=== PATIENT | female | born 1940 | race Caucasian/White ===

== ENCOUNTER 2020-10-07 09:14 | Outpatient (CLI) | payer MEDICARE, SELFPAY ==
--- NOTE | 2020-10-07 09:23 | USCV_ITS ---
Mary Ponce Age: 79 Gender: F : 1940 Exam Date: 10/07/2020 09:41 Ordering Phys: Mason Braswell DO Technologist: Lupe Kee Exam Location: [facility] [place] Indication: DYSPNEA BP: / HR: Rhythm: Sinus Technical Quality: Technically difficult study MEASUREMENTS (Male / Female) Normal Values 2D ECHO LV Diastolic Diameter PLAX 3.8 cm 4.2 - 5.9 / 3.9 - 5.3 cm LV Systolic Diameter PLAX 2.2 cm IVS Diastolic Thickness 1.5 cm 0.6 - 1.0 / 0.6 - 0.9 cm IVS Systolic Thickness 2.0 cm LVPW Diastolic Thickness 1.8 cm 0.6 - 1.0 / 0.6 - 0.9 cm LVPW Systolic Thickness 2.2 cm LVOT Diameter 2.0 cm LV Ejection Fraction 2D Teich 74.2 % LV Ejection Fraction MOD 2C 64.4 % LV Ejection Fraction 2C AL 64.3 % LA Diameter 4.1 cm LA Width 3.5 cm LA Height 5.4 cm RA Width 2.9 cm RA Height 4.2 cm Aorta at Sinotubular Diameter 2.5 cm M-MODE Aortic Annulus Diameter 2.6 cm LA Ao Ratio MM 1.5 DOPPLER AV Peak Velocity 294.0 cm/s LVOT Peak Velocity 135.0 cm/s AV Area Cont Eq vti 1.3 cm squared AV Area Cont Eq pk 1.4 cm squared MV Area PHT 1.4 cm squared Mitral E to A Ratio 0.7 MV E' Velocity 59.5 cm/s Mitral E to MV E' Ratio 23.0 Mitral E to LV E' Lateral Ratio 20.2 Mitral E to LV E' Septal Ratio 27.5 TR Peak Velocity 236.2 cm/s TR Peak Gradient 22.3 mmHg Right Atrial Pressure 3.0 mmHg Pulmonary Artery Systolic Pressu 25.3 mmHg PV Peak Velocity 74.0 cm/s RV Acceleration Time 0.1 s RV Ejection Time 0.3 s RV AcT/ET 0.2 FINDINGS Left Ventricle Normal left ventricular cavity size. Increased left ventricular wall thickness. Moderate concentric left ventricular hypertrophy. Normal left ventricular systolic function. Left ventricular ejection fraction is estimated at 75 %. No regional wall motion abnormalities. Grade I diastolic dysfunction (abnormal relaxation filling pattern) with elevated filling pressures. Right Ventricle Normal right ventricular size and systolic function. Right ventricular systolic pressure 25.3 mmHg. Right Atrium Normal right atrial size. Right atrial pressure estimated at 3 mm Hg. Left Atrium Moderately increased left atrial size. Mitral Valve Severe mitral annular calcification. No mitral valve stenosis. Trace mitral valve regurgitation. Aortic Valve Thickened and calcified aortic valve. Moderate aortic valve stenosis, peak velocity 3 m/sec, peak gradient 37 mm Hg, mean gradient 23 mmHg, GIGI 1.3 cm squared. Moderate aortic valve regurgitation. Tricuspid Valve Tricuspid valve not well visualized. Trace to mild tricuspid valve regurgitation. Pulmonic Valve Pulmonic valve not well visualized. No pulmonary valve stenosis. Trace pulmonary valve regurgitation. Pericardium No pericardial effusion. Aorta Normal size aortic root and mild dilated proximal ascending aorta measured at 3.7 cm. Normal sized inferior vena cava with normal respiratory variation. CONCLUSIONS 1. Normal left ventricular cavity size. Moderate concentric left ventricular hypertrophy. Normal left ventricular systolic function. Left ventricular ejection fraction is estimated at 75 %. No regional wall motion abnormalities. Grade I diastolic dysfunction (abnormal relaxation filling pattern) with elevated filling pressures. 2. Moderate aortic valve stenosis, peak velocity 3 m/sec, peak gradient 37 mm Hg, mean gradient 23 mmHg, GIGI 1.3 cm squared. Moderate aortic valve regurgitation. 3. Mild dilated proximal ascending aorta measured at 3.7 cm. 4. Pulmonary artery pressure estimated at 25 mm Hg. 5. No prior similar studies to compare. Mariah Sousa MD (Electronically Signed) Final Date: 11 Oct 2020 14:57 S
== END 2020-10-07 09:15 | disposition home or self-care (01) ==
LOC: RAD 09:21
PROVIDERS: PCP Family Medicine; Visit Provider Family Medicine
DX: R06.00 Dyspnea, unspecified (principal); I10 Essential (primary) hypertension; I35.0 Nonrheumatic aortic (valve) stenosis
CPT/HCPCS: 93306

== ENCOUNTER → 2021-08-19 15:09 | Outpatient (BNVA) | payer MEDICARE, SELFPAY | PROVIDERS: PCP Family Medicine; Visit Provider Internal Medicine Cardiovascular Disease | DX: I35.0 Nonrheumatic aortic (valve) stenosis (principal); I10 Essential (primary) hypertension; F17.200 Nicotine dependence, unspecified, uncomplicated; R06.02 Shortness of breath; R53.83 Other fatigue; Z79.82 Long term (current) use of aspirin | CPT/HCPCS: 80048; 83880; 99214; 99215 ==

== ENCOUNTER → 2021-10-05 13:39 | Outpatient (BNVA) | payer MEDICARE, SELFPAY | PROVIDERS: PCP Family Medicine; Visit Provider Family Medicine | DX: J22 Unspecified acute lower respiratory infection (principal); E55.9 Vitamin D deficiency, unspecified; I10 Essential (primary) hypertension; E11.9 Type 2 diabetes mellitus without complications; M17.11 Unilateral primary osteoarthritis, right knee; M48.00 Spinal stenosis, site unspecified; M51.27 Other intervertebral disc displacement, lumbosacral region; D75.839 Thrombocytosis, unspecified | CPT/HCPCS: 80053; 83880; 85025; 86140 ==

== ENCOUNTER 2021-11-04 07:20 | Outpatient (CLI) | payer MEDICARE, SELFPAY ==
[2021-11-04 07:30] VITALS: BMI 38.0
--- NOTE | 2021-11-04 08:30 | USCV_ITS ---
Kris Mary Age: 80 Gender: F : 1940 Exam Date: 11/04/2021 07:52 Ordering Phys: Marizol Leiva MD ([email or web address]) Technologist: JAIDA Exam Location: [facility] – [place] Indication: / SOB BP: 154 / 80 HR: 70 Rhythm: Sinus Technical Quality: Technically difficult study MEASUREMENTS (Male / Female) Normal Values 2D ECHO LV Diastolic Diameter PLAX 4.6 cm 4.2 - 5.9 / 3.9 - 5.3 cm LV Systolic Diameter PLAX 2.6 cm IVS Diastolic Thickness 1.3 cm 0.6 - 1.0 / 0.6 - 0.9 cm IVS Systolic Thickness 1.8 cm LVPW Diastolic Thickness 1.3 cm 0.6 - 1.0 / 0.6 - 0.9 cm LVPW Systolic Thickness 2.0 cm RV Chamber Size 3.0 cm LVOT Diameter 2.0 cm LV Ejection Fraction 2D Teich 74.3 % LA Diameter 3.6 cm LA Width 3.7 cm LA Height 5.3 cm RA Width 3.2 cm RA Height 5.6 cm Aorta at Sinotubular Diameter 1.9 cm IVC Diameter 1.6 cm M-MODE Aortic Annulus Diameter 2.6 cm LA Ao Ratio MM 1.3 MV E Point Septal Separation 0.7 cm DOPPLER AV Peak Velocity 295.3 cm/s LVOT Peak Velocity 83.0 cm/s AV Area Cont Eq vti 0.9 cm squared AV Area Cont Eq pk 0.9 cm squared MV Peak Velocity 202.0 cm/s MV Area PHT 3.7 cm squared Mitral E to A Ratio 0.9 MV E' Velocity 78.5 cm/s Mitral E to MV E' Ratio 24.9 Mitral E to LV E' Lateral Ratio 29.1 Mitral E to LV E' Septal Ratio 22.0 TV Peak E Velocity 42.0 cm/s Right Atrial Pressure 3.0 mmHg PV Peak Velocity 90.0 cm/s RV Acceleration Time 0.1 s RV Ejection Time 0.3 s RV AcT/ET 0.3 FINDINGS Left Ventricle Normal left ventricular size and systolic function, EF 70%.no regional wall motion abnormalities. Right Ventricle Normal right ventricular size and systolic function. Right Atrium The right atrium is normal in size. Left Atrium Mildly increased left atrial size. Mitral Valve Thickened mitral valve. Moderate to heavy mitral annular calcification. Aortic Valve Severe low gradient aortic valve stenosis with a peak velocity of 3.06 m/s peak gradient of 36 8 mmHg and a mean gradient of 19 mmHg. Calculated valve area of 0.8 cm squire. The valve index of 0.40 Tricuspid Valve No gross abnormalities noted Pulmonic Valve Pulmonic valve not well visualized. Pericardium No pericardial effusion. Aorta Normal aortic annulus size. IVC Normal IVC dimension with >50% respiratory change of the inferior vena cava. CONCLUSIONS Severe low gradient aortic valve stenosis with a valve area of 0.86 cm squared. Peak velocity of 3.06 m/s ;peak gradient of 36 8 mmHg and a mean gradient of 19 mmHg. The valve index of 0.40. Normal left ventricular size and systolic function, EF 70%. No regional wall motion abnormalities. Mildly increased left atrial size. Thickened mitral valve with moderate to heavy mitral annular calcification. The PA pressure could not be evaluated because of the poor Doppler signals. Technically difficult study because of the poor ultrasonic window. Comparison with the previous study is difficult because of the difference in the technical quality. Dr Marizol Leiva MD [facility] (Electronically Signed) Final Date: 05 November 2021 16:52 S
--- NOTE | 2021-11-04 08:39 | ECG_ITS ---
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 Interpretive Statements NAME OF STUDY: LEXISCAN SESTAMIBI STRESS TEST INDICATION: Shortness of Breath, PROCEDURE: At the baseline, the EKG revealed normal sinus rhythm with a possible left atrial enlargement. Poor R wave progression. Possible old septal SD.. The baseline blood pressure was 111/82 mm Hg with a heart rate of 70 beats/min. Lexiscan was infused over a period of 20 seconds. A total of 0.4 milligrams of Lexiscan was infused. The stress phase was continued for a total of 5 minutes. Heart rate at the end of the stress phase was 79 with a blood pressure 97/74. The EKG at the peak infusion revealed no significant changes. Sestamibi was injected 20 seconds after the Lexiscan infusion. Blood pressure at the end of the recovery phase was 122/74 with a heart rate of 77 per minute. CONCLUSION: 1. No significant EKG changes with the LexiScan infusion 2. No LexiScan induced chest pain or cardiac arrhythmia 3. Normal blood pressure and heart rate response 4. Sestamibi/sestamibi perfusion scan pending; see separate report. Electronically Signed On 11-05-2021 15:01:20 CDT by Marizol Leiva M.D. [id number]
--- NOTE | 2021-11-04 08:40 | NMCV_ITS ---
NM bhumika perf SPECT r/s* [id number] Mary Ponce Age: 80 Gender: F : 1940 Exam Date: 11/04/2021 08:40 Ordering Phys: Marizol Leiva MD ([email or web address]) Technologist: MAO Beltran Exam Location: [facility] Indications: DYSPNEA ON EXERTION STRESS TEST Please see separate stress test report in [facility] for full findings IMAGE PROTOCOL Rest/Stress 1 Lexiscan Day Radiopharmaceutical Dose (mCi) Administration Site Administered by Rest: Tc-99m 10.7 IV MAO Knutson Sestamibi Stress:Tc-99m 33.0 IV MAO Knutson Sestamibi Rest: 04-Nov-2021 60 Discovery 630 Stress: 04-Nov-2021 30 Discovery 630 0.4mg Lexiscan. Supine position only as patient was unable to lay prone. SPECT RESULTS Technical Quality: Excellent Raw Data Analysis: Normal Image Corrections: No attenuation or motion correction applied Summed Stress Score: 1 Summed Rest Score: 0 Summed Difference Score: 1 PERFUSION FINDINGS A small area of slightly decreased tracer uptake was noted in the mid inferolateral region with some reversibility. FUNCTIONAL RESULTS (calculated via Gated SPECT) Stress Image LV EF (%): 78 Stress EDV (mL):85 TID: 1.14 Stress ESV (mL):19 FUNCTIONAL FINDINGS: Segmental wall motion analysis revealing no gross wall motion abnormalities IMPRESSIONS 1. Myocardial perfusion imaging revealing a small area of reversible defect was noted in the mid inferolateral region suggesting ischemia in the distribution of the left circumflex artery. Borderline elevation of the transient ischemic dilatation ratio also may suggest endocardial ischemia. 2. Normal LV ejection fraction 70%. 3. Segmental wall motion analysis revealing no gross wall motion abnormalities 4. Normal LV volume. Low probability for coronary ischemia, based on the above findings. No similar previous studies are available for comparison Dr Marizol Leiva MD [facility] (Electronically Signed) Final Date: 04 November 2021 17:12 S
[2021-11-04] MEDS: regadenoson 0.4 Mg/5 ml Syringe IVP (09:18)
[2021-11-04 10:03] VITALS: BP 122/74; PULSE 75
== END 2021-11-04 07:21 | disposition home or self-care (01) ==
PROVIDERS: PCP Family Medicine; Visit Provider Internal Medicine Cardiovascular Disease
DX: I08.0 Rheumatic disorders of both mitral and aortic valves (principal); R06.00 Dyspnea, unspecified
CPT/HCPCS: 78452; 93017; 93306; A9500; J2785

== ENCOUNTER → 2021-11-16 09:54 | Outpatient (BNVA) | payer MEDICARE, SELFPAY | PROVIDERS: PCP Family Medicine; Visit Provider Internal Medicine Cardiovascular Disease | DX: I35.0 Nonrheumatic aortic (valve) stenosis (principal); I10 Essential (primary) hypertension; R06.02 Shortness of breath; F17.200 Nicotine dependence, unspecified, uncomplicated | CPT/HCPCS: 36415; 80048; 83880; 85025; 85610; 86850; 86900; 99214; 99215 ==

== ENCOUNTER 2021-11-17 15:17 | Outpatient (CLI) | payer MEDICARE, SELFPAY ==
--- NOTE | 2021-11-17 15:26 | MR_ITS ---
WS: [id number] MRI LUMBAR SPINE NONCONTRAST HISTORY: SPINAL STENOSIS/HERNIATED DISC COMPARISON: None available. TECHNIQUE: Sagittal and axial multisequence imaging is submitted. Marked increase in the thoracic kyphosis. Component of cervical stenosis at C5-6. Increase in the lumbar lordosis. L4 anterolisthesis by 6 mm. L5 anterolisthesis by 4 mm. Advanced deg enerative disc disease L4-5 and L5-S1. Small amount of marrow edema along the endplates of L4 and L5. Conus terminates normally at L1-2 disc level. L1-L2: Moderate diffuse annular disc bulging with facet arthritis. Mild central, bilateral subarticul ar recess and foraminal stenosis. L2-L3: Diffuse annular disc bulging with facet and ligamentum flavum hypertrophy. Mild central, bilat eral foraminal and subarticular recess stenosis. L3-L4: Diffuse annular disc bulging with ligamentum flavum and facet arthritis. Central disc protrusi on. Additional LEFT foraminal disc protrusion contacting the exiting LEFT L3 nerve root. Moderate radu tral, bilateral subarticular recess and foraminal stenosis. L4-L5: Unroofing of the disc with diffuse annular disc bulging and severe facet and ligamentum flavum arthritis. Severe central, bilateral subarticular recess and foraminal stenosis. L5-S1: Mild annular disc bulging. Asymmetric to the LEFT. Broad-based LEFT foraminal disc protrusion along with a central disc protrusion. Mild central and bilateral subarticular recess stenosis. Most p rominent disc encroachment upon the LEFT L5 and S1 nerve roots. Paravertebral soft tissues are negative. MR/MR lumbar spine wo con* [id number] IMPRESSION: 1. Grade 1 spondylolisthesis of L4 and L5. Severe degenerative disc disease at L4-5 and L5-S1. 2. Moderate central, bilateral subarticular recess and foraminal stenosis at L 3-4 with most significant encroachment upon the LEFT L3 nerve root. 3. Severe central, bilateral subarticular recess and foraminal stenosis at L4- 5. 4. Mild central and bilateral subarticular recess stenosis. Most significant d isc encroachment upon the LEFT L5 and S1 nerve roots. 5. Mild central, bilateral subarticular recess and foraminal stenosis at L1-2 and L2-3.
== END 2021-11-17 15:18 | disposition home or self-care (01) ==
PROVIDERS: PCP Family Medicine; Visit Provider Family Medicine
DX: M48.00 Spinal stenosis, site unspecified (principal); M51.27 Other intervertebral disc displacement, lumbosacral region; M43.16 Spondylolisthesis, lumbar region; M51.36 Other intervertebral disc degeneration, lumbar region; M48.07 Spinal stenosis, lumbosacral region
CPT/HCPCS: 72148

== ENCOUNTER → 2021-11-30 13:59 | Outpatient (BNVA) | payer MEDICARE, SELFPAY | PROVIDERS: PCP Family Medicine; Referring Provider Family Medicine; Visit Provider Orthopaedic Surgery | DX: M54.16 Radiculopathy, lumbar region (principal); M48.061 Spinal stenosis, lumbar region without neurogenic claudication | CPT/HCPCS: 72100; 99204 ==

== ENCOUNTER 2021-12-08 09:11 | Outpatient (CLI) | payer MEDICARE, SELFPAY ==
[2021-12-08 09:50] LABS: Basophils % 0.4 %; Eosinophils # 0.6 10^3/uL (0.0-0.8); Eosinophils % 6.2 %; Lymphocytes # 1.6 10^3/uL (0.8-4.8); Lymphocytes % 16.5 %; Mean Corpuscular HGB Conc 30.8 g/dL (30.0-36.0); Mean Corpuscular Hemoglobin 28.8 pg (28.0-34.0); Mean Corpuscular Volume 93.8 fl (81-99); Mean Platelet Volume 9.5 fL (7.4-10.4); Monocytes # 0.9 10^3/uL (0.2-0.9); Monocytes % 8.9 %; Neutrophils # 6.41 10^3/uL (1.8-7.7); Neutrophils % 65.9 %; Nucleated Red Blood Cells % 0 %; Platelet Count 335 10^3/cmm (130-400); Red Blood Count 4.16 10^6/uL (4.1-5.3); Red Cell Distribution Width 15.9 % (12.1-15.1); White Blood Count 9.7 10^3/uL (4.0-10.0)
[2021-12-08 10:03] LABS: INR 1.04 (0.83-1.21); Prothrombin Time (Patient) 13.9 Seconds (12.0-15.1)
[2021-12-08 10:20] LABS: Anion Gap 13.2 (5-19); Blood Urea Nitrogen 20 mg/dL (8-23); Carbon Dioxide 29 mmol/L (22-29); Chloride 100 mmol/L (98-107); Glucose 115 mg/dL (65-115); Osmolality Calculated 288 mOsm/kg (285-295); Potassium 5.2 mmol/L (3.5-5.1); Sodium 137 mmol/L (136-145)
== END 2021-12-08 09:12 | disposition home or self-care (01) ==
LOC: LAB 09:19
PROVIDERS: PCP Family Medicine; Visit Provider Internal Medicine Cardiovascular Disease
DX: I10 Essential (primary) hypertension (principal); R06.02 Shortness of breath; R53.83 Other fatigue; Z01.812 Encounter for preprocedural laboratory examination
CPT/HCPCS: 36415; 80048; 85025; 85610; 86850; 86900

== ENCOUNTER 2021-12-09 08:20 | Observation (INO) | payer MEDICARE, SELFPAY ==
[2021-12-09] VITALS (40 sets, daily range): BP systolic 130–187; BP diastolic 68–100; PULSE 59–86; RESP 14–26; TEMP 36.7–36.8; O2SAT 94–95; BMI 38.6
--- NOTE | 2021-12-09 06:00 | XACV_ITS ---
Exam Room: 2 Ht: 160 cm Wt: 99 kg BSA: 2.15 m2 Gender: Female : 1940 Exam Priority: Routine Procedure(s): Procedure Description: Diagnostic procedure Procedure Description: Left Heart Catheterization Procedure Description: Right Heart Catheterization Procedure Description: O2 saturation Procedure Description: Coronary Angiography Cali LAURENT; Diagnostic Cath Status: Elective Diagnostic Findings * The left main is a medium to large caliber ectatic vessel with no significant stenotic lesions. * The left anterior descending artery is a medium caliber vessel which appears to wrap around the LV apex minimally. The proximal segment of the artery was found to be somewhat ectatic. 20 to 30% diffuse narrowing was noted in the mid segment of the artery. After the takeoff of the first diagonal branch, there was a 50% narrowing in the artery. Minimal intimal irregularities where noted throughout the distal segment. No significant stenotic lesions. * Left circumflex artery is a medium to large caliber ectatic vessel. Mild diffuse disease is noted in this vessel as well. No significant stenotic lesions were noted. The artery was found to be tortuous distally. * The right coronary artery is a medium caliber diffusely ectatic vessel with a mild diffuse intimal irregularities. No significant stenotic lesions were noted. Conclusions 1. 80-year-old vit F female with a history of aortic valve stenosis, high blood pressure, dyslipidemia presented with complaints of progressive shortness of breath. She was found to have a low gradient severe aortic valve stenosis. She had a Myocardial perfusion imaging which revealed elevated transient ischemic dilatation ratio. In view of the patient's worsening symptoms, in order to evaluate her coronary arteries and hemodynamics, a right and left heart catheterization with coronary angiogram was recommended. Patient underwent left and right heart catheterization with coronary angiogram today. The findings are as follows. 2. 1. Mild diffuse coronary artery disease. Diffusely ectatic proximal segment of all the arteries. 40 to 50% segmental narrowing of the mid LAD. Mild to moderate coronary calcification and tortuosity's were noted in all the vessels. The LVEDP was 20 mmHg. . 3. The right heart catheterization revealed a PA pressure of 77/28 with a mean of 45. RV pressure was 75/9. The right atrial mean pressure was 19. The pulmonary capillary wedge pressure was 21 mmHg. Cardiac output was 4 with an index of 2, based on Stephani's. 4. The left heart catheterization revealed the LVEDP of 20 mmHg. The mean gradient across the aortic valve was 31 mmHg with a peak to peak gradient of 26 mmHg. Diagnostic RX Recommendation: other cardiac therapy w/o CABG/PCI LV EDP: 20 mmHg Left Ventriculography Findings: * LV gram was not performed because of the limitation on the dye usage. Pressures Phase:Rest AO : 150 / 72 ( 101 ) @ 8:50:00 AM 125 / 74 ( 97 ) @ 8:53:00 AM 149 / 68 ( 99 ) @ 9:07:00 AM 154 / 60 ( 101 ) @ 9:07:00 AM LV : 174 / 2 / 20 @ 9:06:00 AM 174 / 1 / 19 @ 9:07:00 AM RV : 75 / 9 / 21 @ 8:28:00 AM PA : 77 / 28 ( 45 ) @ 8:25:00 AM RA : a wave = 25 v wave = 20 mean = 19 @ 8:30:00 AM PCW : a wave = 22 v wave = 22 mean = 21 @ 8:26:00 AM O2 Content Phase:Rest PA : O2 Content O2: 58.2 @ 8:50:00 AM Saturations Phase:Rest AO : 90 @ 9:07:00 AM RA : 64 @ 9:07:00 AM RV : 63 @ 8:53:00 AM PA : 58 @ 8:50:00 AM Cardiac Output Phase:Rest Stephani : 4 @ 8:12:39 AM Stephani Cardiac Index: 2 @ 8:12:39 AM Flow Phase:Rest Qp : 4 @ 8:12:39 AM Qs : 4 @ 8:12:39 AM Valves Phase:DefaultPhase AV : 26.0 @ 8:12:39 AM 26.0 @ 8:12:39 AM AV Mean Gradient: 31.0 @ 8:12:39 AM AV Flow: 183 @ 8:12:39 AM AV Area: 0.7 @ 8:12:39 AM AV Area Index: 0.37 @ 8:12:39 AM Clinical Evaluation EBL: 5mL-10mL Procedural Details Procedure Consent Obtained. Admit Source: Out Patient. Pre-Procedure Time Out. Identified patient by full name and date of as verbalized by the patient/guarantor. Does the consent match the physician's order: Yes. Accurate & Complete Informed Consent: Yes. Inpatient/Outpatient History & Physical on Chart: Yes. If H&P is completed, is and addenduem needed: N/A; If yes, is the addendum complete: N/A. Visualize and Verify Site with Patient/Guarantor: N/A. Relevant Radiology Images available: N/A. Pre-op teaching completed and patient verbalized understanding. The risks, benefits, and alternatives of sedation and/or procedure were discussed by physician. The patient agrees to continue. Procedure started. [facility] Clinical Fraility Score: 4: Vulnerable. 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 Chest Pain Symptom Assessment: Asymptomatic. Correct patient, site and procedure confirmed by cath team. Current diagnosis: Aortic valve stenosis. PERRLA. Strong, equal hand finishing manager bilaterally. Lungs clear x 5 lobes. IV Site on Arrival: 20 gauge in the left anticubital. IV Site on Arrival: 20 gauge in the right anticubital. IV Fluids: 0.9% NaCl at KVO. 0 mL infused prior to lab tester. Pre Procedural Pulses: bilateral radial was 2+. Pre Procedural Pulses: bilateral dorsalis pedis was 3+. right groin was prepped with chloroprep then draped in the usual sterile fashion. right brachial was prepped with chloroprep then draped in the usual sterile fashion. right radial was prepped with chloroprep then draped in the usual sterile fashion. Physician notified. Baseline sample Acquired. HR: 81 BPM. Physician arrived. Physician scrubbed in. Immediate Pre-Procedure Time Out. Correct Patient: Yes; Correct Procedure: Yes; Correct Site: Yes; Correct Patient Position: Yes; Correct Supplies: Yes; Dried Flammable Prep: Yes; Blood Products Available: N/A;. Lidocaine 1% infiltrated to the right brachial. Sheath wire inserted through IV catheter in R brachial vein. [place] MON catheter inserted. Hand injection performed through the SWAN catheter. [place] wire inserted. [place] wire removed. Pressure measurements obtained. [place] out. Lidocaine 1% infiltrated to the right radial. Arterial access obtained. AO sat obtained. Oxygen started at 2liters/min via nasal canula. A 5 belarusian Yobani catheter in over wire. Hand injection performed thought the catheter. Catheter out. Radial access aborted and switched to groin access. A TR Band was successful obtaining hemostatsis at the Right Radial artery insertion site. Lidocaine 1% infiltrated to the right groin. Arterial access obtained with micropuncture set. A 5 belarusian JL4 catheter in over wire. Multiple views taken of left coronary artery. Catheter removed over the standard wire. A 5 belarusian JR4 catheter in over wire. Multiple views taken of right coronary artery. Catheter removed over the standard wire. A 5 belarusian Angled Pig catheter in over wire. EDP Sample taken: LV 174/2,20; HR: 71 BPM; SpO2: 94%. Pullback taken: LV 174/1,19; AO 149/68(99); Mean: 31mmHg, Peak to Peak: 26mmHg, SEP: 20sec/min; HR: 72 BPM; SpO2: 96%. Physician scrubbed out. Patient's family updated. A Suture was successful obtaining hemostatsis at the Right Femoral artery insertion site. Total IV fluids: 115 mL. Post Procedure: Pulses reassessed and unchanged. PERRLA. Strong, equal hand finishing manager bilaterally. No VTE prophylaxis required. Medication's Wasted: Heparin = 2500 u. Medication's Wasted: Nitro = 49.8 mg. Medication's Wasted: Other = Fentanyl 75 mcg. Post-op diagnosis: Severe Pulmonary HTN, ,Aortic Stenosis. Complications: none. Estimated blood loss: 5mL-10mL. Responsiveness - Normal response to verbal stimuli; alert and oriented, PERRLA. Airway - Unaffected, no intervention required; spontaneous ventilation. Circulation: W/N/L, pulses unchanged. Nausea/Vomiting: No. Procedure completed. Patient transferred by bed to ICU. Vital chart was stopped. Access Site Site: Right Brachial Vein Sheath Size: 6 Fr Hemostasis Success: Unsuccessful Site: Right Radial artery Sheath Size: 6 Fr Hemostasis Method: TR Band Hemostasis Success: Successful Site: Right Femoral artery Sheath Size: 6 Fr Hemostasis Method: Suture Hemostasis Success: Successful Procedure Medications Start: 7:13 AM Stop: 7:13 AM Medication: Versed Amount: 1 mg Route: I.V. Start: 7:34 AM Stop: 7:34 AM Medication: Nitrogylcerin Amount: 100 mcg Route: I.A. Start: 7:36 AM Stop: 7:36 AM Medication: Verapamil Amount: 5 mg Route: I.A. Start: 7:37 AM Stop: 7:37 AM Medication: Nitrogylcerin Amount: 100 mcg Route: I.A. Start: 7:39 AM Stop: 7:39 AM Medication: Versed Amount: 1 mg Route: I.V. Start: 7:45 AM Stop: 7:45 AM Medication: Fentanyl Amount: 25 mcg Route: I.V. Start: 7:50 AM Stop: 7:50 AM Medication: Heparin Amount: 1500 units Route: I.V. I, the attending physician, have reviewed and verified all procedure medications. Yes, all medications given per verbal order History/Risk Factors Hypertension: Yes Dyslipidemia: No Peripheral Arterial Disease (PAD): No Myocardial Infarction (KS): No Obesity: Yes Renal Disease: No Tobacco Use: Current/Recent(w/in 1 year) Prior Interventions PCI: No CABG: No Valve Surgery: No Report Signatures Finalized by Dr Marizol Leiva MD [facility] on 12/09/2021 09:08 PM
[2021-12-09] MEDS: diphenhydrAMINE 50 mg Capsule PO (06:49)
--- NOTE | 2021-12-09 07:04 | W.PM.OPSUD ---
Surgery/Procedure H&P Update DATE OF PROCEDURE: December 09, 2021 DATE H&P PERFORMED: 11/16/21 H&P UPDATE INFORMATION: I have reviewed H&P completed within last 30 days, I have examined patient prior to procedure and No changes to prior documentation PREOP DIAGNOSIS: Aortic valve stenosis/ SOB PRIMARY INDICATION FOR PROCEDURE: SOB. abnormal MPI PLANNED PROCEDURE: Operation Date: 12/09/21 07:00 Proposed Procedures p Cardiac Catheterization(Bilateral) - Marizol Leiva MD PATIENT REASSESSED PRIOR TO SEDATION, WITH NO CHANGE NOTED: Yes PHYSICAL EXAM: alert, oriented x 3, clear to auscultation bilaterally and regular rate & rhythm AIRWAY EVAL/ANESTHESIA PLAN: normal airway, see other exam findings, ASA III, Monitored Anesthesia, Local Anesthesia, Risks, benefits & alternatives of sedation and/or procedure discussed and Patient agrees to continue as planned
[2021-12-09 07:47] LABS: ABG PCO2 42.5 mmHg (35-45); ABG PH Result 7.39 (7.35-7.45); Arterial Blood Gas Hematocrit 36.4 % (37-47); Base Excess ABG 0.2 mmol/L (-2.0-2.0); Blood Gas Operator Identificat CAK; Blood Gas Sample Type Not specified; HCO3 ABG 25.4 mmol/L (22-26); PO2 ABG 55.6 mmHg (80.0-100.0)
[2021-12-09 07:48] LABS: ABG PCO2 46.2 mmHg (35-45); ABG PH Result 7.36 (7.35-7.45); Arterial Blood Gas Hematocrit 32.9 % (37-47); Base Excess ABG 0.1 mmol/L (-2.0-2.0); Blood Gas Operator Identificat CAK; Blood Gas Sample Type Not specified; HCO3 ABG 25.9 mmol/L (22-26); PO2 ABG 32.3 mmHg (80.0-100.0)
[2021-12-09 07:50] LABS: ABG PCO2 45.8 mmHg (35-45); ABG PH Result 7.37 (7.35-7.45); Arterial Blood Gas Hematocrit 19.6 % (37-47); Base Excess ABG 0.8 mmol/L (-2.0-2.0); Blood Gas Operator Identificat CAK; Blood Gas Sample Type Not specified; HCO3 ABG 26.3 mmol/L (22-26); PO2 ABG 31.3 mmHg (80.0-100.0)
[2021-12-09 07:51] LABS: ABG PCO2 49.6 mmHg (35-45); ABG PH Result 7.35 (7.35-7.45); Arterial Blood Gas Hematocrit 35.9 % (37-47); Base Excess ABG 1.4 mmol/L (-2.0-2.0); Blood Gas Operator Identificat CAK; Blood Gas Sample Type Not specified; HCO3 ABG 27.6 mmol/L (22-26)
[2021-12-09 12:04] LABS: Partial Thromboplastin Time 28.8 SECONDS (23.9-36.7)
[2021-12-09] MEDS: dilTIAZem 30 mg Tablet PO (18:14)
[2021-12-09] MEDS: acetaminophen 500 mg Tablet 1000 MG PO (18:15)
== END 2021-12-09 18:00 | disposition home or self-care (01) ==
LOC: ICU 08:22
PROVIDERS: Admitting Provider Internal Medicine Cardiovascular Disease; PCP Family Medicine; Visit Provider Internal Medicine Cardiovascular Disease
DX: I25.10 Atherosclerotic heart disease of native coronary artery without angina pectoris (principal); I35.0 Nonrheumatic aortic (valve) stenosis; I10 Essential (primary) hypertension; E78.5 Hyperlipidemia, unspecified; E66.9 Obesity, unspecified; Z68.38 Body mass index [BMI] 38.0-38.9, adult
CPT/HCPCS: 36415; 82803; 85730; 93453; 93460; 96360; 99152; 99153; C1769; C1887; C1894; G0378; J1644; J2250; J3010; J3490; Q0163; Q9967

== ENCOUNTER → 2021-12-16 13:27 | Outpatient (BNVA) | payer MEDICARE, SELFPAY | PROVIDERS: PCP Family Medicine; Visit Provider Nurse Practitioner Family | DX: I35.0 Nonrheumatic aortic (valve) stenosis (principal) | CPT/HCPCS: 99214 ==

== ENCOUNTER → 2021-12-27 08:45 | Outpatient (BNVA) | payer MEDICARE, SELFPAY | PROVIDERS: PCP Family Medicine; Visit Provider Anesthesiology Pain Medicine | DX: M43.16 Spondylolisthesis, lumbar region (principal); M79.604 Pain in right leg; M79.605 Pain in left leg; F17.210 Nicotine dependence, cigarettes, uncomplicated; M51.17 Intervertebral disc disorders with radiculopathy, lumbosacral region; M47.816 Spondylosis without myelopathy or radiculopathy, lumbar region; M48.062 Spinal stenosis, lumbar region with neurogenic claudication | CPT/HCPCS: 99205 ==

== ENCOUNTER → 2022-01-27 10:23 | Outpatient (BNVA) | payer MEDICARE, SELFPAY | PROVIDERS: PCP Family Medicine; Visit Provider Anesthesiology Pain Medicine | DX: M51.17 Intervertebral disc disorders with radiculopathy, lumbosacral region (principal); M48.062 Spinal stenosis, lumbar region with neurogenic claudication; M47.816 Spondylosis without myelopathy or radiculopathy, lumbar region; M43.16 Spondylolisthesis, lumbar region; M79.604 Pain in right leg; M79.605 Pain in left leg; F17.210 Nicotine dependence, cigarettes, uncomplicated | CPT/HCPCS: 99213 ==

== ENCOUNTER → 2022-02-01 15:22 | Outpatient (BNVA) | payer MEDICARE, SELFPAY | PROVIDERS: PCP Family Medicine; Visit Provider Internal Medicine Cardiovascular Disease | DX: J06.9 Acute upper respiratory infection, unspecified (principal); R06.02 Shortness of breath; I35.0 Nonrheumatic aortic (valve) stenosis; I10 Essential (primary) hypertension; F17.210 Nicotine dependence, cigarettes, uncomplicated; R53.83 Other fatigue | CPT/HCPCS: 80048; 83880; 99214 ==

== ENCOUNTER → 2022-03-28 10:42 | Outpatient (BNVA) | payer MEDICARE, SELFPAY | PROVIDERS: PCP Family Medicine; Visit Provider Anesthesiology Pain Medicine | DX: M48.062 Spinal stenosis, lumbar region with neurogenic claudication (principal); M54.16 Radiculopathy, lumbar region; M47.816 Spondylosis without myelopathy or radiculopathy, lumbar region; M25.561 Pain in right knee; M25.562 Pain in left knee; M43.16 Spondylolisthesis, lumbar region; F17.210 Nicotine dependence, cigarettes, uncomplicated | CPT/HCPCS: 99214 ==

== ENCOUNTER → 2022-06-16 14:11 | Outpatient (BNVA) | payer MEDICARE, SELFPAY | PROVIDERS: PCP Family Medicine; Visit Provider Nurse Practitioner Family | DX: I35.0 Nonrheumatic aortic (valve) stenosis (principal); I10 Essential (primary) hypertension; F17.210 Nicotine dependence, cigarettes, uncomplicated | CPT/HCPCS: 99214 ==

== ENCOUNTER → 2022-06-22 13:56 | Outpatient (BNVA) | payer MEDICARE, SELFPAY | PROVIDERS: PCP Family Medicine; Visit Provider Anesthesiology Pain Medicine | DX: M17.11 Unilateral primary osteoarthritis, right knee (principal) | CPT/HCPCS: 20610 ==

== ENCOUNTER → 2022-07-19 09:50 | Outpatient (BNVA) | payer MEDICARE, SELFPAY | PROVIDERS: PCP Family Medicine; Visit Provider Anesthesiology Pain Medicine | DX: M48.062 Spinal stenosis, lumbar region with neurogenic claudication (principal); M54.16 Radiculopathy, lumbar region; M47.816 Spondylosis without myelopathy or radiculopathy, lumbar region; M43.16 Spondylolisthesis, lumbar region; M25.569 Pain in unspecified knee | CPT/HCPCS: 99214 ==

== ENCOUNTER → 2022-08-22 08:59 | Outpatient (BNVA) | payer MEDICARE, SELFPAY | PROVIDERS: PCP Family Medicine; Visit Provider Anesthesiology Pain Medicine | DX: M25.561 Pain in right knee (principal); M25.562 Pain in left knee; M48.062 Spinal stenosis, lumbar region with neurogenic claudication; M54.16 Radiculopathy, lumbar region; M47.816 Spondylosis without myelopathy or radiculopathy, lumbar region; M43.16 Spondylolisthesis, lumbar region | CPT/HCPCS: 99214 ==

== ENCOUNTER → 2022-09-05 14:54 | Outpatient (BNVA) | payer MEDICARE, SELFPAY | PROVIDERS: PCP Family Medicine; Visit Provider Anesthesiology Pain Medicine | DX: M47.816 Spondylosis without myelopathy or radiculopathy, lumbar region (principal); M48.062 Spinal stenosis, lumbar region with neurogenic claudication | CPT/HCPCS: 64493; 64494; 64495; J3490 ==

== ENCOUNTER → 2022-09-19 11:14 | Outpatient (BNVA) | payer MEDICARE, SELFPAY | PROVIDERS: PCP Family Medicine; Visit Provider Anesthesiology Pain Medicine | DX: M25.561 Pain in right knee (principal); M25.562 Pain in left knee; M48.062 Spinal stenosis, lumbar region with neurogenic claudication; M54.16 Radiculopathy, lumbar region; M47.816 Spondylosis without myelopathy or radiculopathy, lumbar region; M43.16 Spondylolisthesis, lumbar region | CPT/HCPCS: 99214 ==

== ENCOUNTER → 2022-10-13 13:13 | Outpatient (BNVA) | payer MEDICARE, SELFPAY | PROVIDERS: PCP Family Medicine; Visit Provider Anesthesiology Pain Medicine | DX: M47.816 Spondylosis without myelopathy or radiculopathy, lumbar region (principal); M48.062 Spinal stenosis, lumbar region with neurogenic claudication | CPT/HCPCS: 64635; 64636; J1030 ==

== ENCOUNTER → 2022-10-27 12:57 | Outpatient (BNVA) | payer MEDICARE, SELFPAY | PROVIDERS: PCP Family Medicine; Visit Provider Anesthesiology Pain Medicine | DX: M47.816 Spondylosis without myelopathy or radiculopathy, lumbar region (principal); M48.062 Spinal stenosis, lumbar region with neurogenic claudication | CPT/HCPCS: 64635; 64636; J1030 ==

== ENCOUNTER → 2022-10-28 10:36 | Outpatient (BNVA) | payer MEDICARE, SELFPAY | PROVIDERS: PCP Family Medicine; Referring Provider Anesthesiology Pain Medicine; Visit Provider Student in an Organized Health Care Education/Training Program | DX: M17.0 Bilateral primary osteoarthritis of knee (principal) | CPT/HCPCS: 20610; 73560; 73565; 99204; J1100; J2795; J3301; J7325 ==

== ENCOUNTER → 2022-11-23 12:04 | Outpatient (BNVA) | payer MEDICARE, SELFPAY | PROVIDERS: PCP Family Medicine; Visit Provider Anesthesiology Pain Medicine | DX: M16.0 Bilateral primary osteoarthritis of hip (principal); M48.062 Spinal stenosis, lumbar region with neurogenic claudication; M25.561 Pain in right knee; M25.562 Pain in left knee; M54.16 Radiculopathy, lumbar region; M47.816 Spondylosis without myelopathy or radiculopathy, lumbar region; M43.10 Spondylolisthesis, site unspecified; M43.16 Spondylolisthesis, lumbar region; M25.559 Pain in unspecified hip | CPT/HCPCS: 73522; 99214 ==

== ENCOUNTER → 2022-12-06 11:02 | Outpatient (BNVA) | payer MEDICARE, SELFPAY | PROVIDERS: PCP Family Medicine; Visit Provider Anesthesiology Pain Medicine | DX: M54.16 Radiculopathy, lumbar region (principal); M47.816 Spondylosis without myelopathy or radiculopathy, lumbar region; M25.561 Pain in right knee; M25.562 Pain in left knee; M43.16 Spondylolisthesis, lumbar region; M16.0 Bilateral primary osteoarthritis of hip | CPT/HCPCS: 99214 ==

== ENCOUNTER → 2022-12-15 13:02 | Outpatient (BNVA) | payer MEDICARE, SELFPAY | PROVIDERS: PCP Family Medicine; Visit Provider Internal Medicine Cardiovascular Disease | DX: R06.02 Shortness of breath (principal); I10 Essential (primary) hypertension; Z79.899 Other long term (current) drug therapy; I35.0 Nonrheumatic aortic (valve) stenosis; J44.1 Chronic obstructive pulmonary disease with (acute) exacerbation; F17.210 Nicotine dependence, cigarettes, uncomplicated | CPT/HCPCS: 36415; 80048; 83880; 99214 ==

== ENCOUNTER 2022-12-23 12:02 | Outpatient (CLI) | payer MEDICARE, SELFPAY ==
--- NOTE | 2022-12-23 12:15 | USCV_ITS ---
Mary Ponce Age: 81 Gender: F : 1940 Exam Date: 12/23/2022 12:43 Ordering Phys: Marizol Leiva MD ([email or web address]) Technologist: JOVANNY Exam Location: [facility] – [place], [place] Indication: FOLLOW UP ON BP: 138 / 73 HR: 70 Rhythm: Sinus Technical Quality: Adequate MEASUREMENTS (Male / Female) Normal Values 2D ECHO LV Diastolic Diameter PLAX 4.2 cm 4.2 - 5.9 / 3.9 - 5.3 cm LV Systolic Diameter PLAX 2.7 cm LV Chamber Size 2.9 cm IVS Diastolic Thickness 1.4 cm 0.6 - 1.0 / 0.6 - 0.9 cm IVS Systolic Thickness 1.7 cm LVPW Diastolic Thickness 1.6 cm 0.6 - 1.0 / 0.6 - 0.9 cm LVPW Systolic Thickness 1.6 cm RV Chamber Size 2.3 cm LVOT Diameter 2.1 cm LV Ejection Fraction 2D Teich 66.4 % LV Ejection Fraction MOD 2C 66.8 % LV Ejection Fraction 2C AL 67.4 % LA Diameter 4.3 cm LA Width 3.4 cm LA Height 5.2 cm RA Width 3.5 cm RA Height 4.7 cm Aorta at Sinotubular Diameter 2.5 cm M-MODE Aortic Annulus Diameter 3.2 cm LA Ao Ratio MM 1.6 MV E Point Septal Separation 0.8 cm DOPPLER AV Peak Velocity 464.0 cm/s LVOT Peak Velocity 148.7 cm/s AV Area Cont Eq vti 1.2 cm squared AV Area Cont Eq pk 1.1 cm squared MV Area PHT 4.1 cm squared Mitral E to A Ratio 1.5 MV E' Velocity 63.0 cm/s Mitral E to MV E' Ratio 23.0 Mitral E to LV E' Lateral Ratio 53.9 Mitral E to LV E' Septal Ratio 14.6 TR Peak Velocity 223.0 cm/s TR Peak Gradient 19.9 mmHg TR Mean Velocity 166.3 cm/s TR Mean Gradient 13.5 mmHg TR Velocity Time Integral 54.3 cm TV Peak E Velocity 64.0 cm/s Right Atrial Pressure 3.0 mmHg Pulmonary Artery Systolic Pressu 22.9 mmHg RV Acceleration Time 0.1 s RV Ejection Time 0.3 s RV AcT/ET 0.2 FINDINGS Left Ventricle Normal left ventricular size and systolic function, EF 59 %. Mild left ventricular hypertrophy. No regional wall motion abnormalities. Grade III/IV diastolic dysfunction (restrictive filling pattern), severely elevated filling pressures. Right Ventricle Normal right ventricular size and systolic function. Right Atrium Mildly increased right atrial size. Left Atrium Mildly increased left atrial size. Mitral Valve Thickened mitral valve. Moderate mitral annular calcification. Aortic Valve Wilqnwgm-cd-cnbuej aortic valve stenosis. Peak velocity of 4.64 m/s with a peak gradient of 86 and a mean gradient of 40 mmHg. Aortic valve area was calculated to be 1.1 cm,.moderate aortic valve calcification. Tricuspid Valve Mild tricuspid valve regurgitation. Pulmonic Valve Pulmonic valve not well visualized. Pericardium Normal pericardium without effusion. Aorta Normal aortic annulus size. IVC Inferior vena cava not visualized. CONCLUSIONS Normal left ventricular size and systolic function, EF 59 %. Mild left ventricular hypertrophy. No regional wall motion abnormalities. Grade III/IV diastolic dysfunction (restrictive filling pattern), severely elevated filling pressures. Mild biatrial enlargement Thickened mitral valve. Moderate mitral annular calcification. Chpbxzke-to-rmgwpu aortic valve stenosis. Peak velocity of 4.64 m/s with a peak gradient of 86 and a mean gradient of 40 mmHg. Aortic valve area was calculated to be 1.1 cm,.moderate aortic valve calcification. Mild tricuspid valve regurgitation. Estimated pulmonary artery peak systolic pressure 23 mm of Hg. Mild tricuspid valve regurgitation. There is no pericardial effusion. There are no intracardiac masses. Compared to the study from 11/04/2021, there is worsening of the aortic valve stenosis Dr Marizol Leiva MD [facility] (Electronically Signed) Final Date: 23 December 2022 20:12 S
== END 2022-12-23 12:03 | disposition home or self-care (01) ==
LOC: RAD 12:04
PROVIDERS: PCP Family Medicine; Visit Provider Internal Medicine Cardiovascular Disease
DX: R06.09 Other forms of dyspnea (principal); I05.9 Rheumatic mitral valve disease, unspecified; I35.0 Nonrheumatic aortic (valve) stenosis; I07.1 Rheumatic tricuspid insufficiency
CPT/HCPCS: 93306

== ENCOUNTER → 2022-12-28 14:44 | Outpatient (BNVA) | payer MEDICARE, SELFPAY | PROVIDERS: PCP Family Medicine; Visit Provider Anesthesiology Pain Medicine | DX: M16.12 Unilateral primary osteoarthritis, left hip (principal) | CPT/HCPCS: 20610; 77002; J1030; J3490 ==

== ENCOUNTER → 2023-02-24 10:39 | Outpatient (BNVA) | payer MEDICARE, SELFPAY | PROVIDERS: PCP Family Medicine; Visit Provider Student in an Organized Health Care Education/Training Program | DX: M17.0 Bilateral primary osteoarthritis of knee | CPT/HCPCS: 20610; 99213; J3301 ==

== ENCOUNTER → 2023-05-02 09:02 | Outpatient (BNVA) | payer MEDICARE, SELFPAY | PROVIDERS: PCP Family Medicine; Visit Provider Anesthesiology Pain Medicine | DX: M48.062 Spinal stenosis, lumbar region with neurogenic claudication (principal); M25.561 Pain in right knee; M25.562 Pain in left knee; M54.16 Radiculopathy, lumbar region; M47.816 Spondylosis without myelopathy or radiculopathy, lumbar region; M43.10 Spondylolisthesis, site unspecified; M43.16 Spondylolisthesis, lumbar region; M17.0 Bilateral primary osteoarthritis of knee | CPT/HCPCS: 36415; 80053; 81001; 85025; 99214 ==

== ENCOUNTER 2023-05-11 14:58 | Outpatient (CLI) | payer MEDICARE, SELFPAY ==
--- NOTE | 2023-05-11 15:30 | CT_ITS ---
WS: [id number] CT RIGHT KNEE, NONCONTRAST TECHNIQUE: Noncontrast CT of the RIGHT knee to include the RIGHT hip and ankle. [facility] CLINICAL INFORMATION: RIGHT TOTAL KNEE ARTHROPLASTY-[facility] COMPARISON: None. DLP: [id number] scans at [facility] use at least one of these dose optimization techniques: automated e xposure control; mA and/or kV adjustment per patient size (includes targeted exams where dose is matc hed to clinical indication); or iterative reconstruction. FINDINGS: Osteopenia. Vascular calcification. Sigmoid diverticulosis. Tiny fat-containing umbilical hernia. Vas cular calcification. Advanced arthritis RIGHT knee with jagw-hs-izsa articulation in the medial joint compartment. Hypertrophic changes along the joint line. Hypertrophic patella. Small suprasellar effu arnulfo. Fatty atrophy involving the hamstring musculature. IMPRESSION: Images obtained for preoperative purposes.
== END 2023-05-11 14:59 | disposition home or self-care (01) ==
LOC: RAD 14:58
PROVIDERS: PCP Family Medicine; Visit Provider Student in an Organized Health Care Education/Training Program
DX: Z01.818 Encounter for other preprocedural examination (principal); M17.11 Unilateral primary osteoarthritis, right knee
CPT/HCPCS: 73700

== ENCOUNTER → 2023-05-16 14:24 | Outpatient (BNVA) | payer MEDICARE, SELFPAY | PROVIDERS: PCP Family Medicine; Visit Provider Family Medicine | DX: Z01.818 Encounter for other preprocedural examination (principal); Z79.899 Other long term (current) drug therapy | CPT/HCPCS: 81003; 87086 ==

== ENCOUNTER 2023-05-22 11:17 | Observation (INO) | payer MEDICARE, SELFPAY ==
--- NOTE | 2023-05-18 14:15 | SUR.PREOP ---
1399 Spoke with pt and she stated that did not want to go to urgent care on Monday for UA due to thinks that urine that was done 2 days ago might have been dirty and preferred and In and Out cath that could be done on Monday Spoke with JOSSUE Gross and stated that pt does not need to go to urgent care on Monday and will In and Out cath prior to surgery on Monday called pt to inform of this above matter and verbalized understanding
[2023-05-22] VITALS (33 sets, daily range): BP systolic 74–140; BP diastolic 38–83; PULSE 68–96; RESP 15–25; TEMP 36.4–36.7; O2SAT 90–99; BMI 39.8; BMI 42.6
--- NOTE | 2023-05-22 07:04 | P.HPUD_ITS ---
Surgery/Procedure H&P Update DATE OF PROCEDURE: May 22, 2023 DATE H&P PERFORMED: 05/02/24 H&P UPDATE INFORMATION: I have reviewed H&P completed within last 30 days, I have examined patient prior to procedure and No changes to prior documentation CHANGES TO PREVIOUS DOCUMENTATION: Patient's UA was treated appropriately outpatient discussed case with Dr. Romano at this point in time feels patient is safe to proceed as her previous positive urine was positive only for normal urogenital jonathan and no pathologic process. Will continue to proceed with surgical intervention patient understood and agreed with this and agrees to proceed. Patient also has received cardiac clearance from her e business specialist she is at a moderate to high risk will need to be monitored closely postoperatively for heart failure and other complications given her severe aortic stenosis. She understands and agrees to proceed all questions answered we will proceed with right total knee arthroplasty at this time. PREOP DIAGNOSIS: Right knee degenerative joint disease PRIMARY INDICATION FOR PROCEDURE: Right knee degenerative joint disease failed conservative treatment PLANNED PROCEDURE: Operation Date: 05/22/23 08:10 Proposed Procedures p Daljit Robot Total Knee Arthroplasty(Right) - Gil Landry DO
[2023-05-22 07:25] LABS: Basophils # 0.1 10^3/uL (0.0-0.1); Basophils % 1.2 %; Eosinophils # 0.4 10^3/uL (0.0-0.8); Eosinophils % 4.9 %; Hematocrit 40.9 % (36-47); Lymphocytes # 1.5 10^3/uL (0.8-4.8); Lymphocytes % 19.4 %; Mean Corpuscular Hemoglobin 29.9 pg (27-33); Mean Platelet Volume 9.8 fL (7.4-10.4); Monocytes # 0.9 10^3/uL (0.2-0.9); Monocytes % 11.3 %; Neutrophils # 4.76 10^3/uL (1.8-7.7); Neutrophils % 61.8 %; Nucleated Red Blood Cells % 0 %; Platelet Count 282 10^3/cmm (157-399); Red Blood Count 4.65 10^6/uL (3.85-5.65)
[2023-05-22] MEDS: lactated ringers 500 ML IV (07:25)
[2023-05-22 07:32] LABS: Add Urine Microscopic? NO; Charge for UA Resulting for Rev
[2023-05-22] MEDS: acetaminophen 1,000 MG/100 ML PIGGYBACK 400 MG IV ×3 (07:41→22:04)
[2023-05-22 07:44] LABS: Bilirubin Urine Neg (Negative); Blood Urine Neg (Negative); Glucose Urine UA Norm (Normal); Ketones Urine Negative (Negative); Leukocyte Esterase Urine Negative (Negative); Nitrate Urine Negative (Negative); Protein Urine Neg (Negative); Specific Gravity, Urine 1.015 (1.005-1.030); Urine Appearance Clear (CLEAR); Urine Color Yellow (Yellow); Urobilinogen Urine Norm (Negative); pH Urine 5 (5-7)
--- NOTE | 2023-05-22 08:08 | ANES.PREANE2 ---
Pre-Anesthetic Assessment Height/Weight: Height 1.6 m Weight 102.058 kg Temp Pulse Resp BP Pulse Ox O2 Del Method 97.5 F L 79 19 H 115/63 92 Room Air 05/22/23 07:51 05/22/23 07:51 05/22/23 07:51 05/22/23 07:51 05/22/23 07:51 05/22/23 07:58 Preop Diagnosis: Right knee degenerative joint disease Operation Date: 05/22/23 08:10 Proposed Procedures p Daljit Robot Total Knee Arthroplasty(Right) - Gil Landry, DO Was Beta Cyrus taken within 24 hours: N/A Was Clonidine taken within 24 hours: N/A Last intake: Intake Last Liquid Date 05/21/23 Last Liquid Time 21:00 Last Solid Date 05/21/23 Last Solid Time 21:00 Social Tobacco Exam alert, oriented x 3 and clear to auscultation bilaterally Airway Submandibular: within normal limits Cervical ROM: within normal limits Mallampati: Class III History/ROS No significant history except as noted and No significant complaints CV/HEM Hypertension and Murmur Mod-severe , EF 59% Anesthetic Plan ASA status: 3 Anesthesia: General and Regional (specify below) Other: Adductor canal block Risk of > 500 ml blood loss (7ml/kg in children): No Medications/Allergies Home Medications Medication Instructions Recorded Confirmed Last Taken Type aspirin 325 mg tablet 325 mg PO DAILY 11/27/20 05/18/23 05/16/23 History vitamins A,C,I-zpxq-tvgmgg 4,296 1 cap PO BID 05/31/21 05/22/23 05/21/23 History mcg-226 mg-90 mg capsule (ICaps AREDS) acetaminophen 500 mg tablet 1,000 mg PO Q6H PRN Pain 12/08/21 05/18/23 05/17/23 History (Tylenol Extra Strength) ibuprofen 800 mg tablet 800 mg PO Q6H PRN pain 12/08/21 05/18/23 05/16/23 History potassium chloride 8 mEq 8 meq PO DIRECTED PRN with 06/16/22 05/18/23 05/15/23 Rx tablet,extended release lasix #180 tabs diltiazem HCl 120 mg 120 mg PO DAILY #90 caps 10/17/22 05/22/23 05/22/23 Rx capsule,extended release 24 hr tizanidine 4 mg tablet 4 mg PO BID PRN muscle spasticity 05/02/23 05/18/23 05/11/23 Rx #60 tabs celecoxib 200 mg capsule (Celebrex) 200 mg PO DAILY PRN Pain, Mild 05/16/23 05/18/23 05/11/23 History sulfamethoxazole 800 1 tab PO BID 7 days #14 tabs 05/17/23 05/22/23 05/21/23 Rx mg-trimethoprim 160 mg tablet (Bactrim DS) allopurinol 100 mg tablet 200 mg PO DAILY 05/18/23 05/22/23 05/21/23 History coenzyme Q10 10 mg tablet 10 mg PO DAILY 05/18/23 05/18/23 05/18/23 History furosemide 20 mg tablet 20 mg PO DAILY PRN Edema 05/18/23 05/18/23 05/15/23 History lisinopril 20 mg tablet 20 mg PO DAILY 05/18/23 05/22/23 05/21/23 History Allergies Allergy/AdvReac Type Severity Reaction Status Date / Time metoprolol Allergy Unknown Unknown Verified 05/18/23 13:35 [facility] Anesthesia Medical History Heart murmur Severe pulmonary hypertension Claudication Aortic valve stenosis Smoking Hypertension Aortic stenosis Surgical History S/P tonsillectomy Family History Brother Myocardial infarct Mother Stroke Social History Smoking and tobacco/nicotine status: current every day tobacco/nicotine user cigarettes Packs smoked per day: 1 Alcohol intake: never Substance/Drug Use: never Data Anesthesia 05/22/23 07:05 05/22/23 07:59 Short CBC 05/22/23 Range/Units 07:05 WBC 7.70 (3.29-11.43) 10^3/uL Hgb 13.90 (11.27-16.99) g/dL Hct 40.9 (36-47) % MCV 88.0 (85-98) fl Plt Count 282 (157-399) 10^3/cmm Neut % (Auto) 61.8 % Neut # (Auto) 4.76 (1.8-7.7) 10^3/uL BMP 05/22/23 07:05 Sodium Cancelled Potassium Cancelled Chloride Cancelled Carbon Dioxide Cancelled BUN Cancelled Creatinine Cancelled Glucose Cancelled Calcium Cancelled Urine 05/22/23 Range/Units 07:14 Urine Color Yellow (Yellow) Urine Appearance Clear (CLEAR) Urine pH 5 (5-7) Ur Specific Vincent 1.015 (1.005-1.030) Urine Protein Neg (Negative) Urine Glucose (UA) Norm (Normal) Urine Ketones Negative (Negative) Urine Nitrate Negative (Negative) Urine Bilirubin Neg (Negative) Ur Leukocyte Esterase Negative (Negative) Blood Bank 05/22/23 07:05 Blood Type Cancelled Rho(D) Type Cancelled Antibody Screen Cancelled Cardiac Studies: Echocardiogram 12/23/22 Echocardiogram Ultrasound 10/07/20 Sestamibi Stress Test (Cardiology) 11/04/21
[2023-05-22] MEDS: ipratropium 0.5 mg/2.5 mL Neb INHALATION (08:22)
[2023-05-22] MEDS: albuterol 2.5 mg/3 mL Neb INHALATION (08:23)
[2023-05-22 08:25] LABS: Anion Gap 17.1 (5-19); Blood Urea Nitrogen 25 mg/dL (8-23); Carbon Dioxide 22 mmol/L (22-29); Chloride 103 mmol/L (98-107); Glucose 126 mg/dL (65-115); Osmolality Calculated 290 mOsm/kg (285-295); Potassium 5.1 mmol/L (3.5-5.1); Sodium 137 mmol/L (136-145)
[2023-05-22] MEDS: ceFAZolin 2,000 MG in sodium chloride 0.9% (plus) 50 ML 100 MG IV ×2 (08:37→17:03)
[2023-05-22] MEDS: tranexamic acid 1,000 mg/10mL SDV 1000 MG IV (09:18)
[2023-05-22] MEDS: ketorolac 30 mg/mL INJ XX (09:32)
[2023-05-22] MEDS: tranexamic acid 1,000 mg/10mL SDV 1000 MG XX (09:32)
[2023-05-22] MEDS: ROPivacaine 0.2% Premix 100 mL 200 MG INTRA-ARTI (09:32)
[2023-05-22] MEDS: EPINEPHrine 1 mg/mL INJ XX (09:32)
--- NOTE | 2023-05-22 09:46 | ANES.PROC ---
Anesthesia Procedures Procedure/Date: 05/22/23 R adductor canal block Procedure Narrative: pt tolerated well Nerve Block ^: Nerve Block 1: Main Anesthesia: general anesthesia Time Out Performed: Yes Consent: requested by attending/covering physician, risks and benefits reviewed and patient agrees to proceed Nerve block location: adductor canal (right) Anesthesia monitors applied: pulse oximetry, EKG, BP cuff and oxygen Nerve block position: supine Anesthetic Used: bupivacaine 0.5% Amount of anesthesia used (mL): 20 Ultrasound used to: other (ultrasound used) Nerve Stimulator Used?: No Interscalene/Femoral BLK: 4 stimuplex 21 g needle used for position and inplane approach Injection: neg aspiration of heme Patient Tolerated Procedure: well and no complications Complications: none
[2023-05-22] MEDS: vancomycin 1,000 MG SDV 1000 MG XX (10:31)
--- NOTE | 2023-05-22 10:42 | W.PM.BPON ---
Date of Procedure: 05/22/2023 Surgeon: Gil Landry DO Account Support Analyst(s): Mundo Landry PA-C Procedure(s) performed: Right total knee arthroplasty [facility] robotic assisted Findings of the procedure(s): Patient found to have severe right knee degenerative joint disease right total knee arthroplasty procedure went as planned with no complications. Estimated blood loss: 125 mL Specimen(s) removed: Tibia, femur and patellar bone cuts removed Post-operative diagnosis: Right knee degenerative joint disease
--- NOTE | 2023-05-22 10:52 | PM.OP ---
Operative Report Date of procedure: May 22, 2023 Surgeon: Gil Landry DO Terrazzo Worker: Mundo Landry PA-C: PA was necessary for assistance in this case with leg positioning retraction and protection of neurovascular structures as well as assistance in implantation wound closure and dressing application. Procedure: Preoperative diagnosis: Right knee degenerative joint disease Post-op diagnosis: Same Procedure done: Right total knee arthroplasty, cemented?robotic assisted Daljit Implants: [place] triathlon size 3 femur CR cemented?right [place] triathlon size? 2 tibia universal baseplate cemented Jeannine triathlon symmetric patella size 29mm Jeannine triathlon polyethylene 9mm Surgeon: Gil Landry DO Estimated blood loss: 125 mL Tourniquet 4minutes IV fluids: 1000 mL Urine output: 100mL Complications: None Condition: stable Disposition: floor Brief History: Patient is a 82-year-old female with with chronic?right knee degenerative joint disease.? Patient has been worked up in the outpatient setting in the orthopedic office at this point time through shared decision making given his jmjo-op-thle arthritis as well as failed conservative treatment, and pt would like to proceed with a?right total knee arthroplasty.? Through shared decision making elected to proceed with surgical intervention for?right total knee arthroplasty.? We talked about continued conservative treatment and surgical intervention as far as the?risk benefits complications alternatives surgical and nonsurgical treatment options.? At this point time understanding patient?risks with surgery he agrees to proceed with surgical intervention.? Once again??risk with surgery include but are not limited to make it better make it worse blood clot, heart attack, stroke, on the table, infection, injury to nerves or vessels, persistent pain, arthrofibrosis, implant failure.? Understanding these?risks patient agrees to proceed with surgical intervention consent was obtained in the office.? All questions answered. Procedure: Patient was seen and evaluated in the preoperative holding area.? Consent was?reviewed and signed with patient with plan for?right total knee arthroplasty.? All questions answered.? Correct extremity marked.? Patient seen and evaluated by the anesthesia department and once cleared for surgery was taken back to the operative suite.? Patient was placed into a supine position on the OR table.? All bony prominences were well-padded.? Patient was appropriately secured to the bed.? Patient underwent anesthesia per the anesthesia department.? Patient?received spinal anesthesia and? Morton catheter was placed.? A nonsterile tourniquet was applied to the?right thigh.? At this point in time a final timeout performed.? Patient?received appropriate preoperative antibiotics and TXA. Next the?right lower extremity was then prepped and draped in standard orthopedic fashion. Esmarch tourniquet was used exsanguinate the?right lower extremity.? Tourniquet was insufflated to 300 mmHg. A standard anterior incision was made over midline of the knee.? Sharp scalpel excision through skin and subcutaneous tissue full-thickness skin flaps were made.? Fascia was elevated off of the extensor?retinaculum was stable with medial parapatellar arthrotomy was then made.? The performed standard sequential?releases..? Immediately on entry into the joint patient was found to have severe eburnated bone and tricompartmental arthritic changes noted.? With significant osteophyte formation.? Next the the patella was then stuffed and the knee was then flexed.?? After just 4 minutes with tourniquet being up it was found to be a venous tourniquet and it was subsequently left down throughout the entirety of the case. Maritza was placed superiorly around the anterior aspect of the femur this was freed of synovium and I subsequently then placed by 2 femur pins to establish my femur arrays for the In2Games?robot.? These were then placed bicortically and? femur array was then appropriately secured with appropriate visualization.? Next attention was turned towards the tibial?rays.? These were then drilled sequentially bicortically in parallel fashion and intraincisional.? I then placed my guide as well as my tibial array on in place.? This was appropriately secured and had excellent visualization with the Daljit?robot.? Next the tibial checkpoint as well as femur checkpoint were then placed.? At this point time I then subsequently established my head center as well as my medial lateral malleoli as well as my checkpoints.? Next utilizing standard Daljit technology I then mapped out the appropriate points and confirmation points around the femur as well as the tibia in standard fashion.? Once this was then done I then?removed all osteophytes in preparation for dynamic testing.? All osteophytes were?removed as well as I?removed the ACL and the PCL was excised due to its significant tearing and degeneration noted.? At this point time the knee was brought into full extension and we performed our standard evaluation of our gap balancing stressing his ligaments and extension as well as flexion appropriate adjustments were made to have appropriate gap balancing in both flexion and extension.? This plan for final counts.? We get a preoperative plan evaluating our implants which was a size 3 femur and a size 2 tibia.? Next we brought in the In2G[employer]?robot and sequentially made our femur cuts.? All excess bony cuts were then?removed.? Finally we made our tibial cut.? Once this was done a standard PCL?retractor was then placed into this position I excised the medial and lateral meniscus.? The tibial cut was then subsequently?removed all excess bony debris was?removed.? I then utilized a lamina fondant cooker and?remove the posterior osteophytes.? At this point time sized the tibia and confirmed this was a size 2.? I utilized our blunt probe to establish?rotation of tibial implant.? Once this was done I then placed my tibia size 2 trial in appropriate position and then subsequently placed tibial pins to hold this into place placed a size 9 mm poly as well as a size 3 femur which was appropriately impacted in place knee was then subsequently brought into extension. Trials were then assessed,?this was stable with varus valgus stress in extension as well as had symmetrical translation when brought into flexion demonstrating symmetrical gaps. I had excellent balance gaps in flexion and extension with varus and valgus stresses.? At this point I was satisfied with these implants these were then verified and opened on the back table size 2 tibia, size 3 femur,? size 9 mm polythickness.? We did confirm appropriate gap balancing and stresses as well as alignment utilizing? Daljit and were satisfied with this plan.? ?At this point time with my trials in place I then towel clip the patella everted this made appropriate measurements subsequently utilizing freehand technique performed by patellar?resurfacing this was confirmed to be appropriate?resection and subsequently sized to be a 29 mm symmetric.? My drill peg guides were then clamped and appropriate position and appropriate position in the patella for appropriate tracking and parallel with the joint.? Pegs were drilled trial implant was placed and the knee was then subsequently?ranged and found to have excellent patellar tracking.? Femur pegs were then drilled.? Satisfied with our tibial placement?rotation I then utilized the keel punch and prepped the tibia.? At this point time all of our trial implants were?removed.? All checkpoints as well as guidepins and arrays were?removed and appropriate counts made.? The wound bed? was thoroughly irrigated and dried and prepped for cementation.? Cement was mixed on the back table.? Once cement was?ready this was then covered onto the tibia and the tibial baseplate was then impacted and all excess cement was?removed.? Next the polyethylene was then impacted into place on the tibial baseplate.? Next cement was placed onto the femur as well as under the femur implants and impacted in to place and all excess cement was extruded and?removed.? Knee was taken into full extension? to clear all excess cement was?removed.? Warm saline was placed over the joint.? I then towel clip patella and dried for cementation. cemented the patella into place.? This was all clamped and the cement was allowed to cure.? Thorough irrigation performed with pulse lavage.? I then placed my periarticular injection while the cement was curing.? Once cured the knee was taken through?range of motion and had excellent stability and gaps were balanced in flexion and extension.? Tourniquet was then deflated. hemostasis satisfactory with electrocautery.? Next I then subsequently closed the capsule with Ethibond suture as well as a?running strata fix suture.? Knee was then taken through?range of motion 30 times.? Next the skin was then closed in layered fashion of?running stratifix sutures of deep and subcutenous tissue and skin.? ?closed in flexion and Prineo glue was then placed over the incision this allowed to cure.? Incision was covered with Silverlon, with ABDs soft?roll and Malachi wrap.? Patient was then awakened from anesthesia and taken to PACU in stable condition. Disposition: Patient taken to PACU in stable condition will be admitted to the floor for pain control PT/OT weight-bear as tolerated?right lower extremity dressing changes as needed, DVT prophylaxis. Pain control. Patient will?receive appropriate postoperative antibiotics. patient will be seen today by the internal medicine team for medical management.? Patient will follow up with the office in 2 weeks.? Patient understands agrees with current plan.? All questions answered.
--- NOTE | 2023-05-22 11:11 | PM.PACU ---
PACU note Narrative: Patient is a 82-year-old female just underwent a right total knee arthroplasty. Pt transferred to PACU in stable condition. Dressing is dry. Patient is still lethargic from anesthesia and on BiPAP. Unable to do any further assessment outpatient Exam: somnolent, arousable Disposition: admitted
--- NOTE | 2023-05-22 11:43 | XRR_ITS ---
PROCEDURE INFORMATION: Exam: XR Right Knee Exam date and time: 05/22/2023 11:47 AM Age: 82 years old Clinical indication: Device placement; Joint replacement hardware; Prior surgery; Surgery date: Post-operative (0-2 days); Surgery type: RT total knee; Additional info: Post total knee TECHNIQUE: Imaging protocol: Radiologic exam of the right knee. Views: 1 or 2 views. COMPARISON: CT knee RT [facility] [id number] 05/11/2023 4:07 PM FINDINGS: Bones/joints: Intact well-aligned right total knee arthroplasty. No acute fracture. Knee effusion is present, containing trace gas. Soft tissues: There is soft tissue gas anterior to the knee consistent with recent surgery. Vasculature: Vascular calcification is present. XR/XR knee RT 1-2V [id number] IMPRESSION: Expected postoperative appearance of the knee with intact well-aligned total knee prosthesis.
[2023-05-22 11:54] LABS: ABG PH Result 7.22 (7.35-7.45); Alveolar-Arterial Oxygen Gradi 17.1 mmHg (5-10); Arterial Blood Gas Hematocrit 37.7 % (37-47); Base Excess ABG -7.2 mmol/L (-2.0-2.0); Blood Gas Operator Identificat glc; Blood Gas Sample Site Brachial, left; Blood Gas Sample Type Arterial; Carboxyhemoglobin 3.2 %THgb (0.4-20.1); HCO3 ABG 20.7 mmol/L (22-26); HGB O2 Sat 91.1 % (95-100); Ionized Calcium Level - ABG 1.2 mmol/L (1.1-1.4); Methemoglobin 0.7 % (0.4-1.5); Oxygen Device BIPAP; Oxygen Saturation ABG 94.7; PO2 FiO2 Ratio Arterial Blood 0; Potassium Level - ABG 4.3 mmol/L (3.5-5.0); Total Hemoglobin 12.3 g/dL (12-16)
[2023-05-22 12:04] LABS: Glucose Point of Care 96 mg/dL (70-110)
--- NOTE | 2023-05-22 13:34 | P.CONIM_ITS ---
Documented by User: erna Lennon 05/22/23 13:46 Providers/Reason For Consult 2 Consulting Physician/Specialty*: Braulio Del Cid MD Reason for Consult*: Medical management Requesting Physician: Gil Landry DO Attending Physician: Gil Landry DO Primary Care Provider: Mason Braswell DO History of Present Illness History of Present Illness Patient is 82-year-old female with a past medical history of Aortic stenosis, hypertension, COPD, right and left knee DJD who presents to the hospital for a right total knee arthroplasty performed by orthopedics today. Appreciate the consultation. previous medical history was obtained by family and patient at bedside. Patient denies any chest pain, abdominal pain, fever, chills, or weakness. Review of Systems 2 Narrative: Comprehensive 10 point ROS is negative except as noted in the HPI above. Medications/Allergies Home Medications Medication Instructions Recorded Confirmed Last Taken Type aspirin 325 mg tablet 325 mg PO DAILY 11/27/20 05/18/23 05/16/23 History vitamins A,C,O-hwdv-jbqbbr 4,296 1 cap PO BID 05/31/21 05/22/23 05/21/23 History mcg-226 mg-90 mg capsule (ICaps AREDS) acetaminophen 500 mg tablet 1,000 mg PO Q6H PRN Pain 12/08/21 05/18/23 05/17/23 History (Tylenol Extra Strength) ibuprofen 800 mg tablet 800 mg PO Q6H PRN pain 12/08/21 05/18/23 05/16/23 History potassium chloride 8 mEq 8 meq PO DIRECTED PRN with 06/16/22 05/18/23 05/15/23 Rx tablet,extended release lasix #180 tabs diltiazem HCl 120 mg 120 mg PO DAILY #90 caps 10/17/22 05/22/23 05/22/23 Rx capsule,extended release 24 hr tizanidine 4 mg tablet 4 mg PO BID PRN muscle spasticity 05/02/23 05/18/23 05/11/23 Rx #60 tabs celecoxib 200 mg capsule (Celebrex) 200 mg PO DAILY PRN Pain, Mild 05/16/23 05/18/23 05/11/23 History sulfamethoxazole 800 1 tab PO BID 7 days #14 tabs 05/17/23 05/22/23 05/21/23 Rx mg-trimethoprim 160 mg tablet (Bactrim DS) allopurinol 100 mg tablet 200 mg PO DAILY 05/18/23 05/22/23 05/21/23 History coenzyme Q10 10 mg tablet 10 mg PO DAILY 05/18/23 05/18/23 05/18/23 History furosemide 20 mg tablet 20 mg PO DAILY PRN Edema 05/18/23 05/18/23 05/15/23 History lisinopril 20 mg tablet 20 mg PO DAILY 05/18/23 05/22/23 05/21/23 History Allergies Allergy/AdvReac Type Severity Reaction Status Date / Time metoprolol Allergy Unknown Unknown Verified 05/18/23 13:35 PFSH Acute 2 PFSH: Medical History Heart murmur Severe pulmonary hypertension Claudication Aortic valve stenosis Smoking Hypertension Aortic stenosis Surgical History S/P tonsillectomy Family History Brother Myocardial infarct Mother Stroke Social History Smoking and tobacco/nicotine status: current every day tobacco/nicotine user cigarettes Packs smoked per day: 1 Alcohol intake: never Substance/Drug Use: never Vitals/I&O/Wt Last Vital Signs Temp 98.1 F 05/22/23 11:17 Pulse 81 05/22/23 13:02 Resp 19 H 05/22/23 13:02 BP 94/56 05/22/23 13:02 Pulse Ox 94 05/22/23 13:02 O2 Del Method BiPAP 05/22/23 13:02 O2 Flow Rate 10 05/22/23 13:02 FiO2 28 05/22/23 12:08 05/21/23 05/22/23 05/22/23 22:59 06:59 14:59 Intake Total 50 / 50 Output Total 225 / 225 Balance -175 / -175 Weight last 48 hrs Weight 102.058 kg Physical Exam 2 Narrative: General: Alert, able to answer questions appropriately, pleasant HEENT: Head normocephalic, neck supple, throat without erythema Lymph: No lymphadenopathy noted Chest normal to inspection Respiratory: Even respirations, clear lung sounds auscultation, on BiPAP from surgery Cardio: No murmur, regular rate and rhythm, pulses 2+ radial and dorsalis pedis bilateral. GI: Round, obese, active bowel sounds throughout : Deferred Skin: Right leg dressed with Malachi wrap. Cap refill to right lower extremity toes <3 seconds and able to move extremity. Neuro: Alert, oriented x 4, able to answer questions appropriately Urinary Catheter Management: Morton: Cath Placed During This Visit: yes Urinary Catheter Date of Insertion: 05/22/23 Urinary Catheter Time of Insertion: 09:00 Data 05/22/23 07:05 05/22/23 07:59 Other Labs: BUN 25, creatinine 1.2 ABG Interpretation 1: 05/22/23 11:44 ABG pH 7.22 L ABG pCO2 51.0 H ABG pO2 89.0 ABG HCO3 20.7 L ABG O2 Saturation 94.7 ABG Base Excess -7.2 L A&P Assessment and plan (1) Aortic stenosis: Qualifiers: Cardiac valve disease etiology: nonrheumatic Qualified Code(s): I35.0 - Nonrheumatic aortic (valve) stenosis (2) Hypertension: Qualifiers: Hypertension type: essential hypertension Qualified Code(s): I10 - Essential (primary) hypertension (3) Right knee DJD: Coding Level of Care Code 19640 Diagnoses Nonrheumatic aortic valve stenosis I35.0 Cardiac valve disease etiology: nonrheumatic Essential hypertension I10 Hypertension type: essential hypertension Right knee DJD M17.11 Time Spent (min) 57 Documented by User: Braulio Del Cid MD 05/22/23 13:54 History of Present Illness History of Present Illness Patient is 82-year-old female with a past medical history of Aortic stenosis, hypertension, COPD, right and left knee DJD who presents to the hospital for a right total knee arthroplasty performed by orthopedics today. Postoperatively, I saw her on the floor and she was on BiPAP. After visiting with anesthesia, recovery nurse, she was apparently sedated enough BiPAP was initiated. She had some hypercarbia. She was also hypotensive. All of this resolved as she became more awake. Although she did come to the floor on BiPAP, it is now been removed and she seems to be doing well without significant respiratory distress. She denies any chest pain, or shortness of breath currently. Appreciate the consultation. previous medical history was obtained by family and patient at bedside. Patient denies any chest pain, abdominal pain, fever, chills, or weakness. Was on Bactrim as an outpatient for concern of UTI, but culture is now back and appears contaminated, low growth multiple species superficial jonathan. Review of Systems 2 General: Reports: 10 or more systems reviewed and unremarkable except in HPI and below Card: Denies: chest pain Resp: Denies: dyspnea GI: Denies: abdominal pain Medications/Allergies Home Medications Medication Instructions Recorded Confirmed Last Taken Type aspirin 325 mg tablet 325 mg PO DAILY 11/27/20 05/18/23 05/16/23 History vitamins A,C,O-gpzm-ibqxpg 4,296 1 cap PO BID 05/31/21 05/22/23 05/21/23 History mcg-226 mg-90 mg capsule (ICaps AREDS) acetaminophen 500 mg tablet 1,000 mg PO Q6H PRN Pain 12/08/21 05/18/23 05/17/23 History (Tylenol Extra Strength) ibuprofen 800 mg tablet 800 mg PO Q6H PRN pain 12/08/21 05/18/23 05/16/23 History potassium chloride 8 mEq 8 meq PO DIRECTED PRN with 06/16/22 05/18/23 05/15/23 Rx tablet,extended release lasix #180 tabs diltiazem HCl 120 mg 120 mg PO DAILY #90 caps 10/17/22 05/22/23 05/22/23 Rx capsule,extended release 24 hr tizanidine 4 mg tablet 4 mg PO BID PRN muscle spasticity 05/02/23 05/18/23 05/11/23 Rx #60 tabs celecoxib 200 mg capsule (Celebrex) 200 mg PO DAILY PRN Pain, Mild 05/16/23 05/18/23 05/11/23 History sulfamethoxazole 800 1 tab PO BID 7 days #14 tabs 05/17/23 05/22/23 05/21/23 Rx mg-trimethoprim 160 mg tablet (Bactrim DS) allopurinol 100 mg tablet 200 mg PO DAILY 05/18/23 05/22/23 05/21/23 History coenzyme Q10 10 mg tablet 10 mg PO DAILY 05/18/23 05/18/23 05/18/23 History furosemide 20 mg tablet 20 mg PO DAILY PRN Edema 05/18/23 05/18/23 05/15/23 History lisinopril 20 mg tablet 20 mg PO DAILY 05/18/23 05/22/23 05/21/23 History Allergies Allergy/AdvReac Type Severity Reaction Status Date / Time metoprolol Allergy Unknown Unknown Verified 05/18/23 13:35 PFSH Acute 2 PFSH: Medical History Heart murmur Severe pulmonary hypertension Claudication Aortic valve stenosis Smoking Hypertension Aortic stenosis Surgical History S/P tonsillectomy Family History Brother Myocardial infarct Mother Stroke Social History Smoking and tobacco/nicotine status: current every day tobacco/nicotine user cigarettes Packs smoked per day: 1 Alcohol intake: never Substance/Drug Use: never Physical Exam 2 Urinary Catheter Management: Morton: Cath Placed During This Visit: yes Data 05/22/23 07:05 05/22/23 07:59 A&P Assessment and plan (1) Aortic stenosis: Patient has moderate to severe aortic stenosis Monitor closely for fluid overload Received approximately 1 L of fluids intraoperatively, EBL 125. At this point I will reduce her IV fluids to 50 cc an hour. If any evidence of fluid overload occurs may need to stop. CBC, BMP in the morning Qualifiers: Cardiac valve disease etiology: nonrheumatic Qualified Code(s): I35.0 - Nonrheumatic aortic (valve) stenosis (2) Hypertension: She is a little bit borderline hypotensive currently. Continue to hold her lisinopril. She did receive her diltiazem this morning. Hopefully this can be continued tomorrow, and will Riyad lisinopril when needed. Qualifiers: Hypertension type: essential hypertension Qualified Code(s): I10 - Essential (primary) hypertension (3) Right knee DJD: Directly postoperative, see above Plan Other medical problems as outlined by past medical history Thank you for this consult, we will continue to follow Consult Attestations 2 Medical Necessity Statement: As per primary Diagnoses Nonrheumatic aortic valve stenosis I35.0 Cardiac valve disease etiology: nonrheumatic Essential hypertension I10 Hypertension type: essential hypertension Right knee DJD M17.11 Time Spent (min) 57
[2023-05-22] MEDS: sodium chloride 0.9% 1,000 ML 100 ML IV (14:15)
[2023-05-22] MEDS: chlorhexidine gluconate 0.12% Btl 473 mL 30 ML MUCOUS MEM ×3 (14:17→22:03)
[2023-05-22] MEDS: lactated ringers 1,000 ML 50 ML IV (14:58)
[2023-05-22] MEDS: tranexamic acid 1,000 MG/100 ML PREMIX 600 MG IV (14:59)
--- NOTE | 2023-05-22 16:32 | ANE.PACU2 ---
Inpatient post-anesthesia follow up: Airway intact: Yes Vital signs: Temperature 98.0 F Pulse Rate 86 Respiratory Rate 15 Blood Pressure 101/67 Pulse Oximetry 92 Oxygen Delivery Me thod Nasal Cannula Oxygen Flow Rate 2.5 Fraction of Inspir ed Oxygen 28 Hydration adequate: Yes Nausea and vomiting: No Pain level: 2 Mental status: Baseline Additional Comments: Visited with patient on floor/unit. Doing well, converses easily. She states she already was up with PT, ambulated to window.
[2023-05-22] MEDS: TRAMadol 50 mg Tablet PO (18:19)
[2023-05-22] MEDS: mupirocin oint 22 gm 1 APPLIC NASAL (18:19)
[2023-05-22] MEDS: iron polysaccharide complex 150 mg Capsule PO (18:20)
[2023-05-22] MEDS: calcium carb-vit d 600mg/400unit 1 Tablet 1 EACH PO (18:20)
[2023-05-22] MEDS: docusate sodium 100 mg Capsule PO (18:20)
[2023-05-23] VITALS (11 sets, daily range): BP systolic 106–174; BP diastolic 58–81; PULSE 72–102; RESP 14–20; TEMP 36.4–36.9; O2SAT 85–95; BMI 42.6
[2023-05-23] MEDS: ceFAZolin 2,000 MG in sodium chloride 0.9% (plus) 50 ML 100 MG IV ×2 (00:29→08:06)
[2023-05-23] MEDS: nicotine 14 mg Patch 1 PATCH TRANSDERMA ×2 (02:01→15:28)
[2023-05-23] MEDS: acetaminophen 1,000 MG/100 ML PIGGYBACK 400 MG IV (05:41)
[2023-05-23] MEDS: TRAMadol 50 mg Tablet PO ×2 (05:53→20:39)
[2023-05-23 07:04] LABS: Basophils # 0.1 10^3/uL (0.0-0.1); Basophils % 0.6 %; Eosinophils # 0.4 10^3/uL (0.0-0.8); Eosinophils % 3.6 %; Hematocrit 35.7 % (36-47); Lymphocytes % 9.4 %; Mean Corpuscular HGB Conc 30.5 g/dL (30-55); Mean Corpuscular Hemoglobin 29.3 pg (27-33); Mean Platelet Volume 9.8 fL (7.4-10.4); Monocytes # 1.1 10^3/uL (0.2-0.9); Monocytes % 10.5 %; Neutrophils # 8.05 10^3/uL (1.8-7.7); Neutrophils % 75.2 %; Nucleated Red Blood Cells % 0 %; Platelet Count 225 10^3/cmm (157-399); Red Blood Count 3.72 10^6/uL (3.85-5.65); Red Cell Distribution Width 15.9 % (12.1-15.1); White Blood Count 10.69 10^3/uL (3.29-11.43)
[2023-05-23 07:19] LABS: Blood Urea Nitrogen 22 mg/dL (8-23); Carbon Dioxide 22 mmol/L (22-29); Chloride 103 mmol/L (98-107); Glucose 120 mg/dL (65-115); Osmolality Calculated 285 mOsm/kg (285-295); Sodium 135 mmol/L (136-145)
[2023-05-23] MEDS: docusate sodium 100 mg Capsule PO ×2 (08:09→17:19)
[2023-05-23] MEDS: allopurinol 100 mg Tablet 200 MG PO (08:09)
[2023-05-23] MEDS: apixaban 5 mg Tablet 2.5 MG PO ×2 (08:09→17:19)
[2023-05-23] MEDS: multivitamin therapeutic Tablet 1 TAB PO (08:10)
[2023-05-23] MEDS: calcium carb-vit d 600mg/400unit 1 Tablet 1 EACH PO ×2 (08:10→17:19)
[2023-05-23] MEDS: chlorhexidine gluconate 0.12% Btl 473 mL 30 ML MUCOUS MEM ×4 (08:10→20:39)
[2023-05-23] MEDS: mupirocin oint 22 gm 1 APPLIC NASAL ×2 (08:10→17:20)
[2023-05-23] MEDS: aspirin 81 mg EC Tablet PO (08:10)
[2023-05-23] MEDS: iron polysaccharide complex 150 mg Capsule PO ×2 (08:10→17:19)
--- NOTE | 2023-05-23 09:37 | PC.CHAP ---
Pastoral Care Encounter/Spiritual Assessment Type of Contact [] Declined seismic engineer visit [] Patient/Family/Request visit [] Outpatient visit [] Follow-up visit [] Physician referral [] Code/Alert [] Routine visit [] Staff referral [] Actively dying [] Patient sleeping [] Family support [] [] Out of room [] Palliative care [] [x] Receiving care in room [] Pre-surgical visit [] Trauma [] Long length of stay [] ICU visit [] Other: Relational/Emotional Strength [] Patient feels connected with others/family/visitors/staff [] Distress [] Loneliness/isolation [] Abandonment Spirituality of Patient [] Person of Kristen [] Attends Shinto of their Kristen [] Believes in Prayer [] Reads Bible or Hoahaoism materials [] There are Spiritual issues to be addressed Home Therapy Teacher Interventions [] Prayer [] Active listening [] Non-anxious presence [] Spiritual/emotional support [] Crisis/trauma care [] Spiritual counseling [] Bereavement support [] Provided bereavement packet [] Provided Bible/devotional materials [] Provided toy/stuffed animal, coloring book to patient or family member [] Provided Communion [] Anointing/[place] [] Salvation [] Completed spiritual assessment [] Other: Impact on Illness or Injury [] Angry [] Fearful [] Anxious [] Often cries [] Exhaustion [] Unable to work [] Unable to attend zoroastrian [] Unable to walk/stand [] Unable to read [] Unable to drive [] Unable to eat/drink [] Unable to sleep [] Unable to be with family [] Patient intubated [] Other: Summary Time spent with patient
[2023-05-23] MEDS: FUROsemide 10 mg/mL SDV 2mL 20 MG IVP (10:10)
--- NOTE | 2023-05-23 10:45 | P.PN_ITS ---
Subjective 2 Subjective: Feeling okay this morning. Wonders when she will go home. Denies any chest pain. Feels short of breath when she moves around. Medications: Reviewed: Yes Vitals/I&O/Wt Last Vital Signs Temp 98.0 F 05/23/23 07:41 Pulse 80 05/23/23 08:45 Resp 14 05/23/23 08:45 BP 133/80 05/23/23 07:41 Pulse Ox 92 05/23/23 08:45 O2 Del Method Nasal Cannula 05/23/23 08:45 O2 Flow Rate 2 05/23/23 08:45 FiO2 28 05/22/23 12:08 05/22/23 05/23/23 05/23/23 22:59 06:59 14:59 Intake Total 1050 / 1816.667 270 / 2086.667 1190 / 1190 Output Total 1400 / 1625 Balance 1050 / 1591.667 -1130 / 651.285 0479 / 1190 Weight last 48 hrs Weight 109.134 kg Weight 113.126 kg Weight 109.117 kg Weight 102.058 kg Physical Exam 2 Narrative: General: No distress Cardiovascular regular rate and rhythm with a 3/6 systolic murmur heard best in aortic area Lungs a few crackles at the bases Abdomen soft Extremities no sinus clubbing edema, dressing clean dry Urinary Catheter Management: Morton: Cath Placed During This Visit: yes, but has since been removed by the nurse Reason for Continuing Indwelling Catheter: Decision to DC Catheter Urinary Catheter Date of Insertion: 05/22/23 Urinary Catheter Time of Insertion: 09:00 Date Urinary Catheter Removed: 05/23/23 Time Urinary Catheter Discontinued: 06:50 Data 05/23/23 06:23 05/23/23 06:23 A&P Assessment and plan (1) Aortic stenosis: Patient has moderate to severe aortic stenosis Requiring 2 L of oxygen. Give Lasix 20 mg IV x 1. She has some minor crackles. I suspect following that she will be able to wean off oxygen. Discontinue IV fluids CBC, BMP in the morning Qualifiers: Cardiac valve disease etiology: nonrheumatic Qualified Code(s): I35.0 - Nonrheumatic aortic (valve) stenosis (2) Hypertension: Stable this morning. Can resume lisinopril tomorrow. Can resume her Cardizem tomorrow. Qualifiers: Hypertension type: essential hypertension Qualified Code(s): I10 - Essential (primary) hypertension (3) Right knee DJD: Directly postoperative, see above Plan Other medical problems as outlined by past medical history Thank you for this consult, we will continue to follow Attestations 2 Medical Necessity Statement*: As per primary Diagnoses Nonrheumatic aortic valve stenosis I35.0 Cardiac valve disease etiology: nonrheumatic Essential hypertension I10 Hypertension type: essential hypertension Right knee DJD M17.11 Time Spent (min) 26
[2023-05-23] MEDS: oxyCODONE 5 mg IR Tab/Cap PO ×3 (12:31→23:42)
--- NOTE | 2023-05-23 13:18 | P.PN_ITS ---
Subjective 2 Subjective: Patient seen and examined today she is doing well she is progressed appropriately with therapy. She still only requiring 2 L O2 nasal cannula. Hospitalist has given patient's Lasix and waiting to see her response if she get to room air would recommend discharge. Will continue to monitor she stable for discharge from orthopedic standpoint. Vitals/I&O/Wt Last Vital Signs Temp 98.3 F 05/23/23 11:30 Pulse 92 05/23/23 11:30 Resp 16 05/23/23 12:31 BP 111/71 05/23/23 11:30 Pulse Ox 93 05/23/23 12:31 O2 Del Method Nasal Cannula 05/23/23 11:30 O2 Flow Rate 2 05/23/23 08:45 FiO2 28 05/22/23 12:08 05/22/23 05/23/23 05/23/23 22:59 06:59 14:59 Intake Total 1050 / 1816.667 270 / 2086.667 1190 / 1190 Output Total 1400 / 1625 Balance 1050 / 1591.667 -1130 / 144.920 3226 / 1190 Weight last 48 hrs Weight 240 lb 9.6 oz Weight 249 lb 6.4 oz Weight 240 lb 9 oz Weight 225 lb Physical Exam 2 Narrative: Dressing to the right knee is clean dry and intact with Malachi bandage on in place jay dressing on and in place she is able to flex and extend at the knee and able to flex to roughly 90 degrees today able to wiggle toes plantar flex and dorsiflex ankle. Urinary Catheter Management: Morton: Cath Placed During This Visit: yes, but has since been removed by the nurse Reason for Continuing Indwelling Catheter: Decision to DC Catheter Urinary Catheter Date of Insertion: 05/22/23 Urinary Catheter Time of Insertion: 09:00 Date Urinary Catheter Removed: 05/23/23 Time Urinary Catheter Discontinued: 06:50 Data 05/23/23 06:23 05/23/23 06:23 A&P Assessment and plan (1) Status post total right knee replacement: Plan Weight-bear as tolerated right lower extremity Pain control DVT prophylaxis Nasal cannula 2 L O2?being managed by hospitalist Hospitalist on board for medical management Postop x-rays reviewed PT/OT Ice as needed Stable for discharge from orthopedic standpoint Spoke with hospitalist would recommend keeping patient if she is unable to get back to room air we will continue to see how she responds to treatment with Lasix today. Possible discharge later this evening versus tomorrow. All questions answered. Attestations 2 Medical Necessity Statement*: For ongoing care status post right total knee arthroplasty Coding Level of Care Code Acute Code for Chg Fwd Diagnoses Status post total right knee replacement Z96.651
[2023-05-23] MEDS: acetaminophen 500 mg Tablet 1000 MG PO (20:39)
[2023-05-24] VITALS (7 sets, daily range): BP systolic 107–131; BP diastolic 68–83; PULSE 91–100; RESP 17–19; TEMP 36.5–37.2; O2SAT 85–97
[2023-05-24 06:17] LABS: Basophils # 0.1 10^3/uL (0.0-0.1); Basophils % 0.7 %; Eosinophils # 0.4 10^3/uL (0.0-0.8); Eosinophils % 4.3 %; Lymphocytes # 1.2 10^3/uL (0.8-4.8); Mean Corpuscular HGB Conc 31.1 g/dL (30-55); Mean Corpuscular Hemoglobin 29.5 pg (27-33); Mean Corpuscular Volume 94.6 fl (85-98); Mean Platelet Volume 9.8 fL (7.4-10.4); Monocytes # 1.2 10^3/uL (0.2-0.9); Monocytes % 12.5 %; Neutrophils # 6.44 10^3/uL (1.8-7.7); Neutrophils % 68.4 %; Nucleated Red Blood Cells % 0 %; Platelet Count 230 10^3/cmm (157-399); Red Cell Distribution Width 15.5 % (12.1-15.1); White Blood Count 9.43 10^3/uL (3.29-11.43)
[2023-05-24 06:36] LABS: Chloride 98 mmol/L (98-107); Potassium 4.8 mmol/L (3.5-5.1); Sodium 132 mmol/L (136-145)
[2023-05-24 06:56] LABS: Anion Gap 13.8 (5-19); Blood Urea Nitrogen 17 mg/dL (8-23); Calcium 9.9 mg/dL (8.5-10.5); Carbon Dioxide 25 mmol/L (22-29); Glucose 105 mg/dL (65-115); Osmolality Calculated 276 mOsm/kg (285-295)
[2023-05-24] MEDS: dilTIAZem ER (24HR) 120 mg Capsule PO (10:00)
[2023-05-24] MEDS: calcium carb-vit d 600mg/400unit 1 Tablet 1 EACH PO (10:00)
[2023-05-24] MEDS: acetaminophen 500 mg Tablet 1000 MG PO (10:01)
[2023-05-24] MEDS: allopurinol 100 mg Tablet 200 MG PO (10:01)
[2023-05-24] MEDS: TRAMadol 50 mg Tablet PO (10:02)
[2023-05-24] MEDS: docusate sodium 100 mg Capsule PO (10:02)
[2023-05-24] MEDS: multivitamin therapeutic Tablet 1 TAB PO (10:02)
[2023-05-24] MEDS: apixaban 5 mg Tablet 2.5 MG PO (10:02)
[2023-05-24] MEDS: nicotine 14 mg Patch 1 PATCH TRANSDERMA (10:03)
[2023-05-24] MEDS: lisinopril 20 mg Tablet PO (10:03)
[2023-05-24] MEDS: FUROsemide 40 mg Tablet PO (10:03)
[2023-05-24] MEDS: iron polysaccharide complex 150 mg Capsule PO (10:03)
[2023-05-24] MEDS: aspirin 81 mg EC Tablet PO (10:03)
[2023-05-24] MEDS: mupirocin oint 22 gm 1 APPLIC NASAL (10:05)
[2023-05-24] MEDS: chlorhexidine gluconate 0.12% Btl 473 mL 30 ML MUCOUS MEM (10:05)
--- NOTE | 2023-05-24 10:34 | PC.CHAP ---
Pastoral Care Encounter/Spiritual Assessment Type of Contact [] Declined community support specialist visit [] Patient/Family/Request visit [] Outpatient visit [] Follow-up visit [] Physician referral [] Code/Alert [X] Routine visit [] Staff referral [] Actively dying [] Patient sleeping [] Family support [] [] Out of room [] Palliative care [] [] Receiving care in room [] Pre-surgical visit [] Trauma [] Long length of stay [] ICU visit [] Other: Relational/Emotional Strength [X] Patient feels connected with others/family/visitors/staff [] Distress [] Loneliness/isolation [] Abandonment Spirituality of Patient [] Person of Kristen [] Attends Temple of their Kristen [] Believes in Prayer [] Reads Bible or Orthodoxy materials [] There are Spiritual issues to be addressed Glass Forming Engineer Interventions [X] Prayer [X] Active listening [] Non-anxious presence [] Spiritual/emotional support [] Crisis/trauma care [] Spiritual counseling [] Bereavement support [] Provided bereavement packet [] Provided Bible/devotional materials [] Provided toy/stuffed animal, coloring book to patient or family member [] Provided Communion [] Anointing/[place] [] Salvation [] Completed spiritual assessment [] Other: Impact on Illness or Injury [] Angry [] Fearful [] Anxious [] Often cries [] Exhaustion [] Unable to work [] Unable to attend nondenominational [] Unable to walk/stand [] Unable to read [] Unable to drive [] Unable to eat/drink [] Unable to sleep [] Unable to be with family [] Patient intubated [] Other: Summary Time spent with patient 15 MIN
--- NOTE | 2023-05-24 11:07 | P.PN_ITS ---
Subjective 2 Subjective: Patient reports her leg hurts, otherwise feeling okay. No chest pain. Not short of breath on 1.5 L of oxygen. Reports she is going to quit smoking. Medications: Reviewed: Yes Vitals/I&O/Wt Last Vital Signs Temp 99 F 05/24/23 08:14 Pulse 91 05/24/23 08:55 Resp 18 05/24/23 08:55 BP 122/75 05/24/23 08:14 Pulse Ox 92 05/24/23 08:55 O2 Del Method Nasal Cannula 05/24/23 08:55 O2 Flow Rate 1 05/24/23 08:55 FiO2 28 05/22/23 12:08 05/23/23 05/24/23 05/24/23 22:59 06:59 14:59 Intake Total 240 / 1670 480 / 480 Output Total 400 / 400 Balance 240 / 1670 -400 / 1270 480 / 480 Weight last 48 hrs Weight 110.767 kg Weight 109.134 kg Weight 113.126 kg Weight 109.117 kg Physical Exam 2 Narrative: General exam no distress Neck is supple Cardiovascular regular rhythm 3/6 systolic murmur unchanged Lungs clear with diminished breath sounds bilaterally Abdomen is soft Extremities no sinus clubbing Urinary Catheter Management: Morton: Cath Placed During This Visit: yes, but has since been removed by the nurse Reason for Continuing Indwelling Catheter: Decision to DC Catheter Urinary Catheter Date of Insertion: 05/22/23 Urinary Catheter Time of Insertion: 09:00 Date Urinary Catheter Removed: 05/23/23 Time Urinary Catheter Discontinued: 06:50 Data 05/24/23 06:01 05/24/23 06:01 A&P Assessment and plan (1) Aortic stenosis: Patient has moderate to severe aortic stenosis Requiring 2 L of oxygen. Home oxygen evaluation Initiate Lasix 40 mg daily Follow-up with primary care provider 3 to 5 days with visit and BMP May be discharged from a medicine standpoint today Continue her potassium 8 mg once a day at home Qualifiers: Cardiac valve disease etiology: nonrheumatic Qualified Code(s): I35.0 - Nonrheumatic aortic (valve) stenosis (2) Hypertension: Stable this morning. Can resume lisinopril tomorrow. Can resume her Cardizem tomorrow. Qualifiers: Hypertension type: essential hypertension Qualified Code(s): I10 - Essential (primary) hypertension (3) Right knee DJD: Directly postoperative, see above Plan Other medical problems as outlined by past medical history Attestations 2 Medical Necessity Statement*: As per primary Diagnoses Nonrheumatic aortic valve stenosis I35.0 Cardiac valve disease etiology: nonrheumatic Essential hypertension I10 Hypertension type: essential hypertension Right knee DJD M17.11 Time Spent (min) 21
--- NOTE | 2023-05-24 13:17 | P.DS_ITS ---
Discharge Providers Date of Admission: 05/22/23 11:17 Date of Discharge: May 24, 2023 Attending Provider at Admission: Gil Landry DO Attending Provider at Discharge: Gil Landry DO Consults: Dr. Del Cid hospitalist Primary Care Provider: Mason Braswell DO Diagnoses at Discharge Discharge Diagnosis (1) Aortic stenosis: Status: Acute Qualifiers: Cardiac valve disease etiology: nonrheumatic Qualified Code(s): I35.0 - Nonrheumatic aortic (valve) stenosis (2) Hypertension: Status: Acute Qualifiers: Hypertension type: essential hypertension Qualified Code(s): I10 - Essential (primary) hypertension (3) Right knee DJD: Status: Resolved Reason for Visit Reason for Visit: M17.11 Brief History: Status post right total knee arthroplasty Hospital Course Hospital Course Patient presented to the preoperative holding area with plan for right total knee arthroplasty after patient has been worked up in the outpatient setting for failed conservative treatment of [right] knee degenerative joint disease. Once cleared by anesthesia for surgery patient subsequently was taken back to the operative suite underwent anesthesia per anesthesia department and then subsequently underwent a [right] total knee arthroplasty. Procedure was performed without any complications patient was taken to PACU in stable condition patient, patient recovered in PACU. She did require BiPAP postoperatively in PACU and remained on BiPAP going to the floor and this was removed within the first couple hours of her returning to the floor. And then was admitted to the floor postoperatively internal medicine was consulted and on board for medical management and assistance with care. Patient received appropriate PT/OT, postoperative antibiotics, postoperative TXA, pain control, postoperative DVT prophylaxis. Elevation and ice. Patient encouraged for knee range of motion allowed weightbearing as tolerated to the operative lower extremity. Dressing was changed as needed, labs were monitored daily. Patient recovered well postoperatively and worked well and progressed well with therapy. [Patient. 2 L nasal cannula upon day of discharge.]. It was determined on postoperative day [2] the patient was stable for discharge from an orthopedic standpoint and medicine. Patient was comfortable with discharge and plan was discharged home. Patient set up for discharge with home O2 nasal cannula per hospitalist recommendations. Patient received appropriate discharge instructions as well as pain medication and DVT prophylaxis postoperatively. Given appropriate instructions for dressing management. Patient will follow-up with Dr. Landry/orthopedics in the office in 2 weeks. All questions answered. Understand if there is any issues questions or concerns and contact the office. Physical Exam Narrative: Dressing to the right knee is clean dry and intact with Malachi bandage on in place jay dressing on and in place she is able to flex and extend at the knee and able to flex to roughly 90 degrees today able to wiggle toes plantar flex and dorsiflex ankle. Urinary Catheter Management: Morton: Cath Placed During This Visit: yes, but has since been removed by the nurse Reason for Continuing Indwelling Catheter: Decision to DC Catheter Urinary Catheter Date of Insertion: 05/22/23 Urinary Catheter Time of Insertion: 09:00 Date Urinary Catheter Removed: 05/23/23 Time Urinary Catheter Discontinued: 06:50 Discharge Data Studies Completed and Pending Completed Studies During Hospitalization Category Date Time Status XR knee RT 1-2V 20556 Routine Exams 05/22/23 11:43 Completed Pending at discharge Category Date Time Status Basic Metabolic Panel AM LABS Lab 05/25/23 04:00 Ordered Complete Blood Count w/Auto AM LABS Lab 05/25/23 04:00 Ordered Radiology Impressions Knee X-Ray 05/22/23 11:43 IMPRESSION: Expected postoperative appearance of the knee with intact well-aligned total knee prosthesis. Laboratory Results WBC 9.43 10^3/uL (3.29-11.43) 05/24/23 06:01 RBC 3.70 10^6/uL (3.85-5.65) L 05/24/23 06:01 Hgb 10.90 g/dL (11.27-16.99) L 05/24/23 06:01 Hct 35.0 % (36-47) L 05/24/23 06:01 MCV 94.6 fl (85-98) 05/24/23 06:01 MCH 29.5 pg (27-33) 05/24/23 06:01 MCHC 31.1 g/dL (30-55) 05/24/23 06:01 RDW 15.5 % (12.1-15.1) H 05/24/23 06:01 Plt Count 230 10^3/cmm (157-399) 05/24/23 06:01 MPV 9.8 fL (7.4-10.4) 05/24/23 06:01 Neut % (Auto) 68.4 % 05/24/23 06:01 Lymph % (Auto) 13.0 % 05/24/23 06:01 [place] % (Auto) 12.5 % 05/24/23 06:01 Eos % (Auto) 4.3 % 05/24/23 06:01 Baso % (Auto) 0.7 % 05/24/23 06:01 Neut # (Auto) 6.44 10^3/uL (1.8-7.7) 05/24/23 06:01 Lymph # (Auto) 1.2 10^3/uL (0.8-4.8) 05/24/23 06:01 [place] # (Auto) 1.2 10^3/uL (0.2-0.9) H 05/24/23 06:01 Eos # (Auto) 0.4 10^3/uL (0.0-0.8) 05/24/23 06:01 Baso # (Auto) 0.1 10^3/uL (0.0-0.1) 05/24/23 06:01 Nucleated RBC % (auto) 0 % 05/24/23 06:01 Nucleated RBCs # 0.0 /100WBC 05/24/23 06:01 Specimen Type Arterial 05/22/23 11:44 Sample Site Brachial, left 05/22/23 11:44 ABG pH 7.22 (7.35-7.45) L 05/22/23 11:44 ABG pCO2 51.0 mmHg (35-45) H 05/22/23 11:44 ABG pO2 89.0 mmHg (80.0-100.0) 05/22/23 11:44 ABG PO2/FiO2 Ratio 0 05/22/23 11:44 ABG HCO3 20.7 mmol/L (22-26) L 05/22/23 11:44 ABG O2 Saturation 94.7 05/22/23 11:44 ABG Base Excess -7.2 mmol/L (-2.0-2.0) L 05/22/23 11:44 [place] Test N/a 05/22/23 11:44 A-a O2 Gradient 17.1 mmHg (5-10) H 05/22/23 11:44 Hematocrit 37.7 % (37-47) 05/22/23 11:44 Hgb O2 Saturation 91.1 % (95-100) L 05/22/23 11:44 Carboxyhemoglobin 3.2 %THgb (0.4-20.1) 05/22/23 11:44 Methemoglobin 0.7 % (0.4-1.5) 05/22/23 11:44 Total Hemoglobin 12.3 g/dL (12-16) 05/22/23 11:44 Sodium 139.0 mmol/L (131-143) 05/22/23 11:44 Potassium 4.3 mmol/L (3.5-5.0) 05/22/23 11:44 Glucose 190.0 mg/dL (70-115) H 05/22/23 11:44 Ionized Calcium 1.2 mmol/L (1.1-1.4) 05/22/23 11:44 O2 Delivery Device Bipap 05/22/23 11:44 FiO2 40.0 % 05/22/23 11:44 Seismic Engineer ID glc 05/22/23 11:44 Sodium 132 mmol/L (136-145) L 05/24/23 06:01 Potassium 4.8 mmol/L (3.5-5.1) 05/24/23 06:01 Chloride 98 mmol/L (98-107) 05/24/23 06:01 Carbon Dioxide 25 mmol/L (22-29) 05/24/23 06:01 Anion Gap 13.8 (5-19) 05/24/23 06:01 BUN 17 mg/dL (8-23) 05/24/23 06:01 Creatinine 0.9 mg/dL (0.5-0.9) 05/24/23 06:01 GFR Calculation Not Reportable 05/24/23 06:01 Glucose 105 mg/dL (65-115) 05/24/23 06:01 POC Glucose 96 mg/dL (70-110) 05/22/23 12:01 Calculated Osmolality 276 mOsm/kg (285-295) L 05/24/23 06:01 Calcium 9.9 mg/dL (8.5-10.5) 05/24/23 06:01 Urine Color Yellow (Yellow) 05/22/23 07:14 Urine Appearance Clear (CLEAR) 05/22/23 07:14 Urine pH 5 (5-7) 05/22/23 07:14 Ur Specific [place] 1.015 (1.005-1.030) 05/22/23 07:14 Urine Protein Neg (Negative) 05/22/23 07:14 Urine Glucose (UA) Norm (Normal) 05/22/23 07:14 Urine Ketones Negative (Negative) 05/22/23 07:14 Urine Blood Neg (Negative) 05/22/23 07:14 Urine Nitrate Negative (Negative) 05/22/23 07:14 Urine Bilirubin Neg (Negative) 05/22/23 07:14 Urine Urobilinogen Norm mg/dL (Negative) 05/22/23 07:14 Ur Leukocyte Esterase Negative (Negative) 05/22/23 07:14 Blood Type O Positive 05/22/23 07:49 Rho(D) Type Rh positive 05/22/23 07:49 Antibody Screen Negative 05/22/23 07:49 Vitals Last Vital Signs Temp 98.2 F 05/24/23 11:23 Pulse 96 05/24/23 11:23 Resp 18 05/24/23 11:23 BP 107/68 05/24/23 11:23 Pulse Ox 85 L 05/24/23 12:00 O2 Del Method Nasal Cannula 05/24/23 11:23 O2 Flow Rate 2 05/24/23 12:00 FiO2 28 05/22/23 12:08 Discharge Plan Discharge Patient Disposition: Home Condition: Stable Prescriptions: New Eliquis 2.5 mg tablet 2.5 mg PO BID 14 Days Qty: 28 0RF furosemide 40 mg Tablet 40 mg PO DAILY@0800 Qty: 30 0RF oxycodone 5 mg tablet 5 mg PO Q6H PRN (Reason: pain postop) 7 Days Qty: 28 0RF Continued ICaps AREDS [id number] capsule 1 cap PO BID potassium chloride 8 mEq tablet extended release 8 meq PO DIRECTED PRN (Reason: with lasix) Qty: 180 0RF Rx Instructions: 1 tablet daily with 1 furosemide 2 tablets daily with 2 furosemide tizanidine 4 mg tablet 4 mg PO BID PRN (Reason: muscle spasticity) Qty: 60 0RF diltiazem HCl 120 mg capsule,extended release 24hr 120 mg PO DAILY Qty: 90 3RF acetaminophen [Tylenol Extra Strength] 500 mg Tablet 1,000 mg PO Q6H PRN (Reason: Pain) lisinopril 20 mg Tablet 20 mg PO DAILY allopurinol 100 mg tablet 200 mg PO DAILY coenzyme Q10 10 mg Tablet 10 mg PO DAILY Held aspirin 325 mg tablet 325 mg PO DAILY Hold Instructions: Resume on 06/06/23. Discontinued celecoxib [Celebrex] 200 mg capsule 200 mg PO DAILY PRN (Reason: Pain, Mild) sulfamethoxazole-trimethoprim [Bactrim DS] 800-160 mg tablet 1 tab PO BID 7 Days Qty: 14 0RF ibuprofen 800 mg Tablet 800 mg PO Q6H PRN (Reason: pain) Hold Instructions: Doctor's Order furosemide 20 mg tablet 20 mg PO DAILY PRN (Reason: Edema) Rx Instructions: may increase to 40mg if needed Discharge Orders: Discharge Order (Routine); Ordered 05/24/23 Ordered By: Gil Landry Other Ambulatory Orders: DME: Oxygen (Order) Location: None Selected Ordered By: Braulio Del Cid Referrals: [facility] – [place] [Outside] Meg Romano MD [Staff Physician] - 05/25/23 1:00 pm Gil Landry DO [Physician] - 06/06/23 2:00 pm Discharge Diet: Advance as tolerated Discharge Activity: Increase activity as tolerated, Limit activity as instructed and Use walker/crutches as instructed Patient Instructions: Furosemide (By mouth), Oxycodone, Rapid Release (By mouth), Ondansetron (By mouth), Apixaban (By mouth), Using Oxygen at Home (GEN), Total Knee Replacement (GEN), Joint Replacement Stoplight, Opioid Safety Activity Restrictions/Additional Instructions: Keep incisions clean dry and intact, Remove battery pack when showering. leave Piko dressings on in place for 5- 7 days and you can remove dressing when the battery pack denies in about 5 to 7 days. After that may rinse incisions with warm soapy water pat dry and redress with a dry dressing. Patient may weight-bear as tolerate to the operative extremity Utilize crutches as needed Encourage knee range of motion Ice and elevate as needed for pain and swelling Take pain medication as prescribed Take antinausea medication as needed The prescribed Eliquis twice daily for the next 14 days for blood clot prevention May supplement for pain with ibuprofen [id number] as needed No baths or soaks Follow-up in the orthopedic office in 2 weeks Contact the office for any questions or concerns BMP in 1 week. Follow-up with primary care provider regarding this. Discharge Attestations Time Spent in Discharge Care*: greater than 30 min Quality Metrics Clinical Quality Measures [ No reported AMI, CVA or VTE this stay] Coding Level of Care Code Acute Code for Chg Fwd Diagnoses Nonrheumatic aortic valve stenosis I35.0 Cardiac valve disease etiology: nonrheumatic Essential hypertension I10 Hypertension type: essential hypertension Right knee DJD M17.11 Comment 35
== END 2023-05-24 15:19 | disposition home or self-care (01) ==
LOC: MEDSURG 11:19
PROVIDERS: Physician Assistant; Student in an Organized Health Care Education/Training Program; Admitting Provider Student in an Organized Health Care Education/Training Program; PCP Family Medicine; Visit Provider Student in an Organized Health Care Education/Training Program
PROC: 8E0Y0CZ Robotic Assisted Procedure of Lower Extremity, Open Approach (ICD-10-PCS; CPT 27447; principal; 2023-05-22 08:10)
DX: M17.11 Unilateral primary osteoarthritis, right knee (principal); I35.0 Nonrheumatic aortic (valve) stenosis; I10 Essential (primary) hypertension; J44.9 Chronic obstructive pulmonary disease, unspecified; Z79.82 Long term (current) use of aspirin; F17.210 Nicotine dependence, cigarettes, uncomplicated
CPT/HCPCS: 20985; 27447; 36415; 36416; 36600; 51702; 73560; 80048; 80051; 81003; 82330; 82805; 82962; 85025; 86850; 86900; 94640; 94760; 97110; 97116; 97162; 97165; 97530; C1713; C1776; G0378; J0131; J0171; J0690; J1100; J1885; J1940; J2250; J2371; J2405; J2704; J2795; J3010; J3370; J3490; J7030; J7120; J7613; J7644

== ENCOUNTER → 2023-06-06 14:31 | Outpatient (BNVA) | payer MEDICARE, SELFPAY | PROVIDERS: PCP Family Medicine; Visit Provider Physician Assistant | DX: Z96.651 Presence of right artificial knee joint (principal) | CPT/HCPCS: 73560; 73565; 99024 ==

== ENCOUNTER 2023-06-21 11:53 | Outpatient (RCR) | payer MEDICARE, SELFPAY | END 2023-07-13 23:59 | disposition home or self-care (01) | LOC: SPT 11:53 | PROVIDERS: PCP Family Medicine; Visit Provider Student in an Organized Health Care Education/Training Program | DX: Z47.1 Aftercare following joint replacement surgery (principal); Z96.651 Presence of right artificial knee joint | CPT/HCPCS: 97110; 97161 ==

== ENCOUNTER 2023-07-14 06:00 | Outpatient (RCR) | payer MEDICARE, SELFPAY | END 2023-08-13 23:59 | disposition home or self-care (01) | LOC: SPT 06:00 | PROVIDERS: PCP Family Medicine; Visit Provider Student in an Organized Health Care Education/Training Program | DX: Z47.1 Aftercare following joint replacement surgery (principal); Z96.651 Presence of right artificial knee joint | CPT/HCPCS: 97110 ==

== ENCOUNTER → 2023-08-01 13:27 | Outpatient (BNVA) | payer MEDICARE, SELFPAY | PROVIDERS: PCP Family Medicine; Visit Provider Student in an Organized Health Care Education/Training Program | DX: Z96.651 Presence of right artificial knee joint (principal) | CPT/HCPCS: 73560; 73562; 73565; 99024 ==

== ENCOUNTER 2023-08-14 06:00 | Outpatient (RCR) | payer MEDICARE, SELFPAY | END 2023-09-12 23:59 | disposition home or self-care (01) | LOC: SPT 06:00 | PROVIDERS: PCP Family Medicine; Visit Provider Student in an Organized Health Care Education/Training Program | DX: Z47.1 Aftercare following joint replacement surgery (principal); Z96.651 Presence of right artificial knee joint | CPT/HCPCS: 97110 ==

== ENCOUNTER → 2023-09-04 11:01 | Outpatient (BNVA) | payer MEDICARE, SELFPAY | PROVIDERS: PCP Family Medicine; Visit Provider Internal Medicine Cardiovascular Disease | DX: I35.0 Nonrheumatic aortic (valve) stenosis (principal); I10 Essential (primary) hypertension; I27.20 Pulmonary hypertension, unspecified; F17.210 Nicotine dependence, cigarettes, uncomplicated | CPT/HCPCS: 99214 ==

== ENCOUNTER 2023-11-02 14:34 | Inpatient (IN) | payer MEDICARE, SELFPAY ==
[2023-11-02] VITALS (7 sets, daily range): BP systolic 95–109; BP diastolic 57–67; PULSE 65–71; RESP 18–20; TEMP 36.5; O2SAT 87–95; BMI 38.0; BMI 38.7
--- NOTE | 2023-11-02 15:06 | XR_ITS ---
WS: [id number] Exam: XR chest 1V portable [id number] Date/Time of Exam: 11/02/2023 3:06 PM Reason For Exam: dyspnea/cough Comparison 11/04/1997. There appear to be chronic pulmonary parenchymal changes within the lower lung zones. No consolidatin g infiltrate or pneumothorax. No pleural effusion. Heart size top limits normal. The mediastinum is n ormal in contour. Bony structures are intact. Calcification of the mitral valve annulus. XR/XR chest 1V portable [id number] IMPRESSION: 1. Chronic pulmonary parenchymal changes in the lower lung zones. No acute proc ess is suspected.
--- NOTE | 2023-11-02 15:18 | ECG_ITS ---
[facility] Test Date: 2023-11-02 Pat Name: Mary Ponce Department: Room: Gender: Female Template Checker: : 1940 Requested By: Mehdi Campbell Order Number: [id number] Eulogio MD: Papito Birmingham M.D. Measurements Intervals [place] Rate: 69 P: 49 SC: 200 QRS: 52 QRSD: 86 T: 42 QT: 403 QTc: 434 Interpretive Statements SINUS RHYTHM ANTEROSEPTAL MYOCARDIAL INFARCTION , OF INDETERMINATE AGE [40+ ms Q WAVE IN V1-V4] No previous ECG available for comparison Electronically Signed On 11-03-2023 13:38:16 CDT by Papito Birmingham M.D. [id number]
[2023-11-02 15:22] LABS: Alveolar-Arterial Oxygen Gradi 3.5 mmHg (5-10); Arterial Blood Gas Hematocrit 36.3 % (37-47); Blood Gas Allen Test Pos; Blood Gas Operator Identificat WALCI; Blood Gas Sample Site Radial, left; Blood Gas Sample Type Arterial; Carboxyhemoglobin 3.5 %THgb (0.4-20.1); HCO3 ABG 24.8 mmol/L (22-26); HGB O2 Sat 92.1 % (95-100); Ionized Calcium Level - ABG 1.2 mmol/L (1.1-1.4); Methemoglobin 0.2 % (0.4-1.5); Oxygen Device NC; Oxygen Saturation ABG 95.7; PO2 ABG 74.3 mmHg (80.0-100.0); Potassium Level - ABG 5.2 mmol/L (3.5-5.0); Total Hemoglobin 11.8 g/dL (12-16)
[2023-11-02 15:23] LABS: Basophils # 0.1 10^3/uL (0.0-0.1); Basophils % 0.9 %; Eosinophils # 0.2 10^3/uL (0.0-0.8); Eosinophils % 2.8 %; Hematocrit 38.6 % (36-47); Lymphocytes # 1.4 10^3/uL (0.8-4.8); Lymphocytes % 18.8 %; Mean Corpuscular HGB Conc 31.6 g/dL (30-55); Mean Corpuscular Hemoglobin 27.7 pg (27-33); Mean Corpuscular Volume 87.7 fl (85-98); Mean Platelet Volume 8.7 fL (7.4-10.4); Monocytes # 0.9 10^3/uL (0.2-0.9); Monocytes % 11.9 %; Neutrophils % 64.8 %; Nucleated Red Blood Cells % 0 %; Platelet Count 243 10^3/cmm (157-399); White Blood Count 7.41 10^3/uL (3.29-11.43)
--- NOTE | 2023-11-02 15:26 | ED_ITS ---
HPI - General Adult 2 General: Chief complaint: General Medical Stated complaint: Oxgen and blood pressure low Time Seen by Provider: 11/02/23 15:05 Source: patient Mode of arrival: ambulatory History of Present Illness: 82-year-old female presents emergency ro om with complaint of being short of breath and hypotensive. She did not take any of her blood pressure medicines for last 2 weeks she has a history of aortic stenosis and pulmonary hypertension. She denies any chest pain at this time. She is requiring 2 L by nasal cannula to maintain oxygen saturation at rest that she has no shortness of breath with minimal activity causes discomfort denies chest pain. Onset (ago): day(s) Associated symptoms: Reports dyspnea; Deny chest pain or rash Review of Systems 2 Const: Denies: fever(s) or chills Card: Denies: chest pain Resp: Reports: dyspnea, non-productive cough and wheezing GI: Denies: abdominal pain : Denies: dysuria, urinary frequency or urinary urgency Musc: Denies: neck pain or back pain Skin/Breast: Denies: rash PFSH ED 2 PFSH: Medical History Heart murmur Severe pulmonary hypertension Claudication Aortic valve stenosis Smoking Hypertension Aortic stenosis Patient was found to have dense calcium in the aortic annulus. For that reason, TAVR was canceled. Patient was offered a second opinion to go to [facility] in [place] . But she declined Surgical History S/P tonsillectomy Family History Brother Myocardial infarct Mother Stroke Social History Smoking and tobacco/nicotine status: current every day tobacco/nicotine user cigarettes Packs smoked per day: 1 Alcohol intake: never Substance/Drug Use: never Physical Exam 2 Const: GENERAL APPEARANCE: cooperative and comfortable O RIENTATION/CONSCIOUSNESS: Yes awake, Yes oriented to person, Yes oriented to place and Yes oriented to time HENMT: COMMON NORMALS: normocephalic, atraumatic and hearing grossly normal bilaterally HEAD & SCALP: normocephalic and atraumatic Resp: AUSCULTATION: rhonchi and wheezes OTHER: Pursed lip breathing Cardio: COMMON NORMALS: regular rate, regular rhythm and No murmurs present (Cardio) RATE: regular rate RHYTHM: regular rhythm GI: COMMON NORMALS: Soft to palpation and No hepatosplenomegaly present A USCULTATION: Yes normoactive bowel sounds PALPATION: Yes Soft to palpation, No Tenderness to palpation present (GI), No Guarding due to palpation present (GI) and Yes No hepatosplenomegaly present Extremity: COMMON NORMALS: normal to inspection, capillary refill normal, no clubbing, cyanosis or edema, no calf tenderness and no pedal edema Neuro: SENSORIUM/ORIENTATION: Yes oriented to person, Yes oriented to place and Yes oriented to time Skin: COMMON NORMALS: no rashes or lesions noted GENERAL SKIN EXAM: no rashes or lesions noted Course 2 Vital Signs: Vital signs: Vital Signs Temperature 97.7 F 11/03/23 04:16 Pulse Rate 67 11/03/23 04:16 Respiratory Rate 20 H 11/03/23 04:16 Blood Pressure 102/59 11/03/23 04:16 Pulse Oximetry 95 11/03/23 04:16 Oxygen Delivery Me thod Nasal Cannula 11/02/23 19:16 Oxygen Flow Rate 2 11/02/23 18:01 [facility] - General Adult Medical Decision Making Exacerbation COPD patient manages normal sats while resting but with minimal effort begins to desat. Her BNP is markedly elevated. Chest x-ray read as normal I think there may be some increased vascular markings particularly on the right. She did have slight improvement with nebulizers. She states she has not been taking her medicines for the last several weeks. Her blood pressure is on the lower end of normal. I think she will need pulmonary support and further evaluation for heart failure complicating her COPD she may be developing some pulmonary hypertension as well. Her BNP is markedly elevated from the previous readings. Discussed with hospitalist orders written Medical Records I reviewed the patient's medical records. Lab Data I reviewed the patient's lab results. 11/03/23 04:30 11/03/23 04:30 Radiology Impressions Chest X-Ray 11/02/23 15:06 IMPRESSION: 1. Chronic pulmonary parenchymal changes in the lower lung zones. No acute process is suspected. Laboratory Results WBC 7.41 10^3/uL (3.29-11.43) 11/02/23 15:16 RBC 4.40 10^6/uL (3.85-5.65) 11/02/23 15:16 Hgb 12.20 g/dL (11.27-16.99) 11/02/23 15:16 Hct 38.6 % (36-47) 11/02/23 15:16 MCV 87.7 fl (85-98) 11/02/23 15:16 MCH 27.7 pg (27-33) 11/02/23 15:16 MCHC 31.6 g/dL (30-55) 11/02/23 15:16 RDW 19.0 % (12.1-15.1) H 11/02/23 15:16 Plt Count 243 10^3/cmm (157-399) 11/02/23 15:16 MPV 8.7 fL (7.4-10.4) 11/02/23 15:16 Neut % (Auto) 64.8 % 11/02/23 15:16 Lymph % (Auto) 18.8 % 11/02/23 15:16 [place] % (Auto) 11.9 % 11/02/23 15:16 Eos % (Auto) 2.8 % 11/02/23 15:16 Baso % (Auto) 0.9 % 11/02/23 15:16 Neut # (Auto) 4.80 10^3/uL (1.8-7.7) 11/02/23 15:16 Lymph # (Auto) 1.4 10^3/uL (0.8-4.8) 11/02/23 15:16 [place] # (Auto) 0.9 10^3/uL (0.2-0.9) 11/02/23 15:16 Eos # (Auto) 0.2 10^3/uL (0.0-0.8) 11/02/23 15:16 Baso # (Auto) 0.1 10^3/uL (0.0-0.1) 11/02/23 15:16 Nucleated RBC % (auto) 0 % 11/02/23 15:16 Nucleated RBCs # 0.0 /100WBC 11/02/23 15:16 D-Dimer >= 20.00 ug/mLFEU (0-0.59) H 11/02/23 15:16 Specimen Type Arterial 11/02/23 15:10 Sample Site Radial, left 11/02/23 15:10 ABG pH 7.40 (7.35-7.45) 11/02/23 15:10 ABG pCO2 40.0 mmHg (35-45) 11/02/23 15:10 ABG pO2 74.3 mmHg (80.0-100.0) L 11/02/23 15:10 ABG HCO3 24.8 mmol/L (22-26) 11/02/23 15:10 ABG O2 Saturation 95.7 11/02/23 15:10 ABG Base Excess 0.0 mmol/L (-2.0-2.0) 11/02/23 15:10 [place] Test Pos 11/02/23 15:10 A-a O2 Gradient 3.5 mmHg (5-10) L 11/02/23 15:10 Hematocrit 36.3 % (37-47) L 11/02/23 15:10 Hgb O2 Saturation 92.1 % (95-100) L 11/02/23 15:10 Carboxyhemoglobin 3.5 %THgb (0.4-20.1) 11/02/23 15:10 Methemoglobin 0.2 % (0.4-1.5) L 11/02/23 15:10 Total Hemoglobin 11.8 g/dL (12-16) L 11/02/23 15:10 Sodium 128.0 mmol/L (131-143) L 11/02/23 15:10 Potassium 5.2 mmol/L (3.5-5.0) H 11/02/23 15:10 Glucose 125.0 mg/dL (70-115) H 11/02/23 15:10 Ionized Calcium 1.2 mmol/L (1.1-1.4) 11/02/23 15:10 O2 Delivery Device Nc 11/02/23 15:10 O2 Liters/Min 2.0 % 11/02/23 15:10 Online Content Developer ID [place] 11/02/23 15:10 Sodium 129 mmol/L (136-145) L 11/02/23 15:16 Potassium 4.5 mmol/L (3.5-5.1) 11/02/23 15:16 Chloride 94 mmol/L (98-107) L 11/02/23 15:16 Carbon Dioxide 24 mmol/L (22-29) 11/02/23 15:16 Anion Gap 15.5 (5-19) 11/02/23 15:16 BUN 14 mg/dL (8-23) 11/02/23 15:16 Creatinine 1.2 mg/dL (0.5-0.9) H 11/02/23 15:16 GFR Calculation Not Reportable 11/02/23 15:16 Glucose 133 mg/dL (65-115) H 11/02/23 15:16 Calculated Osmolality 270 mOsm/kg (285-295) L 11/02/23 15:16 Calcium 9.0 mg/dL (8.5-10.5) 11/02/23 15:16 Magnesium 1.9 mg/dL (1.7-2.3) 11/02/23 15:16 Total Bilirubin 0.4 mg/dL (0.15-1.2) 11/02/23 15:16 AST 24 U/L (0-32) 11/02/23 15:16 ALT 12 U/L (0-33) 11/02/23 15:16 Alkaline Phosphatase 121 U/L (35-105) H 11/02/23 15:16 Troponin T Baseline 32 ng/L (0-10) H 11/02/23 15:16 Troponin T 120 Minute 29.89 ng/L (0-10) H 11/02/23 17:27 Delta Troponin T -2.11 ABS# (0-10) L 11/02/23 17:27 NT-Pro-B Natriuret Pep 3654 pg/mL (0-450) H 11/02/23 15:16 Total Protein 7.3 g/dL (6.6-8.7) 11/02/23 15:16 Albumin 3.5 g/dL (3.5-5.2) 11/02/23 15:16 Globulin 3.8 g/dL (1.3-4.6) 11/02/23 15:16 Procalcitonin 0.22 ng/mL (0-0.5) 11/02/23 15:16 Urine Color Yellow (Yellow) 11/02/23 16:11 Urine Appearance Clear (CLEAR) 11/02/23 16:11 Urine pH 5 (5-7) 11/02/23 16:11 Ur Specific [place] 1.015 (1.005-1.030) 11/02/23 16:11 Urine Protein Neg (Negative) 11/02/23 16:11 Urine Glucose (UA) Norm (Normal) 11/02/23 16:11 Urine Ketones Negative (Negative) 11/02/23 16:11 Urine Blood Neg (Negative) 11/02/23 16:11 Urine Nitrate Negative (Negative) 11/02/23 16:11 Urine Bilirubin Neg (Negative) 11/02/23 16:11 Urine Urobilinogen Norm mg/dL (Negative) 11/02/23 16:11 Ur Leukocyte Esterase Negative (Negative) 11/02/23 16:11 All radiology interpretation(s) finalized by discharge Discharge Plan Discharge Patient Disposition: Admitted As Inpatient Admit Provider: Danna Massey Clinical Impression: Acute exacerbation of CHF (congestive heart failure), Acute exacerbation of chronic obstructive pulmonary disease (COPD) Aortic stenosis Qualifiers: Cardiac valve disease etiology: nonrheumatic Qualified Code(s): I35.0 - Nonrheumatic aortic (valve) stenosis Condition: Stable Coding Level of Care Code ED Inside Meter Tester for Jeni Malhotra
[2023-11-02] MEDS: dexamethasone 10 mg/mL INJ IM (15:31)
[2023-11-02] MEDS: ipratropium-albuterol 3 mL Neb INHALATION (15:46)
[2023-11-02 15:49] LABS: Alanine Aminotransferase 12 U/L (0-33); Albumin Level 3.5 g/dL (3.5-5.2); Alkaline Phosphatase 121 U/L (35-105); Anion Gap 15.5 (5-19); Aspartate Amino Transferase 24 U/L (0-32); Blood Urea Nitrogen 14 mg/dL (8-23); Carbon Dioxide 24 mmol/L (22-29); Chloride 94 mmol/L (98-107); Creatinine Clr Calc Pharmacy 40.8704; Globulin 3.8 g/dL (1.3-4.6); Glucose 133 mg/dL (65-115); Magnesium 1.9 mg/dL (1.7-2.3); NT Pro B Type Natriuretic Pept 3654 pg/mL (0-450); Osmolality Calculated 270 mOsm/kg (285-295); Potassium 4.5 mmol/L (3.5-5.1); Sodium 129 mmol/L (136-145); Total Bilirubin 0.4 mg/dL (0.15-1.2); Total Protein 7.3 g/dL (6.6-8.7)
[2023-11-02 16:19] LABS: Procalcitonin 0.22 ng/mL (0-0.5)
[2023-11-02 16:29] LABS: Add Urine Microscopic? NO; Charge for UA Resulting for Rev
[2023-11-02 16:35] LABS: Bilirubin Urine Neg (Negative); Blood Urine Neg (Negative); Glucose Urine UA Norm (Normal); Ketones Urine Negative (Negative); Leukocyte Esterase Urine Negative (Negative); Nitrate Urine Negative (Negative); Protein Urine Neg (Negative); Specific Gravity, Urine 1.015 (1.005-1.030); Urine Appearance Clear (CLEAR); Urine Color Yellow (Yellow); Urobilinogen Urine Norm (Negative); pH Urine 5 (5-7)
[2023-11-02 17:45] LABS: Troponin(5th) Baseline 32 ng/L (0-10)
--- NOTE | 2023-11-02 17:48 | P.HP_ITS ---
Providers/Chief Complaint 2 Chief Complaint: Oxgen and blood pressure low History of Present Illness Mary Ponce is a 82 year old female who has been experiencing orthopnea PND shortness of breath for last 2 weeks, she has also noticed weight gain, she gets more short of breath on minimal exertion, carries history of preserved ejection fraction heart failure, no recent fever, nausea, vomiting or chest pain. Patient stating that he was using oxygen in the past but she returned her oxygen back to home company. She has not noticed any significant chest pain fever sputum production, diarrhea, she is stating that she was supposed to get an ILR echo as per Dr. Leiva to monitor aortic stenosis Patient stating that she snores but never had any issues waking up in the morning No previous history of establishedsleep apnea Review of Systems 2 Eyes: Denies: change in vision ENMT: Denies: throat pain Card: Denies: chest pain Resp: Reports: dyspnea GI: Denies: abdominal pain : Denies: flank pain Musc: Denies: neck pain Medications/Allergies Home Medications Medication Instructions Recorded Confirmed Last Taken Type aspirin 325 mg tablet 325 mg PO DAILY 11/27/20 08/01/23 05/16/23 History vitamins A,C,A-iter-tzyxty 4,296 1 cap PO BID 05/31/21 08/01/23 05/21/23 History mcg-226 mg-90 mg capsule (ICaps AREDS) acetaminophen 500 mg tablet 1,000 mg PO Q6H PRN Pain 12/08/21 08/01/23 05/17/23 History (Tylenol Extra Strength) potassium chloride 8 mEq 8 meq PO DIRECTED PRN with 06/16/22 08/01/23 05/15/23 Rx tablet,extended release lasix #180 tabs diltiazem HCl 120 mg 120 mg PO DAILY #90 caps 10/17/22 08/01/23 05/22/23 Rx capsule,extended release 24 hr allopurinol 100 mg tablet 200 mg PO DAILY 05/18/23 08/01/23 05/21/23 History coenzyme Q10 10 mg tablet 10 mg PO DAILY 05/18/23 08/01/23 05/18/23 History furosemide 40 mg tablet 40 mg PO DAILY@0800 #30 tabs 05/24/23 08/01/23 Unknown Rx lisinopril 10 mg tablet 10 mg PO DAILY 09/04/23 Unknown History Allergies Allergy/AdvReac Type Severity Reaction Status Date / Time No Known Allergies Allergy Verified 11/02/23 14:54 PFSH Acute 2 PFSH: Medical History Heart murmur Severe pulmonary hypertension Claudication Aortic valve stenosis Smoking Hypertension Aortic stenosis Patient was found to have dense calcium in the aortic annulus. For that reason, TAVR was canceled. Patient was offered a second opinion to go to [facility] in [place] . But she declined Surgical History S/P tonsillectomy Family History Brother Myocardial infarct Mother Stroke Social History Smoking and tobacco/nicotine status: current every day tobacco/nicotine user cigarettes Packs smoked per day: 1 Alcohol intake: never Substance/Drug Use: never Vitals/I&O/Wt Last Vital Signs Temp 97.7 F 11/02/23 14:42 Pulse 66 11/02/23 16:28 Resp 18 11/02/23 15:44 BP 104/57 11/02/23 16:28 Pulse Ox 92 11/02/23 16:28 O2 Del Method Nasal Cannula 11/02/23 16:28 O2 Flow Rate 2 11/02/23 16:28 Weight last 48 hrs Weight 97.432 kg Physical Exam 2 Narrative: Mild signs of congestive heart failure present Hemodynamically stable Currently on 2 L Pleasant cooperative Nonfocal neuroexam S1, S2 No active chest pain Data 11/02/23 15:16 11/02/23 15:16 A&P Assessment and plan (1) Severe pulmonary hypertension: (2) Aortic stenosis: Qualifiers: Cardiac valve disease etiology: nonrheumatic Qualified Code(s): I35.0 - Nonrheumatic aortic (valve) stenosis (3) Status post transcatheter aortic valve replacement (TAVR) using bioprosthesis: (4) SOB (shortness of breath): (5) Acute exacerbation of CHF (congestive heart failure): (6) Hypoxia: Plan Acute D CHF exacerbation Clinically signs of fluid overload X-ray showing possible right middle lobe infiltrate with pulmonary edema Will give her IV Lasix Start levofloxacin Will use BiPAP on as-needed basis Currently patient is hemodynamic stable Admit to [facility] as observation Previous echo showed preserved ejection fraction Is pending high white count in the morning past patient has received dexamethasone in the ER Will request D-dimer Acute on chronic hypoxia: Relative hypoxia noted on ABG currently on patient 2 L, Severe pulm hypertension Serial troponin and EKGs, D-dimer: UA unremarkable EKG sinus rhythm with occasional PVCs Full code Cardiac diet DVT prophylaxis on board Continue potassium supplementation along Lasix Repeat echo to monitor aortic stenosis Bradycardia: Hold Cardizem I will give her low-dose Lasix blood pressure is low monitor closely for now Patient stating that she has stopped taking lisinopril at home Will check vital every 4-6 hours Attestations 2 Medical Necessity Statement*: Requiring oxygen, anticipating more than 2 midnights in the hospital Diagnoses Severe pulmonary hypertension I27.20 Nonrheumatic aortic valve stenosis I35.0 Cardiac valve disease etiology: nonrheumatic Status post transcatheter aortic valve replacement (TAVR) using bioprosthesis Z95.3 SOB (shortness of breath) R06.02 Acute exacerbation of CHF (congestive heart failure) I50.9 Hypoxia R09.02
--- NOTE | 2023-11-02 17:49 | ECG_ITS ---
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 Measurements Intervals [place] Rate: 66 P: 33 WV: 207 QRS: 49 QRSD: 98 T: 45 QT: 445 QTc: 468 Interpretive Statements SINUS RHYTHM WITH OCCASIONAL SUPRAVENTRICULAR PREMATURE COMPLEXES Compared to ECG 11/02/2023 15:18:22 Myocardial infarct finding no longer present Electronically Signed On 11-03-2023 13:39:22 CDT by Papito Birmingham M.D. [email or web address] [email or web address] centerUrban Interactionsblanchard valley health system bluffton hospitalMonte Cristo/store/OM/[id number]
[2023-11-02 17:52] LABS: Troponin 5 2HR 29.89 ng/L (0-10); Troponin 5 2HR Delta -2.11 ABS# (0-10)
--- NOTE | 2023-11-02 18:14 | USCV_ITS ---
Mary Ponce Age: 82 Gender: F : 1940 Exam Date: 11/02/2023 22:10 Ordering Phys: Danna Massey MD Technologist: CRAIG Exam Location: [facility] Indication: and CHF BP: 109 / 67 HR: 62 Rhythm: Sinus Technical Quality: Adequate MEASUREMENTS (Male / Female) Normal Values 2D ECHO LV Diastolic Diameter PLAX 4.3 cm 4.2 - 5.9 / 3.9 - 5.3 cm LV Systolic Diameter PLAX 2.6 cm IVS Diastolic Thickness 1.4 cm 0.6 - 1.0 / 0.6 - 0.9 cm IVS Systolic Thickness 1.8 cm LVPW Diastolic Thickness 1.4 cm 0.6 - 1.0 / 0.6 - 0.9 cm LVPW Systolic Thickness 2.0 cm LVOT Diameter 2.1 cm LV Ejection Fraction 2D Teich 71.1 % LV Ejection Fraction MOD 2C 49.1 % LV Ejection Fraction 2C AL 46.3 % LA Diameter 5.1 cm Aorta at Sinotubular Diameter 2.6 cm IVC Diameter 1.8 cm M-MODE LA Ao Ratio MM 1.6 AV Cusp Separation MM 0.9 cm DOPPLER AV Peak Velocity 358.3 cm/s LVOT Peak Velocity 103.0 cm/s AV Area Cont Eq vti 1.2 cm squared AV Area Cont Eq pk 1.0 cm squared MV Peak Velocity 191.0 cm/s MV Area PHT 1.7 cm squared Mitral E to A Ratio 1.0 TV Peak E Velocity 54.0 cm/s PV Peak Velocity 97.0 cm/s FINDINGS Left Ventricle Normal left ventricular cavity size. Moderate left ventricular hypertrophy. Normal left ventricular systolic function. Grade II/IV diastolic dysfunction, moderately elevated filling pressures. Left ventricular ejection fraction is estimated at 60 %. No regional wall motion abnormalities. Right Ventricle Normal right ventricular size and systolic function. Right Atrium Mildly increased right atrial size. Left Atrium Moderately increased left atrial size. Mitral Valve Structurally normal mitral valve. Moderate mitral annular calcification. Mild mitral valve regurgitation. Aortic Valve Structurally normal trileaflet aortic valve. Moderate aortic valve calcification. Moderate aortic valve stenosis, mean gradient 29.3 mmHg, GIGI 1.2 cm squared. Mild aortic valve regurgitation. Tricuspid Valve Structurally normal tricuspid valve. Trace tricuspid valve regurgitation. Pulmonic Valve Pulmonic valve not well visualized. Mild pulmonary valve regurgitation. Pericardium Normal pericardium without effusion. Aorta Ascending aorta diameter 3.4 cm IVC The inferior vena cava appears normal. CONCLUSIONS Normal left ventricular cavity size. Moderate left ventricular hypertrophy. Normal left ventricular systolic function. Grade II/IV diastolic dysfunction, moderately elevated filling pressures. Left ventricular ejection fraction is estimated at 60 %. No regional wall motion abnormalities. Mildly increased right atrial size. Moderately increased left atrial size. Structurally normal mitral valve. Moderate mitral annular calcification. Mild mitral valve regurgitation. Structurally normal trileaflet aortic valve. Moderate aortic valve calcification. Moderate aortic valve stenosis, mean gradient 29.3 mmHg, GIGI 1.2 cm squared. Mild aortic valve regurgitation. Ascending aorta diameter 3.4 cm. No change from the previous study dated 12/23/2022 Dr. Papito Birmingham MD (Electronically Signed) Final Date: 04 November 2023 11:00 S
[2023-11-02 18:29] LABS: D Dimer >= 20.00 ug/mLFEU (0-0.59)
[2023-11-02] MEDS: enoxaparin 40 mg/0.4 mL Syringe SUBCUT (21:33)
[2023-11-02] MEDS: FUROsemide 10 mg/mL SDV 2mL 20 MG IVP (21:33)
--- NOTE | 2023-11-02 23:12 | ECG_ITS ---
[facility] Test Date: 2023-11-02 Pat Name: Mary Ponce Department: Room: 107 Gender: Female Rn Maternal Child: : 1940 Requested By: Mehdi Campbell Order Number: [id number] Eulogio MD: Papito Birmingham M.D. Measurements Intervals [place] Rate: 60 P: 69 MI: 202 QRS: 57 QRSD: 99 T: 46 QT: 464 QTc: 467 Interpretive Statements SINUS RHYTHM Compared to ECG 11/02/2023 17:49:14 No significant changes Electronically Signed On 11-03-2023 14:00:51 CDT by Papito Birmingham M.D. [email or web address] county general hospitalWelltec Internationalmercy health clermont hospitalBeijing iCh[employer]/store/OM/[id number]
[2023-11-03] VITALS (7 sets, daily range): BP systolic 83–117; BP diastolic 54–60; PULSE 62–83; RESP 17–24; TEMP 36.4–36.7; O2SAT 88–98; BMI 38.6
[2023-11-03 00:55] LABS: Troponin 5 6HR 20.38 ng/L (0-10); Troponin 5 6HR Delta -11.62 ng/L (0-12)
[2023-11-03 05:07] LABS: Basophils % 0.5 %; Hematocrit 36.5 % (36-47); Lymphocytes # 0.8 10^3/uL (0.8-4.8); Lymphocytes % 14.9 %; Mean Corpuscular HGB Conc 31.2 g/dL (30-55); Mean Corpuscular Hemoglobin 27.4 pg (27-33); Mean Corpuscular Volume 87.7 fl (85-98); Mean Platelet Volume 9.4 fL (7.4-10.4); Monocytes # 0.2 10^3/uL (0.2-0.9); Neutrophils # 4.52 10^3/uL (1.8-7.7); Nucleated Red Blood Cells % 0 %; Platelet Count 271 10^3/cmm (157-399); Red Blood Count 4.16 10^6/uL (3.85-5.65); Red Cell Distribution Width 18.6 % (12.1-15.1); White Blood Count 5.65 10^3/uL (3.29-11.43)
[2023-11-03 05:24] LABS: Anion Gap 18.8 (5-19); Blood Urea Nitrogen 22 mg/dL (8-23); C Reactive Protein 79.4 mg/L (0.0-4.9); Carbon Dioxide 22 mmol/L (22-29); Chloride 95 mmol/L (98-107); Glucose 231 mg/dL (65-115); Osmolality Calculated 283 mOsm/kg (285-295); Potassium 4.8 mmol/L (3.5-5.1); Sodium 131 mmol/L (136-145)
[2023-11-03 05:41] LABS: Creatinine Clr Calc Pharmacy 41.2467
--- NOTE | 2023-11-03 06:54 | CTR_ITS ---
PROCEDURE INFORMATION: Exam: CT Chest With Contrast; Diagnostic Exam date and time: 11/03/2023 9:48 AM Age: 82 years old Clinical indication: Hypoxia TECHNIQUE: Imaging protocol: Diagnostic computed tomography of the chest with contrast. Radiation optimization: All CT scans at this facility use at least one of these dose optimization techniques: automated exposure control; mA and/or kV adjustment per patient size (includes targeted exams where dose is matched to clinical indication); or iterative reconstruction. COMPARISON: CR XR chest 1V portable [id number] 11/02/2023 3:30 PM FINDINGS: Thyroid: No significant thyroid pathology. Lungs: Calcified pulmonary granulomata are present. 5 mm nodule at the right lung base on series 7, image 379. Coarsened pulmonary interstitium. Some areas of ground-glass opacity in both lungs are nonspecific given component of respiratory degradation. Some areas of mosaic attenuation are also present. There is mild pulmonary emphysema. 2 mm left upper lobe nodule seen on series 7, images 138 and 133. 2 mm left upper lobe nodule series 7, image 208. Perifissural nodules up 2 mm likely represent lymph nodes. 2 mm right lower lobe nodule series 7, image 257. Other tiny nodules seen elsewhere in the lungs. Pleural spaces: No pleural effusion. Heart: Cardiomegaly. Coronary arteries: Coronary artery calcifications. Lymph nodes: Subcarinal lymphadenopathy measuring up to 2.1 cm short axis is present lower right paratracheal adenopathy measuring 1.2 cm short axis is present. Right superior hilar lymph node measures 1.3 cm short axis. No left hilar or axillary lymphadenopathy evident. Vasculature: No pulmonary embolism evident. Mildly dilated thoracic aorta 3.9 cm in the mid ascending portion. Diaphragm: Small hiatal hernia. Liver: Hepatic steatosis. Bones/joints: Moderate degenerative change present in the spine. Soft tissues: Unremarkable. CT/[facility] [id number] IMPRESSION: 1. No evidence of pulmonary embolism other definite acute pulmonary pathology given incomplete pulmonary expansion and respiratory degradation. Mild pulmonary emphysema and interstitial coarsening with areas of nonspecific mosaic attenuation in the lungs. 2. Scattered small pulmonary nodules measuring up 5 mm; per Fleischner criteria 12 month follow-up recommended for surveillance in this age group. 3. Cardiomegaly with coronary artery calcifications. 4. Mild mediastinal and right hilar lymphadenopathy. 5. Hepatic steatosis.
--- NOTE | 2023-11-03 08:56 | PC.CHAP ---
Pastoral Care Encounter/Spiritual Assessment Type of Contact [x] Declined health information specialist visit [] Patient/Family/Request visit [] Outpatient visit [] Follow-up visit [] Physician referral [] Code/Alert [] Routine visit [] Staff referral [] Actively dying [] Patient sleeping [] Family support [] [] Out of room [] Palliative care [] [] Receiving care in room [] Pre-surgical visit [] Trauma [] Long length of stay [] ICU visit [] Other: Relational/Emotional Strength [] Patient feels connected with others/family/visitors/staff [] Distress [] Loneliness/isolation [] Abandonment Spirituality of Patient [] Person of Kristen [] Attends Zoroastrian of their Kristen [] Believes in Prayer [] Reads Bible or Jainism materials [] There are Spiritual issues to be addressed Founder President And Ceo Interventions [] Prayer [] Active listening [] Non-anxious presence [] Spiritual/emotional support [] Crisis/trauma care [] Spiritual counseling [] Bereavement support [] Provided bereavement packet [] Provided Bible/devotional materials [] Provided toy/stuffed animal, coloring book to patient or family member [] Provided Communion [] Anointing/[place] [] Salvation [] Completed spiritual assessment [] Other: Impact on Illness or Injury [] Angry [] Fearful [] Anxious [] Often cries [] Exhaustion [] Unable to work [] Unable to attend mormonism [] Unable to walk/stand [] Unable to read [] Unable to drive [] Unable to eat/drink [] Unable to sleep [] Unable to be with family [] Patient intubated [] Other: Summary Time spent with patient
[2023-11-03] MEDS: potassium chloride ER 20 mEq Tablet 40 MEQ PO (09:27)
[2023-11-03] MEDS: aspirin 325 mg Tablet PO (09:27)
[2023-11-03] MEDS: sennosides-docusate Tablet 1 TAB PO (09:27)
[2023-11-03] MEDS: allopurinol 100 mg Tablet 200 MG PO (09:28)
[2023-11-03] MEDS: nicotine 21 mg Patch 1 PATCH TRANSDERMA (09:28)
[2023-11-03] MEDS: iohexol 350 mg/mL 500 mL Btl (per mL) IV (09:48)
--- NOTE | 2023-11-03 10:54 | P.DS_ITS ---
Discharge Providers Date of Admission: 11/02/23 18:10 Date of Discharge: November 03, 2023 Attending Provider at Admission: Danna Massey MD Attending Provider at Discharge: Danna Massey MD Diagnoses at Discharge Discharge Diagnosis (1) Severe pulmonary hypertension: Status: Acute (2) Aortic stenosis: Status: Acute Qualifiers: Cardiac valve disease etiology: nonrheumatic Qualified Code(s): I35.0 - Nonrheumatic aortic (valve) stenosis Permanent problem details: Patient was found to have dense calcium in the aortic annulus. For that reason, TAVR was canceled. Patient was offered a second opinion to go to [facility] in [place] . But she declined (3) Status post transcatheter aortic valve replacement (TAVR) using bioprosthesis: Status: Acute (4) SOB (shortness of breath): Status: Acute (5) Acute exacerbation of CHF (congestive heart failure): Status: Acute (6) Hypoxia: Status: Acute Reason for Visit Reason for Visit: Oxgen and blood pressure low Hospital Course Hospital Course 82-year female who present to the hospital with typical signs and symptoms of congestive heart failure, she was experiencing orthopnea PND shortness of breath on exertion, requiring 2 L of oxygen, at home she was not on oxygen, previous echo showed preserved action fraction with moderate to severe aortic stenosis, patient has been evaluated at [facility] she was deemed not a suitable candidate for TAVR she is following up with Dr. Leiva, during hospitalization patient was diuresed, her blood pressure is staying on softer side I have discontinued Cardizem. Her D-dimer came back extremely elevated I request CTA chest abdomen pelvis which was unremarkable she is stating that she never had any screening c olonoscopies, there is left adnexal 1.8 cm structure likely ovarian cyst, colonic diverticulosis small hiatal hernia, Patient is endorsing tick bites, will add doxycycline. Physical Exam Narrative: Patient clinically looks euvolemic Currently requiring 2 L Hemodynamic stable Pleasant cooperative Nonfocal neuroexam Urinary Catheter Management: Morton: Cath Placed During This Visit: yes Reason for Continuing Indwelling Catheter: Accurate Measurement of Urinary Output in Critically Ill Patients Urinary Catheter Date of Insertion: 11/02/23 Urinary Catheter Time of Insertion: 20:30 Discharge Data Studies Completed and Pending Completed Studies During Hospitalization Category Date Time Status CTA chest abdomen pelvis [CT ang carlo polkl [id number]/ Cat Scan 11/03/23 06:54 Completed [id number]] Routine XR chest 1V portable [id number] Stat Exams 11/02/23 15:06 Completed Pending at discharge Category Date Time Status CV. echo complete* [id number] Routine Ultrasound 11/02/23 18:14 Taken Radiology Impressions Chest X-Ray 11/02/23 15:06 IMPRESSION: 1. Chronic pulmonary parenchymal changes in the lower lung zones. No acute process is suspected. Chest/Abdomen/Pelvis CTA 11/03/23 06:54 IMPRESSION: 1. No acute pathology. 2. Left adnexal 1.8 cm structure most likely representing ovarian cystic lesion; given patient's age ultrasound recommended further assessment. 3. Minor findings noted above including colonic diverticulosis and small hiatal hernia. Laboratory Results WBC 5.65 10^3/uL (3.29-11.43) 11/03/23 04:30 RBC 4.16 10^6/uL (3.85-5.65) 11/03/23 04:30 Hgb 11.40 g/dL (11.27-16.99) 11/03/23 04:30 Hct 36.5 % (36-47) 11/03/23 04:30 MCV 87.7 fl (85-98) 11/03/23 04:30 MCH 27.4 pg (27-33) 11/03/23 04:30 MCHC 31.2 g/dL (30-55) 11/03/23 04:30 RDW 18.6 % (12.1-15.1) H 11/03/23 04:30 Plt Count 271 10^3/cmm (157-399) 11/03/23 04:30 MPV 9.4 fL (7.4-10.4) 11/03/23 04:30 Neut % (Auto) 80.0 % 11/03/23 04:30 Lymph % (Auto) 14.9 % 11/03/23 04:30 Cooper % (Auto) 3.0 % 11/03/23 04:30 Eos % (Auto) 0.0 % 11/03/23 04:30 Baso % (Auto) 0.5 % 11/03/23 04:30 Neut # (Auto) 4.52 10^3/uL (1.8-7.7) 11/03/23 04:30 Lymph # (Auto) 0.8 10^3/uL (0.8-4.8) 11/03/23 04:30 Cooper # (Auto) 0.2 10^3/uL (0.2-0.9) 11/03/23 04:30 Eos # (Auto) 0.0 10^3/uL (0.0-0.8) 11/03/23 04:30 Baso # (Auto) 0.0 10^3/uL (0.0-0.1) 11/03/23 04:30 Nucleated RBC % (auto) 0 % 11/03/23 04:30 Nucleated RBCs # 0.0 /100WBC 11/03/23 04:30 D-Dimer >= 20.00 ug/mLFEU (0-0.59) H 11/02/23 15:16 Specimen Type Arterial 11/02/23 15:10 Sample Site Radial, left 11/02/23 15:10 ABG pH 7.40 (7.35-7.45) 11/02/23 15:10 ABG pCO2 40.0 mmHg (35-45) 11/02/23 15:10 ABG pO2 74.3 mmHg (80.0-100.0) L 11/02/23 15:10 ABG HCO3 24.8 mmol/L (22-26) 11/02/23 15:10 ABG O2 Saturation 95.7 11/02/23 15:10 ABG Base Excess 0.0 mmol/L (-2.0-2.0) 11/02/23 15:10 [place] Test Pos 11/02/23 15:10 A-a O2 Gradient 3.5 mmHg (5-10) L 11/02/23 15:10 Hematocrit 36.3 % (37-47) L 11/02/23 15:10 Hgb O2 Saturation 92.1 % (95-100) L 11/02/23 15:10 Carboxyhemoglobin 3.5 %THgb (0.4-20.1) 11/02/23 15:10 Methemoglobin 0.2 % (0.4-1.5) L 11/02/23 15:10 Total Hemoglobin 11.8 g/dL (12-16) L 11/02/23 15:10 Sodium 128.0 mmol/L (131-143) L 11/02/23 15:10 Potassium 5.2 mmol/L (3.5-5.0) H 11/02/23 15:10 Glucose 125.0 mg/dL (70-115) H 11/02/23 15:10 Ionized Calcium 1.2 mmol/L (1.1-1.4) 11/02/23 15:10 O2 Delivery Device Nc 11/02/23 15:10 O2 Liters/Min 2.0 % 11/02/23 15:10 Shot Peen Operator ID [place] 11/02/23 15:10 Sodium 131 mmol/L (136-145) L 11/03/23 04:30 Potassium 4.8 mmol/L (3.5-5.1) 11/03/23 04:30 Chloride 95 mmol/L (98-107) L 11/03/23 04:30 Carbon Dioxide 22 mmol/L (22-29) 11/03/23 04:30 Anion Gap 18.8 (5-19) 11/03/23 04:30 BUN 22 mg/dL (8-23) 11/03/23 04:30 Creatinine 1.2 mg/dL (0.5-0.9) H 11/03/23 04:30 GFR Calculation Not Reportable 11/03/23 04:30 Glucose 231 mg/dL (65-115) H 11/03/23 04:30 Calculated Osmolality 283 mOsm/kg (285-295) L 11/03/23 04:30 Calcium 9.0 mg/dL (8.5-10.5) 11/03/23 04:30 Magnesium 2.0 mg/dL (1.7-2.3) 11/03/23 04:30 Total Bilirubin 0.4 mg/dL (0.15-1.2) 11/02/23 15:16 AST 24 U/L (0-32) 11/02/23 15:16 ALT 12 U/L (0-33) 11/02/23 15:16 Alkaline Phosphatase 121 U/L (35-105) H 11/02/23 15:16 Troponin T Baseline 32 ng/L (0-10) H 11/02/23 15:16 Troponin T 120 Minute 29.89 ng/L (0-10) H 06/20/24 17:27 Delta Troponin T -2.11 ABS# (0-10) L 11/02/23 17:27 Troponin T Hi Sens 6Hr 20.38 ng/L (0-10) H 11/03/23 00:10 Troponin T Hi Sens 6Hr Delta -11.62 ng/L (0-12) L 11/03/23 00:10 C-Reactive Protein 79.4 mg/L (0.0-4.9) H 11/03/23 04:30 NT-Pro-B Natriuret Pep 3654 pg/mL (0-450) H 11/02/23 15:16 Total Protein 7.3 g/dL (6.6-8.7) 11/02/23 15:16 Albumin 3.5 g/dL (3.5-5.2) 11/02/23 15:16 Globulin 3.8 g/dL (1.3-4.6) 11/02/23 15:16 Procalcitonin 0.22 ng/mL (0-0.5) 11/02/23 15:16 Urine Color Yellow (Yellow) 11/02/23 16:11 Urine Appearance Clear (CLEAR) 11/02/23 16:11 Urine pH 5 (5-7) 11/02/23 16:11 Ur Specific [place] 1.015 (1.005-1.030) 11/02/23 16:11 Urine Protein Neg (Negative) 11/02/23 16:11 Urine Glucose (UA) Norm (Normal) 11/02/23 16:11 Urine Ketones Negative (Negative) 11/02/23 16:11 Urine Blood Neg (Negative) 11/02/23 16:11 Urine Nitrate Negative (Negative) 11/02/23 16:11 Urine Bilirubin Neg (Negative) 11/02/23 16:11 Urine Urobilinogen Norm mg/dL (Negative) 11/02/23 16:11 Ur Leukocyte Esterase Negative (Negative) 11/02/23 16:11 Vitals Last Vital Signs Temp 97.5 F L 11/03/23 08:00 Pulse 78 11/03/23 09:09 Resp 17 11/03/23 09:09 BP 83/54 11/03/23 08:00 Pulse Ox 98 11/03/23 09:09 O2 Del Method Nasal Cannula 11/03/23 09:09 O2 Flow Rate 2 11/03/23 09:09 Discharge Plan Discharge Patient Disposition: Home Condition: Stable Prescriptions: New sennosides-docusate sodium [Stool Softener-Laxative] 8.6-50 mg Tablet 1 tab PO DAILY Qty: 30 0RF levofloxacin 750 mg Tablet 750 mg PO Q48H Qty: 6 0RF doxycycline monohydrate 100 mg Tablet 100 mg PO BID Qty: 8 0RF Continued ICaps AREDS 14,[id number] ghsv-gc-hbts capsule 1 cap PO BID aspirin 325 mg tablet 325 mg PO DAILY Hold Instructions: Resume on 06/06/23. potassium chloride 8 mEq tablet extended release 8 meq PO DIRECTED PRN (Reason: with lasix) Qty: 180 0RF Rx Instructions: 1 tablet daily with 1 furosemide 2 tablets daily with 2 furosemide celecoxib [Celebrex] 200 mg capsule 200 mg PO PRN PRN (Reason: pain) acetaminophen [Tylenol Extra Strength] 500 mg Tablet 1,000 mg PO PRN PRN (Reason: Pain) allopurinol 100 mg tablet 200 mg PO DAILY coenzyme Q10 10 mg Tablet 10 mg PO DAILY furosemide 40 mg Tablet 40 mg PO DAILY@0800 Qty: 30 0RF Discontinued diltiazem HCl 120 mg capsule,extended release 24hr 120 mg PO DAILY Qty: 90 3RF Referrals: Marizol Leiva MD [Physician] - 4-7 days Meg Romano MD [Staff Physician] - Patient Instructions: Heart Failure (DC), CHF Stoplight, Opioid Safety Discharge Attestations Time Spent in Discharge Care*: greater than 30 min Quality Metrics Clinical Quality Measures [ No reported AMI, CVA or VTE this stay] Coding Level of Care Code Acute Code for Chg Fwd Diagnoses Severe pulmonary hypertension I27.20 Nonrheumatic aortic valve stenosis I35.0 Cardiac valve disease etiology: nonrheumatic Status post transcatheter aortic valve replacement (TAVR) using bioprosthesis Z95.3 SOB (shortness of breath) R06.02 Acute exacerbation of CHF (congestive heart failure) I50.9 Hypoxia R09.02
[2023-11-03] MEDS: sodium chloride 0.9% 250 ML IV (12:01)
--- NOTE | 2023-11-03 15:37 | PC.NURSE ---
Discharge Note Patient discharged to [home] via [w/c to POV] accompanied by [family]. Discharge instructions reviewed with patient and/or career services representative. Mobile pharmacy medications and/or prescriptions provided. Belongings/home medications returned.
== END 2023-11-03 15:38 | disposition home or self-care (01) | DRG 291 ==
LOC: ER 17:03 → CSU 18:10
PROVIDERS: Admitting Provider Internal Medicine; Emergency Provider Family Medicine; Visit Provider Internal Medicine
DX: I11.0 Hypertensive heart disease with heart failure (principal); I50.33 Acute on chronic diastolic (congestive) heart failure; F17.210 Nicotine dependence, cigarettes, uncomplicated; I35.0 Nonrheumatic aortic (valve) stenosis; I27.20 Pulmonary hypertension, unspecified; R00.1 Bradycardia, unspecified; N83.202 Unspecified ovarian cyst, left side; K44.9 Diaphragmatic hernia without obstruction or gangrene; K57.30 Diverticulosis of large intestine without perforation or abscess without bleeding; R09.02 Hypoxemia; Z53.09 Procedure and treatment not carried out because of other contraindication; Z53.29 Procedure and treatment not carried out because of patient's decision for other reasons; T14.8XXA Other injury of unspecified body region, initial encounter; W57.XXXA Bitten or stung by nonvenomous insect and other nonvenomous arthropods, initial encounter; Y92.9 Unspecified place or not applicable
CPT/HCPCS: 36415; 36600; 51702; 71045; 71275; 74174; 80048; 80051; 80053; 81003; 82330; 82805; 83735; 83880; 84145; 84484; 85025; 85378; 86140; 93005; 93306; 94640; 94760; 96372; 96376; 99285; J1100; J1650; J1940; J7050; Q9967

== ENCOUNTER 2023-11-27 17:04 | Inpatient (IN) | payer MEDICARE, SELFPAY ==
[2023-11-27] VITALS (7 sets, daily range): BP systolic 82–126; BP diastolic 51–67; PULSE 77–93; RESP 18–20; TEMP 36.8; O2SAT 77–99; BMI 36.3
--- NOTE | 2023-11-27 17:14 | ECG_ITS ---
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 Measurements Intervals [place] Rate: 81 P: 54 WI: 186 QRS: 46 QRSD: 85 T: 46 QT: 369 QTc: 430 Interpretive Statements SINUS RHYTHM SEPTAL MYOCARDIAL INFARCTION , PROBABLY OLD [40+ ms Q WAVE IN V1/V2] Compared to ECG 11/02/2023 23:12:39 Myocardial infarct finding now present Electronically Signed On 11-27-2023 23:21:53 CDT by Anuj Sloan M.D. [email or web address] Internet Technologygreene county hospitalZilloPaycleveland clinic hillcrest hospital.betNOW/store/OM/[id number]
--- NOTE | 2023-11-27 17:14 | XRR_ITS ---
PROCEDURE INFORMATION: Exam: XR Chest Exam date and time: 11/27/2023 5:27 PM Age: 82 years old Clinical indication: Shortness of breath; Additional info: Weakness TECHNIQUE: Imaging protocol: Radiologic exam of the chest. Views: 1 view. COMPARISON: CT ang carlo carol [id number] 11/03/2023 9:48 AM FINDINGS: Lungs: Increased interstitial markings and mild pulmonary vascular congestion are again noted accentuated by incomplete pulmonary expansion. Pleural spaces: No pleural effusion. Heart/Mediastinum: Cardiomediastinal contours accentuated by low lung volumes and AP technique. Bones/joints: No significant pathology. XR/XR chest 1V portable [id number] IMPRESSION: No significant change given technique. Increased interstitial, mild pulmonary vascular congestion and increased cardiac silhouette again noted.
[2023-11-27 17:35] LABS: Basophils # 0.1 10^3/uL (0.0-0.1); Basophils % 0.7 %; Eosinophils # 0.3 10^3/uL (0.0-0.8); Eosinophils % 3.5 %; Hematocrit 38.9 % (36-47); Lymphocytes # 1.9 10^3/uL (0.8-4.8); Lymphocytes % 24.2 %; Mean Corpuscular HGB Conc 31.9 g/dL (30-55); Mean Corpuscular Hemoglobin 27.7 pg (27-33); Mean Platelet Volume 9.6 fL (7.4-10.4); Monocytes % 12.5 %; Neutrophils # 4.48 10^3/uL (1.8-7.7); Neutrophils % 58.7 %; Nucleated Red Blood Cells % 0 %; Platelet Count 279 10^3/cmm (157-399); Red Blood Count 4.47 10^6/uL (3.85-5.65); Red Cell Distribution Width 17.6 % (12.1-15.1); White Blood Count 7.63 10^3/uL (3.29-11.43)
[2023-11-27 17:43] LABS: ABG PCO2 36.7 mmHg (35-45); ABG PH Result 7.44 (7.35-7.45); Arterial Blood Gas Hematocrit 34.1 % (37-47); Base Excess ABG 0.5 mmol/L (-2.0-2.0); Blood Gas Allen Test Pos; Blood Gas Operator Identificat MONRO; Blood Gas Sample Site Radial, left; Blood Gas Sample Type Arterial; HCO3 ABG 24.6 mmol/L (22-26); Oxygen Device OXY MASK; PO2 FiO2 Ratio Arterial Blood 153
[2023-11-27] MEDS: sodium chloride 0.9% 1,000 ML 999 ML IV (17:54)
[2023-11-27 17:55] LABS: INR 1.05 (0.8-1.2)
[2023-11-27 17:59] LABS: Lactic Sepsis W/Reflex 1.9 mmol/L (0.5-2.2)
[2023-11-27 18:01] LABS: Troponin(5th) Baseline 36 ng/L (0-10)
--- NOTE | 2023-11-27 18:07 | ED_ITS ---
HPI - Weakness 2 General: Chief complaint: ER Hold Stated complaint: weakness, hypotensive Time Seen by Provider: 11/27/23 17:08 Source: patient and EMS Mode of arrival: EMS Limitations: no limitations History of Present Illness: 82-year-old female history of CHF along with COPD states that last 2 to 3 days she has been having increasing weakness along with shortness of breath. Patient is typically wears 2 L oxygen at home currently requiring 6 EMS states she was hypotensive when they arrived as well her blood pressure improved with 200 mL of fluids and round. Patient denies fever she states she is feels extremely weak short of breath denies pain anywhere Associated symptoms: Denies chest pain, chills, fever(s), headache(s), nausea or vomiting Review of Systems 2 Const: Reports: fatigue and malaise; Denies: fever(s), chills, body aches or change in appetite ENMT: Denies: throat pain or dental pain Card: Denies: chest pain Resp: Reports: dyspnea GI: Denies: abdominal pain, nausea, vomiting or diarrhea Musc: Denies: neck pain or back pain Skin/Breast: Denies: rash Neuro: Denies: headache(s) PFSH ED 2 PFSH: Medical History (Updated 11/27/23 @ 20:32 by Noemí Dc MD) Acute exacerbation of CHF (congestive heart failure) Hypoxia Acute exacerbation of chronic obstructive pulmonary disease (COPD) SOB (shortness of breath) Heart murmur Severe pulmonary hypertension Claudication Aortic valve stenosis Smoking Hypertension Aortic stenosis Patient was found to have dense calcium in the aortic annulus. For that reason, TAVR was canceled. Patient was offered a second opinion to go to [facility] in [place] . But she declined Surgical History Status post transcatheter aortic valve replacement (TAVR) using bioprosthesis S/P tonsillectomy Family History Brother Myocardial infarct Mother Stroke Social History Smoking and tobacco/nicotine status: current every day tobacco/nicotine user cigarettes Packs smoked per day: 1 Alcohol intake: never Substance/Drug Use: never Physical Exam 2 Const: COMMON NORMALS: patient oriented x3 GENERAL APPEARANCE: ill appearing HENMT: COMMON NORMALS: normocephalic and atraumatic HEAD & SCALP: n ormocephalic and atraumatic Eye: COMMON NORMALS: conjunctivae normal CONJUNCTIVA: Yes conjunctivae normal Neck/C-Spine: COMMON NORMALS: full ROM and supple Chest: COMMONS NORMALS: normal inspection of the chest Resp: COMMON NORMALS: No retractions and No use of accessory muscles Cardio: COMMON NORMALS: regular rate, regular rhythm and No murmurs present (Cardio) RATE: regular rate RHYTHM: regular rhythm GI: COMMON NORMALS: Normal to inspection, nondistended, normoactive bowel sounds present, Soft to palpation, non-tender and no masses PALPATION: Yes Soft to palpation Extremity: COMMON NORMALS: normal to inspection and full ROM Neuro: COMMON NORMALS: patient oriented x3, moves all extremities and no focal motor deficits Psych: COMMON NORMALS: mental status grossly normal, Normal thought process present and cooperative THOUGHT PROCESS: Normal thought process present Skin: COMMON NORMALS: no rashes or lesions noted and no wounds GENERAL SKIN EXAM: no rashes or lesions noted Course 2 Vital Signs: Vital signs: Vital Signs Temperature 98.3 F 11/27/23 17:11 Pulse Rate 77 11/27/23 19:51 Respiratory Rate 20 H 11/27/23 19:51 Blood Pressure 92/65 11/27/23 18:14 Pulse Oximetry 98 11/27/23 19:51 Oxygen Delivery Me thod Nasal Cannula 11/27/23 19:51 Oxygen Flow Rate 5 11/27/23 19:51 MDM - Weakness Medical Decision Making Patient presents here with generalized weakness with shortness of breath she is requiring 6 L oxygen here typically wears 2. Imaging here shows pneumonia versus CHF will start patient on antibiotics and get cultures patient's blood pressure currently is 126/67 spoke to the hospitalist will admit to the cardiac stepdown Medical Records I reviewed the patient's medical records. Lab Data I reviewed the patient's lab results. 11/27/23 17:16 11/27/23 17:16 Radiology Impressions Chest X-Ray 11/27/23 17:14 IMPRESSION: No significant change given technique. Increased interstitial, mild pulmonary vascular congestion and increased cardiac silhouette again noted. Chest CTA 11/27/23 18:20 IMPRESSION: 1. No evidence of pulmonary embolism. 2. Diffuse interlobular septal thickening with areas of ground-glass opacification, mildly worsened compared to prior study. Nonspecific findings suggestive of pulmonary edema. Atypical infection or progression of interstitial disease could also cause this appearance. 3. Stable scattered micro nodules. Follow-up per prior report. Laboratory Results WBC 7.63 10^3/uL (3.29-11.43) 11/27/23 17:16 RBC 4.47 10^6/uL (3.85-5.65) 11/27/23 17:16 Hgb 12.40 g/dL (11.27-16.99) 11/27/23 17:16 Hct 38.9 % (36-47) 11/27/23 17:16 MCV 87.0 fl (85-98) 11/27/23 17:16 MCH 27.7 pg (27-33) 11/27/23 17:16 MCHC 31.9 g/dL (30-55) 11/27/23 17:16 RDW 17.6 % (12.1-15.1) H 11/27/23 17:16 Plt Count 279 10^3/cmm (157-399) 11/27/23 17:16 MPV 9.6 fL (7.4-10.4) 11/27/23 17:16 Neut % (Auto) 58.7 % 11/27/23 17:16 Lymph % (Auto) 24.2 % 11/27/23 17:16 [place] % (Auto) 12.5 % 11/27/23 17:16 Eos % (Auto) 3.5 % 11/27/23 17:16 Baso % (Auto) 0.7 % 11/27/23 17:16 Neut # (Auto) 4.48 10^3/uL (1.8-7.7) 11/27/23 17:16 Lymph # (Auto) 1.9 10^3/uL (0.8-4.8) 11/27/23 17:16 [place] # (Auto) 1.0 10^3/uL (0.2-0.9) H 11/27/23 17:16 Eos # (Auto) 0.3 10^3/uL (0.0-0.8) 11/27/23 17:16 Baso # (Auto) 0.1 10^3/uL (0.0-0.1) 11/27/23 17:16 Nucleated RBC % (auto) 0 % 11/27/23 17:16 Nucleated RBCs # 0.0 /100WBC 11/27/23 17:16 PT 14.10 SECONDS (12.1-14.9) 11/27/23 17:16 INR 1.05 (0.8-1.2) 11/27/23 17:16 Specimen Type Arterial 11/27/23 17:30 Sample Site Radial, left 11/27/23 17:30 ABG pH 7.44 (7.35-7.45) 11/27/23 17:30 ABG pCO2 36.7 mmHg (35-45) 11/27/23 17:30 ABG pO2 69.0 mmHg (80.0-100.0) L 11/27/23 17:30 ABG PO2/FiO2 Ratio 153 11/27/23 17:30 ABG HCO3 24.6 mmol/L (22-26) 11/27/23 17:30 ABG Base Excess 0.5 mmol/L (-2.0-2.0) 11/27/23 17:30 [place] Test Pos 11/27/23 17:30 Hematocrit 34.1 % (37-47) L 11/27/23 17:30 O2 Delivery Device Oxy mask 11/27/23 17:30 O2 Liters/Min 6.0 % 11/27/23 17:30 FiO2 45.0 % 11/27/23 17:30 Eight Arm Operator ID [place] 11/27/23 17:30 Sodium 125 mmol/L (136-145) L 11/27/23 17:16 Potassium 4.3 mmol/L (3.5-5.1) 11/27/23 17:16 Chloride 87 mmol/L (98-107) L 11/27/23 17:16 Carbon Dioxide 24 mmol/L (22-29) 11/27/23 17:16 Anion Gap 18.3 (5-19) 11/27/23 17:16 BUN 10 mg/dL (8-23) 11/27/23 17:16 Creatinine 1.0 mg/dL (0.5-0.9) H 11/27/23 17:16 GFR Calculation Not Reportable 11/27/23 17:16 Glucose 110 mg/dL (65-115) 11/27/23 17:16 Calculated Osmolality 260 mOsm/kg (285-295) L 11/27/23 17:16 Lactic Acid 1.9 mmol/L (0.5-2.2) 11/27/23 17:16 Calcium 9.2 mg/dL (8.5-10.5) 11/27/23 17:16 Magnesium 1.8 mg/dL (1.7-2.3) 11/27/23 17:16 Total Bilirubin 0.5 mg/dL (0.15-1.2) 11/27/23 17:16 AST 34 U/L (0-32) H 11/27/23 17:16 ALT 11 U/L (0-33) 11/27/23 17:16 Alkaline Phosphatase 144 U/L (35-105) H 11/27/23 17:16 Troponin T Baseline 36 ng/L (0-10) H 11/27/23 17:16 Troponin T 120 Minute 30.96 ng/L (0-10) H 11/27/23 19:12 Delta Troponin T -5.04 ABS# (0-10) L 11/27/23 19:12 NT-Pro-B Natriuret Pep 2182 pg/mL (0-450) H 11/27/23 17:16 Total Protein 7.4 g/dL (6.6-8.7) 11/27/23 17:16 Albumin 3.7 g/dL (3.5-5.2) 11/27/23 17:16 Globulin 3.7 g/dL (1.3-4.6) 11/27/23 17:16 Lipase 12 U/L (13-60) L 11/27/23 17:16 TSH 0.50 uIU/mL (0.27-4.20) 11/27/23 17:16 Urine Color Yellow (Yellow) 11/27/23 17:49 Urine Appearance Clear (CLEAR) 11/27/23 17:49 Urine pH 7 (5-7) 11/27/23 17:49 Ur Specific [place] 1.005 (1.005-1.030) 11/27/23 17:49 Urine Protein Neg (Negative) 11/27/23 17:49 Urine Glucose (UA) Norm (Normal) 11/27/23 17:49 Urine Ketones Negative (Negative) 11/27/23 17:49 Urine Blood Neg (Negative) 11/27/23 17:49 Urine Nitrate Negative (Negative) 11/27/23 17:49 Urine Bilirubin Neg (Negative) 11/27/23 17:49 Urine Urobilinogen Norm mg/dL (Negative) 11/27/23 17:49 Ur Leukocyte Esterase Negative (Negative) 11/27/23 17:49 All radiology interpretation(s) finalized by discharge EKG Data EKG 1: I personally reviewed and interpreted this EKG as follows: EKG interpretation date: 11/27/23 EKG interpretation time: 17:25 Interpretation: nsr hr [address] elevation qrs 85 qtc 406 Discharge Plan Discharge Patient Disposition: Admitted As Inpatient Admit Provider: Danna Massey Clinical Impression: Acute on chronic respiratory failure with hypoxemia, Acute exacerbation of CHF (congestive heart failure), Pneumonia Condition: Stable Coding Level of Care Code ED 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
[2023-11-27 18:08] LABS: Alanine Aminotransferase 11 U/L (0-33); Albumin Level 3.7 g/dL (3.5-5.2); Alkaline Phosphatase 144 U/L (35-105); Anion Gap 18.3 (5-19); Aspartate Amino Transferase 34 U/L (0-32); Blood Urea Nitrogen 10 mg/dL (8-23); Calcium 9.2 mg/dL (8.5-10.5); Carbon Dioxide 24 mmol/L (22-29); Chloride 87 mmol/L (98-107); Creatinine Clr Calc Pharmacy 49.6518; Globulin 3.7 g/dL (1.3-4.6); Glucose 110 mg/dL (65-115); Lipase 12 U/L (13-60); Magnesium 1.8 mg/dL (1.7-2.3); NT Pro B Type Natriuretic Pept 2182 pg/mL (0-450); Osmolality Calculated 260 mOsm/kg (285-295); Potassium 4.3 mmol/L (3.5-5.1); Sodium 125 mmol/L (136-145); Total Bilirubin 0.5 mg/dL (0.15-1.2); Total Protein 7.4 g/dL (6.6-8.7)
--- NOTE | 2023-11-27 18:20 | CTR_ITS ---
PROCEDURE INFORMATION: Exam: CTA Chest With Contrast Exam date and time: 11/27/2023 6:58 PM Age: 82 years old Clinical indication: Dyspnea; Additional info: SOB TECHNIQUE: Imaging protocol: Computed tomographic angiography of the chest with contrast. Exam focused on the arteries. 3D rendering (Not supervised by radiologist): MIP and/or 3D reconstructed images were created by the technologist. Radiation optimization: All CT scans at this facility use at least one of these dose optimization techniques: automated exposure control; mA and/or kV adjustment per patient size (includes targeted exams where dose is matched to clinical indication); or iterative reconstruction. Contrast material: OMNI 350; Contrast volume: 70 ml; Contrast route: INTRAVENOUS (IV); COMPARISON: CT ang [facility] abdpel [id number] 11/03/2023 9:48 AM RADIATION DOSE METRICS: Total DLP (mGy-cm): 480 FINDINGS: Pulmonary arteries: Pulmonary arteries are adequately visualized to the distal segmental level. No filling defects are identified to suggest pulmonary artery embolism. The main pulmonary artery is normal in size. There is no evidence of right heart strain. Aorta: Atherosclerotic calcifications of the aorta are present. No aneurysm is identified. Lungs: Mild emphysematous change. Mild diffuse bronchial wall thickening. Diffuse interlobular septal thickening with areas of ground-glass opacification, mildly worsened compared to prior study. Persistent mosaic attenuation. Worsening subpleural reticulation. Pleural spaces: No pleural effusion or pneumothorax. Heart: Mild cardiomegaly. No pericardial effusion or pericardial thickening. Dense mitral annular calcifications. Coronary arteries: Moderate coronary artery calcification. Lymph nodes: Prominent mediastinal and right hilar lymph nodes with multiple calcifications likely related to old granulomatous disease. Bones/joints: No acute osseous abnormalities are seen. Soft tissues: The soft tissues are within normal limits. Other findings: Scattered calcified granulomata. Stable scattered micro nodules. CT/CT angio chest PE protcl [id number] IMPRESSION: 1. No evidence of pulmonary embolism. 2. Diffuse interlobular septal thickening with areas of ground-glass opacification, mildly worsened compared to prior study. Nonspecific findings suggestive of pulmonary edema. Atypical infection or progression of interstitial disease could also cause this appearance. 3. Stable scattered micro nodules. Follow-up per prior report.
[2023-11-27 18:29] LABS: Add Urine Microscopic? NO; Charge for UA Resulting for Rev
[2023-11-27] MEDS: methylPREDNISolone sod succ 125 mg/2 mL INJ IVP (18:31)
[2023-11-27 18:57] LABS: Bilirubin Urine Neg (Negative); Blood Urine Neg (Negative); Glucose Urine UA Norm (Normal); Ketones Urine Negative (Negative); Leukocyte Esterase Urine Negative (Negative); Nitrate Urine Negative (Negative); Protein Urine Neg (Negative); Specific Gravity, Urine 1.005 (1.005-1.030); Urine Appearance Clear (CLEAR); Urine Color Yellow (Yellow); Urobilinogen Urine Norm (Negative); pH Urine 7 (5-7)
[2023-11-27] MEDS: iohexol 350 mg/mL 500 mL Btl (per mL) IV (19:07)
[2023-11-27 19:44] LABS: Troponin 5 2HR 30.96 ng/L (0-10)
--- NOTE | 2023-11-27 19:44 | ECG_ITS ---
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 Measurements Intervals [place] Rate: 77 P: 59 AL: 188 QRS: 61 QRSD: 83 T: 156 QT: 351 QTc: 399 Interpretive Statements SINUS RHYTHM SEPTAL MYOCARDIAL INFARCTION , OF INDETERMINATE AGE [40+ ms Q WAVE IN V1/V2] Compared to ECG 11/27/2023 17:25:37 No significant changes Electronically Signed On 11-27-2023 23:26:06 CDT by Anuj Sloan M.D. [id number]
[2023-11-27 19:45] LABS: Troponin 5 2HR Delta -5.04 ABS# (0-10)
[2023-11-27] MEDS: ipratropium-albuterol 3 mL Neb INHALATION (19:46)
--- NOTE | 2023-11-27 20:05 | P.HP_ITS ---
Providers/Chief Complaint 2 Primary Care Provider: Karsten Lange DO Chief Complaint: weakness, hypotensive History of Present Illness Mary Ponce is a 82 year old female with history of aortic stenosis not amenable for intervention, diastolic CHF, patient remains hypotensive at baseline, presented with chief complaint of worsening shortness of breath. During last admission she was diuresed, CTA rule out PE she was discharged on 2 L of oxygen. In the ER she is currently on 5 L oxygen with blood pressure 92/65. CT chest rule out PE she was given methylprednisolone 1 shot along azithromycin and ceftriaxone and 1 L bolus. Systolic blood pressure above 100 mmHg. Patient stating that her main concern was low blood pressure fatigue lethargy and not feeling Hungry. No chest pain, fever or significant worsening of cough. She is endorsing mild productive cough. Review of Systems 2 Const: Denies: fever(s) Eyes: Denies: change in vision ENMT: Denies: throat pain Card: Reports: irregular heart rhythm and swelling of feet/ankles Resp: Reports: dyspnea GI: Denies: abdominal pain : Denies: flank pain Musc: Denies: neck pain Skin/Breast: Denies: rash Neuro: Denies: headache(s) Psych: Reports: anxiety Medications/Allergies Home Medications Medication Instructions Recorded Confirmed Last Taken Type aspirin 325 mg tablet 325 mg PO DAILY 11/27/20 11/02/23 11/02/23 History vitamins A,C,R-orfn-jgkhrt 4,296 1 cap PO BID 05/31/21 11/02/23 11/01/23 History mcg-226 mg-90 mg capsule (ICaps AREDS) acetaminophen 500 mg tablet 1,000 mg PO PRN PRN Pain 12/08/21 11/02/23 11/02/23 History (Tylenol Extra Strength) allopurinol 100 mg tablet 200 mg PO DAILY 05/18/23 11/02/23 11/01/23 History coenzyme Q10 10 mg tablet 10 mg PO DAILY 05/18/23 11/02/23 11/01/23 History furosemide 40 mg tablet 40 mg PO DAILY@0800 #30 tabs 05/24/23 11/02/23 11/02/23 Rx celecoxib 200 mg capsule (Celebrex) 200 mg PO PRN PRN pain 11/02/23 11/03/23 Unknown History doxycycline monohydrate 100 mg 100 mg PO BID #8 tabs 11/03/23 Unknown Rx tablet levofloxacin 750 mg tablet 750 mg PO Q48H #6 tabs 11/03/23 Unknown Rx sennosides 8.6 mg-docusate sodium 1 tab PO DAILY #30 tabs 11/03/23 Unknown Rx 50 mg tablet (Stool Softener-Laxative) potassium chloride 8 mEq 8 meq PO DIRECTED PRN with 11/06/23 Unknown Rx tablet,extended release lasix #180 tabs Allergies Allergy/AdvReac Type Severity Reaction Status Date / Time No Known Allergies Allergy Verified 11/02/23 14:54 PFSH Acute 2 PFSH: Medical History (Updated 11/27/23 @ 20:32 by Noemí Dc MD) Acute exacerbation of CHF (congestive heart failure) Hypoxia Acute exacerbation of chronic obstructive pulmonary disease (COPD) SOB (shortness of breath) Heart murmur Severe pulmonary hypertension Claudication Aortic valve stenosis Smoking Hypertension Aortic stenosis Patient was found to have dense calcium in the aortic annulus. For that reason, TAVR was canceled. Patient was offered a second opinion to go to [facility] in [place] . But she declined Surgical History Status post transcatheter aortic valve replacement (TAVR) using bioprosthesis S/P tonsillectomy Family History Brother Myocardial infarct Mother Stroke Social History Smoking and tobacco/nicotine status: current every day tobacco/nicotine user cigarettes Packs smoked per day: 1 Alcohol intake: never Substance/Drug Use: never Vitals/I&O/Wt Last Vital Signs Temp 98.3 F 11/27/23 17:11 Pulse 77 11/27/23 19:51 Resp 20 H 11/27/23 19:51 BP 92/65 11/27/23 18:14 Pulse Ox 98 11/27/23 19:51 O2 Del Method Nasal Cannula 11/27/23 19:51 O2 Flow Rate 5 11/27/23 19:51 Weight last 48 hrs Weight 96.162 kg Physical Exam 2 Narrative: Signs of fluid overload Currently on 5 L Awake and alert Assessment Pleasant cooperative Murmur of aortic stenosis Afebrile Nonfocal neuroexam abdomen soft Data 11/27/23 17:16 11/27/23 17:16 Micro: Microbiology 11/27/23 18:21 Blood Culture - Preliminary Blood SPECIMEN COLLECTED 11/27/23 17:34 Blood Culture - Preliminary Blood SPECIMEN COLLECTED A&P Assessment and plan (1) Fatigue: (2) Acute exacerbation of CHF (congestive heart failure): (3) Acute on chronic respiratory failure with hypoxemia: (4) Hyponatremia: Plan Acute diastolic CHF exacerbation Start IV diuresis Judicious use of diuresis because of patient's persistent low blood pressure Patient has underlying aortic stenosis which is preload dependent Chronic kidney disease without acute worsening At home uses 2 L currently requiring 5 L Pneumonia Continue antibiotic I would use ceftriaxone and azithromycin for now patient is afebrile, she has received stable exam anticipating tomorrow her white count will be high Acute hyponatremia with signs of fluid overload Hyponatremia in hypervolemic state carries a guarded prognosis Aortic valve stenosis not amenable for intervention Patient has been evaluated at [facility] by lead tank mechanic as well Full code Cardiac diet DVT prophylaxis covered with heparin Attestations 2 Medical Necessity Statement*: Anticipating discharge within 48 hours Diagnoses Fatigue R53.83 Acute exacerbation of CHF (congestive heart failure) I50.9 Acute on chronic respiratory failure with hypoxemia J96.21 Hyponatremia E87.1
[2023-11-27] MEDS: cefTRIAXone 1,000 mg SDV 1000 MG IVP (20:32)
[2023-11-27] MEDS: azithromycin 500 MG in sodium chloride 0.9% 250 ML 250 MG IV (20:33)
--- NOTE | 2023-11-27 23:14 | ECG_ITS ---
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 Measurements Intervals [place] Rate: 74 P: 36 IA: 176 QRS: 11 QRSD: 103 T: 80 QT: 404 QTc: 450 Interpretive Statements SINUS RHYTHM NONSPECIFIC T-WAVE ABNORMALITY Poor R wave progression Compared to ECG 11/27/2023 19:44:07 T-wave abnormality now present Myocardial infarct finding no longer present Electronically Signed On 11-28-2023 21:34:46 CDT by Marizol Leiva M.D. [id number]
[2023-11-27 23:48] LABS: Troponin 5 6HR 25.24 ng/L (0-10)
[2023-11-27 23:49] LABS: Troponin 5 6HR Delta -10.76 ng/L (0-12)
[2023-11-28] VITALS (12 sets, daily range): BP systolic 79–109; BP diastolic 50–75; PULSE 61–78; RESP 11–25; TEMP 36.8; O2SAT 86–100
[2023-11-28] MEDS: nicotine 7 mg Patch 1 PATCH TRANSDERMA (00:49)
[2023-11-28] MEDS: acetaminophen 500 mg Tablet PO (00:52)
[2023-11-28 04:35] LABS: Basophils % 0.2 %; Hematocrit 33.2 % (36-47); Lymphocytes # 0.7 10^3/uL (0.8-4.8); Lymphocytes % 13.5 %; Mean Corpuscular HGB Conc 31.6 g/dL (30-55); Mean Corpuscular Hemoglobin 27.9 pg (27-33); Mean Corpuscular Volume 88.3 fl (85-98); Mean Platelet Volume 9.1 fL (7.4-10.4); Monocytes # 0.1 10^3/uL (0.2-0.9); Monocytes % 2.1 %; Neutrophils # 4.27 10^3/uL (1.8-7.7); Neutrophils % 83.4 %; Nucleated Red Blood Cells % 0 %; Platelet Count 216 10^3/cmm (157-399); Red Blood Count 3.76 10^6/uL (3.85-5.65); Red Cell Distribution Width 17.5 % (12.1-15.1); White Blood Count 5.12 10^3/uL (3.29-11.43)
[2023-11-28 04:54] LABS: Anion Gap 18.5 (5-19); Blood Urea Nitrogen 15 mg/dL (8-23); Calcium 8.5 mg/dL (8.5-10.5); Carbon Dioxide 20 mmol/L (22-29); Chloride 90 mmol/L (98-107); Creatinine Clr Calc Pharmacy 55.1687; Glucose 212 mg/dL (65-115); Magnesium 1.8 mg/dL (1.7-2.3); Osmolality Calculated 265 mOsm/kg (285-295); Potassium 4.5 mmol/L (3.5-5.1); Sodium 124 mmol/L (136-145)
[2023-11-28] MEDS: sodium chloride 0.9% 250 ML IV (06:41)
[2023-11-28 09:10] LABS: Cortisol Random 11.87 ug/dL (2.47-19.5)
--- NOTE | 2023-11-28 10:04 | PM.DCS ---
Discharge Providers Date of Admission: 11/27/23 20:25 Date of Discharge: November 28, 2023 Attending Provider at Admission: Danna Massey MD Attending Provider at Discharge: Danna Massey MD Primary Care Provider: Karsten Lange DO Diagnoses at Discharge Discharge Diagnosis (1) Fatigue: Status: Acute (2) Acute exacerbation of CHF (congestive heart failure): Status: Acute (3) Acute on chronic respiratory failure with hypoxemia: Status: Acute (4) Hyponatremia: Status: Acute Reason for Visit Reason for Visit: weakness, hypotensive Hospital Course Hospital Course 2 year female who was recently discharged from the hospital after management of diastolic CHF exacerbation, her medications were readjusted because her blood pressure was staying low, this time she was feeling weak and lethargic, she was diagnosed with hypertension, clinically she looks dry, her blood pressure improved with IV fluid hydration, she was not given diuretics, there was concern for pneumonia and she was put on antibiotics CTA chest rule out PE. Home oxygen evaluation was done before discharge she is not requiring more than her baseline which is 2 L, blood pressure is improved after IV fluid hydration. I have asked patient not to take her antihypertensive regimen or Lasix on daily basis. I have educated her when to take Lasix. I have given her another referral to see Dr. Williamson for TAVR evaluation. Her son was also present during discharge med counseling She is being discharged with stable hemodynamics. Physical Exam Narrative: Pleasant cooperative Requiring 2 L Nonfocal neuroexam Blood pressure stable Urinary Catheter Management: Morton: Cath Placed During This Visit: yes Urinary Catheter Date of Insertion: 11/27/23 Urinary Catheter Time of Insertion: 20:38 Discharge Data Studies Completed and Pending Completed Studies During Hospitalization Category Date Time Status CTA chest [CT angio chest PE protcl [id number]] Stat Cat Scan 11/27/23 18:20 Completed XR chest 1V portable [id number] Stat Exams 11/27/23 17:14 Completed Pending at discharge Category Date Time Status Blood Culture Stat Lab 11/27/23 18:21 Results Radiology Impressions Chest X-Ray 11/27/23 17:14 IMPRESSION: No significant change given technique. Increased interstitial, mild pulmonary vascular congestion and increased cardiac silhouette again noted. Chest CTA 11/27/23 18:20 IMPRESSION: 1. No evidence of pulmonary embolism. 2. Diffuse interlobular septal thickening with areas of ground-glass opacification, mildly worsened compared to prior study. Nonspecific findings suggestive of pulmonary edema. Atypical infection or progression of interstitial disease could also cause this appearance. 3. Stable scattered micro nodules. Follow-up per prior report. Laboratory Results WBC 5.12 10^3/uL (3.29-11.43) 11/28/23 04:20 RBC 3.76 10^6/uL (3.85-5.65) L 11/28/23 04:20 Hgb 10.50 g/dL (11.27-16.99) L 11/28/23 04:20 Hct 33.2 % (36-47) L 11/28/23 04:20 MCV 88.3 fl (85-98) 11/28/23 04:20 MCH 27.9 pg (27-33) 11/28/23 04:20 MCHC 31.6 g/dL (30-55) 11/28/23 04:20 RDW 17.5 % (12.1-15.1) H 11/28/23 04:20 Plt Count 216 10^3/cmm (157-399) 11/28/23 04:20 MPV 9.1 fL (7.4-10.4) 11/28/23 04:20 Neut % (Auto) 83.4 % 11/28/23 04:20 Lymph % (Auto) 13.5 % 11/28/23 04:20 [place] % (Auto) 2.1 % 11/28/23 04:20 Eos % (Auto) 0.0 % 11/28/23 04:20 Baso % (Auto) 0.2 % 11/28/23 04:20 Neut # (Auto) 4.27 10^3/uL (1.8-7.7) 11/28/23 04:20 Lymph # (Auto) 0.7 10^3/uL (0.8-4.8) L 11/28/23 04:20 [place] # (Auto) 0.1 10^3/uL (0.2-0.9) L 11/28/23 04:20 Eos # (Auto) 0.0 10^3/uL (0.0-0.8) 11/28/23 04:20 Baso # (Auto) 0.0 10^3/uL (0.0-0.1) 11/28/23 04:20 Nucleated RBC % (auto) 0 % 11/28/23 04:20 Nucleated RBCs # 0.0 /100WBC 11/28/23 04:20 PT 14.10 SECONDS (12.1-14.9) 11/27/23 17:16 INR 1.05 (0.8-1.2) 11/27/23 17:16 Specimen Type Arterial 11/27/23 17:30 Sample Site Radial, left 11/27/23 17:30 ABG pH 7.44 (7.35-7.45) 11/27/23 17:30 ABG pCO2 36.7 mmHg (35-45) 11/27/23 17:30 ABG pO2 69.0 mmHg (80.0-100.0) L 11/27/23 17:30 ABG PO2/FiO2 Ratio 153 11/27/23 17:30 ABG HCO3 24.6 mmol/L (22-26) 11/27/23 17:30 ABG Base Excess 0.5 mmol/L (-2.0-2.0) 11/27/23 17:30 [place] Test Pos 11/27/23 17:30 Hematocrit 34.1 % (37-47) L 11/27/23 17:30 O2 Delivery Device Oxy mask 11/27/23 17:30 O2 Liters/Min 6.0 % 11/27/23 17:30 FiO2 45.0 % 11/27/23 17:30 Outpatient Coordinator ID Mon[place] 11/27/23 17:30 Sodium 124 mmol/L (136-145) L 11/28/23 04:20 Potassium 4.5 mmol/L (3.5-5.1) 11/28/23 04:20 Chloride 90 mmol/L (98-107) L 11/28/23 04:20 Carbon Dioxide 20 mmol/L (22-29) L 11/28/23 04:20 Anion Gap 18.5 (5-19) 11/28/23 04:20 BUN 15 mg/dL (8-23) 11/28/23 04:20 Creatinine 0.9 mg/dL (0.5-0.9) 11/28/23 04:20 GFR Calculation Not Reportable 11/28/23 04:20 Glucose 212 mg/dL (65-115) H 11/28/23 04:20 Calculated Osmolality 265 mOsm/kg (285-295) L 11/28/23 04:20 Lactic Acid 1.9 mmol/L (0.5-2.2) 11/27/23 17:16 Calcium 8.5 mg/dL (8.5-10.5) 11/28/23 04:20 Magnesium 1.8 mg/dL (1.7-2.3) 11/28/23 04:20 Total Bilirubin 0.5 mg/dL (0.15-1.2) 11/27/23 17:16 AST 34 U/L (0-32) H 11/27/23 17:16 ALT 11 U/L (0-33) 11/27/23 17:16 Alkaline Phosphatase 144 U/L (35-105) H 11/27/23 17:16 Troponin T Baseline 36 ng/L (0-10) H 11/27/23 17:16 Troponin T 120 Minute 30.96 ng/L (0-10) H 11/27/23 19:12 Delta Troponin T -5.04 ABS# (0-10) L 11/27/23 19:12 Troponin T Hi Sens 6Hr 25.24 ng/L (0-10) H 11/27/23 23:24 Troponin T Hi Sens 6Hr Delta -10.76 ng/L (0-12) L 11/27/23 23:24 NT-Pro-B Natriuret Pep 2182 pg/mL (0-450) H 11/27/23 17:16 Total Protein 7.4 g/dL (6.6-8.7) 11/27/23 17:16 Albumin 3.7 g/dL (3.5-5.2) 11/27/23 17:16 Globulin 3.7 g/dL (1.3-4.6) 11/27/23 17:16 Lipase 12 U/L (13-60) L 11/27/23 17:16 TSH 0.50 uIU/mL (0.27-4.20) 11/27/23 17:16 Random Cortisol 11.87 ug/dL (2.47-19.5) 11/28/23 04:20 Urine Color Yellow (Yellow) 11/27/23 17:49 Urine Appearance Clear (CLEAR) 11/27/23 17:49 Urine pH 7 (5-7) 11/27/23 17:49 Ur Specific [place] 1.005 (1.005-1.030) 11/27/23 17:49 Urine Protein Neg (Negative) 11/27/23 17:49 Urine Glucose (UA) Norm (Normal) 11/27/23 17:49 Urine Ketones Negative (Negative) 11/27/23 17:49 Urine Blood Neg (Negative) 11/27/23 17:49 Urine Nitrate Negative (Negative) 11/27/23 17:49 Urine Bilirubin Neg (Negative) 11/27/23 17:49 Urine Urobilinogen Norm mg/dL (Negative) 11/27/23 17:49 Ur Leukocyte Esterase Negative (Negative) 11/27/23 17:49 Vitals Last Vital Signs Temp 98.3 F 11/27/23 17:11 Pulse 70 11/28/23 08:30 Resp 20 H 11/28/23 08:30 BP 91/66 11/28/23 08:58 Pulse Ox 86 L 11/28/23 09:52 O2 Del Method Nasal Cannula 11/28/23 08:58 O2 Flow Rate 2 11/28/23 09:52 Discharge Plan Discharge Patient Disposition: Home Condition: Stable Prescriptions: Continued ICaps AREDS [id number] [id number]-[id number] capsule 1 cap PO BID aspirin 325 mg tablet 325 mg PO QPM Hold Instructions: Resume on 06/06/23. potassium chloride 8 mEq tablet extended release 8 meq PO DIRECTED PRN (Reason: with lasix) Qty: 180 0RF Rx Instructions: 1 tablet daily with 1 furosemide 2 tablets daily with 2 furosemide sennosides-docusate sodium [Stool Softener-Laxative] 8.6-50 mg Tablet 1 tab PO DAILY Qty: 30 0RF acetaminophen [Tylenol Extra Strength] 500 mg Tablet 1,000 mg PO PRN PRN (Reason: Pain) allopurinol 100 mg tablet 200 mg PO DAILY coenzyme Q10 30 mg Capsule 30 mg PO DAILY Changed furosemide 40 mg Tablet 40 mg PO DAILY@0800 PRN (Reason: shortness of breath, weight gain) Qty: 30 0RF Discontinued celecoxib [Celebrex] 200 mg capsule 200 mg PO PRN PRN (Reason: pain) lisinopril 10 mg tablet 10 mg PO DAILY diltiazem HCl 120 mg capsule,extended release 24hr 120 mg PO DAILY Discharge Orders: Discharge Order (Routine); Ordered 11/28/23 Ordered By: Danna Massey Referrals: Karsten Lange DO [Primary Care Provider] - 12/01/23 9:30 am (You have a follow up appointment scheduled for MondayNovember 30 [address] Lange. If you are not able to keep this appointment please call the office to arrange your follow up care. ) Andrae Williamson MD [Physician] - 7-10 days (Dr. Williamson's nurse will set up the appointment for a TAVR. she will be calling you with in the next few days if you have not heard from them by Sunday 12/03 please contact their office. ) Discharge Diet: Cardiac Discharge Activity: Increase activity as tolerated Patient Instructions: Hyponatremia, Heart Failure (DC), CHF Stoplight, Opioid Safety Activity Restrictions/Additional Instructions: Please do not take Lasix on daily basis, you can cut back on your Lasix to 20 mg instead of 40 mg when needed, Only take Lasix when you are not able to lay flat and experiencing weight gain and shortness of breath otherwise keep an eye on your blood pressure, if your blood pressure is below 90/60mmhg then do not take Lasix. I have discontinued lisinopril and diltiazem which can further drop your blood pressure I will give you referral to see Dr. Williamson at [facility] for aortic valve surgical evaluation. Discharge Attestations Time Spent in Discharge Care*: greater than 30 min Quality Metrics Clinical Quality Measures [ No reported AMI, CVA or VTE this stay] Coding Level of Care Code Acute Code for Chg Fwd Diagnoses Fatigue R53.83 Acute exacerbation of CHF (congestive heart failure) I50.9 Acute on chronic respiratory failure with hypoxemia J96.21 Hyponatremia E87.1
[2023-11-28] MEDS: azithromycin 250 mg Tablet 500 MG PO (11:11)
[2023-11-28] MEDS: sennosides-docusate Tablet 1 TAB PO (11:12)
[2023-11-28] MEDS: allopurinol 100 mg Tablet 200 MG PO (11:12)
--- NOTE | 2023-11-28 11:31 | PC.NURSE ---
Discharge instruction reviewed with patient and family member at bedside verbalized understanding of information provided education about when to call her provider and 911 given IV and bradley removed patient awaiting family to return with o2 for travel home
== END 2023-11-28 11:36 | disposition home health service (06) | DRG 291 ==
LOC: ER 18:11 → ER IP 20:32
PROVIDERS: Admitting Provider Internal Medicine; Emergency Provider Emergency Medicine; PCP Electrodiagnostic Medicine; Visit Provider Internal Medicine
DX: I13.0 Hypertensive heart and chronic kidney disease with heart failure and stage 1 through stage 4 chronic kidney disease, or unspecified chronic kidney disease (principal); I50.33 Acute on chronic diastolic (congestive) heart failure; J18.9 Pneumonia, unspecified organism; J96.21 Acute and chronic respiratory failure with hypoxia; E87.1 Hypo-osmolality and hyponatremia; N18.9 Chronic kidney disease, unspecified; F17.210 Nicotine dependence, cigarettes, uncomplicated; J44.9 Chronic obstructive pulmonary disease, unspecified; Z99.81 Dependence on supplemental oxygen; I27.20 Pulmonary hypertension, unspecified
CPT/HCPCS: 36415; 36600; 51702; 71045; 71275; 80048; 80053; 81003; 82533; 82803; 83605; 83690; 83735; 83880; 84443; 84484; 85025; 85610; 87040; 93005; 94640; 94760; 96365; 96375; 99285; J0456; J0696; J2919; J7030; J7050; Q0144; Q9967

== ENCOUNTER 2023-12-01 10:26 | Inpatient (IN) | payer MEDICARE, SELFPAY ==
[2023-12-01] VITALS (71 sets, daily range): BP systolic 56–155; BP diastolic 40–79; PULSE 58–106; RESP 13–33; TEMP 36.7; O2SAT 84–100; BMI 37.4; BMI 37.6
--- NOTE | 2023-12-01 10:30 | XRR_ITS ---
PROCEDURE INFORMATION: Exam: XR Chest Exam date and time: 12/01/2023 10:47 AM Age: 82 years old Clinical indication: Cough and dyspnea; Additional info: Dyspnea/cough TECHNIQUE: Imaging protocol: Radiologic exam of the chest. Views: 1 view. COMPARISON: CT angio chest PE protcl [id number] 11/27/2023 6:58 PM FINDINGS: Lungs: Mild prominence and indistinctness of the pulmonary vasculature centrally. Mild prominence of the interstitium diffusely suggest mild edema slightly more pronounced within the right lung base. Possible subpulmonic effusion on the right. Calcified granuloma right lower lobe Pleural spaces: See Lungs finding. Heart/Mediastinum: Cardiomegaly. Bones/joints: Unremarkable. XR/XR chest 1V portable [id number] IMPRESSION: Mild edema reflected predominantly as interstitial prominence as described above. Severe cardiomegaly.
--- NOTE | 2023-12-01 10:31 | ED_ITS ---
HPI - General Adult 2 General: Chief complaint: Weakness Stated complaint: hypotension Time Seen by Provider: 12/01/23 10:27 Source: patient Mode of arrival: EMS History of Present Illness: 82 yo femaguilar who presents to the ER wvia EMS with compainst of hypotensioin. She was rcently hospitalized acute decompensated CHF. SHe denies chest or abd pain. She is chroniclly on oxygen at 2 LPM. was increased to 6 LPM by EMS, she denies dyspnea or abd pain, no chest pain. Patient hypotensive on arrival Associated symptoms: Reports dyspnea; Deny chest pain or rash Review of Systems 2 Const: Denies: fever(s) or chills Card: Reports: dyspnea on exertion and orthopnea; Denies: chest pain Resp: Reports: dyspnea GI: Denies: abdominal pain : Denies: dysuria, urinary frequency or urinary urgency Musc: Denies: neck pain or back pain Skin/Breast: Denies: rash PFSH ED 2 PFSH: Medical History Acute exacerbation of CHF (congestive heart failure) Pneumonia Hyponatremia Acute on chronic respiratory failure with hypoxemia Fatigue Hypoxia Acute exacerbation of chronic obstructive pulmonary disease (COPD) SOB (shortness of breath) Heart murmur Severe pulmonary hypertension Claudication Aortic valve stenosis Smoking Hypertension Aortic stenosis Patient was found to have dense calcium in the aortic annulus. For that reason, TAVR was canceled. Patient was offered a second opinion to go to [facility] in [place] . But she declined Surgical History Status post transcatheter aortic valve replacement (TAVR) using bioprosthesis S/P tonsillectomy Family History Brother Myocardial infarct Mother Stroke Social History Smoking and tobacco/nicotine status: current every day tobacco/nicotine user cigarettes Packs smoked per day: 1 Alcohol intake: never Substance/Drug Use: never Physical Exam 2 Const: GENERAL APPEARANCE: cooperative, comfortable and lethargic O RIENTATION/CONSCIOUSNESS: Yes lethargic HENMT: COMMON NORMALS: normocephalic, atraumatic and hearing grossly normal bilaterally HEAD & SCALP: normocephalic and atraumatic Resp: COMMON NORMALS: normal respiratory effort, No retractions, No use of accessory muscles and clear to auscultation bilaterally AUSCULTATION: clear to auscultation bilaterally Cardio: COMMON NORMALS: regular rate, regular rhythm and No murmurs present (Cardio) RATE: regular rate and bradycardic RHYTHM: regular rhythm GI: COMMON NORMALS: Soft to palpation and No hepatosplenomegaly present A USCULTATION: Yes normoactive bowel sounds PALPATION: Yes Soft to palpation, No Tenderness to palpation present (GI), No Guarding due to palpation present (GI) and Yes No hepatosplenomegaly present Extremity: COMMON NORMALS: normal to inspection, capillary refill normal and no calf tenderness GENERAL: Yes edema Neuro: SENSORIUM/ORIENTATION: Yes lethargic Skin: COMMON NORMALS: no rashes or lesions noted GENERAL SKIN EXAM: no rashes or lesions noted Course 2 Vital Signs: Vital signs: Vital Signs Temperature 97.7 F 12/02/23 08:00 Pulse Rate 67 12/02/23 16:15 Respiratory Rate 28 H 12/02/23 16:15 Blood Pressure 122/82 12/02/23 15:45 Pulse Oximetry 98 12/02/23 16:15 Oxygen Delivery Me thod Nasal Cannula 12/02/23 16:15 Oxygen Flow Rate 4 12/02/23 16:15 Fraction of Inspir ed Oxygen 40 12/01/23 15:16 [facility] - General Adult Medical Decision Making Exacerbation heart failure with hypotension Mild hyponatremia. Cardiac enzymes trending negative no acute EKG changes urine normal. Will admit for hypotension exacerbation congestive heart failure. patient does have aortic stenosis as well. Lab Data 12/02/23 03:13 12/02/23 03:13 Radiology Impressions Chest X-Ray 12/01/23 10:30 IMPRESSION: Mild edema reflected predominantly as interstitial prominence as described above. Severe cardiomegaly. Laboratory Results WBC 10.18 10^3/uL (3.29-11.43) 12/01/23 10:32 RBC 3.98 10^6/uL (3.85-5.65) 12/01/23 10:32 Hgb 11.30 g/dL (11.27-16.99) 12/01/23 10:32 Hct 35.8 % (36-47) L 12/01/23 10:32 MCV 89.9 fl (85-98) 12/01/23 10:32 MCH 28.4 pg (27-33) 12/01/23 10:32 MCHC 31.6 g/dL (30-55) 12/01/23 10:32 RDW 17.9 % (12.1-15.1) H 12/01/23 10:32 Plt Count 295 10^3/cmm (157-399) 12/01/23 10:32 MPV 9.4 fL (7.4-10.4) 12/01/23 10:32 Neut % (Auto) 61.6 % 12/01/23 10:32 Lymph % (Auto) 18.6 % 12/01/23 10:32 [place] % (Auto) 15.4 % 12/01/23 10:32 Eos % (Auto) 2.5 % 12/01/23 10:32 Baso % (Auto) 0.6 % 12/01/23 10:32 Neut # (Auto) 6.28 10^3/uL (1.8-7.7) 12/01/23 10:32 Lymph # (Auto) 1.9 10^3/uL (0.8-4.8) 12/01/23 10:32 [place] # (Auto) 1.6 10^3/uL (0.2-0.9) H 12/01/23 10:32 Eos # (Auto) 0.3 10^3/uL (0.0-0.8) 12/01/23 10:32 Baso # (Auto) 0.1 10^3/uL (0.0-0.1) 12/01/23 10:32 Nucleated RBC % (auto) 0 % 12/01/23 10:32 Nucleated RBCs # 0.0 /100WBC 12/01/23 10:32 Specimen Type Arterial 12/01/23 11:47 Sample Site Radial, left 12/01/23 11:47 ABG pH 7.40 (7.35-7.45) 12/01/23 11:47 ABG pCO2 43.4 mmHg (35-45) 12/01/23 11:47 ABG pO2 78.2 mmHg (80.0-100.0) L 12/01/23 11:47 ABG PO2/FiO2 Ratio 195 12/01/23 11:47 ABG HCO3 26.9 mmol/L (22-26) H 12/01/23 11:47 ABG O2 Saturation 96.2 12/01/23 11:47 ABG Base Excess 1.8 mmol/L (-2.0-2.0) 12/01/23 11:47 [place] Test Pos 12/01/23 11:47 A-a O2 Gradient 20.0 mmHg (5-10) H 12/01/23 11:47 Hematocrit 32.5 % (37-47) L 12/01/23 11:47 Hgb O2 Saturation 93.8 % (95-100) L 12/01/23 11:47 Carboxyhemoglobin 1.4 %THgb (0.4-20.1) 12/01/23 11:47 Methemoglobin 1.1 % (0.4-1.5) 12/01/23 11:47 Total Hemoglobin 10.6 g/dL (12-16) L 12/01/23 11:47 Sodium 130.0 mmol/L (131-143) L 12/01/23 11:47 Potassium 4.5 mmol/L (3.5-5.0) 12/01/23 11:47 Glucose 96.0 mg/dL (70-115) 12/01/23 11:47 Ionized Calcium 1.2 mmol/L (1.1-1.4) 12/01/23 11:47 O2 Delivery Device Nc 12/01/23 11:47 O2 Liters/Min 5.0 % 12/01/23 11:47 FiO2 40.0 % 12/01/23 11:47 Shoe Repairman ID Cak 12/01/23 11:47 Sodium 127 mmol/L (136-145) L 12/01/23 10:32 Potassium 5.0 mmol/L (3.5-5.1) 12/01/23 10:32 Chloride 93 mmol/L (98-107) L 12/01/23 10:32 Carbon Dioxide 26 mmol/L (22-29) 12/01/23 10:32 Anion Gap 13.0 (5-19) 12/01/23 10:32 BUN 17 mg/dL (8-23) 12/01/23 10:32 Creatinine 1.3 mg/dL (0.5-0.9) H 12/01/23 10:32 GFR Calculation Not Reportable 12/01/23 10:32 Glucose 103 mg/dL (65-115) 12/01/23 10:32 Calculated Osmolality 266 mOsm/kg (285-295) L 12/01/23 10:32 Lactic Acid 2.1 mmol/L (0.5-2.2) 12/01/23 10:32 Lactic Acid (Sepsis) 2.1 mmol/L (0.5-2.2) 12/01/23 14:17 Calcium 8.9 mg/dL (8.5-10.5) 12/01/23 10:32 Magnesium 1.9 mg/dL (1.7-2.3) 12/01/23 10:32 Total Bilirubin 0.5 mg/dL (0.15-1.2) 12/01/23 10:32 AST 31 U/L (0-32) 12/01/23 10:32 ALT 18 U/L (0-33) 12/01/23 10:32 Alkaline Phosphatase 114 U/L (35-105) H 12/01/23 10:32 Creatine Kinase 33 U/L (26-192) 12/01/23 10:32 Troponin T Baseline 42 ng/L (0-10) H 12/01/23 10:32 Troponin T 120 Minute 35.58 ng/L (0-10) H 12/01/23 12:51 Delta Troponin T -6.42 ABS# (0-10) L 12/01/23 12:51 NT-Pro-B Natriuret Pep 5797 pg/mL (0-450) H 12/01/23 10:32 Total Protein 6.9 g/dL (6.6-8.7) 12/01/23 10:32 Albumin 3.6 g/dL (3.5-5.2) 12/01/23 10:32 Globulin 3.3 g/dL (1.3-4.6) 12/01/23 10:32 Lipase 18 U/L (13-60) 12/01/23 10:32 Procalcitonin 0.17 ng/mL (0-0.5) 12/01/23 10:32 Urine Color Yellow (Yellow) 12/01/23 10:42 Urine Appearance Clear (CLEAR) 12/01/23 10:42 Urine pH 6 (5-7) 12/01/23 10:42 Ur Specific [place] 1.010 (1.005-1.030) 12/01/23 10:42 Urine Protein Trace (Negative) 12/01/23 10:42 Urine Glucose (UA) Norm (Normal) 12/01/23 10:42 Urine Ketones Negative (Negative) 12/01/23 10:42 Urine Blood Neg (Negative) 12/01/23 10:42 Urine Nitrate Negative (Negative) 12/01/23 10:42 Urine Bilirubin Neg (Negative) 12/01/23 10:42 Urine Urobilinogen Neg mg/dL (Negative) 12/01/23 10:42 Ur Leukocyte Esterase Negative (Negative) 12/01/23 10:42 Urine RBC 0-4 /hpf (0-2) H 12/01/23 10:42 Urine WBC 0-4 /hpf (0-5) H 12/01/23 10:42 Ur Squamous Epith Cells 0-4 /hpf (0-5) H 12/01/23 10:42 Amorphous Sediment Not Reportable 12/01/23 10:42 Urine Bacteria Trace /hpf (NONE) 12/01/23 10:42 Hyaline Casts 0-4 /lpf H 12/01/23 10:42 Urine Mucus Trace /hpf 12/01/23 10:42 All radiology interpretation(s) finalized by discharge Discharge Plan Discharge Patient Disposition: Admitted As Inpatient Admit Provider: Danna Massey Clinical Impression: Acute exacerbation of CHF (congestive heart failure), Pulmonary edema, Hypotension, Lumbar stenosis with neurogenic claudication Condition: Stable Coding Level of Care Code ED Coremaker Apprentice for Jeni Malhotra
--- NOTE | 2023-12-01 10:31 | ECG_ITS ---
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 Measurements Intervals [place] Rate: 80 P: 12 AK: 165 QRS: 27 QRSD: 96 T: 33 QT: 388 QTc: 449 Interpretive Statements SINUS RHYTHM INTERPRETATION BASED ON A DEFAULT AGE OF 40 YEARS Compared to ECG 11/28/2023 00:10:36 T-wave abnormality no longer present Poor R-wave progression no longer present Electronically Signed On 12-01-2023 15:34:13 CDT by Papito Birmingham M.D. [id number] f
[2023-12-01 10:41] LABS: Basophils # 0.1 10^3/uL (0.0-0.1); Basophils % 0.6 %; Eosinophils # 0.3 10^3/uL (0.0-0.8); Eosinophils % 2.5 %; Hematocrit 35.8 % (36-47); Lymphocytes # 1.9 10^3/uL (0.8-4.8); Lymphocytes % 18.6 %; Mean Corpuscular HGB Conc 31.6 g/dL (30-55); Mean Corpuscular Hemoglobin 28.4 pg (27-33); Mean Corpuscular Volume 89.9 fl (85-98); Mean Platelet Volume 9.4 fL (7.4-10.4); Monocytes # 1.6 10^3/uL (0.2-0.9); Monocytes % 15.4 %; Neutrophils # 6.28 10^3/uL (1.8-7.7); Neutrophils % 61.6 %; Nucleated Red Blood Cells % 0 %; Platelet Count 295 10^3/cmm (157-399); Red Blood Count 3.98 10^6/uL (3.85-5.65); Red Cell Distribution Width 17.9 % (12.1-15.1); White Blood Count 10.18 10^3/uL (3.29-11.43)
[2023-12-01 10:58] LABS: Base Excess ABG 1.2 mmol/L (-2.0-2.0); Blood Gas Allen Test Pos; Blood Gas Sample Site Radial, left; Blood Gas Sample Type Arterial; Potassium Level - ABG 4.5 mmol/L (3.5-5.0)
[2023-12-01 11:00] LABS: Lactic Sepsis W/Reflex 2.1 mmol/L (0.5-2.2)
[2023-12-01 11:00] LABS: ABG PCO2 41.5 mmHg (35-45); ABG PH Result 7.41 (7.35-7.45); Alveolar-Arterial Oxygen Gradi 4.4 mmHg (5-10); Arterial Blood Gas Hematocrit 38.2 % (37-47); Carboxyhemoglobin 1.5 %THgb (0.4-20.1); HCO3 ABG 26.1 mmol/L (22-26); Ionized Calcium Level - ABG 1.1 mmol/L (1.1-1.4); Oxygen Saturation ABG 93.4; PO2 ABG 65.2 mmHg (80.0-100.0); PO2 FiO2 Ratio Arterial Blood 232; Total Hemoglobin 12.5 g/dL (12-16)
[2023-12-01 11:01] LABS: Troponin(5th) Baseline 42 ng/L (0-10)
[2023-12-01 11:02] LABS: Blood Gas Operator Identificat CAK; Oxygen Device NC
[2023-12-01 11:07] LABS: Alanine Aminotransferase 18 U/L (0-33); Albumin Level 3.6 g/dL (3.5-5.2); Alkaline Phosphatase 114 U/L (35-105); Aspartate Amino Transferase 31 U/L (0-32); Blood Urea Nitrogen 17 mg/dL (8-23); Calcium 8.9 mg/dL (8.5-10.5); Carbon Dioxide 26 mmol/L (22-29); Chloride 93 mmol/L (98-107); Creatine Phosphokinase 33 U/L (26-192); Creatinine Clr Calc Pharmacy 38.7769; Globulin 3.3 g/dL (1.3-4.6); Glucose 103 mg/dL (65-115); Lipase 18 U/L (13-60); Magnesium 1.9 mg/dL (1.7-2.3); NT Pro B Type Natriuretic Pept 5797 pg/mL (0-450); Osmolality Calculated 266 mOsm/kg (285-295); Sodium 127 mmol/L (136-145); Total Bilirubin 0.5 mg/dL (0.15-1.2); Total Protein 6.9 g/dL (6.6-8.7)
[2023-12-01 11:14] LABS: Add Urine Microscopic? YES; Bilirubin Urine Neg (Negative); Blood Urine Neg (Negative); Glucose Urine UA Norm (Normal); Ketones Urine Negative (Negative); Leukocyte Esterase Urine Negative (Negative); Nitrate Urine Negative (Negative); Protein Urine Trace (Negative); Urine Appearance Clear (CLEAR); Urine Color Yellow (Yellow); Urobilinogen Urine Neg (Negative); pH Urine 6 (5-7)
[2023-12-01 11:15] LABS: Add Urine Culture? No; Bacteria Urine TRACE /hpf; Hyaline Casts Urine 0-4 /lpf; Mucus Urine TRACE /hpf; RBC Urine 0-4 /hpf (0-2); Squamous Epithelial Cell Urine 0-4 /hpf (0-5); WBC Urine 0-4 /hpf (0-5)
--- NOTE | 2023-12-01 11:51 | ECG_ITS ---
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 Measurements Intervals [place] Rate: 73 P: 16 SC: 165 QRS: 18 QRSD: 93 T: 60 QT: 404 QTc: 446 Interpretive Statements SINUS RHYTHM Compared to ECG 12/01/2023 10:28:46 No significant changes Electronically Signed On 12-01-2023 15:34:54 CDT by Papito Birmingham M.D. [id number]
[2023-12-01] MEDS: norepinephrine 4 MG/250 ML BAG 30 MG IV (11:54)
--- NOTE | 2023-12-01 11:57 | PC.NURSE ---
pt became hypotensive 50s/30s, hypoxic with oxygen saturation in low 80s, increased oxygen from 2L NC to 6L NC, increased oxygen saturation to 92%. pt alert to sound. Dr. Reyna notified and at bedside, notified respiratory. respiratory decreased pt to 4L NC and pt currently maintaining oxygen saturation in 90s.
[2023-12-01 11:59] LABS: ABG PCO2 43.4 mmHg (35-45); Arterial Blood Gas Hematocrit 32.5 % (37-47); Base Excess ABG 1.8 mmol/L (-2.0-2.0); Blood Gas Allen Test Pos; Blood Gas Operator Identificat CAK; Blood Gas Sample Site Radial, left; Blood Gas Sample Type Arterial; Carboxyhemoglobin 1.4 %THgb (0.4-20.1); HCO3 ABG 26.9 mmol/L (22-26); HGB O2 Sat 93.8 % (95-100); Ionized Calcium Level - ABG 1.2 mmol/L (1.1-1.4); Methemoglobin 1.1 % (0.4-1.5); Oxygen Device NC; Oxygen Saturation ABG 96.2; PO2 ABG 78.2 mmHg (80.0-100.0); PO2 FiO2 Ratio Arterial Blood 195; Potassium Level - ABG 4.5 mmol/L (3.5-5.0); Total Hemoglobin 10.6 g/dL (12-16)
[2023-12-01 12:24] LABS: Reflex Lactate Order REFLEX LACTIC ORDERD
[2023-12-01 12:25] LABS: Procalcitonin 0.17 ng/mL (0-0.5)
[2023-12-01 13:13] LABS: Troponin 5 2HR 35.58 ng/L (0-10)
[2023-12-01 13:14] LABS: Troponin 5 2HR Delta -6.42 ABS# (0-10)
[2023-12-01 14:38] LABS: Lactic Acid level (Lactate) 2.1 mmol/L (0.5-2.2)
--- NOTE | 2023-12-01 15:20 | PM.HP ---
Providers/Chief Complaint Primary Care Provider: Mason Braswell DO Chief Complaint: hypotension History of Present Illness Mary Ponce is a 82 year old female with hx of D chf recent hospitalization for low BP came back for G weakness. SHe has been put on levophed in the ER. She was given referral to see DR Coulter at [facility] for TAVR eval. She wears 2 L of oxygen at baseline. No active chest pain. CXR shows Pulm oedema on 6 L NC. EKG negative for ischemia and trops are w/o delta patient is stating that she has not taken her diuretics, at home she has had recurrent falls, she is denying chest pain, syncope she is stating that she is getting worse because of low blood pressure, Review of Systems Const: Reports: chills, fatigue and malaise Eyes: Denies: change in vision ENMT: Denies: throat pain Card: Reports: dyspnea on exertion Resp: Reports: dyspnea GI: Denies: abdominal pain : Denies: flank pain Musc: Reports: back pain Skin/Breast: Denies: rash Neuro: Reports: headache(s) Psych: Reports: anxiety Medications/Allergies Home Medications Medication Instructions Recorded Confirmed Last Taken Type aspirin 325 mg tablet 325 mg PO QPM 11/27/20 12/01/23 11/30/23 History vitamins A,C,T-fxiv-jdlnne 4,296 1 cap PO BID 05/31/21 12/01/23 12/01/23 History mcg-226 mg-90 mg capsule (ICaps AREDS) acetaminophen 500 mg tablet 1,000 mg PO PRN PRN Pain 12/08/21 12/01/23 11/02/23 History (Tylenol Extra Strength) allopurinol 100 mg tablet 100 mg PO QPM 05/18/23 12/01/23 11/30/23 History sennosides 8.6 mg-docusate sodium 1 tab PO DAILY #30 tabs 11/03/23 12/01/23 11/30/23 Rx 50 mg tablet (Stool Softener-Laxative) potassium chloride 8 mEq 8 meq PO DIRECTED PRN with 11/06/23 12/01/23 12/01/23 Rx tablet,extended release lasix #180 tabs coenzyme Q10 30 mg capsule 30 mg PO QPM 11/28/23 12/01/23 11/30/23 History furosemide 40 mg tablet 40 mg PO DAILY@0800 PRN Weight Gain 12/01/23 12/01/23 12/01/23 History omega 1-gnr-xfb-fish oil 1,000 mg 1 cap PO QPM 12/01/23 12/01/23 11/30/23 History (120 mg-180 mg) capsule (Fish Oil) Allergies Allergy/AdvReac Type Severity Reaction Status Date / Time No Known Allergies Allergy Verified 11/02/23 14:54 PFSH Acute PFSH: Medical History (Updated 12/01/23 @ 15:25 by Danna Massey MD) Acute exacerbation of CHF (congestive heart failure) Pneumonia Hyponatremia Acute on chronic respiratory failure with hypoxemia Fatigue Hypoxia Acute exacerbation of chronic obstructive pulmonary disease (COPD) SOB (shortness of breath) Heart murmur Severe pulmonary hypertension Claudication Aortic valve stenosis Smoking Hypertension Aortic stenosis Patient was found to have dense calcium in the aortic annulus. For that reason, TAVR was canceled. Patient was offered a second opinion to go to [facility] in [place] . But she declined Surgical History Status post transcatheter aortic valve replacement (TAVR) using bioprosthesis S/P tonsillectomy Family History Brother Myocardial infarct Mother Stroke Social History Smoking and tobacco/nicotine status: current every day tobacco/nicotine user cigarettes Packs smoked per day: 1 Alcohol intake: never Substance/Drug Use: never Vitals/I&O/Wt Last Vital Signs Temp 98.0 F 12/01/23 10:26 Pulse 64 12/01/23 15:16 Resp 18 12/01/23 15:10 BP 122/65 12/01/23 15:10 Pulse Ox 98 12/01/23 15:16 O2 Del Method Nasal Cannula 12/01/23 10:26 O2 Flow Rate 6 12/01/23 10:26 FiO2 40 12/01/23 15:16 12/01/23 12/01/23 12/01/23 06:59 14:59 22:59 Intake Total 6.5 / 6.5 Balance 6.5 / 6.5 Weight last 48 hrs Weight 98.883 kg Physical Exam Narrative: Signs of fluid overload on 6L Crackles w ronchi S1 S2 no active chest pain abd soft non focal neuro exam skin no rash Urinary Catheter Management: Morton: Cath Placed During This Visit: yes Urinary Catheter Date of Insertion: 12/01/23 Urinary Catheter Time of Insertion: 10:55 Data 12/01/23 10:32 12/01/23 10:32 Micro: Microbiology 12/01/23 11:09 Blood Culture - Preliminary Blood SPECIMEN COLLECTED 12/01/23 10:42 Blood Culture - Preliminary Blood SPECIMEN COLLECTED A&P Assessment and plan (1) Hypotension: (2) Upper respiratory infection: (3) Lumbar back pain with radiculopathy affecting left lower extremity: (4) Smoking: (5) Pulmonary edema: Plan Acute on chronic hypotension Cardiogenic shock TSH nml NO PE No sepsis no autonomic dysfunction underlying Mod Start midodorine and fludorcortisone ekg nml trops neg gentle fluids plus levophed Hypervolemic hyponatremia shoudl improve w diuresis carries gaurded prognosis Copd excaerbation due to smoking and Pulm oedema basline 2L now on 6L HANNAH: Cardiorenal anticipate improvement with diuresis Lives w son Has been referral for TAVR eval DVT PPx lovenox Card diet Admit to icu Full code Attestations Medical Necessity Statement*: More than 2 midnight needed for card shock management Diagnoses Hypotension I95.9 Upper respiratory infection J06.9 Lumbar back pain with radiculopathy affecting left lower extremity M54.16 Smoking F17.200 Pulmonary edema J81.1
--- NOTE | 2023-12-01 17:04 | ECG_ITS ---
[facility] Test Date: 2023-12-01 Pat Name: Mary Ponce Department: Room: ICU10 Gender: Female [employer] Hand: : 1940 Requested By: Mehdi Campbell Order Number: [id number] Eulogio MD: Anuj Sloan M.D. Measurements Intervals [place] Rate: 65 P: 58 MN: 183 QRS: 34 QRSD: 94 T: 33 QT: 405 QTc: 421 Interpretive Statements SINUS RHYTHM Compared to ECG 12/01/2023 11:51:10 No significant changes Electronically Signed On 12-01-2023 22:44:52 CDT by Anuj Sloan M.D. [email or web address] behavioral health systemOcean Butterfliesmetrohealth cleveland heights medical centerGraematter/store/OM/[id number]
[2023-12-01] MEDS: allopurinol 100 mg Tablet PO (18:13)
[2023-12-01] MEDS: midodrine 5 mg TABLET PO (18:13)
[2023-12-01] MEDS: fludrocortisone 0.1 mg Tablet PO (18:13)
[2023-12-01] MEDS: enoxaparin 40 mg/0.4 mL Syringe SUBCUT (18:13)
[2023-12-01 18:53] LABS: Troponin 5 6HR 32.16 ng/L (0-10)
[2023-12-01 18:56] LABS: Troponin 5 6HR Delta -9.84 ng/L (0-12)
[2023-12-01] MEDS: aspirin 325 mg Tablet PO (20:08)
[2023-12-01 21:52] LABS: SARS Covid-2 Antigen negative (Negative)
[2023-12-02] VITALS (86 sets, daily range): BP systolic 87–186; BP diastolic 48–107; PULSE 51–96; RESP 14–34; TEMP 36.5–37; O2SAT 86–100
[2023-12-02 04:05] LABS: Basophils % 0.5 %; Eosinophils # 0.3 10^3/uL (0.0-0.8); Eosinophils % 4.5 %; Hematocrit 31.2 % (36-47); Lymphocytes # 0.9 10^3/uL (0.8-4.8); Lymphocytes % 16.3 %; Mean Corpuscular HGB Conc 31.4 g/dL (30-55); Mean Corpuscular Hemoglobin 28.2 pg (27-33); Mean Corpuscular Volume 89.7 fl (85-98); Mean Platelet Volume 9.2 fL (7.4-10.4); Monocytes # 0.9 10^3/uL (0.2-0.9); Monocytes % 14.8 %; Neutrophils # 3.59 10^3/uL (1.8-7.7); Neutrophils % 62.5 %; Nucleated Red Blood Cells % 0 %; Platelet Count 244 10^3/cmm (157-399); Red Blood Count 3.48 10^6/uL (3.85-5.65); Red Cell Distribution Width 17.7 % (12.1-15.1); White Blood Count 5.75 10^3/uL (3.29-11.43)
[2023-12-02 04:26] LABS: Anion Gap 14.6 (5-19); Blood Urea Nitrogen 18 mg/dL (8-23); Calcium 8.4 mg/dL (8.5-10.5); Carbon Dioxide 24 mmol/L (22-29); Chloride 97 mmol/L (98-107); Creatinine Clr Calc Pharmacy 44.3073; Glucose 92 mg/dL (65-115); Magnesium 1.9 mg/dL (1.7-2.3); Osmolality Calculated 274 mOsm/kg (285-295); Potassium 4.6 mmol/L (3.5-5.1); Sodium 131 mmol/L (136-145)
[2023-12-02] MEDS: fludrocortisone 0.1 mg Tablet PO (08:48)
[2023-12-02] MEDS: potassium chloride ER 20 mEq Tablet PO (08:48)
[2023-12-02] MEDS: midodrine 5 mg TABLET PO ×2 (08:48→17:02)
[2023-12-02] MEDS: sennosides-docusate Tablet 1 TAB PO (08:48)
[2023-12-02] MEDS: nicotine 7 mg Patch 1 PATCH TRANSDERMA (08:48)
[2023-12-02] MEDS: FUROsemide 10 mg/mL SDV 10mL 20 MG IVP (08:49)
--- NOTE | 2023-12-02 11:01 | P.PN_ITS ---
Subjective 2 Subjective: reports feeling a little better. Denies pain at this time. Has been eating a little better and would like to advance diet. Medications: Reviewed: Yes Vitals/I&O/Wt Last Vital Signs Temp 97.7 F 12/02/23 08:00 Pulse 59 L 12/02/23 10:15 Resp 26 H 12/02/23 10:15 BP 118/75 12/02/23 10:15 Pulse Ox 90 12/02/23 10:15 O2 Del Method Nasal Cannula 12/02/23 10:15 O2 Flow Rate 4 12/02/23 10:15 FiO2 40 12/01/23 15:16 12/01/23 12/02/23 12/02/23 22:59 06:59 14:59 Intake Total 75.625 / 82.125 301 / 383.125 337.5 / 337.5 Output Total 800 / 800 Balance 75.625 / 82.125 -499 / -416.875 337.5 / 337.5 Weight last 48 hrs Weight 212 lb 11.2 oz Weight 212 lb 6 oz Weight 218 lb Physical Exam 2 Narrative: General: Cooperative patient in no apparent distress. Well developed. HEENT: Normocephalic, Atraumatic. External ears normal. Nasal passages patent without drainage. MMM. Heart: RRR. Resp: Bibasilar rales. Abd: Soft, non-tender. Non-distended. Extremities: 1+ edema. Skin: No rash or lesions on exposed areas. Neuro: No focal motor or sensory loss. Gait is normal. Urinary Catheter Management: Morton: Cath Placed During This Visit: yes Reason for Continuing Indwelling Catheter: Accurate Measurement of Urinary Output in Critically Ill Patients Urinary Catheter Date of Insertion: 12/01/23 Urinary Catheter Time of Insertion: 10:55 Data 12/02/23 03:13 12/02/23 03:13 Micro: Microbiology 12/01/23 11:09 Blood Culture - Preliminary Blood SPECIMEN COLLECTED 12/01/23 10:42 Blood Culture - Preliminary Blood SPECIMEN COLLECTED A&P Assessment and plan (1) Hypotension: (2) Upper respiratory infection: (3) Lumbar back pain with radiculopathy affecting left lower extremity: (4) Smoking: (5) Pulmonary edema: Plan 82 y/o F admitted for hypotension, suspect cardiogenic shock and fluid overload. Continue close ICU monitoring. Currently off levophed. Pressures improved. Continue midodrine and fludricortisone. Labs improving. Hgb stable at 9.8. Chronic. Hyponatremia, currently at 131. Will recheck am labs. Oxygenation improving. Supplemental O2 is down to 4L. She is on 3L at baseline. underlying Mod , Troponins negative. HANNAH: Cardiorenal anticipate improvement with diuresis. Cr is 1.1 today. Continue gently diuresis. 800 out overnight. Continue Tele. Will likely stay through the weekend. Is agreeable to SNF for short term rehab. PT to evaluate and treat. Will have case management evaluate for SNF. Recheck am labs. Code Status: Full IVF: None DVT PPx: Lovenox GI PPx: None ABx: None Diet: Cardiac Discharge plan: SNF. DVT PPx lovenox Attestations 2 Medical Necessity Statement*: More than 2 midnight needed for card shock management, hypoxia, diuresis and management of blood pressures. Coding Level of Care Code Critical Care >/= 30 minutes Critical care time (in minutes): 41 The high probability of a clinically significant, sudden or life threatening deterioration, as referenced in this documentation, required my full and direct attention, intervention and personal management. The critical care time shown is in addition to time spent performing any reported separately billable procedures and includes the following: [x] Data and vital sign review and interpretation [x ] Patient assessment, examination and intervention [x] Medication orders and management [x] Patient/Family updates as able [x] Care Coordination and Documentation. Diagnoses Hypotension I95.9 Upper respiratory infection J06.9 Lumbar back pain with radiculopathy affecting left lower extremity M54.16 Smoking F17.200 Pulmonary edema J81.1
[2023-12-02 12:44] LABS: C Reactive Protein 109.1 mg/L (0.0-4.9)
--- NOTE | 2023-12-02 14:07 | PC.NURSE ---
Called to patient room, patient discussed with me that she would prefer [facility] for [facility]-term [facility].
--- NOTE | 2023-12-02 14:41 | PC.NURSE ---
Called to patient room by family to assess patients toes, family reported toes were purple. On assessment, patients toes found to be warm, pink, and cap refill 3 seconds or less. This nurse updated family that no abnormalities were found on assessment.
[2023-12-02] MEDS: aspirin 325 mg Tablet PO (17:02)
[2023-12-02] MEDS: allopurinol 100 mg Tablet PO (17:02)
[2023-12-02] MEDS: enoxaparin 40 mg/0.4 mL Syringe SUBCUT (17:03)
--- NOTE | 2023-12-02 18:57 | PC.NURSE ---
Frequent patient comfort rounding, multiple family members at bedside throughout this shift. Patient frequently requires intervention while sleeping, oxygen drops to low 80's, patient asked if she wanted to wear bipap while resting and patient declined, 4L NC. Assisted patient to bedside commode, moderate weakness, small bowel movement. Otherwise uneventful shift.
[2023-12-03] VITALS (51 sets, daily range): BP systolic 102–140; BP diastolic 59–89; PULSE 58–87; RESP 15–32; TEMP 36.6–36.9; O2SAT 88–100
[2023-12-03 04:13] LABS: Basophils % 0.7 %; Eosinophils # 0.3 10^3/uL (0.0-0.8); Eosinophils % 5.7 %; Hematocrit 35.2 % (36-47); Lymphocytes % 17.1 %; Mean Corpuscular HGB Conc 29.5 g/dL (30-55); Mean Corpuscular Hemoglobin 27.5 pg (27-33); Mean Corpuscular Volume 93.1 fl (85-98); Mean Platelet Volume 9.4 fL (7.4-10.4); Monocytes # 0.8 10^3/uL (0.2-0.9); Monocytes % 13.2 %; Neutrophils # 3.67 10^3/uL (1.8-7.7); Neutrophils % 61.5 %; Nucleated Red Blood Cells % 0 %; Platelet Count 205 10^3/cmm (157-399); Red Blood Count 3.78 10^6/uL (3.85-5.65); Red Cell Distribution Width 17.7 % (12.1-15.1); White Blood Count 5.97 10^3/uL (3.29-11.43)
[2023-12-03 04:48] LABS: Alanine Aminotransferase 25 U/L (0-33); Alkaline Phosphatase 107 U/L (35-105); Anion Gap 17.3 (5-19); Aspartate Amino Transferase 38 U/L (0-32); Blood Urea Nitrogen 18 mg/dL (8-23); Calcium 8.4 mg/dL (8.5-10.5); Carbon Dioxide 23 mmol/L (22-29); Chloride 96 mmol/L (98-107); Glucose 90 mg/dL (65-115); Osmolality Calculated 275 mOsm/kg (285-295); Potassium 4.3 mmol/L (3.5-5.1); Sodium 132 mmol/L (136-145); Total Bilirubin 0.3 mg/dL (0.15-1.2); Vitamin B12 697 pg/mL (232-1245)
[2023-12-03 04:49] LABS: Folate Level 5.7 ng/mL (4.8-37.3)
[2023-12-03] MEDS: sennosides-docusate Tablet 1 TAB PO (08:51)
[2023-12-03] MEDS: potassium chloride ER 20 mEq Tablet PO (08:51)
[2023-12-03] MEDS: midodrine 5 mg TABLET PO ×3 (08:51→18:32)
[2023-12-03] MEDS: fludrocortisone 0.1 mg Tablet PO (08:51)
[2023-12-03] MEDS: nicotine 7 mg Patch 1 PATCH TRANSDERMA (08:52)
[2023-12-03] MEDS: FUROsemide 10 mg/mL SDV 10mL 20 MG IVP (08:52)
--- NOTE | 2023-12-03 12:31 | PC.NURSE ---
pt encourage to sit up for lunch. pt refused to have lunch yet. visitor at bedside. call light provided.
--- NOTE | 2023-12-03 13:18 | P.PN_ITS ---
Subjective 2 Subjective: seen this am she states she is feeling better laying almost flat in bed on 2L NC says she wants to go to [facility] Vitals/I&O/Wt Last Vital Signs Temp 97.8 F 12/02/23 22:00 Pulse 63 12/03/23 00:00 Resp 32 H 12/03/23 00:00 BP 126/71 12/03/23 00:00 Pulse Ox 94 12/03/23 00:00 O2 Del Method Nasal Cannula 12/03/23 00:00 O2 Flow Rate 4 12/03/23 00:00 FiO2 40 12/01/23 15:16 12/02/23 12/02/23 12/03/23 14:59 22:59 06:59 Intake Total 487.5 / 487.5 240 / 727.5 Output Total 1000 / 1000 450 / 1450 Balance -512.5 / -512.5 -210 / -722.5 Weight last 48 hrs Weight 96.479 kg Weight 96.332 kg Weight 98.883 kg Physical Exam 2 Narrative: General: Cooperative patient in no apparent distress. Well developed. HEENT: Normocephalic, Atraumatic. External ears normal. Nasal passages patent without drainage. MMM. patient on 2L NC Heart: RRR. Resp: Bibasilar rales. Abd: Soft, non-tender. Non-distended. Extremities: 1+ edema. Skin: No rash or lesions on exposed areas. Neuro: No focal motor or sensory loss. Gait is normal. Urinary Catheter Management: Morton: Cath Placed During This Visit: yes Reason for Continuing Indwelling Catheter: Accurate Measurement of Urinary Output in Critically Ill Patients Urinary Catheter Date of Insertion: 12/01/23 Urinary Catheter Time of Insertion: 10:55 Data 12/03/23 04:00 12/03/23 04:00 Micro: Microbiology 12/01/23 11:09 Blood Culture - Preliminary Blood NEGATIVE TO DATE 12/01/23 10:42 Blood Culture - Preliminary Blood NEGATIVE TO DATE A&P Assessment and plan (1) Hypotension: (2) Acute exacerbation of CHF (congestive heart failure): (3) Pulmonary edema: (4) Smoking: (5) Aortic stenosis: Qualifiers: Cardiac valve disease etiology: nonrheumatic Qualified Code(s): I35.0 - Nonrheumatic aortic (valve) stenosis (6) Severe pulmonary hypertension: Plan #Generalized Weakness #Hypotension #Mod aortic valve stenosis, area 1.2c2, mean gradient 29.2, not a candidate for TAVR as per evaluation in [place] by Dr. Williamson 2021 #Acute on chronic hypoxia #Acute on chronic diastolic heart failure #Chronic gout #HANNAH - improving patient was recently discharged from the hospital for management of diastolic CHF exacerbation. She was discharged after her medications were adjusted. Her blood pressure was on the softer side and she was feeling weak and lethargic. She appeared dry. Blood pressure did improve with hydration. There was concern for pneumonia so she was placed on antibiotics. PE was ruled out. Home oxygen evaluation was done and patient was not requiring more than 2 L which is her baseline. Patient was asked to hold Lasix and her antihypertensives. She was given a referral to [place] to Dr. Williamson for TAVR evaluation. In 2021 however, patient was sent to Dr. Williamson at the [facility] to evaluate for TAVR.? 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 For this reason, she was found to be not an ideal candidate for TAVR. Patient presented to the hospital on 11/30 for generalized weakness. Chest x-ray showed pulmonary edema saturating 6 L nasal cannula. EKG negative for ischemia and tropes without delta change. Patient stated she did not take her diuretics at home and she has had recurrent falls. She denies any syncope. She stated she was getting worse because of low blood pressure. She was admitted for hypotension. She was started on midodrine and fludrocortisone. Gentle fluid hydration and Levophed given. Patient hypervolemic and hyponatremic. She has a guarded prognosis. Patient's echo done 10/2019 showed EF 60%, diastolic dysfunction, moderate aortic valve calcification, moderate aortic valve stenosis mean gradient 29.3, aortic valve area 1.2 cm? mild aortic valve regurgitation. Patient has been off Levophed in the last 24 hours. Blood pressures have improved. Hemoglobin stable at 9.8. Oxygenation has improved. Creatinine has improved. Patient would like to go to rehab and is agreeable for SNF. PT to evaluate on Monday. - Check PT, OT - Continue midodrine, fludracortisone - Patient agreeable to SNF placement if needed - Continue on lasix 20 daily. - Stop morphine orally .Switch to non-opioid - Continue nicotine patch - Senna/doc - K 20 meq daily - Check labs cbc, cmp, mag in am - avoid christine inhibitors, beta blockers - Consider cardiology consult - Transfer to floor today - consult case management. Pt wants to go to [facility]. Full Code DVT PPX: lovenox Attestations 2 Medical Necessity Statement*: More than 2 midnight needed for card shock management, hypoxia, diuresis and management of blood pressures. Diagnoses Hypotension I95.9 Acute exacerbation of CHF (congestive heart failure) I50.9 Pulmonary edema J81.1 Smoking F17.200 Nonrheumatic aortic valve stenosis I35.0 Cardiac valve disease etiology: nonrheumatic Severe pulmonary hypertension I27.20
[2023-12-03] MEDS: enoxaparin 40 mg/0.4 mL Syringe SUBCUT (15:46)
--- NOTE | 2023-12-03 17:13 | PC.NURSE ---
transferred pt to U room -111-2. all belongings sent with pt. family notified on the transfer and bed#. report has been called to Bozena Cox.
[2023-12-03] MEDS: allopurinol 100 mg Tablet PO (18:31)
[2023-12-03] MEDS: aspirin 325 mg Tablet PO (18:31)
[2023-12-04] VITALS (51 sets, daily range): BP systolic 53–139; BP diastolic 39–95; PULSE 59–93; RESP 15–34; TEMP 36.1–39.1; O2SAT 83–99
[2023-12-04 03:39] LABS: Basophils % 0.4 %; Eosinophils # 0.4 10^3/uL (0.0-0.8); Eosinophils % 4.7 %; Hematocrit 33.5 % (36-47); Lymphocytes # 1.2 10^3/uL (0.8-4.8); Lymphocytes % 16.8 %; Mean Corpuscular Volume 90.1 fl (85-98); Mean Platelet Volume 9.3 fL (7.4-10.4); Monocytes # 1.1 10^3/uL (0.2-0.9); Monocytes % 14.2 %; Neutrophils # 4.54 10^3/uL (1.8-7.7); Neutrophils % 61.5 %; Nucleated Red Blood Cells % 0 %; Platelet Count 213 10^3/cmm (157-399); Red Blood Count 3.72 10^6/uL (3.85-5.65); Red Cell Distribution Width 17.3 % (12.1-15.1); White Blood Count 7.39 10^3/uL (3.29-11.43)
[2023-12-04 03:57] LABS: Anion Gap 15.3 (5-19); Blood Urea Nitrogen 14 mg/dL (8-23); Calcium 8.6 mg/dL (8.5-10.5); Carbon Dioxide 27 mmol/L (22-29); Chloride 95 mmol/L (98-107); Creatinine Clr Calc Pharmacy 40.0383; Glucose 87 mg/dL (65-115); Magnesium 1.9 mg/dL (1.7-2.3); Osmolality Calculated 276 mOsm/kg (285-295); Potassium 4.3 mmol/L (3.5-5.1); Sodium 133 mmol/L (136-145)
[2023-12-04] MEDS: nicotine 7 mg Patch 1 PATCH TRANSDERMA (08:47)
--- NOTE | 2023-12-04 09:18 | PC.SOCIAL ---
IMM Update Pg. 2 of IMM updated and reviewed with patient who verbalized understanding. Copy provided.
--- NOTE | 2023-12-04 09:57 | PC.NURSE ---
febrile, lethargic, sleepy and disoriented Pt started to have another spike of fever of 100.3F orally, pt is mildy disoriented to place and time. [id number]. Spo2 is around 88-90% on [address] Tariq. Pls see notes.
--- NOTE | 2023-12-04 11:18 | XR_ITS ---
WS: [id number] XR chest 1V portable [id number] REASON FOR EXAM: pneumonia FINDINGS: Moderate tortuosity of the thoracic aorta. Heavily calcified mitral valve. Mild cardiomegaly. Compared to the previous examination of 12/01/2023, there are now more distinct reticular interstitial opacities in the right lower lung field, some of which are subpleural. No other interval change. XR/XR chest 1V portable [id number] IMPRESSION: Interval change as above. The findings in this examination are more compatible with superimposition of congestive failure on chronic lung abnormality than pne umonitis.
[2023-12-04 11:44] LABS: Alanine Aminotransferase 23 U/L (0-33); Aspartate Amino Transferase 32 U/L (0-32); Gamma Glutamyl Transferase 27 U/L (5-36); Lactate Dehydrogenase 682 U/L (135-214)
[2023-12-04 12:30] LABS: ABG PCO2 38.7 mmHg (35-45); ABG PH Result 7.46 (7.35-7.45); Arterial Blood Gas Hematocrit 43.5 % (37-47); Base Excess ABG 3.8 mmol/L (-2.0-2.0); Blood Gas Operator Identificat glc; Blood Gas Sample Site Brachial, left; Blood Gas Sample Type Arterial; HCO3 ABG 27.7 mmol/L (22-26); Oxygen Device NC; PO2 FiO2 Ratio Arterial Blood 206
[2023-12-04] MEDS: cefTRIAXone 1,000 mg SDV 1000 MG IVP (12:31)
--- NOTE | 2023-12-04 12:47 | P.PN_ITS ---
Subjective 2 Subjective: Patient started developing fever overnight. Up to 102 Fahrenheit this morning. This is a new development during this hospitalization. Yesterday was complaining of some chills. Per RN patient appears to be more lethargic than previously. It appears previously during admission she was able to be sitting up, self-feeding, however she is not doing that today. Reports poor appetite but no other localizing symptoms. Denies URI symptoms. Denies cough chest pain dyspnea palpitations. Denies any abdominal pain nausea or vomiting. Blood pressure maintained today. Note RN and granddaughter at bedside have noted her to be intermittently disoriented today which is a new development. Medications: Reviewed: Yes Vitals/I&O/Wt Last Vital Signs Temp 102.4 F H 12/04/23 10:06 Pulse 87 12/04/23 10:06 Resp 28 H 12/04/23 10:06 BP 125/63 12/04/23 10:06 Pulse Ox 92 12/04/23 10:06 O2 Del Method Nasal Cannula 12/04/23 10:06 O2 Flow Rate 3 12/04/23 09:13 FiO2 40 12/01/23 15:16 12/03/23 12/04/23 12/04/23 22:59 06:59 14:59 Intake Total 50 / 522 100 / 622 120 / 120 Output Total 200 / 1550 175 / 1725 Balance -150 / -1028 -75 / -1103 120 / 120 Weight last 48 hrs Weight 95.935 kg Weight 93.848 kg Physical Exam 2 Narrative: General: No acute distress, AO x3 HEENT: PERRLA, pupils bilaterally equal and reactive, pallors not present Chest: Normal vesicular breath sounds, no added sounds, equal good air entry bilaterally CVS: S1-S2 regular, no murmurs, no tachycardia, no gallops, no rubs Abdomen: Soft, nontender, no organomegaly, bowel sounds present Neuro: No focal deficits, no facial deformity, AO x3, power 5/5 in all limbs Extremities: no edema, clubbing Urinary Catheter Management: Morton: Cath Placed During This Visit: yes Reason for Continuing Indwelling Catheter: Accurate Measurement of Urinary Output in Critically Ill Patients Urinary Catheter Date of Insertion: 12/01/23 Urinary Catheter Time of Insertion: 10:55 Data 12/04/23 03:12/04/23 03:08 A&P Assessment and plan (1) Hypotension: (2) Acute exacerbation of CHF (congestive heart failure): (3) Pulmonary edema: (4) Smoking: (5) Aortic stenosis: Qualifiers: Cardiac valve disease etiology: nonrheumatic Qualified Code(s): I35.0 - Nonrheumatic aortic (valve) stenosis (6) Severe pulmonary hypertension: Plan #Generalized Weakness #Hypotension #Mod aortic valve stenosis, area 1.2c2, mean gradient 29.2, not a candidate for TAVR as per evaluation in [place] by Dr. Williamson 2021 #Acute on chronic hypoxia #Acute on chronic diastolic heart failure #Chronic gout #HANNAH - improving patient was recently discharged from the hospital for management of diastolic CHF exacerbation. She was discharged after her medications were adjusted. Her blood pressure was on the softer side and she was feeling weak and lethargic. She appeared dry. Blood pressure did improve with hydration. There was concern for pneumonia so she was placed on antibiotics. PE was ruled out. Home oxygen evaluation was done and patient was not requiring more than 2 L which is her baseline. Patient was asked to hold Lasix and her antihypertensives. She was given a referral to [place] to Dr. Williamson for TAVR evaluation. In 2021 however, patient was sent to Dr. Williamson at the [facility] to evaluate for TAVR.? 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 For this reason, she was found to be not an ideal candidate for TAVR. Patient presented to the hospital on 11/30 for generalized weakness. Chest x-ray showed pulmonary edema saturating 6 L nasal cannula. EKG negative for ischemia and tropes without delta change. Patient stated she did not take her diuretics at home and she has had recurrent falls. She denies any syncope. She stated she was getting worse because of low blood pressure. She was admitted for hypotension. She was started on midodrine and fludrocortisone. Gentle fluid hydration and Levophed given. Patient hypervolemic and hyponatremic. She has a guarded prognosis. Patient's echo done 10/2019 showed EF 60%, diastolic dysfunction, moderate aortic valve calcification, moderate aortic valve stenosis mean gradient 29.3, aortic valve area 1.2 cm? mild aortic valve regurgitation. Patient has been off Levophed in the last 24 hours. Blood pressures have improved. Hemoglobin stable at 9.8. Oxygenation has improved. Creatinine has improved. Patient would like to go to rehab and is agreeable for SNF. PT to evaluate on Monday. - Check PT, OT - Continue midodrine, fludracortisone - Patient agreeable to SNF placement if needed - Continue on lasix 20 daily. - Stop morphine orally .Switch to non-opioid - Continue nicotine patch - Senna/doc - K 20 meq daily - Check labs cbc, cmp, mag in am - avoid christine inhibitors, beta blockers - Consider cardiology consult - Transfer to floor today - consult case management. Pt wants to go to [facility]. Full Code DVT PPX: lovenox Plan for today December 04, 2023. Patient developed fever to 102.4 Fahrenheit. Stat blood cultures. check CXR. CBC CMP reviewed normal today. Add on liver function panel. Check ABG given that patient appears to be more lethargic. She is currently able to correctly tell me her name, Age, and whereabouts but has been more weak today per RN and family report. Remove Morton catheter. Check UA for UTI. D/c fludrocortisone , increase midodrine to 5mg TID to be titrated further based on response. CTa chest negative for PE on 11/26. GGOS noted on last CT. Check CXR. Further orders based on results of above testing. Hold lasix today, clinically dehydarated, increasing creat start empiric abc ceftriaxone and azithromycin while undergoing fevr source evaluation Attestations 2 Medical Necessity Statement*: fever, source evaluation, iv abx , labs as above Coding Level of Care Code Acute Code for Chg Fwd High MDM includes number and complexity of problems actively addressed during encounter, amount and/or complexity of data reviewed/ordered and described risk of complication, morbidity or mortality of management as documented Diagnoses Hypotension I95.9 Acute exacerbation of CHF (congestive heart failure) I50.9 Pulmonary edema J81.1 Smoking F17.200 Nonrheumatic aortic valve stenosis I35.0 Cardiac valve disease etiology: nonrheumatic Severe pulmonary hypertension I27.20
[2023-12-04] MEDS: acetaminophen 325 mg Tablet 650 MG PO (13:07)
[2023-12-04 13:29] LABS: Blood Urine Trace (Negative); Glucose Urine UA Norm (Normal); Ketones Urine 1+ (Negative); Protein Urine 1+ (Negative); Specific Gravity, Urine 1.025 (1.005-1.030); Urine Appearance Cloudy (CLEAR); Urine Color Yellow (Yellow); pH Urine 5 (5-7)
[2023-12-04 13:30] LABS: Add Urine Microscopic? YES; Bacteria Urine 2+ /hpf; Bilirubin Urine Neg (Negative); Leukocyte Esterase Urine Trace (Negative); Nitrate Urine Positive (Negative); RBC Urine RARE /hpf (0-2); Squamous Epithelial Cell Urine 0-4 /hpf (0-5); Urobilinogen Urine 4 mg/dL (Negative); WBC Urine 0-4 /hpf (0-5)
[2023-12-04 13:31] LABS: Add Urine Culture? Yes
[2023-12-04 14:35] LABS: Adenovirus Not Detected (NOT DETECT); Chlamydia Pneumoniae Not Detected (NOT DETECT); Coronavirus 229E,HKU1,NL63,OC4 Not Detected (NOT DETECT); Human Metapneumovirus Not Detected (NOT DETECT); Human Rhinovirus/Enterovirus Not Detected (NOT DETECT); Influenza A Not Detected (NOT DETECT); Influenza A H1 Not Detected (NOT DETECT); Influenza A H1-2009 Not Detected (NOT DETECT); Influenza A H3 Not Detected (NOT DETECT); Influenza B Not Detected (NOT DETECT); Mycoplasma Pneumoniae Not Detected (NOT DETECT); Parainfluenza Virus Type 1 Not Detected (NOT DETECT); Parainfluenza Virus Type 2 Not Detected (NOT DETECT); Parainfluenza Virus Type 3 Not Detected (NOT DETECT); Parainfluenza Virus Type 4 Not Detected (NOT DETECT); Respiratory Syncytial Virus A Not Detected (NOT DETECT); Respiratory Syncytial Virus B Not Detected (NOT DETECT); SARS-COV-2 Not Detected (NOT DETECT)
[2023-12-04] MEDS: midodrine 5 mg TABLET PO ×2 (15:45→20:45)
[2023-12-04] MEDS: ipratropium-albuterol 3 mL Neb INHALATION (16:04)
--- NOTE | 2023-12-04 16:04 | PC.NURSE ---
Hypotension Pt reports of being lightheaded. Pt is alert, awake, talking to family. BP check is in low 79/50 on left arm, manual check in 60s?systolic. pt is alert and awake still. spo2 is 96% on 4 L. Notified Chandni and received orders for IVF bolus and ICU transfer.
[2023-12-04] MEDS: enoxaparin 40 mg/0.4 mL Syringe SUBCUT (16:12)
[2023-12-04] MEDS: sodium chloride 0.9% 250 ML IV (16:12)
--- NOTE | 2023-12-04 16:25 | PC.NURSE ---
BP recheck 75/43.Pt tolerating trendelenburg position and 250 ml fluid bolus as ordered.
[2023-12-04 16:35] LABS: Lactate (Lactic Acid level) 1.1 mmol/L (0.5-2.2)
--- NOTE | 2023-12-04 16:45 | PC.NURSE ---
report called to icu pt is still using bedpan.
--- NOTE | 2023-12-04 17:00 | PC.NURSE ---
BP-81/51. Renuka care provided. Pt had a moderate amt of soft bowel movement. 250 ml bolus infused. pt said she feels better after she had a bowel movement. ushered pt via bed to ICU-2.
--- NOTE | 2023-12-04 17:06 | PC.NURSE ---
Patient arrived to ICU at approximately 1700
[2023-12-04] MEDS: norepinephrine 4 MG/250 ML BAG 7.5 MG IV (17:14)
[2023-12-04] MEDS: vancomycin 750 MG in sodium chloride 0.9% 250 ML 250 MG IV (17:15)
[2023-12-04] MEDS: piperacillin-tazobactam 3.375 GM in sodium chloride 0.9% (plus) 50 ML IV (17:22)
[2023-12-04] MEDS: aspirin 325 mg Tablet PO (17:24)
[2023-12-04] MEDS: allopurinol 100 mg Tablet PO (17:24)
[2023-12-05] VITALS (50 sets, daily range): BP systolic 67–144; BP diastolic 46–95; PULSE 61–83; RESP 16–27; TEMP 36.6–36.8; O2SAT 90–97; BMI 36.8
[2023-12-05] MEDS: piperacillin-tazobactam 3.375 GM in sodium chloride 0.9% (plus) 50 ML IV ×4 (00:34→23:16)
[2023-12-05 04:40] LABS: Basophils # 0.1 10^3/uL (0.0-0.1); Basophils % 0.6 %; Eosinophils # 0.3 10^3/uL (0.0-0.8); Eosinophils % 3.4 %; Hematocrit 33.3 % (36-47); Lymphocytes # 1.1 10^3/uL (0.8-4.8); Lymphocytes % 12.7 %; Mean Corpuscular HGB Conc 31.8 g/dL (30-55); Mean Corpuscular Hemoglobin 28.7 pg (27-33); Mean Corpuscular Volume 90.2 fl (85-98); Mean Platelet Volume 9.2 fL (7.4-10.4); Monocytes % 12.2 %; Neutrophils # 5.74 10^3/uL (1.8-7.7); Neutrophils % 68.7 %; Nucleated Red Blood Cells % 0 %; Platelet Count 229 10^3/cmm (157-399); Red Blood Count 3.69 10^6/uL (3.85-5.65); Red Cell Distribution Width 17.4 % (12.1-15.1); White Blood Count 8.35 10^3/uL (3.29-11.43)
[2023-12-05 05:07] LABS: Alanine Aminotransferase 21 U/L (0-33); Albumin Level 3.1 g/dL (3.5-5.2); Alkaline Phosphatase 112 U/L (35-105); Anion Gap 17.5 (5-19); Aspartate Amino Transferase 30 U/L (0-32); Blood Urea Nitrogen 17 mg/dL (8-23); Calcium 8.4 mg/dL (8.5-10.5); Carbon Dioxide 24 mmol/L (22-29); Chloride 94 mmol/L (98-107); Creatinine Clr Calc Pharmacy 28.6043; Globulin 2.6 g/dL (1.3-4.6); Glucose 106 mg/dL (65-115); NT Pro B Type Natriuretic Pept 4133 pg/mL (0-450); Osmolality Calculated 274 mOsm/kg (285-295); Potassium 4.5 mmol/L (3.5-5.1); Sodium 131 mmol/L (136-145); Total Bilirubin 0.6 mg/dL (0.15-1.2); Total Protein 5.7 g/dL (6.6-8.7)
--- NOTE | 2023-12-05 06:32 | PC.NURSE ---
Urine Output Patient's urine output 100 ml and very concentrated. Dr. Massey notified; order received for a 250 ml NS bolus IV once. Additionally, levophed administering through a peripheral IV. Dr. Massey aware; no new order received.
[2023-12-05] MEDS: sodium chloride 0.9% 250 ML IV (07:15)
[2023-12-05] MEDS: nicotine 7 mg Patch 1 PATCH TRANSDERMA (07:50)
[2023-12-05] MEDS: azithromycin 250 mg Tablet 500 MG PO (07:51)
[2023-12-05] MEDS: sennosides-docusate Tablet 1 TAB PO (07:51)
[2023-12-05] MEDS: potassium chloride ER 20 mEq Tablet PO (07:51)
[2023-12-05] MEDS: midodrine 5 mg TABLET PO (07:51)
--- NOTE | 2023-12-05 09:53 | CT_ITS ---
WS: [id number] CT CHEST, ABDOMEN AND PELVIS WITHOUT CONTRAST HISTORY: fever, sepsis, rising cr TECHNIQUE: Contiguous 5 mm axial imaging performed through the chest, abdomen and pelvis without IV c ontrast, oral contrast has 9 been provided. Coronal and sagittal reformats chest. Coronal and sagitta l reformats through the abdomen and pelvis. All CT scans at [facility] use at least one of th tomas dose optimization techniques: automated exposure control; mA and/or kV adjustment per patient siz e (includes targeted exams where dose is matched to clinical indication); or iterative reconstruction . CONTRAST: None DLP: 1193.69 mGy.cm COMPARISON: 11/27/[address], CT abdomen and pelvis 11/03/[address]: Mild diffuse hazy attenuation throughout both lungs. Study is compromised by breathing dana on artifact. There is no dense area of consolidation. There are a few small scattered nodules. These nodules are calcified. Mild dependent changes at the lung bases. No pneumothorax. No pericardial or p leural effusions. Moderate enlargement of the heart. No adenopathy identified on this unenhanced exam . Moderate atherosclerotic plaque aorta. Moderate size hiatal hernia. Abdomen CT: Hepatic steatosis. There is a very small subcapsular low-attenuation nodule RIGHT lobe of the liver measuring 1 cm. Negative gallbladder. Normal size spleen. Negative pancreas. No adrenal ma ss. Bilateral perinephric stranding with no obstruction or hydronephrosis. Moderate atherosclerosis a dustin. No ascites or adenopathy. Small umbilical hernia containing fat only. No GI tract obstruction. There are a few scattered diverticula in the distal colon. Pelvic CT: No free fluid in the pelvis. Morton catheter in the urinary bladder. Hyperdense nodule in t he cervix is most likely a nabothian cyst. Marked increase in the lumbar lordosis. 5 mm anterolisthesis of L4 and L5. Marked increase in thoraci c kyphosis. CT/[place] [id number] IMPRESSION: 1. No pneumonia or consolidation. Mild hazy attenuation throughout both lungs with mild improvement since the prior study of 11/26/2013. This may be related t o patient's history of smoking. 2. Moderate cardiomegaly. 3. No free fluid or adenopathy within the abdomen or pelvis. 4. Mild perinephric stranding with no obstruction. 5. Morton catheter in good position. 6. No GI tract obstruction. 7. Mediastinal and hilar lymphadenopathy is difficult to exclude without IV co ntrast.
[2023-12-05] MEDS: norepinephrine 4 MG/250 ML BAG 22.5 MG IV (12:02)
[2023-12-05 14:30] LABS: Methicillin-Resist S.aureu PCR NOT DETECTED (NOT DETECTED)
[2023-12-05] MEDS: midodrine 5 mg TABLET 10 MG PO ×2 (15:01→20:38)
--- NOTE | 2023-12-05 17:08 | P.PN_ITS ---
Subjective 2 Subjective: Patient was moved to the ICU last evening after she developed hypotension in CSU. Systolic blood pressure was down to 56 manually. Currently she is on Levophed at 6. UA positive for UTI. Urine culture and blood cultures are currently pending. CT of the chest abdomen and pelvis showing mild perinephric stranding, no pneumonia. Patient states she is symptomatically feeling better today. Creatinine worsened at 1.7. Medications: Reviewed: Yes Vitals/I&O/Wt Last Vital Signs Temp 98.3 F 12/05/23 10:00 Pulse 75 12/05/23 16:00 Resp 24 H 12/05/23 16:00 BP 111/63 12/05/23 16:00 Pulse Ox 94 12/05/23 14:30 O2 Del Method Nasal Cannula 12/05/23 14:00 O2 Flow Rate 2 12/05/23 14:00 FiO2 40 12/01/23 15:16 12/05/23 12/05/23 12/05/23 06:59 14:59 22:59 Intake Total 126.688 / 1069.813 401.25 / 401.25 Output Total 100 / 350 Balance 26.688 / 719.813 401.25 / 401.25 Weight last 48 hrs Weight 94.302 kg Weight 95.935 kg Physical Exam 2 Narrative: General: No acute distress, AO x3 HEENT: PERRLA, pupils bilaterally equal and reactive, pallors not present Chest: Normal vesicular breath sounds, no added sounds, equal good air entry bilaterally CVS: S1-S2 regular, no murmurs, no tachycardia, no gallops, no rubs Abdomen: Soft, nontender, no organomegaly, bowel sounds present Neuro: No focal deficits, no facial deformity, AO x3, power 5/5 in all limbs Urinary Catheter Management: Morton: Cath Placed During This Visit: yes, but has since been removed by the nurse Reason for Continuing Indwelling Catheter: Accurate Measurement of Urinary Output in Critically Ill Patients Urinary Catheter Date of Insertion: 12/04/23 Urinary Catheter Time of Insertion: 17:48 Date Urinary Catheter Removed: 12/03/23 Time Urinary Catheter Discontinued: 13:11 Data 12/05/23 03:35 12/05/23 03:35 Micro: Microbiology 12/04/23 12:42 Blood Culture - Preliminary Blood NEGATIVE TO DATE 12/04/23 12:38 Blood Culture - Preliminary Blood NEGATIVE TO DATE 12/04/23 12:40 Urine Culture - Preliminary Urine,Clean Catch Other data: CT/[place] [id number] IMPRESSION: 1. No pneumonia or consolidation. Mild hazy attenuation throughout both lungs with mild improvement since the prior study of 11/26/2013. This may be related to patient's history of smoking. 2. Moderate cardiomegaly. 3. No free fluid or adenopathy within the abdomen or pelvis. 4. Mild perinephric stranding with no obstruction. 5. Morton catheter in good position. 6. No GI tract obstruction. 7. Mediastinal and hilar lymphadenopathy is difficult to exclude without IV contrast. A&P Assessment and plan (1) Hypotension: (2) Acute exacerbation of CHF (congestive heart failure): (3) Pulmonary edema: (4) Smoking: (5) Aortic stenosis: Qualifiers: Cardiac valve disease etiology: nonrheumatic Qualified Code(s): I35.0 - Nonrheumatic aortic (valve) stenosis (6) Severe pulmonary hypertension: (7) Fever: (8) UTI (urinary tract infection): (9) Pyelonephritis: Plan #Generalized Weakness #Hypotension #Mod aortic valve stenosis, area 1.2c2, mean gradient 29.2, not a candidate for TAVR as per evaluation in [place] by Dr. Williamson 2021 #Acute on chronic hypoxia #Acute on chronic diastolic heart failure #Chronic gout #HANNAH - improving patient was recently discharged from the hospital for management of diastolic CHF exacerbation. She was discharged after her medications were adjusted. Her blood pressure was on the softer side and she was feeling weak and lethargic. She appeared dry. Blood pressure did improve with hydration. There was concern for pneumonia so she was placed on antibiotics. PE was ruled out. Home oxygen evaluation was done and patient was not requiring more than 2 L which is her baseline. Patient was asked to hold Lasix and her antihypertensives. She was given a referral to [place] to Dr. Williamson for TAVR evaluation. In 2021 however, patient was sent to Dr. Williamson at the [facility] to evaluate for TAVR.? 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 For this reason, she was found to be not an ideal candidate for TAVR. Patient presented to the hospital on 11/30 for generalized weakness. Chest x-ray showed pulmonary edema saturating 6 L nasal cannula. EKG negative for ischemia and tropes without delta change. Patient stated she did not take her diuretics at home and she has had recurrent falls. She denies any syncope. She stated she was getting worse because of low blood pressure. She was admitted for hypotension. She was started on midodrine and fludrocortisone. Gentle fluid hydration and Levophed given. Patient hypervolemic and hyponatremic. She has a guarded prognosis. Patient's echo done 10/2019 showed EF 60%, diastolic dysfunction, moderate aortic valve calcification, moderate aortic valve stenosis mean gradient 29.3, aortic valve area 1.2 cm? mild aortic valve regurgitation. Patient has been off Levophed in the last 24 hours. Blood pressures have improved. Hemoglobin stable at 9.8. Oxygenation has improved. Creatinine has improved. Patient would like to go to rehab and is agreeable for SNF. PT to evaluate on Monday. - Check PT, OT - Continue midodrine, fludracortisone - Patient agreeable to SNF placement if needed - Continue on lasix 20 daily. - Stop morphine orally .Switch to non-opioid - Continue nicotine patch - Senna/doc - K 20 meq daily - Check labs cbc, cmp, mag in am - avoid christine inhibitors, beta blockers - Consider cardiology consult - Transfer to floor today - consult case management. Pt wants to go to [facility]. Full Code DVT PPX: lovenox Plan for today December 04, 2023. Patient developed fever to 102.4 Fahrenheit. Stat blood cultures. check CXR. CBC CMP reviewed normal today. Add on liver function panel. Check ABG given that patient appears to be more lethargic. She is currently able to correctly tell me her name, Age, and whereabouts but has been more weak today per RN and family report. Remove Morton catheter. Check UA for UTI. D/c fludrocortisone , increase midodrine to 5mg TID to be titrated further based on response. CTa chest negative for PE on 11/26. GGOS noted on last CT. Check CXR. Further orders based on results of above testing. Hold lasix today, clinically dehydarated, increasing creat start empiric abc ceftriaxone and azithromycin while undergoing fevr source evaluation December 05, 2023 Patient is clinically feeling better today. Last fever yesterday at 10 AM. Moved to the ICU yesterday to start Levophed, currently at 6 afshan. With fever and hypotension concern for developing sepsis for which fever source evaluation was started and patient started on empiric antibiotics with piperacillin/tazobactam and IV vancomycin. UA positive for UTI. Urine culture pending. Blood culture taken, currently pending. Respiratory viral panel negative. CT of the chest abdomen and pelvis taken today to evaluate for hydronephrosis given rising creatinine and positive UA, study negative for the same but shows perinephric stranding which could be entry level account representative of possible pyelonephritis. Increase midodrine to 10 mg 3 times daily. Check random cortisol and TSH with a.m. labs. Clinically euvolemic, will hold Lasix again. Family at bedside Attestations 2 Medical Necessity Statement*: Continue needed for IV antibiotics, IV pressors, trend creatinine with a.m. labs, check random cortisol given persisting hypotension. Await culture results Critical Care Time: The high probability of a clinically significant, sudden or life threatening deterioration of the patient's [cardiovascular, renal, ID] system(s) required my full and direct attention, intervention and personal management. The critical care time is as shown. This time is in addition to time spent performing any reported procedures but includes the following: [x] Data and vital sign review and interpretation [x] Patient assessment, examination and intervention [x] Documentation [x] Medication orders and management Coding Level of Care Code Critical Care >/= 30 minutes Critical care time (in minutes): 45 The high probability of a clinically significant, sudden or life threatening deterioration, as referenced in this documentation, required my full and direct attention, intervention and personal management. The critical care time shown is in addition to time spent performing any reported separately billable procedures and includes the following: [x] Data and vital sign review and interpretation [x ] Patient assessment, examination and intervention [x] Medication orders and management [x] Patient/Family updates as able [x] Care Coordination and Documentation. Diagnoses Hypotension I95.9 Acute exacerbation of CHF (congestive heart failure) I50.9 Pulmonary edema J81.1 Smoking F17.200 Nonrheumatic aortic valve stenosis I35.0 Cardiac valve disease etiology: nonrheumatic Severe pulmonary hypertension I27.20 Fever R50.9 UTI (urinary tract infection) N39.0 Pyelonephritis N12
[2023-12-05] MEDS: vancomycin 750 MG in sodium chloride 0.9% 250 ML 250 MG IV (17:17)
[2023-12-05] MEDS: enoxaparin 40 mg/0.4 mL Syringe SUBCUT (17:21)
[2023-12-05] MEDS: allopurinol 100 mg Tablet PO (17:21)
[2023-12-05] MEDS: aspirin 325 mg Tablet PO (17:21)
[2023-12-05] MEDS: norepinephrine 4 MG/250 ML BAG 30 MG IV (21:30)
[2023-12-06] VITALS (50 sets, daily range): BP systolic 70–127; BP diastolic 42–76; PULSE 53–88; RESP 16–29; TEMP 36.6–37.7; O2SAT 87–99; BMI 37.2
[2023-12-06 04:18] LABS: Basophils # 0.1 10^3/uL (0.0-0.1); Basophils % 0.6 %; Eosinophils # 0.4 10^3/uL (0.0-0.8); Hematocrit 34.2 % (36-47); Lymphocytes # 1.3 10^3/uL (0.8-4.8); Lymphocytes % 15.6 %; Mean Corpuscular HGB Conc 31.6 g/dL (30-55); Mean Corpuscular Hemoglobin 28.3 pg (27-33); Mean Corpuscular Volume 89.5 fl (85-98); Monocytes # 1.1 10^3/uL (0.2-0.9); Monocytes % 12.8 %; Neutrophils # 5.26 10^3/uL (1.8-7.7); Neutrophils % 63.6 %; Nucleated Red Blood Cells % 0 %; Platelet Count 250 10^3/cmm (157-399); Red Blood Count 3.82 10^6/uL (3.85-5.65); Red Cell Distribution Width 17.2 % (12.1-15.1); White Blood Count 8.27 10^3/uL (3.29-11.43)
[2023-12-06 04:46] LABS: Alanine Aminotransferase 25 U/L (0-33); Albumin Level 3.1 g/dL (3.5-5.2); Alkaline Phosphatase 121 U/L (35-105); Anion Gap 15.6 (5-19); Aspartate Amino Transferase 38 U/L (0-32); Blood Urea Nitrogen 14 mg/dL (8-23); Calcium 8.4 mg/dL (8.5-10.5); Carbon Dioxide 25 mmol/L (22-29); Chloride 95 mmol/L (98-107); Cortisol Random 7.18 ug/dL (2.47-19.5); Creatinine Clr Calc Pharmacy 32.1149; Globulin 3.4 g/dL (1.3-4.6); Glucose 126 mg/dL (65-115); Osmolality Calculated 274 mOsm/kg (285-295); Potassium 4.6 mmol/L (3.5-5.1); Sodium 131 mmol/L (136-145); Total Bilirubin 0.6 mg/dL (0.15-1.2); Total Protein 6.5 g/dL (6.6-8.7)
[2023-12-06 04:47] LABS: Thyroid Stimulating Hormone 0.41 uIU/mL (0.27-4.20)
[2023-12-06] MEDS: norepinephrine 4 MG/250 ML BAG 30 MG IV ×2 (05:45→13:55)
[2023-12-06] MEDS: midodrine 5 mg TABLET 10 MG PO ×3 (09:29→20:30)
[2023-12-06] MEDS: potassium chloride ER 20 mEq Tablet PO (09:29)
[2023-12-06] MEDS: piperacillin-tazobactam 3.375 GM in sodium chloride 0.9% (plus) 50 ML IV (09:29)
--- NOTE | 2023-12-06 10:31 | PC.SOCIAL ---
IMM Update Pg. 2 of IMM updated and reviewed with patient who verbalized understanding. Copy provided.
--- NOTE | 2023-12-06 10:55 | USCV_ITS ---
Mary Ponce Age: 82 Gender: F : 1940 Exam Date: 12/06/2023 12:00 Ordering Phys: Akanksha Tariq MD Technologist: CT [place] [facility] [place]: hypotensive PROCEDURES: The venous duplex Doppler examination of both lower extremities was performed in the standard fashion. FINDINGS: Normal 2-D Doppler and augmentation and compressibility throughout the lower extremity venous structures. Additional imaging through the proximal calf veins also reveals no thrombus. Limited evaluation of the greater saphenous vein is patent with no thrombus. CONCLUSIONS No DVT bilateral lower extremities. Dr. Iman Morris DO (Electronically Signed) Final Date: 06 December 2023 14:02 S
--- NOTE | 2023-12-06 10:56 | USCV_ITS ---
Mary Ponce Age: 82 Gender: F : 1940 Exam Date: 12/06/2023 18:09 Ordering Phys: Akanksha Tariq MD Technologist: CRAIG Exam Location: [facility] [place] Indication: persistent hypotension , assess for EF only. Prior echo 11/02/2023 BP: 109 / 67 HR: 59 Rhythm: Sinus Technical Quality: Adequate MEASUREMENTS (Male / Female) Normal Values 2D ECHO LV Diastolic Diameter PLAX 4.8 cm 4.2 - 5.9 / 3.9 - 5.3 cm IVS Diastolic Thickness 1.7 cm 0.6 - 1.0 / 0.6 - 0.9 cm IVS Systolic Thickness 2.0 cm LVPW Diastolic Thickness 1.1 cm 0.6 - 1.0 / 0.6 - 0.9 cm LVPW Systolic Thickness 1.6 cm LV Ejection Fraction 2D Teich 57.1 % LV Ejection Fraction MOD 4C 47.3 % LV Ejection Fraction MOD 2C 56.3 % LV Ejection Fraction 2C AL 54.6 % IVC Diameter 1.7 cm DOPPLER MV Peak Velocity 194.0 cm/s MV Area PHT 1.4 cm squared Mitral E to A Ratio 1.1 FINDINGS Left Ventricle Normal left ventricular size and systolic function, EF 70%, visual.moderate left ventricular hypertrophy. No regional wall motion abnormalities. Grade III/IV diastolic dysfunction (restrictive filling pattern), severely elevated filling pressures. Right Ventricle The right ventricle is normal in size and function. Right Atrium The right atrium is normal in size. Left Atrium Moderately increased left atrial size. Mitral Valve Moderate mitral annular calcification.mild mitral valve regurgitation. Aortic Valve Thickened aortic valve. Tricuspid Valve No gross abnormalities noted Pulmonic Valve No gross abnormalities noted Pericardium Normal pericardium without effusion. Aorta Normal ascending aorta dimension. IVC Normal inferior vena cava. CONCLUSIONS Normal left ventricular size and systolic function, EF 70%, visual.moderate left ventricular hypertrophy. No regional wall motion abnormalities. Grade III/IV diastolic dysfunction (restrictive filling pattern), severely elevated filling pressures. Moderately increased left atrial size. Moderate mitral annular calcification. Mild mitral valve regurgitation. Thickened aortic valve. There is no pericardial effusion. There are no intracardiac masses. No similar previous studies are available for comparison Dr Marizol Leiva MD [facility] (Electronically Signed) Final Date: 07 December 2023 01:29 S
--- NOTE | 2023-12-06 11:50 | PC.NURSE ---
Noninvasive fluid challange..... Cheetah performed. Shows SVI change on 26.1%, indicates fluid responsive. NUrse alerted Dr meza and received orders for 250mL of NS bolus. Check fluid responsiveness again 1 hour after infusion.
[2023-12-06] MEDS: sodium chloride 0.9% 250 ML 999 ML IV ×2 (12:06→15:07)
[2023-12-06] MEDS: hydrocortisone 100 mg/2 mL SDV IVP ×2 (12:13→16:50)
[2023-12-06] MEDS: meropenem 1,000 mg SDV 1000 MG IVP (12:17)
[2023-12-06] MEDS: nicotine 7 mg Patch 1 PATCH TRANSDERMA (12:21)
[2023-12-06] MEDS: enoxaparin 40 mg/0.4 mL Syringe SUBCUT (15:07)
[2023-12-06 15:38] LABS: D Dimer 16.36 ug/mLFEU (0-0.59)
[2023-12-06] MEDS: sodium chloride 0.9% 1,000 ML 50 ML IV (16:51)
[2023-12-06] MEDS: aspirin 325 mg Tablet PO (17:00)
[2023-12-06] MEDS: allopurinol 100 mg Tablet PO (17:01)
[2023-12-06] MEDS: doxycycline 100 mg Tablet PO (17:01)
--- NOTE | 2023-12-06 17:22 | P.PN_ITS ---
Subjective 2 Subjective: Patient is more lethargic this morning. Hypotensive, Levophed requirement increased to 10 mics now. Cheetah monitoring shows SVA of 21%, fluid responsive. Starting fluids today. Holding Lasix. Blood and urine cultures remain negative to date. T max 99.8F. Medications: Reviewed: Yes Vitals/I&O/Wt Last Vital Signs Temp 99.8 F H 12/06/23 13:00 Pulse 74 12/06/23 15:00 Resp 21 H 12/06/23 15:00 BP 109/67 12/06/23 15:00 Pulse Ox 97 12/06/23 15:00 O2 Del Method Nasal Cannula 12/06/23 13:00 O2 Flow Rate 4 12/06/23 13:00 FiO2 4 12/05/23 18:00 12/06/23 12/06/23 12/06/23 06:59 14:59 22:59 Intake Total 247.5 / 935.50 665 / 665 560.425 / 1225.425 Output Total 300 / 540 200 / 200 200 / 400 Balance -52.5 / 395.50 465 / 465 360.425 / 825.425 Weight last 48 hrs Weight 95.368 kg Weight 94.302 kg Physical Exam 2 Narrative: General: No acute distress, AO x3 HEENT: PERRLA, pupils bilaterally equal and reactive, pallors not present Chest: Normal vesicular breath sounds, no added sounds, equal good air entry bilaterally CVS: S1-S2 regular, no murmurs, no tachycardia, no gallops, no rubs Abdomen: Soft, nontender, no organomegaly, bowel sounds present Neuro: No focal deficits, no facial deformity, AO x3, power 5/5 in all limbs Urinary Catheter Management: Morton: Cath Placed During This Visit: yes, but has since been removed by the nurse Reason for Continuing Indwelling Catheter: Accurate Measurement of Urinary Output in Critically Ill Patients Urinary Catheter Date of Insertion: 12/04/23 Urinary Catheter Time of Insertion: 17:48 Date Urinary Catheter Removed: 12/03/23 Time Urinary Catheter Discontinued: 13:11 Data 12/06/23 04:10 12/06/23 04:10 Micro: Microbiology 12/01/23 11:09 Blood Culture - Final Blood NO GROWTH AFTER 5 DAYS 12/01/23 10:42 Blood Culture - Final Blood NO GROWTH AFTER 5 DAYS 12/04/23 12:40 Urine Culture - Final Urine,Clean Catch 12/04/23 12:42 Blood Culture - Preliminary Blood NEGATIVE TO DATE 12/04/23 12:38 Blood Culture - Preliminary Blood NEGATIVE TO DATE A&P Assessment and plan (1) Hypotension: (2) Acute exacerbation of CHF (congestive heart failure): (3) Pulmonary edema: (4) Smoking: (5) Aortic stenosis: Qualifiers: Cardiac valve disease etiology: nonrheumatic Qualified Code(s): I35.0 - Nonrheumatic aortic (valve) stenosis (6) Severe pulmonary hypertension: (7) Fever: (8) UTI (urinary tract infection): (9) Pyelonephritis: Plan #Generalized Weakness #Hypotension #Mod aortic valve stenosis, area 1.2c2, mean gradient 29.2, not a candidate for TAVR [place] #Acute on chronic hypoxia #Acute on chronic diastolic heart failure #Chronic gout #HANNAH - improving patient was recently discharged from the hospital for management of diastolic CHF exacerbation. She was discharged after her medications were adjusted. Her blood pressure was on the softer side and she was feeling weak and lethargic. She appeared dry. Blood pressure did improve with hydration. There was concern for pneumonia so she was placed on antibiotics. PE was ruled out. Home oxygen evaluation was done and patient was not requiring more than 2 L which is her baseline. Patient was asked to hold Lasix and her antihypertensives. She was given a referral to [place] to Dr. Williamson for TAVR evaluation. In 2021 however, patient was sent to Dr. Williamson at the [facility] to evaluate for TAVR.? 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 For this reason, she was found to be not an ideal candidate for TAVR. Patient presented to the hospital on 11/30 for generalized weakness. Chest x-ray showed pulmonary edema saturating 6 L nasal cannula. EKG negative for ischemia and tropes without delta change. Patient stated she did not take her diuretics at home and she has had recurrent falls. She denies any syncope. She stated she was getting worse because of low blood pressure. She was admitted for hypotension. She was started on midodrine and fludrocortisone. Gentle fluid hydration and Levophed given. Patient hypervolemic and hyponatremic. She has a guarded prognosis. Patient's echo done 10/2019 24 showed EF 60%, diastolic dysfunction, moderate aortic valve calcification, moderate aortic valve stenosis mean gradient 29.3, aortic valve area 1.2 cm? mild aortic valve regurgitation. Patient has been off Levophed in the last 24 hours. Blood pressures have improved. Hemoglobin stable at 9.8. Oxygenation has improved. Creatinine has improved. Patient would like to go to rehab and is agreeable for SNF. PT to evaluate on Monday. - Check PT, OT - Continue midodrine, fludracortisone - Patient agreeable to SNF placement if needed - Continue on lasix 20 daily. - Stop morphine orally .Switch to non-opioid - Continue nicotine patch - Senna/doc - K 20 meq daily - Check labs cbc, cmp, mag in am - avoid christine inhibitors, beta blockers - Consider cardiology consult - Transfer to floor today - consult case management. Pt wants to go to [facility]. Full Code DVT PPX: lovenox Plan for today December 04, 2023. Patient developed fever to 102.4 Fahrenheit. Stat blood cultures. check CXR. CBC CMP reviewed normal today. Add on liver function panel. Check ABG given that patient appears to be more lethargic. She is currently able to correctly tell me her name, Age, and whereabouts but has been more weak today per RN and family report. Remove Morton catheter. Check UA for UTI. D/c fludrocortisone , increase midodrine to 5mg TID to be titrated further based on response. CTa chest negative for PE on 11/26. GGOS noted on last CT. Check CXR. Further orders based on results of above testing. Hold lasix today, clinically dehydarated, increasing creat start empiric abc ceftriaxone and azithromycin while undergoing fevr source evaluation December 05, 2023 Patient is clinically feeling better today. Last fever yesterday at 10 AM. Moved to the ICU yesterday to start Levophed, currently at 6 afshan. With fever and hypotension concern for developing sepsis for which fever source evaluation was started and patient started on empiric antibiotics with piperacillin/tazobactam and IV vancomycin. UA positive for UTI. Urine culture pending. Blood culture taken, currently pending. Respiratory viral panel negative. CT of the chest abdomen and pelvis taken today to evaluate for hydronephrosis given rising creatinine and positive UA, study negative for the same but shows perinephric stranding which could be renewals representative of possible pyelonephritis. Increase midodrine to 10 mg 3 times daily. Check random cortisol and TSH with a.m. labs. Clinically euvolemic, will hold Lasix again. Family at bedside December 06, 2023 Patient appearing to be more lethargic today. Tmax 99.8 Fahrenheit now after being afebrile for about 48 hours. Continues to be on Levophed, requirement increased today at 10 mics. Cheetah monitoring shows fluid responsive hypotension SVR 21%. Received 250 mL normal saline bolus x 2 following which Levophed requirement improved down to 6 mics. Patient is more awake and alert. Urine culture showing less than 5000 organisms, likely urine cultures trending to be negative given that patient was on outpatient antibiotics. Blood cultures so far negative to date Discontinue piperacillin/tazobactam, changed to meropenem 1 g IV every 12 hours renally dosed. Discontinue vancomycin as no current evidence of MRSA or other resistant organisms. Start doxycycline 100 mg p.o. twice daily while tick panel is pending. CT of the abdomen taken yesterday showing perinephric stranding which may represent pyelonephritis, however would expect patient to be improving at this point. Random cortisol returned at 7. Patient was previously on fludrocortisone. Additionally start hydrocortisone 100 mg IV every 6 hours for persisting hypotension possible adrenal insufficiency and monitor for response. Additionally start normal saline, at 50 cc an hour. Slow IV hydration given patient was recently admitted for CHF and needing diuresis. Echocardiogram to estimate ejection fraction. D-dimer screen to assess for possible PE. From October 2023 D-dimer noted to be greater than 20. Patient had a CTA of the chest on November 26 which did not show any PE. Check lower extremity Doppler. Holding off on CTA of the chest for now given acute kidney injury with creatinine uptrending. VQ scan not available. Attestations 2 Medical Necessity Statement*: Continued admission for IV antibiotics, intermittent low-grade fevers persisting, IV fluids, pressor support. Critical Care Time: The high probability of a clinically significant, sudden or life threatening deterioration of the patient's [cardiovascular, ID, renal] system(s) required my full and direct attention, intervention and personal management. The critical care time is as shown. This time is in addition to time spent performing any reported procedures but includes the following: [x] Data and vital sign review and interpretation [x] Patient assessment, examination and intervention [x] Documentation [x] Medication orders and management Critical Care Time (min): 60 Coding Level of Care Code Acute Code for Chg Fwd Diagnoses Hypotension I95.9 Acute exacerbation of CHF (congestive heart failure) I50.9 Pulmonary edema J81.1 Smoking F17.200 Nonrheumatic aortic valve stenosis I35.0 Cardiac valve disease etiology: nonrheumatic Severe pulmonary hypertension I27.20 Fever R50.9 UTI (urinary tract infection) N39.0 Pyelonephritis N12
--- NOTE | 2023-12-06 19:18 | PC.NURSE ---
SHift SUmmary: Patient was up to a chair for about 2 hours this morning, but placed back in bed due to hypotension. Some variation throughout the day, but overall the blood pressure has improved. Levophed requirements have decreased from 10mcg/min to 2 mcg/min. Improvements occurred after the second 250mL ns bolus. At one point today, patient's mental status had started to decline, responses were more delayed, patient was lethargic, and had abnormal responses to some questions. However, mental status improved in the afternoon, and is again oriented to person, place, time, and situation and no longer lethargic. Mental status improvement seemed to correlate with decreasing levophed requirements and fluid boluses/maintenance fluid. total urine output: 400mL. CLoudy and sediment.
[2023-12-07] VITALS (49 sets, daily range): BP systolic 90–164; BP diastolic 49–78; PULSE 49–73; RESP 10–23; TEMP 35.9–36.4; O2SAT 88–100; BMI 37.5
[2023-12-07] MEDS: meropenem 1,000 mg SDV 1000 MG IVP ×3 (00:07→22:49)
[2023-12-07] MEDS: hydrocortisone 100 mg/2 mL SDV IVP ×3 (00:07→14:47)
[2023-12-07 07:38] LABS: Glucose Point of Care 142 mg/dL (70-110)
[2023-12-07] MEDS: doxycycline 100 mg Tablet PO ×2 (09:31→17:45)
[2023-12-07] MEDS: potassium chloride ER 20 mEq Tablet PO (09:31)
[2023-12-07] MEDS: midodrine 5 mg TABLET 10 MG PO ×3 (09:31→20:02)
[2023-12-07] MEDS: nicotine 7 mg Patch 1 PATCH TRANSDERMA (09:31)
[2023-12-07] MEDS: sodium chloride 0.9% 1,000 ML 50 ML IV (14:07)
[2023-12-07 14:34] LABS: Lyme AB Screen <0.90 index
[2023-12-07] MEDS: enoxaparin 40 mg/0.4 mL Syringe SUBCUT (17:45)
[2023-12-07] MEDS: aspirin 325 mg Tablet PO (17:45)
[2023-12-07] MEDS: allopurinol 100 mg Tablet PO (17:45)
--- NOTE | 2023-12-07 18:08 | PC.NURSE ---
Addendum entered by Chuck Choudhary RN 12/07/23 18:25: Shift Summary: Patient has been off of levophed all shift. Up to a chair for most of shift. worked with physical therapy and walked approximately 40 feet. THough initially confused at 0800, she was oriented to person, place, time and situation and no longer confused by late afternoon and remained A/Ox4 all shift. Total urine output: 275mL. Verified no retention via bladder scan- shows 0 mL retained. Original Note: Shift Summary: Patient has been off of levophed all shift. Up to a chair for most of shift. worked with physical therapy and walked approximately 40 feet. THough initially confused at 0800, she was oriented to person, place, time and situation and no longer confused by late afternoon and remained A/Ox4 all shift. Total urine output: 275mL.
[2023-12-07] MEDS: water for injection-sterile 20 ML 100 ML (23:26)
[2023-12-08] VITALS (50 sets, daily range): BP systolic 93–159; BP diastolic 53–104; PULSE 55–74; RESP 13–23; TEMP 36.6; O2SAT 89–98; BMI 38.2
[2023-12-08] MEDS: hydrocortisone 100 mg/2 mL SDV IVP ×2 (02:17→14:00)
[2023-12-08 07:49] LABS: Basophils % 0.3 %; Eosinophils % 0.1 %; Hematocrit 28.7 % (36-47); Lymphocytes # 0.7 10^3/uL (0.8-4.8); Mean Corpuscular Hemoglobin 28.6 pg (27-33); Mean Corpuscular Volume 92.3 fl (85-98); Mean Platelet Volume 9.8 fL (7.4-10.4); Monocytes # 0.7 10^3/uL (0.2-0.9); Neutrophils # 12.89 10^3/uL (1.8-7.7); Neutrophils % 87.5 %; Nucleated Red Blood Cells % 0 %; Platelet Count 241 10^3/cmm (157-399); Red Blood Count 3.11 10^6/uL (3.85-5.65); Red Cell Distribution Width 17.2 % (12.1-15.1); White Blood Count 14.73 10^3/uL (3.29-11.43)
[2023-12-08 08:10] LABS: Alanine Aminotransferase 22 U/L (0-33); Alkaline Phosphatase 103 U/L (35-105); Anion Gap 15.9 (5-19); Aspartate Amino Transferase 27 U/L (0-32); Blood Urea Nitrogen 18 mg/dL (8-23); Calcium 8.7 mg/dL (8.5-10.5); Carbon Dioxide 21 mmol/L (22-29); Chloride 100 mmol/L (98-107); Creatinine Clr Calc Pharmacy 40.9967; Glucose 138 mg/dL (65-115); Osmolality Calculated 278 mOsm/kg (285-295); Potassium 4.9 mmol/L (3.5-5.1); Sodium 132 mmol/L (136-145); Total Bilirubin 0.3 mg/dL (0.15-1.2)
--- NOTE | 2023-12-08 08:27 | PC.SOCIAL ---
IMM Update pg 2 of IMM updated and reviewed w/ patient. Copy provided and copy dated, initialed and placed in chart.
[2023-12-08] MEDS: doxycycline 100 mg Tablet PO ×2 (08:47→17:11)
[2023-12-08] MEDS: midodrine 5 mg TABLET 10 MG PO ×3 (08:47→21:51)
[2023-12-08] MEDS: potassium chloride ER 20 mEq Tablet PO (08:47)
[2023-12-08] MEDS: nicotine 7 mg Patch 1 PATCH TRANSDERMA (08:48)
[2023-12-08] MEDS: meropenem 1,000 mg SDV 1000 MG IVP ×2 (11:06→23:43)
[2023-12-08] MEDS: enoxaparin 40 mg/0.4 mL Syringe SUBCUT (17:11)
[2023-12-08] MEDS: aspirin 325 mg Tablet PO (17:12)
[2023-12-08] MEDS: allopurinol 100 mg Tablet PO (17:12)
--- NOTE | 2023-12-08 17:22 | P.PN_ITS ---
Subjective 2 Subjective: Fluids discontinued last evening. Blood pressure sustaining much better today. Medications: Reviewed: Yes Vitals/I&O/Wt Last Vital Signs Temp 97.8 F 12/08/23 04:00 Pulse 62 12/08/23 16:00 Resp 20 H 12/08/23 16:00 BP 133/81 12/08/23 16:00 Pulse Ox 96 12/08/23 16:00 O2 Del Method Nasal Cannula 12/08/23 09:02 O2 Flow Rate 3 12/08/23 09:02 FiO2 4 12/05/23 18:00 12/08/23 12/08/23 12/08/23 06:59 14:59 22:59 Intake Total 420 / 2075.833 300 / 300 Output Total 400 / 675 Balance 20 / 1400.833 300 / 300 Weight last 48 hrs Weight 97.976 kg Weight 96.275 kg Physical Exam 2 Narrative: General: No acute distress, AO x3 HEENT: PERRLA, pupils bilaterally equal and reactive, pallors not present Chest: Normal vesicular breath sounds, no added sounds, equal good air entry bilaterally CVS: S1-S2 regular, no murmurs, no tachycardia, no gallops, no rubs Abdomen: Soft, nontender, no organomegaly, bowel sounds present Neuro: No focal deficits, no facial deformity, AO x3, power 5/5 in all limbs Urinary Catheter Management: Morton: Cath Placed During This Visit: yes, but has since been removed by the nurse Reason for Continuing Indwelling Catheter: Accurate Measurement of Urinary Output in Critically Ill Patients Urinary Catheter Date of Insertion: 12/04/23 Urinary Catheter Time of Insertion: 17:48 Date Urinary Catheter Removed: 12/03/23 Time Urinary Catheter Discontinued: 13:11 Data 12/08/23 07:32 12/08/23 07:32 A&P Assessment and plan (1) Hypotension: (2) Acute exacerbation of CHF (congestive heart failure): (3) Pulmonary edema: (4) Smoking: (5) Aortic stenosis: Qualifiers: Cardiac valve disease etiology: nonrheumatic Qualified Code(s): I35.0 - Nonrheumatic aortic (valve) stenosis (6) Severe pulmonary hypertension: (7) Fever: (8) UTI (urinary tract infection): (9) Pyelonephritis: Plan #Generalized Weakness #Hypotension #Mod aortic valve stenosis, area 1.2c2, mean gradient 29.2, not a candidate for TAVR as per evaluation in [place] by Dr. Williamson 2021 #Acute on chronic hypoxia #Acute on chronic diastolic heart failure #Chronic gout #HANNAH - improving patient was recently discharged from the hospital for management of diastolic CHF exacerbation. She was discharged after her medications were adjusted. Her blood pressure was on the softer side and she was feeling weak and lethargic. She appeared dry. Blood pressure did improve with hydration. There was concern for pneumonia so she was placed on antibiotics. PE was ruled out. Home oxygen evaluation was done and patient was not requiring more than 2 L which is her baseline. Patient was asked to hold Lasix and her antihypertensives. She was given a referral to [place] to Dr. Williamson for TAVR evaluation. In 2021 however, patient was sent to Dr. Williamson at the [facility] to evaluate for TAVR.? 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 For this reason, she was found to be not an ideal candidate for TAVR. Patient presented to the hospital on 11/30 for generalized weakness. Chest x-ray showed pulmonary edema saturating 6 L nasal cannula. EKG negative for ischemia and tropes without delta change. Patient stated she did not take her diuretics at home and she has had recurrent falls. She denies any syncope. She stated she was getting worse because of low blood pressure. She was admitted for hypotension. She was started on midodrine and fludrocortisone. Gentle fluid hydration and Levophed given. Patient hypervolemic and hyponatremic. She has a guarded prognosis. Patient's echo done 10/2019 showed EF 60%, diastolic dysfunction, moderate aortic valve calcification, moderate aortic valve stenosis mean gradient 29.3, aortic valve area 1.2 cm? mild aortic valve regurgitation. Patient has been off Levophed in the last 24 hours. Blood pressures have improved. Hemoglobin stable at 9.8. Oxygenation has improved. Creatinine has improved. Patient would like to go to rehab and is agreeable for SNF. PT to evaluate on Monday. - Check PT, OT - Continue midodrine, fludracortisone - Patient agreeable to SNF placement if needed - Continue on lasix 20 daily. - Stop morphine orally .Switch to non-opioid - Continue nicotine patch - Senna/doc - K 20 meq daily - Check labs cbc, cmp, mag in am - avoid christine inhibitors, beta blockers - Consider cardiology consult - Transfer to floor today - consult case management. Pt wants to go to [facility]. Full Code DVT PPX: lovenox Plan for today December 04, 2023. Patient developed fever to 102.4 Fahrenheit. Stat blood cultures. check CXR. CBC CMP reviewed normal today. Add on liver function panel. Check ABG given that patient appears to be more lethargic. She is currently able to correctly tell me her name, Age, and whereabouts but has been more weak today per RN and family report. Remove Morton catheter. Check UA for UTI. D/c fludrocortisone , increase midodrine to 5mg TID to be titrated further based on response. CTa chest negative for PE on 11/26. GGOS noted on last CT. Check CXR. Further orders based on results of above testing. Hold lasix today, clinically dehydarated, increasing creat start empiric abc ceftriaxone and azithromycin while undergoing fevr source evaluation December 05, 2023 Patient is clinically feeling better today. Last fever yesterday at 10 AM. Moved to the ICU yesterday to start Levophed, currently at 6 afshan. With fever and hypotension concern for developing sepsis for which fever source evaluation was started and patient started on empiric antibiotics with piperacillin/tazobactam and IV vancomycin. UA positive for UTI. Urine culture pending. Blood culture taken, currently pending. Respiratory viral panel negative. CT of the chest abdomen and pelvis taken today to evaluate for hydronephrosis given rising creatinine and positive UA, study negative for the same but shows perinephric stranding which could be security systems sales representative of possible pyelonephritis. Increase midodrine to 10 mg 3 times daily. Check random cortisol and TSH with a.m. labs. Clinically euvolemic, will hold Lasix again. Family at bedside December 06, 2023 Patient appearing to be more lethargic today. Tmax 99.8 Fahrenheit now after being afebrile for about 48 hours. Continues to be on Levophed, requirement increased today at 10 mics. Cheetah monitoring shows fluid responsive hypotension SVR 21%. Received 250 mL normal saline bolus x 2 following which Levophed requirement improved down to 6 mics. Patient is more awake and alert. Urine culture showing less than 5000 organisms, likely urine cultures trending to be negative given that patient was on outpatient antibiotics. Blood cultures so far negative to date Discontinue piperacillin/tazobactam, changed to meropenem 1 g IV every 12 hours renally dosed. Discontinue vancomycin as no current evidence of MRSA or other resistant organisms. Start doxycycline 100 mg p.o. twice daily while tick panel is pending. CT of the abdomen taken yesterday showing perinephric stranding which may represent pyelonephritis, however would expect patient to be improving at this point. Random cortisol returned at 7. Patient was previously on fludrocortisone. Additionally start hydrocortisone 100 mg IV every 6 hours for persisting hypotension possible adrenal insufficiency and monitor for response. Additionally start normal saline, at 50 cc an hour. Slow IV hydration given patient was recently admitted for CHF and needing diuresis. Echocardiogram to estimate ejection fraction. D-dimer screen to assess for possible PE. From October 2023 D-dimer noted to be greater than 20. Patient had a CTA of the chest on November 26 which did not show any PE. Check lower extremity Doppler. Holding off on CTA of the chest for now given acute kidney injury with creatinine uptrending. VQ scan not available. December 08, 2023. Echocardiogram showed LVEF of 70%, no regional wall motion abnormalities grade 3 diastolic dysfunction. Fluids were discontinued last evening. Blood pressure currently controlled. IV hydrocortisone was reduced to every 12 hours yesterday, today will change to p.o. hydrocortisone 10 mg twice daily. If patient sustains blood pressure, plan to move out of ICU today. Remains off Levophed. IV fluids discontinued. Cultures thus far negative. Tick panel pending for ehrlichiosis and rickettsial . Lyme negative Attestations 2 Medical Necessity Statement*: Wean steroids today, assess for blood pressure response. Will likely move out of ICU if blood pressure sustained these intervention. Coding Level of Care Code Acute Code for [facility] Fwd Diagnoses Hypotension I95.9 Acute exacerbation of CHF (congestive heart failure) I50.9 Pulmonary edema J81.1 Smoking F17.200 Nonrheumatic aortic valve stenosis I35.0 Cardiac valve disease etiology: nonrheumatic Severe pulmonary hypertension I27.20 Fever R50.9 UTI (urinary tract infection) N39.0 Pyelonephritis N12
[2023-12-08] MEDS: hydrocortisone 10 mg Tablet PO (17:44)
[2023-12-09] VITALS (55 sets, daily range): BP systolic 69–172; BP diastolic 48–104; PULSE 48–103; RESP 14–32; TEMP 36.8–38.3; O2SAT 88–100
[2023-12-09 03:57] LABS: Basophils % 0.1 %; Eosinophils % 0.1 %; Hematocrit 27.9 % (36-47); Lymphocytes # 0.9 10^3/uL (0.8-4.8); Lymphocytes % 8.4 %; Mean Corpuscular HGB Conc 30.5 g/dL (30-55); Mean Corpuscular Hemoglobin 28.1 pg (27-33); Mean Corpuscular Volume 92.4 fl (85-98); Mean Platelet Volume 10.4 fL (7.4-10.4); Monocytes # 0.9 10^3/uL (0.2-0.9); Monocytes % 8.2 %; Neutrophils # 9.05 10^3/uL (1.8-7.7); Neutrophils % 81.1 %; Nucleated Red Blood Cells % 0 %; Platelet Count 263 10^3/cmm (157-399); Red Blood Count 3.02 10^6/uL (3.85-5.65); Red Cell Distribution Width 17.4 % (12.1-15.1); White Blood Count 11.15 10^3/uL (3.29-11.43)
[2023-12-09 04:24] LABS: Alanine Aminotransferase 24 U/L (0-33); Albumin Level 3.1 g/dL (3.5-5.2); Alkaline Phosphatase 116 U/L (35-105); Aspartate Amino Transferase 32 U/L (0-32); Blood Urea Nitrogen 19 mg/dL (8-23); Calcium 8.9 mg/dL (8.5-10.5); Carbon Dioxide 23 mmol/L (22-29); Chloride 99 mmol/L (98-107); Creatinine Clr Calc Pharmacy 44.7237; Glucose 85 mg/dL (65-115); Osmolality Calculated 278 mOsm/kg (285-295); Sodium 133 mmol/L (136-145); Total Bilirubin 0.4 mg/dL (0.15-1.2); Total Protein 6.1 g/dL (6.6-8.7)
--- NOTE | 2023-12-09 08:25 | XRR_ITS ---
PROCEDURE INFORMATION: Exam: XR Chest Exam date and time: 12/09/2023 8:36 AM Age: 82 years old Clinical indication: Shortness of breath; Additional info: Short of breath, crackles, wheezing, sudden bipap required TECHNIQUE: Imaging protocol: Radiologic exam of the chest. Views: 1 view. COMPARISON: [place] [id number] 12/05/2023 2:47 PM FINDINGS: Lungs: Diffuse interstitial pulmonary edema but no focal consolidation. Pleural spaces: Unremarkable. No pleural effusion. No pneumothorax. Heart/Mediastinum: There is cardiomegaly. Vasculature: Aortic arch calcifications. Unfolding of the thoracic aorta. Bones/joints: Unremarkable. XR/XR chest 1V portable [id number] IMPRESSION: Interstitial pulmonary edema with cardiomegaly.
--- NOTE | 2023-12-09 08:48 | PC.NURSE ---
Upon morning assessment patient stated she could not breathe, respirations visibly labored, O2 on monitor 82% with good waveform, Patient AOX4, auscultation revealed wheezing, crackles, diminished lower lung sounds. RT called to unit with bipap. Patient placed on bipap by RT. Saturations between 95-97% at this time. IPAP 18, rate 8, I-Time 1.10s, Rise4, EPAP8, O240%. Dr Tariq notified via voalte and called unit, received verbal orders for chest xray, ABG, lasix. See MAR.
[2023-12-09] MEDS: FUROsemide 10 mg/mL SDV 4mL 40 MG IVP (08:55)
[2023-12-09 09:07] LABS: ABG PCO2 38.6 mmHg (35-45); ABG PH Result 7.41 (7.35-7.45); Alveolar-Arterial Oxygen Gradi 20.9 mmHg (5-10); Arterial Blood Gas Hematocrit 30.8 % (37-47); Blood Gas Allen Test Pos; Blood Gas Operator Identificat MB; Blood Gas Sample Site Radial, left; Blood Gas Sample Type Arterial; Carboxyhemoglobin 1.3 %THgb (0.4-20.1); HCO3 ABG 24.5 mmol/L (22-26); Ionized Calcium Level - ABG 1.3 mmol/L (1.1-1.4); Methemoglobin 0.3 % (0.4-1.5); Oxygen Device BIPAP; Oxygen Saturation ABG 96.7; PO2 ABG 75.8 mmHg (80.0-100.0); PO2 FiO2 Ratio Arterial Blood 189; Potassium Level - ABG 4.7 mmol/L (3.5-5.0); Total Hemoglobin 10.1 g/dL (12-16)
[2023-12-09] MEDS: ipratropium-albuterol 3 mL Neb INHALATION ×2 (09:10→14:19)
--- NOTE | 2023-12-09 09:11 | ECG_ITS ---
[facility] Test Date: 2023-12-09 Pat Name: Mary Ponce Department: Room: ICU02 Gender: Female Load Dropper: : 1940 Requested By: Akanksha Tariq Order Number: [id number] Reading MD: Manuela Espino M.D. Measurements Intervals [place] Rate: 87 P: 25 NM: 175 QRS: 40 QRSD: 84 T: 6 QT: 327 QTc: 395 Interpretive Statements SINUS RHYTHM Compared to ECG 12/01/2023 17:04:35 No significant changes Electronically Signed On 12-09-2023 16:21:58 CDT by Manuela Espino M.D. [id number]
[2023-12-09] MEDS: nicotine 7 mg Patch 1 PATCH TRANSDERMA (09:21)
[2023-12-09] MEDS: glucagon 1 mg/mL KIT 1 mL IM (09:45)
[2023-12-09] MEDS: dextrose 10% 125 ML 750 ML IV ×2 (09:49→10:18)
[2023-12-09 09:55] LABS: Glucose Point of Care 51 mg/dL (70-110)
[2023-12-09 09:56] LABS: Troponin(5th) Baseline 31 ng/L (0-10)
[2023-12-09 10:19] LABS: Glucose Point of Care 65 mg/dL (70-110)
[2023-12-09 10:57] LABS: Glucose Point of Care 206 mg/dL (70-110)
--- NOTE | 2023-12-09 11:08 | PC.SLP ---
Attempt to see pt for MILLINERY COPYIST eval. Pt decreased responsiveness and difficulty breathing. Will try to see in AM.
--- NOTE | 2023-12-09 11:12 | PC.SLP ---
Attempt to see pt for ANIMAL STICKER eval. Pt decreased response and difficulty breathing. Will try again in AM.
--- NOTE | 2023-12-09 11:13 | ECG_ITS ---
[facility] Test Date: 2023-12-09 Pat Name: Mary Ponce Department: Room: ICU02 Gender: Female Chair Mender: : 1940 Requested By: Akanksha Tariq Order Number: [id number] Reading MD: Manuela Espion M.D. Measurements Intervals [place] Rate: 88 P: 31 MA: 156 QRS: 32 QRSD: 94 T: -7 QT: 352 QTc: 427 Interpretive Statements SINUS RHYTHM NONSPECIFIC T-WAVE ABNORMALITY Compared to ECG 12/09/2023 09:55:50 T-wave abnormality now present Electronically Signed On 12-09-2023 17:03:56 CDT by Manuela Espino M.D. [id number]
--- NOTE | 2023-12-09 11:13 | CTR_ITS ---
PROCEDURE INFORMATION: Exam: CT Head Without Contrast Exam date and time: 12/09/2023 11:47 AM Age: 82 years old Clinical indication: Stroke-like symptoms; Other: Lethargy TECHNIQUE: Imaging protocol: Computed tomography of the head without contrast. Radiation optimization: All CT scans at this facility use at least one of these dose optimization techniques: automated exposure control; mA and/or kV adjustment per patient size (includes targeted exams where dose is matched to clinical indication); or iterative reconstruction. Other technique: STROKE PROTOCOL was implemented. COMPARISON: No relevant prior studies available. RADIATION DOSE METRICS: Total DLP (mGy-cm): 1153.2 FINDINGS: Brain: Bilateral periventricular white matter and centrum semiovale hypodensities consistent with chronic ischemic small vessel disease. No recent infarct, intracranial bleed or mass effect. Cerebral ventricles: No ventriculomegaly. Paranasal sinuses: Visualized sinuses are unremarkable. No fluid levels. Mastoid air cells: Visualized mastoid air cells are well aerated. Orbital cavities: Post bilateral cataract surgery. Bones: Unremarkable. No acute fracture. Soft tissues: Unremarkable. Vasculature: Atheromatous calcifications of the vessels. CT/CT head wo con* 20779 IMPRESSION: No large territorial infarct or intracranial bleed. ASSESSMENT: ASPECTS ([place] Stroke Program Early CT Score) is 10.
--- NOTE | 2023-12-09 11:18 | PC.SLP ---
Attempt to see pt for DESK REPRESENTATIVE eval. Pt decreased response and difficulty breathing. Will try to see in AM.
[2023-12-09] MEDS: norepinephrine 4 MG/250 ML BAG 30 MG IV (11:34)
[2023-12-09 11:40] LABS: Troponin 5 2HR 33.46 ng/L (0-10); Troponin 5 2HR Delta 2.46 ABS# (0-10)
[2023-12-09 12:22] LABS: ABG PCO2 37.4 mmHg (35-45); ABG PH Result 7.43 (7.35-7.45); Alveolar-Arterial Oxygen Gradi 19.7 mmHg (5-10); Arterial Blood Gas Hematocrit 31.3 % (37-47); Base Excess ABG 0.5 mmol/L (-2.0-2.0); Blood Gas Allen Test Pos; Blood Gas Operator Identificat MB; Blood Gas Sample Site Radial, left; Blood Gas Sample Type Arterial; HCO3 ABG 24.7 mmol/L (22-26); HGB O2 Sat 94.9 % (95-100); Ionized Calcium Level - ABG 1.2 mmol/L (1.1-1.4); Methemoglobin 1.3 % (0.4-1.5); Oxygen Device BIPAP; Oxygen Saturation ABG 97.2; PO2 ABG 85.7 mmHg (80.0-100.0); PO2 FiO2 Ratio Arterial Blood 214; Potassium Level - ABG 3.7 mmol/L (3.5-5.0); Total Hemoglobin 10.2 g/dL (12-16)
[2023-12-09] MEDS: hydrocortisone 100 mg/2 mL SDV 50 MG IVP ×2 (12:25→23:38)
[2023-12-09] MEDS: meropenem 1,000 mg SDV 1000 MG IVP ×2 (12:26→23:35)
[2023-12-09] MEDS: water for injection-sterile 20 ML 100 ML (12:27)
[2023-12-09 12:37] LABS: Glucose Point of Care 142 mg/dL (70-110)
[2023-12-09 13:27] LABS: Glucose Point of Care 108 mg/dL (70-110)
[2023-12-09 14:20] LABS: Glucose Point of Care 122 mg/dL (70-110)
--- NOTE | 2023-12-09 15:11 | ECG_ITS ---
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 Measurements Intervals [place] Rate: 63 P: 52 OK: 173 QRS: 15 QRSD: 92 T: 71 QT: 406 QTc: 418 Interpretive Statements SINUS RHYTHM Compared to ECG 12/09/2023 11:13:12 T-wave abnormality no longer present Electronically Signed On 12-11-2023 7:54:49 CDT by Anuj Sloan M.D. [id number]
--- NOTE | 2023-12-09 15:13 | PC.NURSE ---
Summary of morning events: 929 patient refused PO meds, patient stated I don't want any of those discussed with patient doxycycline, patient stated she did not want to take any of her medications, Dr. tariq on unit and notified. 939: BG 51, Dr. Tariq gave verbal orders for correction of BG, See MAR. Dr. Tariq contacted approximately 1100, discussed stroke alert, due to patient no longer following commands, BG 206. Verbal order for STAT head CT. Preparing patient for transport to CT and BP decreased to 60's/40's. Order for levophed obtained BP improved for transport, Head CT obtained, see report. Dr. Tariq to update family. BG fluctuations as documented. See charted vitals, and MAR. At the time of this note,SHAUN, will not open eyes or follow commands, nods head yes for every question and when her name is called. Patient did move her lower legs about in the bed when repositioned, not against resistance.
[2023-12-09 15:41] LABS: Glucose Point of Care 155 mg/dL (70-110)
[2023-12-09] MEDS: norepinephrine 4 MG/250 ML BAG 75 MG IV (16:03)
[2023-12-09 16:15] LABS: Troponin 5 6HR 37.25 ng/L (0-10); Troponin 5 6HR Delta 6.25 ng/L (0-12)
[2023-12-09 16:42] LABS: Reflex FDPQ test REFLEX FDP QUEST TES
--- NOTE | 2023-12-09 16:45 | PM.ACPR ---
Procedure/Consent Time out: Time Out Performed: Yes Consent: Consent for Procedure: Consent obtained from other (indicate) (family) Acute Procedures Central Line Placement: Right Femoral: Time out performed: Yes Patient placed on monitor/pulse ox: Yes prep: mask, gown and gloves Central line prep: Povidone-Iodine 1%, Chlorhexidine scrub and sterile drapes applied Local anesthesia used: lidocaine 1% Amount of anesthesia used (ml): 4 Ultrasound used for placement: Yes Central line lumen inserted: triple Post procedure: sutured in place, good blood return, all ports aspirated, flushed, capped and sterile dressing applied Post procedure x-ray: other (N/A) Patient tolerated procedure: well and no complications Complications: none Epistaxis Control: Time out performed: Yes
[2023-12-09 16:46] LABS: Basophils % 0.2 %; Eosinophils % 0.2 %; Hematocrit 30.5 % (36-47); Lymphocytes # 1.2 10^3/uL (0.8-4.8); Lymphocytes % 7.2 %; Mean Corpuscular HGB Conc 31.5 g/dL (30-55); Mean Corpuscular Hemoglobin 28.5 pg (27-33); Mean Corpuscular Volume 90.5 fl (85-98); Mean Platelet Volume 9.7 fL (7.4-10.4); Monocytes # 1.3 10^3/uL (0.2-0.9); Monocytes % 8.2 %; Neutrophils # 13.11 10^3/uL (1.8-7.7); Neutrophils % 81.1 %; Nucleated Red Blood Cells % 0.1 %; Platelet Count 335 10^3/cmm (157-399); Red Blood Count 3.37 10^6/uL (3.85-5.65); Red Cell Distribution Width 17.4 % (12.1-15.1); White Blood Count 16.18 10^3/uL (3.29-11.43)
[2023-12-09 17:01] LABS: Alanine Aminotransferase 22 U/L (0-33); Albumin Level 3.4 g/dL (3.5-5.2); Alkaline Phosphatase 105 U/L (35-105); Anion Gap 17.5 (5-19); Aspartate Amino Transferase 33 U/L (0-32); Blood Urea Nitrogen 19 mg/dL (8-23); Calcium 9.1 mg/dL (8.5-10.5); Carbon Dioxide 23 mmol/L (22-29); Chloride 93 mmol/L (98-107); Globulin 3.5 g/dL (1.3-4.6); Glucose 174 mg/dL (65-115); Osmolality Calculated 274 mOsm/kg (285-295); Potassium 4.5 mmol/L (3.5-5.1); Sodium 129 mmol/L (136-145); Total Bilirubin 0.8 mg/dL (0.15-1.2); Total Protein 6.9 g/dL (6.6-8.7)
[2023-12-09] MEDS: enoxaparin 40 mg/0.4 mL Syringe SUBCUT (17:01)
[2023-12-09 17:03] LABS: Fibrinogen 523 mg/dL (174-498)
[2023-12-09 17:04] LABS: INR 1.12 (0.8-1.2); Partial Thromboplastin Time 28.4 SECONDS (23.9-36.7)
[2023-12-09 17:10] LABS: Creatinine Clr Calc Pharmacy 40.9967
[2023-12-09 17:12] LABS: D Dimer 12.62 ug/mLFEU (0-0.59)
[2023-12-09 17:15] LABS: Glucose Point of Care 213 mg/dL (70-110)
--- NOTE | 2023-12-09 17:26 | PC.NURSE ---
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 Approximately 15 minutes later patient became lethargic and mumbling, no longer following commands. Dr. Tariq notified.
--- NOTE | 2023-12-09 17:41 | P.PN_ITS ---
Subjective 2 Subjective: Detailed events noted below. Patient had several critical events during course of the day. Medications: Reviewed: Yes Vitals/I&O/Wt Last Vital Signs Temp 98.8 F 12/09/23 17:00 Pulse 71 12/09/23 17:00 Resp 22 H 12/09/23 17:00 BP 99/54 12/09/23 17:00 Pulse Ox 91 12/09/23 17:00 O2 Del Method BiPAP 12/09/23 17:00 O2 Flow Rate 4 12/09/23 08:00 FiO2 40 12/09/23 16:26 12/09/23 12/09/23 12/09/23 06:59 14:59 22:59 Intake Total 400.5 / 400.5 76.125 / 476.625 Output Total 450 / 850 Balance -450 / 284.367 400.5 / 400.5 76.125 / 476.625 Weight last 48 hrs Weight 97.976 kg Physical Exam 2 Narrative: General: Currently on BiPAP, respiratory distress, lethargic, does not open eyes to calling name or painful stimuli. HEENT: PERRLA, pupils bilaterally equal and reactive, pallors not present Chest: Normal vesicular breath sounds, no added sounds, equal good air entry bilaterally CVS: S1-S2 regular, no murmurs, no tachycardia, no gallops, no rubs Abdomen: Soft, nontender, no organomegaly, bowel sounds present Neuro: Obtunded, not following any commands. Urinary Catheter Management: Morton: Cath Placed During This Visit: yes, but has since been removed by the nurse Reason for Continuing Indwelling Catheter: Accurate Measurement of Urinary Output in Critically Ill Patients Urinary Catheter Date of Insertion: 12/04/23 Urinary Catheter Time of Insertion: 17:48 Date Urinary Catheter Removed: 12/03/23 Time Urinary Catheter Discontinued: 13:11 Data 12/10/23 04:14 12/10/23 04:14 Micro: Microbiology 12/09/23 16:34 Blood Culture - Preliminary Blood SPECIMEN COLLECTED 12/09/23 16:33 Blood Culture - Preliminary Blood SPECIMEN COLLECTED 12/04/23 12:38 Blood Culture - Final Blood NO GROWTH AFTER 5 DAYS 12/04/23 12:42 Blood Culture - Final Blood NO GROWTH AFTER 5 DAYS A&P Assessment and plan (1) Hypotension: (2) Acute exacerbation of CHF (congestive heart failure): (3) Pulmonary edema: (4) Smoking: (5) Aortic stenosis: Qualifiers: Cardiac valve disease etiology: nonrheumatic Qualified Code(s): I35.0 - Nonrheumatic aortic (valve) stenosis (6) Severe pulmonary hypertension: (7) Fever: (8) UTI (urinary tract infection): (9) Pyelonephritis: (10) Adrenal insufficiency: (11) Severe aortic stenosis: (12) Acute respiratory distress: Plan #Generalized Weakness #Hypotension #Mod aortic valve stenosis, area 1.2c2, mean gradient 29.2, not a candidate for TAVR as per evaluation in [place] by Dr. Williamson 2021 #Acute on chronic hypoxia #Acute on chronic diastolic heart failure #Chronic gout #HANNAH - improving patient was recently discharged from the hospital for management of diastolic CHF exacerbation. She was discharged after her medications were adjusted. Her blood pressure was on the softer side and she was feeling weak and lethargic. She appeared dry. Blood pressure did improve with hydration. There was concern for pneumonia so she was placed on antibiotics. PE was ruled out. Home oxygen evaluation was done and patient was not requiring more than 2 L which is her baseline. Patient was asked to hold Lasix and her antihypertensives. She was given a referral to [place] to Dr. Williamson for TAVR evaluation. In 2021 however, patient was sent to Dr. Williamson at the [facility] to evaluate for TAVR.? 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 For this reason, she was found to be not an ideal candidate for TAVR. Patient presented to the hospital on 11/30 for generalized weakness. Chest x-ray showed pulmonary edema saturating 6 L nasal cannula. EKG negative for ischemia and tropes without delta change. Patient stated she did not take her diuretics at home and she has had recurrent falls. She denies any syncope. She stated she was getting worse because of low blood pressure. She was admitted for hypotension. She was started on midodrine and fludrocortisone. Gentle fluid hydration and Levophed given. Patient hypervolemic and hyponatremic. She has a guarded prognosis. Patient's echo done 10/2019 24 showed EF 60%, diastolic dysfunction, moderate aortic valve calcification, moderate aortic valve stenosis mean gradient 29.3, aortic valve area 1.2 cm? mild aortic valve regurgitation. Patient has been off Levophed in the last 24 hours. Blood pressures have improved. Hemoglobin stable at 9.8. Oxygenation has improved. Creatinine has improved. Patient would like to go to rehab and is agreeable for SNF. PT to evaluate on Monday. - Check PT, OT - Continue midodrine, fludracortisone - Patient agreeable to SNF placement if needed - Continue on lasix 20 daily. - Stop morphine orally .Switch to non-opioid - Continue nicotine patch - Senna/doc - K 20 meq daily - Check labs cbc, cmp, mag in am - avoid christine inhibitors, beta blockers - Consider cardiology consult - Transfer to floor today - consult case management. Pt wants to go to [facility]. Full Code DVT PPX: lovenox Plan for today December 04, 2023. Patient developed fever to 102.4 Fahrenheit. Stat blood cultures. check CXR. CBC CMP reviewed normal today. Add on liver function panel. Check ABG given that patient appears to be more lethargic. She is currently able to correctly tell me her name, Age, and whereabouts but has been more weak today per RN and family report. Remove Morton catheter. Check UA for UTI. D/c fludrocortisone , increase midodrine to 5mg TID to be titrated further based on response. CTa chest negative for PE on 11/26. GGOS noted on last CT. Check CXR. Further orders based on results of above testing. Hold lasix today, clinically dehydarated, increasing creat start empiric abc ceftriaxone and azithromycin while undergoing fevr source evaluation December 05, 2023 Patient is clinically feeling better today. Last fever yesterday at 10 AM. Moved to the ICU yesterday to start Levophed, currently at 6 afshan. With fever and hypotension concern for developing sepsis for which fever source evaluation was started and patient started on empiric antibiotics with piperacillin/tazobactam and IV vancomycin. UA positive for UTI. Urine culture pending. Blood culture taken, currently pending. Respiratory viral panel negative. CT of the chest abdomen and pelvis taken today to evaluate for hydronephrosis given rising creatinine and positive UA, study negative for the same but shows perinephric stranding which could be patient access representative of possible pyelonephritis. Increase midodrine to 10 mg 3 times daily. Check random cortisol and TSH with a.m. labs. Clinically euvolemic, will hold Lasix again. Family at bedside December 06, 2023 Patient appearing to be more lethargic today. Tmax 99.8 Fahrenheit now after being afebrile for about 48 hours. Continues to be on Levophed, requirement increased today at 10 mics. Cheetah monitoring shows fluid responsive hypotension SVR 21%. Received 250 mL normal saline bolus x 2 following which Levophed requirement improved down to 6 mics. Patient is more awake and alert. Urine culture showing less than 5000 organisms, likely urine cultures trending to be negative given that patient was on outpatient antibiotics. Blood cultures so far negative to date Discontinue piperacillin/tazobactam, changed to meropenem 1 g IV every 12 hours renally dosed. Discontinue vancomycin as no current evidence of MRSA or other resistant organisms. Start doxycycline 100 mg p.o. twice daily while tick panel is pending. CT of the abdomen taken yesterday showing perinephric stranding which may represent pyelonephritis, however would expect patient to be improving at this point. Random cortisol returned at 7. Patient was previously on fludrocortisone. Additionally start hydrocortisone 100 mg IV every 6 hours for persisting hypotension possible adrenal insufficiency and monitor for response. Additionally start normal saline, at 50 cc an hour. Slow IV hydration given patient was recently admitted for CHF and needing diuresis. Echocardiogram to estimate ejection fraction. D-dimer screen to assess for possible PE. From October 2023 D-dimer noted to be greater than 20. Patient had a CTA of the chest on November 26 which did not show any PE. Check lower extremity Doppler. Holding off on CTA of the chest for now given acute kidney injury with creatinine uptrending. VQ scan not available. December 08, 2023. Echocardiogram showed LVEF of 70%, no regional wall motion abnormalities grade 3 diastolic dysfunction. Fluids were discontinued last evening. Blood pressure currently controlled. IV hydrocortisone was reduced to every 12 hours yesterday, today will change to p.o. hydrocortisone 10 mg twice daily. If patient sustains blood pressure, plan to move out of ICU today. Remains off Levophed. IV fluids discontinued. Cultures thus far negative. Tick panel pending for ehrlichiosis and rickettsial . Lyme negative December 09, 2023. Patient had several acute events today. At around 7 AM this morning patient was last noted to be normal. She was sitting on edge of the bed when she suddenly developed acute respiratory distress. Stated she had a rough time breathing, oxygen saturation dropped down to 82%. She was placed on a BiPAP ventilation. ABG taken on the BiPAP showed 7.41/38.6/75.8/20.9 on 40% FiO2. Oxygen saturations improved after being placed on BiPAP. Chest x-ray showed diffuse pulmonary edema which appeared to have worsened compared to prior x-rays. She received Lasix 40 mg IV with 600 cc of urine output. Patient was also noted to be hypoglycemic at the time of assessment with blood sugar only at 56. She received 10% dextrose 125 cc x 2, glucagon 1 mg IM. With these interventions glucose corrected between 1 50-200, however patient continued to be obtunded. She was not responding to either verbal or painful stimulus. This was an acute change. She was taken for a stat CT which was negative for any acute intracranial events. While in the CAT scan, her blood pressure dropped down to 59 systolic which necessitated initiation of Levophed infusion. Later in the day developed a fever of 100.9 Fahrenheit which resolved without any directed interventions. Levophed infusion quickly climbed to 20 mics. She had poor peripheral access and a central line was placed in the right femoral. A day prior steroids had been tapered down to hydrocortisone 10 mg twice daily, with hypoglycemia and hypotension, concern for adrenal insufficiency therefore hydrocortisone dose was increased to 50 mg IV every 12 hours again. At this point in time adrenal insufficiency is a presumed diagnosis for the patient. Random cortisol level taken while on fludrocortisone was at 7. Patient reports several months of recurrent hypotension which may be related to severe aortic stenosis, however given timeline of acute events after quick taper of steroids, cannot rule out adrenal insufficiency at this time. Unable to perform an ACTH stim test as patient is currently obtunded and critically ill. TSH is normal. Alternate cause of acute drop in blood pressure may be related to hemodynamic changes after administration of Lasix and inability of cardiac compensation due to . Patient has previously been referred for TAVR with Dr. Williamson in [place], it appears she was told she is a poor candidate due to heavy calcification. Aortic valve area is at 1.2 cm?. EKG and troponin series ordered with acute events, baseline troponin at 31, 2-hour at 33, unlikely ACS to be the explanation of her symptoms. With development of fever at 100.9 Fahrenheit Tmax, taken repeat blood cultures. Previous blood and urine cultures were negative. Patient continues to be on meropenem. For now patient is critically ill. Attestations 2 Medical Necessity Statement*: continued admission for levophed infusion, critical events as noted above, Critical Care Time: The high probability of a clinically significant, sudden or life threatening deterioration of the patient's [cardiovascular, neurology, ID, pulmonary] s ystem(s) required my full and direct attention, intervention and personal management. The critical care time is as shown. This time is in addition to time spent performing any reported procedures but includes the following: [x] Data and vital sign review and interpretation [x] Patient assessment, examination and intervention [x] Documentation [x] Medication orders and management Critical Care Time (min): 90 Coding Level of Care Code Critical Care >/= 30 minutes Diagnoses Hypotension I95.9 Acute exacerbation of CHF (congestive heart failure) I50.9 Pulmonary edema J81.1 Smoking F17.200 Nonrheumatic aortic valve stenosis I35.0 Cardiac valve disease etiology: nonrheumatic Severe pulmonary hypertension I27.20 Fever R50.9 UTI (urinary tract infection) N39.0 Pyelonephritis N12 Adrenal insufficiency E27.40 Severe aortic stenosis I35.0 Acute respiratory distress R06.03
[2023-12-09] MEDS: doxycycline 100 mg Tablet PO (18:10)
[2023-12-09] MEDS: aspirin 325 mg Tablet PO (18:10)
[2023-12-09] MEDS: allopurinol 100 mg Tablet PO (18:10)
[2023-12-09 19:16] LABS: Glucose Point of Care 233 mg/dL (70-110)
[2023-12-09] MEDS: norepinephrine 4 MG/250 ML BAG 60 MG IV (19:34)
[2023-12-09 20:23] LABS: Glucose Point of Care 226 mg/dL (70-110)
[2023-12-09] MEDS: midodrine 5 mg TABLET 10 MG PO (20:43)
[2023-12-09 21:21] LABS: Glucose Point of Care 216 mg/dL (70-110)
[2023-12-09 22:09] LABS: Glucose Point of Care 220 mg/dL (70-110)
[2023-12-09 23:18] LABS: Glucose Point of Care 264 mg/dL (70-110)
--- NOTE | 2023-12-09 23:30 | PC.NURSE ---
Blood Sugar Patient's blood sugar ranging from 216-[address] Freeman notified; order received for low dose sliding scale insulin ACHS, first dose tonight to be administered tonight.
[2023-12-10] VITALS (56 sets, daily range): BP systolic 79–140; BP diastolic 43–75; PULSE 39–71; RESP 11–24; TEMP 36.3–37.1; O2SAT 92–100; BMI 37.8
[2023-12-10 00:06] LABS: Glucose Point of Care 221 mg/dL (70-110)
[2023-12-10] MEDS: insulin lispro 100 unit/1 mL SUBCUT ×2 (00:07→08:40)
[2023-12-10] MEDS: lanolin oint 7 gm 1 APPLIC TOPICAL (00:45)
[2023-12-10] MEDS: norepinephrine 4 MG/250 ML BAG 30 MG IV ×2 (00:46→08:33)
[2023-12-10 01:18] LABS: Glucose Point of Care 164 mg/dL (70-110)
--- NOTE | 2023-12-10 01:20 | ECG_ITS ---
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 Measurements Intervals [place] Rate: 39 P: 77 VA: 190 QRS: 69 QRSD: 101 T: 38 QT: 518 QTc: 419 Interpretive Statements SINUS BRADYCARDIA Heart rate 39 per minute Abnormal ECG Compared to ECG 12/09/2023 17:45:11 Sinus rhythm no longer present Electronically Signed On 12-10-2023 12:22:35 CDT by Manuela Espino M.D. [id number]
--- NOTE | 2023-12-10 01:25 | PC.NURSE ---
Bradycardia Patient's heart rate decreasing to as low as 36 intermittently, asymptomatic. EKG performed revealed sinus bradycardia. Dr. Freeman notified; no new orders received.
[2023-12-10 02:09] LABS: Glucose Point of Care 128 mg/dL (70-110)
[2023-12-10 03:23] LABS: Glucose Point of Care 127 mg/dL (70-110)
[2023-12-10 04:16] LABS: Glucose Point of Care 138 mg/dL (70-110)
[2023-12-10 05:16] LABS: Basophils % 0.3 %; Lymphocytes # 0.9 10^3/uL (0.8-4.8); Lymphocytes % 7.4 %; Mean Corpuscular HGB Conc 30.3 g/dL (30-55); Mean Corpuscular Hemoglobin 28.2 pg (27-33); Mean Corpuscular Volume 92.9 fl (85-98); Mean Platelet Volume 10.3 fL (7.4-10.4); Monocytes % 8.3 %; Neutrophils # 9.79 10^3/uL (1.8-7.7); Neutrophils % 81.6 %; Nucleated Red Blood Cells % 0 %; Platelet Count 301 10^3/cmm (157-399); Red Blood Count 3.23 10^6/uL (3.85-5.65); Red Cell Distribution Width 17.2 % (12.1-15.1); White Blood Count 11.99 10^3/uL (3.29-11.43)
[2023-12-10 05:31] LABS: Glucose Point of Care 142 mg/dL (70-110)
[2023-12-10 05:39] LABS: Alanine Aminotransferase 23 U/L (0-33); Alkaline Phosphatase 99 U/L (35-105); Anion Gap 16.7 (5-19); Aspartate Amino Transferase 27 U/L (0-32); Blood Urea Nitrogen 16 mg/dL (8-23); Calcium 8.9 mg/dL (8.5-10.5); Carbon Dioxide 24 mmol/L (22-29); Chloride 98 mmol/L (98-107); Creatinine Clr Calc Pharmacy 44.7237; Globulin 3.4 g/dL (1.3-4.6); Glucose 118 mg/dL (65-115); Osmolality Calculated 280 mOsm/kg (285-295); Potassium 4.7 mmol/L (3.5-5.1); Sodium 134 mmol/L (136-145); Total Bilirubin 0.6 mg/dL (0.15-1.2); Total Protein 6.4 g/dL (6.6-8.7)
[2023-12-10 06:07] LABS: Glucose Point of Care 142 mg/dL (70-110)
[2023-12-10] MEDS: ipratropium-albuterol 3 mL Neb INHALATION (07:54)
[2023-12-10 08:04] LABS: Glucose Point of Care 158 mg/dL (70-110)
[2023-12-10] MEDS: sennosides-docusate Tablet 1 TAB PO (08:39)
[2023-12-10] MEDS: midodrine 5 mg TABLET 10 MG PO ×3 (08:39→21:15)
[2023-12-10] MEDS: doxycycline 100 mg Tablet PO ×2 (08:39→17:17)
[2023-12-10] MEDS: nicotine 7 mg Patch 1 PATCH TRANSDERMA (08:40)
[2023-12-10 08:45] LABS: ABG PCO2 39.8 mmHg (35-45); Alveolar-Arterial Oxygen Gradi 15.7 mmHg (5-10); Arterial Blood Gas Hematocrit 31.1 % (37-47); Base Excess ABG -0.2 mmol/L (-2.0-2.0); Blood Gas Allen Test Pos; Blood Gas Operator Identificat BROMA; Blood Gas Sample Site Radial, left; Blood Gas Sample Type Arterial; Carboxyhemoglobin 0.8 %THgb (0.4-20.1); HCO3 ABG 24.6 mmol/L (22-26); Ionized Calcium Level - ABG 1.2 mmol/L (1.1-1.4); Oxygen Device BIPAP; Oxygen Saturation ABG 98.8; PO2 FiO2 Ratio Arterial Blood 282; Potassium Level - ABG 4.4 mmol/L (3.5-5.0); Total Hemoglobin 10.2 g/dL (12-16)
[2023-12-10 09:40] LABS: Glucose Point of Care 163 mg/dL (70-110)
[2023-12-10] MEDS: hydrocortisone 100 mg/2 mL SDV 50 MG IVP ×2 (11:56→22:48)
[2023-12-10] MEDS: meropenem 1,000 mg SDV 1000 MG IVP ×2 (11:56→22:48)
[2023-12-10 12:07] LABS: Glucose Point of Care 116 mg/dL (70-110)
[2023-12-10] MEDS: enoxaparin 40 mg/0.4 mL Syringe SUBCUT (15:00)
[2023-12-10] MEDS: aspirin 325 mg Tablet PO (17:17)
[2023-12-10] MEDS: allopurinol 100 mg Tablet PO (17:17)
[2023-12-10] MEDS: norepinephrine 4 MG/250 ML BAG 22.5 MG IV (17:52)
--- NOTE | 2023-12-10 18:53 | P.PN_ITS ---
Subjective 2 Subjective: Patient is much improved today. She is awake alert oriented x 3. Able to have a full conversation. Her grandson is currently at bedside. She does not recall the events of yesterday. States she is eager to leave the hospital now. Her mental status started improving close to 7 PM on December 09, 2023. No further fever after the 100.9 Fahrenheit noted yesterday. Medications: Reviewed: Yes Vitals/I&O/Wt Last Vital Signs Temp 98.6 F 12/10/23 18:00 Pulse 71 12/10/23 18:00 Resp 17 12/10/23 18:00 BP 127/56 12/10/23 18:00 Pulse Ox 94 12/10/23 18:00 O2 Del Method Nasal Cannula 12/10/23 18:00 O2 Flow Rate 4 12/10/23 18:00 FiO2 40 12/10/23 07:54 12/10/23 12/10/23 12/10/23 06:59 14:59 22:59 Intake Total 88.125 / 1270.125 841.0 / 841.0 333.625 / 1174.625 Output Total 1500 / 3250 650 / 650 400 / 1050 Balance -1411.875 / -1979.875 191.0 / 191.0 -66.375 / 124.625 Weight last 48 hrs Weight 96.933 kg Physical Exam 2 Narrative: General: No acute distress, AO x3 HEENT: PERRLA, pupils bilaterally equal and reactive, pallors not present Chest: Normal vesicular breath sounds, no added sounds, equal good air entry bilaterally CVS: S1-S2 regular, no murmurs, no tachycardia, no gallops, no rubs Abdomen: Soft, nontender, no organomegaly, bowel sounds present Neuro: No focal deficits, no facial deformity, AO x3, power 5/5 in all limbs Urinary Catheter Management: Morton: Cath Placed During This Visit: yes, but has since been removed by the nurse Reason for Continuing Indwelling Catheter: Accurate Measurement of Urinary Output in Critically Ill Patients Urinary Catheter Date of Insertion: 12/04/23 Urinary Catheter Time of Insertion: 17:48 Date Urinary Catheter Removed: 12/03/23 Time Urinary Catheter Discontinued: 13:11 Data 12/10/23 04:14 12/10/23 04:14 Micro: Microbiology 12/09/23 16:33 Blood Culture - Preliminary Blood NEGATIVE TO DATE 12/09/23 16:34 Blood Culture - Preliminary Blood NEGATIVE TO DATE 12/10/23 13:51 Occult Blood (FIT) - Final Stool Routine Collection A&P Assessment and plan (1) Hypotension: (2) Acute exacerbation of CHF (congestive heart failure): (3) Pulmonary edema: (4) Smoking: (5) Aortic stenosis: Qualifiers: Cardiac valve disease etiology: nonrheumatic Qualified Code(s): I35.0 - Nonrheumatic aortic (valve) stenosis (6) Severe pulmonary hypertension: (7) Fever: (8) UTI (urinary tract infection): (9) Pyelonephritis: (10) Adrenal insufficiency: (11) Severe aortic stenosis: (12) Acute respiratory distress: Plan #Generalized Weakness #Hypotension #Mod aortic valve stenosis, area 1.2c2, mean gradient 29.2, not a candidate for TAVR as per evaluation in [place] by Dr. Williamson 2021 #Acute on chronic hypoxia #Acute on chronic diastolic heart failure #Chronic gout #HANNAH - improving patient was recently discharged from the hospital for management of diastolic CHF exacerbation. She was discharged after her medications were adjusted. Her blood pressure was on the softer side and she was feeling weak and lethargic. She appeared dry. Blood pressure did improve with hydration. There was concern for pneumonia so she was placed on antibiotics. PE was ruled out. Home oxygen evaluation was done and patient was not requiring more than 2 L which is her baseline. Patient was asked to hold Lasix and her antihypertensives. She was given a referral to [place] to Dr. Williamson for TAVR evaluation. In 2021 however, patient was sent to Dr. Williamson at the [facility] to evaluate for TAVR.? 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 For this reason, she was found to be not an ideal candidate for TAVR. Patient presented to the hospital on 11/30 for generalized weakness. Chest x-ray showed pulmonary edema saturating 6 L nasal cannula. EKG negative for ischemia and tropes without delta change. Patient stated she did not take her diuretics at home and she has had recurrent falls. She denies any syncope. She stated she was getting worse because of low blood pressure. She was admitted for hypotension. She was started on midodrine and fludrocortisone. Gentle fluid hydration and Levophed given. Patient hypervolemic and hyponatremic. She has a guarded prognosis. Patient's echo done 10/2019 showed EF 60%, diastolic dysfunction, moderate aortic valve calcification, moderate aortic valve stenosis mean gradient 29.3, aortic valve area 1.2 cm? mild aortic valve regurgitation. Patient has been off Levophed in the last 24 hours. Blood pressures have improved. Hemoglobin stable at 9.8. Oxygenation has improved. Creatinine has improved. Patient would like to go to rehab and is agreeable for SNF. PT to evaluate on Monday. - Check PT, OT - Continue midodrine, fludracortisone - Patient agreeable to SNF placement if needed - Continue on lasix 20 daily. - Stop morphine orally .Switch to non-opioid - Continue nicotine patch - Senna/doc - K 20 meq daily - Check labs cbc, cmp, mag in am - avoid christine inhibitors, beta blockers - Consider cardiology consult - Transfer to floor today - consult case management. Pt wants to go to [facility]. Full Code DVT PPX: lovenox Plan for today December 04, 2023. Patient developed fever to 102.4 Fahrenheit. Stat blood cultures. check CXR. CBC CMP reviewed normal today. Add on liver function panel. Check ABG given that patient appears to be more lethargic. She is currently able to correctly tell me her name, Age, and whereabouts but has been more weak today per RN and family report. Remove Morton catheter. Check UA for UTI. D/c fludrocortisone , increase midodrine to 5mg TID to be titrated further based on response. CTa chest negative for PE on 11/26. GGOS noted on last CT. Check CXR. Further orders based on results of above testing. Hold lasix today, clinically dehydarated, increasing creat start empiric abc ceftriaxone and azithromycin while undergoing fevr source evaluation December 05, 2023 Patient is clinically feeling better today. Last fever yesterday at 10 AM. Moved to the ICU yesterday to start Levophed, currently at 6 afshan. With fever and hypotension concern for developing sepsis for which fever source evaluation was started and patient started on empiric antibiotics with piperacillin/tazobactam and IV vancomycin. UA positive for UTI. Urine culture pending. Blood culture taken, currently pending. Respiratory viral panel negative. CT of the chest abdomen and pelvis taken today to evaluate for hydronephrosis given rising creatinine and positive UA, study negative for the same but shows perinephric stranding which could be sales and marketing representative of possible pyelonephritis. Increase midodrine to 10 mg 3 times daily. Check random cortisol and TSH with a.m. labs. Clinically euvolemic, will hold Lasix again. Family at bedside December 06, 2023 Patient appearing to be more lethargic today. Tmax 99.8 Fahrenheit now after being afebrile for about 48 hours. Continues to be on Levophed, requirement increased today at 10 mics. Cheetah monitoring shows fluid responsive hypotension SVR 21%. Received 250 mL normal saline bolus x 2 following which Levophed requirement improved down to 6 mics. Patient is more awake and alert. Urine culture showing less than 5000 organisms, likely urine cultures trending to be negative given that patient was on outpatient antibiotics. Blood cultures so far negative to date Discontinue piperacillin/tazobactam, changed to meropenem 1 g IV every 12 hours renally dosed. Discontinue vancomycin as no current evidence of MRSA or other resistant organisms. Start doxycycline 100 mg p.o. twice daily while tick panel is pending. CT of the abdomen taken yesterday showing perinephric stranding which may represent pyelonephritis, however would expect patient to be improving at this point. Random cortisol returned at 7. Patient was previously on fludrocortisone. Additionally start hydrocortisone 100 mg IV every 6 hours for persisting hypotension possible adrenal insufficiency and monitor for response. Additionally start normal saline, at 50 cc an hour. Slow IV hydration given patient was recently admitted for CHF and needing diuresis. Echocardiogram to estimate ejection fraction. D-dimer screen to assess for possible PE. From October 2023 D-dimer noted to be greater than 20. Patient had a CTA of the chest on November 26 which did not show any PE. Check lower extremity Doppler. Holding off on CTA of the chest for now given acute kidney injury with creatinine uptrending. VQ scan not available. December 08, 2023. Echocardiogram showed LVEF of 70%, no regional wall motion abnormalities grade 3 diastolic dysfunction. Fluids were discontinued last evening. Blood pressure currently controlled. IV hydrocortisone was reduced to every 12 hours yesterday, today will change to p.o. hydrocortisone 10 mg twice daily. If patient sustains blood pressure, plan to move out of ICU today. Remains off Levophed. IV fluids discontinued. Cultures thus far negative. Tick panel pending for ehrlichiosis and rickettsial . Lyme negative December 09, 2023. Patient had several acute events today. At around 7 AM this morning patient was last noted to be normal. She was sitting on edge of the bed when she suddenly developed acute respiratory distress. Stated she had a rough time breathing, oxygen saturation dropped down to 82%. She was placed on a BiPAP ventilation. ABG taken on the BiPAP showed 7.41/38.6/75.8/20.9 on 40% FiO2. Oxygen saturations improved after being placed on BiPAP. Chest x-ray showed diffuse pulmonary edema which appeared to have worsened compared to prior x-rays. She received Lasix 40 mg IV with 600 cc of urine output. Patient was also noted to be hypoglycemic at the time of assessment with blood sugar only at 56. She received 10% dextrose 125 cc x 2, glucagon 1 mg IM. With these interventions glucose corrected between 1 50-200, however patient continued to be obtunded. She was not responding to either verbal or painful stimulus. This was an acute change. She was taken for a stat CT which was negative for any acute intracranial events. While in the CAT scan, her blood pressure dropped down to 59 systolic which necessitated initiation of Levophed infusion. Later in the day developed a fever of 100.9 Fahrenheit which resolved without any directed interventions. Levophed infusion quickly climbed to 20 mics. She had poor peripheral access and a central line was placed in the right femoral. A day prior steroids had been tapered down to hydrocortisone 10 mg twice daily, with hypoglycemia and hypotension, concern for adrenal insufficiency therefore hydrocortisone dose was increased to 50 mg IV every 12 hours again. At this point in time adrenal insufficiency is a presumed diagnosis for the patient. Random cortisol level taken while on fludrocortisone was at 7. Patient reports several months of recurrent hypotension which may be related to severe aortic stenosis, however given timeline of acute events after quick taper of steroids, cannot rule out adrenal insufficiency at this time. Unable to perform an ACTH stim test as patient is currently obtunded and critically ill. TSH is normal. Alternate cause of acute drop in blood pressure may be related to hemodynamic changes after administration of Lasix and inability of cardiac compensation due to . Patient has previously been referred for TAVR with Dr. Williamson in [place], it appears she was told she is a poor candidate due to heavy calcification. Aortic valve area is at 1.2 cm?. EKG and troponin series ordered with acute events, baseline troponin at 31, 2-hour at 33, unlikely ACS to be the explanation of her symptoms. With development of fever at 100.9 Fahrenheit Tmax, taken repeat blood cultures. Previous blood and urine cultures were negative. Patient continues to be on meropenem. For now patient is critically ill. December 10, 2023. Patient is much improved after the events of last night.. She was started on low-dose insulin sliding scale, however I will discontinue this given she hypoglycemic all morning yesterday. Levophed requirement is down to 4 mics today. She is alert awake able to have a full conversation. Oxygen requirement at 4 L/min via nasal cannula today. No further fever after the one-time spike of 100.9. Overall no infectious source has been found in spite of evaluation. UA was positive, however urine culture negative. Presumably this may have been due to prior antibiotic treatment and therefore would still treat this as a UTI. Empiric meropenem to continue for total treatment of 7 days. Repeat blood cultures taken yesterday. Continue doxycycline 100 mg twice daily as she had recently removed a tick. Lyme antibody negative, pending Ehrlichia and Rickettsia panel. Continue hydrocortisone 50 mg IV every 12 hours today. Attempt to wean down on Levophed. Continue midodrine 10 mg 3 times daily. Resume careful diuresis with Lasix 20 mg p.o. daily starting tomorrow and monitor for response. She is net -700 cc over last 24 hours. Holding off on Lasix today. Attestations 2 Medical Necessity Statement*: Needs continued ICU admission for Levophed infusion, maintain hemodynamics. Critical Care Time: The high probability of a clinically significant, sudden or life threatening deterioration of the patient's [respiratory, cardiac,endocrine] system(s) required my full and direct attention, intervention and personal management. The critical care time is as shown. This time is in addition to time spent performing any reported procedures but includes the following: [x] Data and vital sign review and interpretation [x] Patient assessment, examination and intervention [x] Documentation [x] Medication orders and management Critical Care Time (min): 45 Coding Level of Care Code Acute Code for Chg Fwd Diagnoses Hypotension I95.9 Acute exacerbation of CHF (congestive heart failure) I50.9 Pulmonary edema J81.1 Smoking F17.200 Nonrheumatic aortic valve stenosis I35.0 Cardiac valve disease etiology: nonrheumatic Severe pulmonary hypertension I27.20 Fever R50.9 UTI (urinary tract infection) N39.0 Pyelonephritis N12 Adrenal insufficiency E27.40 Severe aortic stenosis I35.0 Acute respiratory distress R06.03
--- NOTE | 2023-12-10 23:56 | PC.NURSE ---
Received report from JOEL Harris.
[2023-12-11] VITALS (65 sets, daily range): BP systolic 85–153; BP diastolic 37–74; PULSE 39–70; RESP 12–31; TEMP 36.2–36.8; O2SAT 89–99; BMI 38.5
[2023-12-11 00:36] LABS: Glucose Point of Care 139 mg/dL (70-110)
[2023-12-11 00:36] LABS: Glucose Point of Care 194 mg/dL (70-110)
[2023-12-11 02:50] LABS: Basophils % 0.2 %; Eosinophils # 0.1 10^3/uL (0.0-0.8); Eosinophils % 0.5 %; Hematocrit 28.4 % (36-47); Lymphocytes # 0.7 10^3/uL (0.8-4.8); Lymphocytes % 7.5 %; Mean Corpuscular HGB Conc 31.3 g/dL (30-55); Mean Corpuscular Hemoglobin 28.7 pg (27-33); Mean Corpuscular Volume 91.6 fl (85-98); Mean Platelet Volume 10.4 fL (7.4-10.4); Monocytes # 0.8 10^3/uL (0.2-0.9); Monocytes % 7.7 %; Neutrophils # 8.03 10^3/uL (1.8-7.7); Neutrophils % 81.7 %; Nucleated Red Blood Cells % 0 %; Platelet Count 263 10^3/cmm (157-399); Red Cell Distribution Width 17.2 % (12.1-15.1); White Blood Count 9.84 10^3/uL (3.29-11.43)
[2023-12-11 03:20] LABS: Alanine Aminotransferase 54 U/L (0-33); Alkaline Phosphatase 90 U/L (35-105); Aspartate Amino Transferase 81 U/L (0-32); Blood Urea Nitrogen 15 mg/dL (8-23); Calcium 8.9 mg/dL (8.5-10.5); Carbon Dioxide 26 mmol/L (22-29); Chloride 98 mmol/L (98-107); Creatinine Clr Calc Pharmacy 54.3394; Globulin 3.1 g/dL (1.3-4.6); Glucose 113 mg/dL (65-115); Magnesium 1.9 mg/dL (1.7-2.3); Osmolality Calculated 280 mOsm/kg (285-295); Sodium 134 mmol/L (136-145); Total Bilirubin 0.4 mg/dL (0.15-1.2); Total Protein 6.1 g/dL (6.6-8.7)
[2023-12-11 03:27] LABS: Anion Gap 14.4 (5-19); Potassium 4.4 mmol/L (3.5-5.1)
[2023-12-11] MEDS: norepinephrine 4 MG/250 ML BAG 15 MG IV (07:58)
[2023-12-11] MEDS: fludrocortisone 0.1 mg Tablet PO (08:04)
[2023-12-11] MEDS: doxycycline 100 mg Tablet PO ×2 (08:04→17:58)
[2023-12-11] MEDS: midodrine 5 mg TABLET 10 MG PO ×3 (08:04→20:04)
[2023-12-11] MEDS: FUROsemide 20 mg Tablet PO (08:04)
[2023-12-11] MEDS: nicotine 7 mg Patch 1 PATCH TRANSDERMA (08:07)
[2023-12-11 08:16] LABS: Glucose Point of Care 114 mg/dL (70-110)
--- NOTE | 2023-12-11 09:40 | PC.SOCIAL ---
IMM Update Pg. 2 of IMM updated. Initialed, dated, and timed. Copy provided at bedside.
[2023-12-11] MEDS: hydrocortisone 100 mg/2 mL SDV 50 MG IVP (11:09)
[2023-12-11] MEDS: meropenem 1,000 mg SDV 1000 MG IVP ×2 (11:09→22:51)
[2023-12-11] MEDS: water for injection-sterile 20 ML 240 ML (11:20)
--- NOTE | 2023-12-11 12:01 | P.PN_ITS ---
Subjective 2 Subjective: Patient is on Levophed I have added fludrocortisone and hydrocortisone p.o. regimen Discontinue Levophed and wean off Hopefully will be able to transfer out of ICU to [facility] once blood pressure is slightly stable Patient will be able to go to group home once medically stable No more hypoglycemic events She is eating breakfast Doing well Active complaints currently on 3 L oxygen Vitals/I&O/Wt Last Vital Signs Temp 97.6 F 12/11/23 04:00 Pulse 63 12/11/23 10:30 Resp 20 H 12/11/23 10:30 BP 89/48 12/11/23 10:30 Pulse Ox 96 12/11/23 10:30 O2 Del Method Nasal Cannula 12/11/23 07:45 O2 Flow Rate 3 12/11/23 07:45 FiO2 40 12/11/23 04:30 12/10/23 12/11/23 12/11/23 22:59 06:59 14:59 Intake Total 443.125 / 1284.125 94.75 / 1378.875 88.5 / 88.5 Output Total 600 / 1250 350 / 1600 Balance -156.875 / 34.125 -255.25 / -221.125 88.5 / 88.5 Weight last 48 hrs Weight 98.792 kg Weight 96.933 kg Physical Exam 2 Narrative: Clinically looks euvolemic without significant signs of swelling Currently on 3 L [place] Levophed Awake and alert GCS 15 Abdomen soft Eating breakfast Urinary Catheter Management: Morton: Cath Placed During This Visit: yes, but has since been removed by the nurse Reason for Continuing Indwelling Catheter: Accurate Measurement of Urinary Output in Critically Ill Patients Urinary Catheter Date of Insertion: 12/04/23 Urinary Catheter Time of Insertion: 17:48 Date Urinary Catheter Removed: 12/03/23 Time Urinary Catheter Discontinued: 13:11 Data 12/11/23 01:54 12/11/23 01:54 Micro: Microbiology 12/09/23 16:33 Blood Culture - Preliminary Blood NEGATIVE TO DATE 12/09/23 16:34 Blood Culture - Preliminary Blood NEGATIVE TO DATE 12/10/23 13:51 Occult Blood (FIT) - Final Stool Routine Collection A&P Assessment and plan (1) Acute exacerbation of CHF (congestive heart failure): (2) Severe aortic stenosis: (3) Adrenal insufficiency: (4) Acute respiratory distress: (5) Pulmonary edema: (6) Fever: (7) Smoking: Plan Tick fever/illness Continue doxycycline Tick panel is negative though Hypertension with hyperglycemia Concern for adrenal insufficiency Continue fludrocortisone and hydrocortisone at this point Discontinue stress dose steroid Wean off Levophed acute on chronic diastolic CHF Continue Lasix Develop pulm edema and CHF exacerbation currently doing well Moderate to severe aortic stenosis not a candidate for TAVR Acute on chronic hypoxia, Improving currently on 3 L nasal cannula Hypotension: Discontinue midodrine use fludrocortisone and hydrocortisone Full code Cardiac diet DVT prophylaxis high-dose aspirin and Lovenox Attestations 2 Medical Necessity Statement*: Can be transferred out of ICU once blood pressure is better Diagnoses Acute exacerbation of CHF (congestive heart failure) I50.9 Severe aortic stenosis I35.0 Adrenal insufficiency E27.40 Acute respiratory distress R06.03 Pulmonary edema J81.1 Fever R50.9 Smoking F17.200
[2023-12-11] MEDS: enoxaparin 40 mg/0.4 mL Syringe SUBCUT (15:11)
[2023-12-11 17:24] LABS: E. Chaffeensis AB IGG <1:64; E. Chaffeensis AB IGM <1:20
[2023-12-11 17:25] LABS: Glucose Point of Care 137 mg/dL (70-110)
[2023-12-11] MEDS: allopurinol 100 mg Tablet PO (17:58)
[2023-12-11] MEDS: aspirin 325 mg Tablet PO (17:58)
[2023-12-11] MEDS: acetaminophen 325 mg Tablet 650 MG PO (18:02)
[2023-12-11 20:06] LABS: Glucose Point of Care 113 mg/dL (70-110)
[2023-12-12] VITALS (50 sets, daily range): BP systolic 76–151; BP diastolic 43–76; PULSE 39–98; RESP 12–23; TEMP 36.8–36.9; O2SAT 91–98
[2023-12-12] MEDS: norepinephrine 4 MG/250 ML BAG 15 MG IV (00:40)
[2023-12-12 04:39] LABS: Glucose Point of Care 77 mg/dL (70-110)
[2023-12-12 05:31] LABS: Basophils % 0.4 %; Eosinophils # 0.1 10^3/uL (0.0-0.8); Eosinophils % 1.7 %; Lymphocytes # 0.9 10^3/uL (0.8-4.8); Lymphocytes % 11.9 %; Mean Corpuscular HGB Conc 30.3 g/dL (30-55); Mean Corpuscular Hemoglobin 28.5 pg (27-33); Mean Corpuscular Volume 93.9 fl (85-98); Mean Platelet Volume 10.4 fL (7.4-10.4); Monocytes # 0.6 10^3/uL (0.2-0.9); Monocytes % 7.4 %; Neutrophils # 5.65 10^3/uL (1.8-7.7); Neutrophils % 75.9 %; Nucleated Red Blood Cells % 0 %; Platelet Count 256 10^3/cmm (157-399); Red Blood Count 3.09 10^6/uL (3.85-5.65); Red Cell Distribution Width 17.4 % (12.1-15.1); White Blood Count 7.45 10^3/uL (3.29-11.43)
[2023-12-12 05:54] LABS: Anion Gap 14.8 (5-19); Blood Urea Nitrogen 18 mg/dL (8-23); Calcium 8.7 mg/dL (8.5-10.5); Carbon Dioxide 26 mmol/L (22-29); Chloride 99 mmol/L (98-107); Creatinine Clr Calc Pharmacy 49.4234; Glucose 77 mg/dL (65-115); Osmolality Calculated 283 mOsm/kg (285-295); Potassium 3.8 mmol/L (3.5-5.1); Sodium 136 mmol/L (136-145)
[2023-12-12 08:48] LABS: Glucose Point of Care 66 mg/dL (70-110)
[2023-12-12] MEDS: fludrocortisone 0.1 mg Tablet PO (08:58)
[2023-12-12] MEDS: glucagon 1 mg/mL KIT 1 mL IM (08:58)
[2023-12-12] MEDS: doxycycline 100 mg Tablet PO (08:59)
[2023-12-12] MEDS: midodrine 5 mg TABLET 10 MG PO (08:59)
[2023-12-12] MEDS: hydrocortisone 10 mg Tablet PO (08:59)
[2023-12-12] MEDS: nicotine 7 mg Patch 1 PATCH TRANSDERMA (09:01)
--- NOTE | 2023-12-12 09:47 | ECG_ITS ---
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 Measurements Intervals [place] Rate: 75 P: 52 SC: 177 QRS: 38 QRSD: 87 T: -41 QT: 372 QTc: 418 Interpretive Statements SINUS RHYTHM NONSPECIFIC T-WAVE ABNORMALITY Compared to ECG 12/10/2023 01:06:35 T-wave abnormality now present Sinus bradycardia no longer present Electronically Signed On 12-13-2023 6:35:13 CDT by Marizol Leiva M.D. [email or web address]
[2023-12-12 09:51] LABS: Glucose Point of Care 75 mg/dL (70-110)
--- NOTE | 2023-12-12 10:23 | P.TS_ITS ---
Transfer Summary Providers Date of Admission: 12/01/23 15:31 Date of Discharge/Transfer: 12/12/23 Attending Provider at Admission: Danna Massey MD Attending Provider at Transfer: Danna Massey MD Primary Care Provider: Mason Braswell DO Transfer Plans: Anticipated date of transfer: 12/12/23 . Diagnoses at Discharge Discharge Diagnosis (1) Acute exacerbation of CHF (congestive heart failure): Status: Acute (2) Severe aortic stenosis: Status: Acute (3) Adrenal insufficiency: Status: Acute Permanent problem details: This is a suspected diagnosis only (4) Acute respiratory distress: Status: Acute (5) Pulmonary edema: Status: Acute (6) Fever: Status: Acute (7) Smoking: Status: Acute Reason for Visit Reason for Visit hypotension Hospital Course Hospital Course 82-year-old female who carries history of severe aortic valve stenosis, was admitted to the hospital for management and evaluation of pulmonary edema, diastolic CHF (EF70%) exacerbation, at home uses 3 L of oxygen, this time she was requiring 6 L and we had to put her on BiPAP to decrease work of breathing, her blood pressure remained pretty soft MAP was consistently between 50 to 55 mmHg, cortisol random level was normal, patient had 2 events when her blood sugar dropped below 70, she did not experience diaphoresis or confusion but stated that she was feeling lightheaded and drained, she was put on fludrocortisone and hydrocortisone, stress dose steroids were given that did not improve her blood pressure we avoided midodrine considering bradycardia and CHF exacerbations, she was kept in the ICU on Levophed at 3 mics every time we were weaning her off Levophed her blood pressure would drop significantly, this case was discussed to Dr. Williamson at [facility] who graciously accepted the patient for evaluation of balloon valvuloplasty and TAVR. Patient and daughter updated Recent CTA chest rule out PE, Chest CTA 11/27/23 18:20 IMPRESSION: 1. No evidence of pulmonary embolism. 2. Diffuse interlobular septal thickening with areas of ground-glass opacification, mildly worsened compared to prior study. Nonspecific findings suggestive of pulmonary edema. Atypical infection or progression of interstitial disease could also cause this appearance. 3. Stable scattered micro nodules. Physical Exam Narrative: Awake and alert Signs of fluid load improving Currently on 3 L Pleasant cough Was able to lay flat Nonfocal neuroexam Afebrile Urinary Catheter Management: Morton: Cath Placed During This Visit: yes, but has since been removed by the nurse Reason for Continuing Indwelling Catheter: Accurate Measurement of Urinary Output in Critically Ill Patients Urinary Catheter Date of Insertion: 12/04/23 Urinary Catheter Time of Insertion: 17:48 Date Urinary Catheter Removed: 12/03/23 Time Urinary Catheter Discontinued: 13:11 TS Data Studies Completed and Pending Pending at discharge Category Date Time Status Adrenocorticotropic Hormone Routine Lab 12/09/23 15:51 Received Blood Culture Stat Lab 12/09/23 16:34 Results Fibrinogen Degradation Product Routine Lab 12/09/23 16:42 Received Tick Panel AM LABS Lab 12/06/23 04:10 Results Completed Studies During Hospitalization Category Date Time Status CT chest abdomen pelvis [[place] [id number] Cat Scan 12/05/23 09:53 Completed ] Routine CT head wo con* [id number] Stat Cat Scan 12/09/23 11:13 Completed CXRP [XR chest 1V portable [id number]] Routine Exams 12/04/23 11:18 Completed XR chest 1V portable [id number] Stat Exams 12/01/23 10:30 Completed XR chest 1V portable [id number] Stat Exams 12/09/23 08:25 [place] [id number] Routine Ultrasound 12/06/23 10:55 Completed CV. echo limited [id number] Routine Ultrasound 12/06/23 10:56 Completed Laboratory Last Values WBC 7.45 10^3/uL (3.29-11.43) 12/12/23 04:37 RBC 3.09 10^6/uL (3.85-5.65) L 12/12/23 04:37 Hgb 8.80 g/dL (11.27-16.99) L 12/12/23 04:37 Hct 29.0 % (36-47) L 12/12/23 04:37 MCV 93.9 fl (85-98) 12/12/23 04:37 MCH 28.5 pg (27-33) 12/12/23 04:37 MCHC 30.3 g/dL (30-55) 12/12/23 04:37 RDW 17.4 % (12.1-15.1) H 12/12/23 04:37 Plt Count 256 10^3/cmm (157-399) 12/12/23 04:37 MPV 10.4 fL (7.4-10.4) 12/12/23 04:37 Neut % (Auto) 75.9 % 12/12/23 04:37 Lymph % (Auto) 11.9 % 12/12/23 04:37 [place] % (Auto) 7.4 % 12/12/23 04:37 Eos % (Auto) 1.7 % 12/12/23 04:37 Baso % (Auto) 0.4 % 12/12/23 04:37 Neut # (Auto) 5.65 10^3/uL (1.8-7.7) 12/12/23 04:37 Lymph # (Auto) 0.9 10^3/uL (0.8-4.8) 12/12/23 04:37 [place] # (Auto) 0.6 10^3/uL (0.2-0.9) 12/12/23 04:37 Eos # (Auto) 0.1 10^3/uL (0.0-0.8) 12/12/23 04:37 Baso # (Auto) 0.0 10^3/uL (0.0-0.1) 12/12/23 04:37 Nucleated RBC % (auto) 0 % 12/12/23 04:37 Nucleated RBCs # 0.0 /100WBC 12/12/23 04:37 PT 14.80 SECONDS (12.1-14.9) 12/09/23 16:33 INR 1.12 (0.8-1.2) 12/09/23 16:33 APTT 28.4 SECONDS (23.9-36.7) 12/09/23 16:33 Fibrinogen 523 mg/dL (174-498) H 12/09/23 16:33 D-Dimer 12.62 ug/mLFEU (0-0.59) H 12/09/23 16:33 Specimen Type Arterial 12/09/23 17:35 Sample Site Radial, left 12/09/23 17:35 ABG pH 7.40 (7.35-7.45) 12/09/23 17:35 ABG pCO2 39.8 mmHg (35-45) 12/09/23 17:35 ABG pO2 113.0 mmHg (80.0-100.0) H 12/09/23 17:35 ABG PO2/FiO2 Ratio 282 12/09/23 17:35 ABG HCO3 24.6 mmol/L (22-26) 12/09/23 17:35 ABG O2 Saturation 98.8 12/09/23 17:35 ABG Base Excess -0.2 mmol/L (-2.0-2.0) 12/09/23 17:35 [place] Test Pos 12/09/23 17:35 A-a O2 Gradient 15.7 mmHg (5-10) H 12/09/23 17:35 Hematocrit 31.1 % (37-47) L 12/09/23 17:35 Hgb O2 Saturation 98.0 % (95-100) 12/09/23 17:35 Carboxyhemoglobin 0.8 %THgb (0.4-20.1) 12/09/23 17:35 Methemoglobin 0.0 % (0.4-1.5) L 12/09/23 17:35 Total Hemoglobin 10.2 g/dL (12-16) L 12/09/23 17:35 Sodium 132.0 mmol/L (131-143) 12/09/23 17:35 Potassium 4.4 mmol/L (3.5-5.0) 12/09/23 17:35 Glucose 202.0 mg/dL (70-115) H 12/09/23 17:35 Ionized Calcium 1.2 mmol/L (1.1-1.4) 12/09/23 17:35 O2 Delivery Device Bipap 12/09/23 17:35 O2 Liters/Min 3.0 % 12/04/23 12:21 FiO2 40.0 % 12/09/23 17:35 Juice Standardizer ID Broma 12/09/23 17:35 Sodium 136 mmol/L (136-145) 12/12/23 04:37 Potassium 3.8 mmol/L (3.5-5.1) 12/12/23 04:37 Chloride 99 mmol/L (98-107) 12/12/23 04:37 Carbon Dioxide 26 mmol/L (22-29) 12/12/23 04:37 Anion Gap 14.8 (5-19) 12/12/23 04:37 BUN 18 mg/dL (8-23) 12/12/23 04:37 Creatinine 1.0 mg/dL (0.5-0.9) H 12/12/23 04:37 GFR Calculation Not Reportable 12/12/23 04:37 Glucose 77 mg/dL (65-115) 12/12/23 04:37 POC Glucose 75 mg/dL (70-110) 12/12/23 09:46 Calculated Osmolality 283 mOsm/kg (285-295) L 12/12/23 04:37 Lactic Acid 2.1 mmol/L (0.5-2.2) 12/01/23 10:32 Lactic Acid (Sepsis) 2.1 mmol/L (0.5-2.2) 12/01/23 14:17 Lactate 1.1 mmol/L (0.5-2.2) 12/04/23 12:42 Calcium 8.7 mg/dL (8.5-10.5) 12/12/23 04:37 Magnesium 1.9 mg/dL (1.7-2.3) 12/11/23 01:54 Total Bilirubin 0.4 mg/dL (0.15-1.2) 12/11/23 01:54 GGT 27 U/L (5-36) 12/04/23 03:08 AST 81 U/L (0-32) H 12/11/23 01:54 ALT 54 U/L (0-33) H 12/11/23 01:54 Alkaline Phosphatase 90 U/L (35-105) 12/11/23 01:54 Lactate Dehydrogenase 682 U/L (135-214) H 12/04/23 03:08 Creatine Kinase 33 U/L (26-192) 12/01/23 10:32 Troponin T Baseline 31 ng/L (0-10) H 12/09/23 09:28 Troponin T 120 Minute 33.46 ng/L (0-10) H 12/09/23 11:00 Delta Troponin T 2.46 ABS# (0-10) 12/09/23 11:00 Troponin T Hi Sens 6Hr 37.25 ng/L (0-10) H 12/09/23 15:51 Troponin T Hi Sens 6Hr Delta 6.25 ng/L (0-12) 12/09/23 15:51 C-Reactive Protein 109.1 mg/L (0.0-4.9) H 12/02/23 03:13 NT-Pro-B Natriuret Pep 4133 pg/mL (0-450) H 12/05/23 03:35 Total Protein 6.1 g/dL (6.6-8.7) L 12/11/23 01:54 Albumin 3.0 g/dL (3.5-5.2) L 12/11/23 01:54 Globulin 3.1 g/dL (1.3-4.6) 12/11/23 01:54 Lipase 18 U/L (13-60) 12/01/23 10:32 Vitamin B12 697 pg/mL (232-1245) 12/03/23 04:00 Folate 5.7 ng/mL (4.8-37.3) 12/03/23 04:00 Procalcitonin 0.17 ng/mL (0-0.5) 12/01/23 10:32 TSH 0.41 uIU/mL (0.27-4.20) 12/06/23 04:10 Random Cortisol 7.18 ug/dL (2.47-19.5) 12/06/23 04:10 Urine Color Yellow (Yellow) 12/04/23 12:40 Urine Appearance Cloudy (CLEAR) A 12/04/23 12:40 Urine pH 5 (5-7) 12/04/23 12:40 Ur Specific [place] 1.025 (1.005-1.030) 12/04/23 12:40 Urine Protein 1+ (Negative) H 12/04/23 12:40 Urine Glucose (UA) Norm (Normal) 12/04/23 12:40 Urine Ketones 1+ (Negative) H 12/04/23 12:40 Urine Blood Trace (Negative) H 12/04/23 12:40 Urine Nitrate Positive (Negative) A 12/04/23 12:40 Urine Bilirubin Neg (Negative) 12/04/23 12:40 Urine Urobilinogen 4 mg/dL (Negative) H 12/04/23 12:40 Ur Leukocyte Esterase Trace (Negative) H 12/04/23 12:40 Urine RBC Rare /hpf (0-2) 12/04/23 12:40 Urine WBC 0-4 /hpf (0-5) H 12/04/23 12:40 Ur Squamous Epith Cells 0-4 /hpf (0-5) H 12/04/23 12:40 Amorphous Sediment Not Reportable 12/04/23 12:40 Urine Bacteria 2+ /hpf (NONE) H 12/04/23 12:40 Hyaline Casts 0-4 /lpf H 12/01/23 10:42 Urine Mucus Trace /hpf 12/01/23 10:42 Adenovirus (PCR) Not detected (NOT DETECT) 12/04/23 12:34 Lyme Ab (Western Blot) <0.90 index 12/06/23 04:10 C. pneumoniae DNA (PCR) Not detected (NOT DETECT) 12/04/23 12:34 Coronavirus 229E (PCR) Not detected (NOT DETECT) 12/04/23 12:34 E. chaffeensis IgG Ab <1:64 12/06/23 04:10 E. chaffeensis IgM Ab <1:20 12/06/23 04:10 E. chaffeensis Interp See note 12/06/23 04:10 E. chaffeensis Comment Not Reportable 12/06/23 04:10 Human Metapneumovir PCR Not detected (NOT DETECT) 12/04/23 12:34 Influenza A (H1) PCR Not detected (NOT DETECT) 12/04/23 12:34 Influ A (H1/09) PCR Not detected (NOT DETECT) 12/04/23 12:34 Influenza A (H3) PCR Not detected (NOT DETECT) 12/04/23 12:34 Influenza Type A (PCR) Not detected (NOT DETECT) 12/04/23 12:34 Influenza Type B (PCR) Not detected (NOT DETECT) 12/04/23 12:34 M. pneumoniae (PCR) Not detected (NOT DETECT) 12/04/23 12:34 Parainfluenza 1 (PCR) Not detected (NOT DETECT) 12/04/23 12:34 Parainfluenza 2 (PCR) Not detected (NOT DETECT) 12/04/23 12:34 Parainfluenza 3 (PCR) Not detected (NOT DETECT) 12/04/23 12:34 Parainfluenza 4 (PCR) Not detected (NOT DETECT) 12/04/23 12:34 RSV Type A (PCR) Not detected (NOT DETECT) 12/04/23 12:34 RSV Type B (PCR) Not detected (NOT DETECT) 12/04/23 12:34 Entero/Rhino (PCR) Not detected (NOT DETECT) 12/04/23 12:34 SARS-CoV-2 (PCR) Not detected (NOT DETECT) 12/04/23 12:34 SARS-CoV-2 Ag (Rapid) negative (Negative) 12/01/23 21:04 MRSA (PCR) Not detected (NOT DETECTED) 12/04/23 12:10 Radiology Impressions Chest/Abdomen/Pelvis CT 12/05/23 09:53 IMPRESSION: 1. No pneumonia or consolidation. Mild hazy attenuation throughout both lungs with mild improvement since the prior study of 11/26/2013. This may be related to patient's history of smoking. 2. Moderate cardiomegaly. 3. No free fluid or adenopathy within the abdomen or pelvis. 4. Mild perinephric stranding with no obstruction. 5. Morton catheter in good position. 6. No GI tract obstruction. 7. Mediastinal and hilar lymphadenopathy is difficult to exclude without IV contrast. Chest X-Ray 12/09/23 08:25 IMPRESSION: Interstitial pulmonary edema with cardiomegaly. Head CT 12/09/23 11:13 IMPRESSION: No large territorial infarct or intracranial bleed. ASSESSMENT: ASPECTS ([place] Stroke Program Early CT Score) is 10. Recent Clincial Data Last Vital Signs Temp 98.3 F 12/12/23 03:06 Pulse 81 12/12/23 08:52 Resp 18 12/12/23 08:52 BP 116/64 12/12/23 06:30 Pulse Ox 93 12/12/23 08:52 O2 Del Method Nasal Cannula 12/12/23 08:52 O2 Flow Rate 4 12/12/23 08:52 FiO2 40 12/11/23 04:30 Vital Signs Temp Pulse Resp BP Pulse Ox O2 Del Method O2 Flow Rate 12/12/23 08:52 81 18 93 Nasal Cannula 4 12/12/23 06:30 50 L 15 116/64 96 12/12/23 06:15 53 L 18 123/59 96 12/12/23 06:00 51 L 15 97/62 97 12/12/23 05:45 50 L 14 103/56 95 12/12/23 05:38 51 L 12/12/23 05:30 48 L 13 117/59 96 12/12/23 05:15 46 L 13 140/59 96 12/12/23 05:00 46 L 15 109/63 97 12/12/23 04:45 51 L 18 94/55 96 12/12/23 04:30 65 23 H 99/55 94 12/12/23 04:15 15 115/52 95 12/12/23 04:00 13 119/56 95 12/12/23 03:45 16 114/60 96 12/12/23 03:30 14 121/65 95 12/12/23 03:15 12 114/58 96 12/12/23 03:06 98.3 F 12/12/23 03:00 116/53 98 12/12/23 02:45 16 116/76 95 12/12/23 02:30 51 L 15 151/72 96 12/12/23 02:15 58 L 16 127/70 97 12/12/23 02:00 41 L 13 107/66 96 12/12/23 01:45 42 L 12 119/71 96 12/12/23 01:30 41 L 13 119/65 96 12/12/23 01:15 42 L 12 109/63 96 12/12/23 01:00 44 L 13 127/63 97 12/12/23 00:45 45 L 13 116/57 96 12/12/23 00:30 43 L 12 121/62 97 12/12/23 00:15 40 L 12 133/55 97 12/12/23 00:00 39 L 12 124/64 97 12/11/23 23:45 42 L 12 137/61 96 12/11/23 23:30 46 L 14 129/74 97 12/11/23 23:15 44 L 14 136/59 96 12/11/23 23:00 45 L 15 97/58 96 12/11/23 22:59 97.8 F 12/11/23 22:45 48 L 18 121/53 95 12/11/23 22:30 52 L 17 95 Intake & Output/Weight 12/10/23 12/11/23 12/12/23 12/13/23 06:59 06:59 06:59 06:59 Intake Total 1270.125 / 6796.492 2927.875 / 1378.875 382.25 / 382.25 16.687 / 16.687 Output Total 3250 / 3250 1600 / 1600 1300 / 1300 Balance -1978.875 / -1978.875 -221.125 / -221.125 -917.75 / -917.75 16.687 / 16.687 Weight 96.933 kg 98.792 kg 98.883 kg Vitals Last Vital Signs Temp 98.3 F 12/12/23 03:06 Pulse 81 12/12/23 08:52 Resp 18 12/12/23 08:52 BP 116/64 12/12/23 06:30 Pulse Ox 93 12/12/23 08:52 O2 Del Method Nasal Cannula 12/12/23 08:52 O2 Flow Rate 4 12/12/23 08:52 FiO2 40 12/11/23 04:30 TS Medications Medications Acetaminophen (Acetaminophen 325 Mg Tablet) 650 mg PO Q4H PRN PRN Reason: fever Last Admin: 12/11/23 18:02 Dose: 650 mg Albuterol/Ipratropium (Ipratropium-Albuterol 3 Ml Neb) 3 ml INHALATION Q6H PRN PRN Reason: SHORTNESS OF BREATH Last Admin: 12/10/23 07:54 Dose: 3 ml Allopurinol (Allopurinol 100 Mg Tablet) 100 mg PO QPM [facility] Last Admin: 12/11/23 17:58 Dose: 100 mg Aspirin (Aspirin 325 Mg Tablet) 325 mg PO QPM [facility] Last Admin: 12/11/23 17:58 Dose: 325 mg Doxycycline Monohydrate (Doxycycline 100 Mg Tablet) 100 mg PO BID [facility]; Protocol Last Admin: 12/12/23 08:59 Dose: 100 mg Enoxaparin Sodium (Enoxaparin 40 Mg/0.4 Ml Syringe) 40 mg SUBCUT Q24H [facility] Last Admin: 12/11/23 15:11 Dose: 40 mg Fludrocortisone Acetate (Fludrocortisone 0.1 Mg Tablet) 0.1 mg PO DAILY [facility] Last Admin: 12/12/23 08:58 Dose: 0.1 mg Furosemide (Furosemide 20 Mg Tablet) 20 mg PO EVERY OTHER DAY [facility] Hydrocortisone (Hydrocortisone 10 Mg Tablet) 10 mg PO DAILY [facility] Last Admin: 12/12/23 08:59 Dose: 10 mg Dextrose (D10w) 125 mls @ 750 mls/hr IV PRN PRN PRN Reason: HYPOGLYCEMIA Norepinephrine Bitartrate (Levophed) 4 mg in 250 mls @ 0 mls/hr IV .Q0M [facility]; Protocol Last Titration: 12/12/23 08:24 Dose: 2 mcg/min, 7.5 mls/hr Lanolin (Lanolin Oint 7 Gm) 1 applic TOPICAL PRN PRN PRN Reason: DRYNESS Last Admin: 12/10/23 00:45 Dose: 1 applic Meropenem (Meropenem 1,000 Mg Sdv) 1,000 mg IVP Q12H [facility]; Protocol Stop: 12/13/23 11:29 Last Admin: 12/11/23 22:51 Dose: 1,000 mg Midodrine (Midodrine 5 Mg Tablet) 10 mg PO TID [facility] Last Admin: 12/12/23 08:59 Dose: 10 mg Nicotine (Nicotine 7 Mg Patch) 1 patch TRANSDERMA DAILY [facility] Last Admin: 12/12/23 09:01 Dose: 1 patch Ondansetron HCl (Ondansetron 2 Mg/Ml Sdv 2 Ml) 4 mg IVP Q6H PRN PRN Reason: NAUSEA AND VOMITING Senna/Docusate Sodium (Sennosides-Docusate Tablet) 1 tab PO DAILY [facility] Last Admin: 12/12/23 09:01 Dose: Not Given Discontinued Medications Acetaminophen (Acetaminophen 500 Mg Tablet) 500 mg PO Q4H PRN PRN Reason: fever Aspirin (Aspirin 325 Mg Tablet) 81 mg PO QPM [facility] Last Admin: 12/01/23 19:00 Dose: Not Given Azithromycin (Azithromycin 250 Mg Tablet) 500 mg PO DAILY [facility]; Protocol Stop: 12/08/23 08:59 Last Admin: 12/05/23 07:51 Dose: 500 mg Ceftriaxone Sodium (Ceftriaxone 1,000 Mg Sdv) 1,000 mg IVP Q24H [facility]; Protocol Last Admin: 12/04/23 12:31 Dose: 1,000 mg Fludrocortisone Acetate (Fludrocortisone 0.1 Mg Tablet) 0.1 mg PO DAILY [facility] Last Admin: 12/03/23 08:51 Dose: 0.1 mg Furosemide (Furosemide 10 Mg/Ml Sdv 10ml) 20 mg IVP DAILY [facility] Last Admin: 12/03/23 08:52 Dose: 20 mg Furosemide (Furosemide 10 Mg/Ml Sdv 4ml) 40 mg IVP ONCE ONE Stop: 12/09/23 08:28 Last Admin: 12/09/23 08:55 Dose: 40 mg Furosemide (Furosemide 20 Mg Tablet) 20 mg PO DAILY@0800 [facility] Last Admin: 12/11/23 08:04 Dose: 20 mg Glucagon (Glucagon 1 Mg/Ml Kit 1 Ml) 1 mg IM ONCE ONE Stop: 12/09/23 09:42 Last Admin: 12/09/23 09:45 Dose: 1 mg Glucagon (Glucagon 1 Mg/Ml Kit 1 Ml) 1 mg IM NOW ONE Stop: 12/12/23 08:41 Last Admin: 12/12/23 08:58 Dose: 1 mg Glucose (Glucose 40% Gel 15 Gm Udc) 15 gm PO NOW ONE Stop: 12/09/23 10:12 Last Admin: 12/09/23 11:32 Dose: Not Given Hydrocortisone (Hydrocortisone 10 Mg Tablet) 10 mg PO BID [facility] Last Admin: 12/09/23 09:15 Dose: Not Given Hydrocortisone Sodium Succinate (Hydrocortisone 100 Mg/2 Ml Sdv) 100 mg IVP Q6H [facility] Last Admin: 12/07/23 05:02 Dose: 100 mg Hydrocortisone Sodium Succinate (Hydrocortisone 100 Mg/2 Ml Sdv) 100 mg IVP Q12H [facility] Last Admin: 12/08/23 14:00 Dose: 100 mg Hydrocortisone Sodium Succinate (Hydrocortisone 100 Mg/2 Ml Sdv) 50 mg IVP Q12H [facility] Last Admin: 12/11/23 11:09 Dose: 50 mg Norepinephrine Bitartrate (Levophed) 4 mg in 250 mls @ 0 mls/hr IV .Q0M [facility]; Protocol Last Titration: 12/02/23 08:45 Dose: 0 mcg/min, 0 mls/hr Norepinephrine Bitartrate (Levophed) Confirm Administered Dose 4 mg in 250 mls @ as directed .ROUTE .STK-MED ONE Stop: 12/01/23 11:51 Sodium Chloride (Sodium Chloride 0.9%) 250 mls @ 250 mls/hr IV ONCE ONE Stop: 12/04/23 17:00 Last Infusion: 12/04/23 17:30 Dose: Infused Norepinephrine Bitartrate (Levophed) 4 mg in 250 mls @ 0 mls/hr IV .Q0M [facility]; Protocol Vancomycin HCl / Sodium (Chloride) 250 mls @ 0 mls/hr [id number] PROTOCOL [facility]; Protocol Piperacillin Sod/Tazobactam (Sod / Sodium Chloride) 50 mls @ 0 mls/hr [id number] CONT [facility]; Protocol Norepinephrine Bitartrate (Levophed) 4 mg in 250 mls @ 0 mls/hr IV .Q0M [facility]; Protocol Last Titration: 12/07/23 00:02 Dose: 0 mcg/min, 0 mls/hr Piperacillin Sod/Tazobactam (Sod 3.375 gm/ Sodium Chloride) 50 mls @ 12.5 mls/hr IV Q8H [facility] Last Infusion: 12/06/23 15:19 Dose: Infused Vancomycin HCl 750 mg/ Sodium (Chloride) 250 mls @ 250 mls/hr IV Q24H [facility] Last Infusion: 12/06/23 07:43 Dose: Infused Sodium Chloride (Sodium Chloride 0.9%) 250 mls @ 250 mls/hr IV ONCE ONE Stop: 12/05/23 07:30 Last Infusion: 12/05/23 08:15 Dose: Infused Sodium Chloride (Sodium Chloride 0.9%) 250 mls @ 999 mls/hr IV .Q16M [facility] Stop: 12/06/23 12:15 Last Infusion: 12/06/23 15:18 Dose: Infused Sodium Chloride (Sodium Chloride 0.9%) 1,000 mls @ 999 mls/hr IV .Q1H1M [facility] Stop: 12/06/23 14:30 Last Admin: 12/06/23 15:19 Dose: Not Given Sodium Chloride (Sodium Chloride 0.9%) 250 mls @ 999 mls/hr IV .Q16M ONE Stop: 12/06/23 15:15 Last Infusion: 12/08/23 20:03 Dose: Infused Sodium Chloride (Sodium Chloride 0.9%) 1,000 mls @ 50 mls/hr IV .Q20H [facility] Last Infusion: 12/08/23 20:03 Dose: Infused Sterile Water (Water) Confirm Administered Dose 20 mls @ as directed .ROUTE .STK-MED ONE Stop: 12/07/23 22:48 Last Infusion: 12/07/23 23:39 Dose: Infused Dextrose (D10w) 125 mls @ 750 mls/hr IV PRN PRN PRN Reason: HYPOGLYCEMIA Last Infusion: 12/09/23 10:35 Dose: Infused Sterile Water (Water) Confirm Administered Dose 20 mls @ as directed .ROUTE .STK-MED ONE Stop: 12/09/23 12:23 Last Infusion: 12/09/23 12:41 Dose: Infused Sterile Water (Water) Confirm Administered Dose 20 mls @ as directed .ROUTE .STK-MED ONE Stop: 12/11/23 11:07 Last Infusion: 12/11/23 11:29 Dose: Infused Insulin Human Lispro (Insulin Lispro 100 Unit/1 Ml) 0 unit SUBCUT WM&BEDTIME [facility]; Protocol Last Admin: 12/10/23 08:40 Dose: 2 unit Midodrine (Midodrine 5 Mg Tablet) 5 mg PO BID [facility] Last Admin: 12/03/23 18:32 Dose: 5 mg Midodrine (Midodrine 5 Mg Tablet) 5 mg PO TID [facility] Last Admin: 12/05/23 07:51 Dose: 5 mg Morphine Sulfate (Morphine Ir 15 Mg Tablet) 15 mg PO Q6H PRN PRN Reason: MODERATE PAIN Potassium Chloride (Potassium Chloride Er 20 Meq Tablet) 20 meq PO DAILY [facility] Last Admin: 12/09/23 09:31 Dose: Not Given Prednisone (Prednisone 5 Mg Tablet) 5 mg PO DAILY [facility] Allergies No Known Allergies Allergy (Verified 11/02/23 14:54) Home Medications aspirin 325 mg tablet 325 mg PO QPM 11/27/20 [History Confirmed 12/01/23] vitamins A,C,[id number] 4,296 mcg-226 mg-90 mg capsule (ICaps AREDS) 1 cap PO BID 05/31/21 [History Confirmed 12/01/23] acetaminophen 500 mg tablet (Tylenol Extra Strength) 1,000 mg PO PRN PRN Pain 12/08/21 [History Confirmed 12/01/23] allopurinol 100 mg tablet 100 mg PO QPM 05/18/23 [History Confirmed 12/01/23] sennosides 8.6 mg-docusate sodium 50 mg tablet (Stool Softener-Laxative) 1 tab PO DAILY #30 tabs 11/03/23 [Rx Confirmed 12/01/23] potassium chloride 8 mEq tablet,extended release 8 meq PO DIRECTED PRN with lasix #180 tabs 11/06/23 [Rx Confirmed 12/01/23] coenzyme Q10 30 mg capsule 30 mg PO QPM 11/28/23 [History Confirmed 12/01/23] furosemide 40 mg tablet 40 mg PO DAILY@0800 PRN Weight Gain 12/01/23 [History Confirmed 12/01/23] omega 2-orp-uwf-fish oil 1,000 mg (120 mg-180 mg) capsule (Fish Oil) 1 cap PO QPM 12/01/23 [History Confirmed 12/01/23] Discharge Plan Discharge Patient Disposition: Xfer Other Condition: Stable Prescriptions: No Action ICaps AREDS 14,320-226-200 meyw-np-jwix capsule 1 cap PO BID aspirin 325 mg tablet 325 mg PO QPM Hold Instructions: Resume on 06/06/23. potassium chloride 8 mEq tablet extended release 8 meq PO DIRECTED PRN (Reason: with lasix) Qty: 180 0RF Rx Instructions: 1 tablet daily with 1 furosemide 2 tablets daily with 2 furosemide sennosides-docusate sodium [Stool Softener-Laxative] 8.6-50 mg Tablet 1 tab PO DAILY Qty: 30 0RF acetaminophen [Tylenol Extra Strength] 500 mg Tablet 1,000 mg PO PRN PRN (Reason: Pain) allopurinol 100 mg tablet 100 mg PO QPM coenzyme Q10 30 mg Capsule 30 mg PO QPM Fish Oil 1,000 mg (120 mg-180 mg) Capsule 1 cap PO QPM furosemide 40 mg tablet 40 mg PO DAILY@0800 PRN (Reason: Weight Gain) Referrals: [facility], [Occupational Therapist] - Mason Braswell DO [Primary Care Provider] - Patient Instructions: Opioid Safety Transfer Attestations Time Spent in Transfer Care: greater than 30 min Quality Metrics Clinical Quality Measures [ No reported AMI, CVA or VTE this stay] Coding Level of Care Code Acute Code for Chg Fwd Diagnoses Acute exacerbation of CHF (congestive heart failure) I50.9 Severe aortic stenosis I35.0 Adrenal insufficiency E27.40 Acute respiratory distress R06.03 Pulmonary edema J81.1 Fever R50.9 Smoking F17.200
[2023-12-12] MEDS: acetaminophen 325 mg Tablet 650 MG PO (10:36)
[2023-12-12 10:56] LABS: Estmated Average Glucose 120; Hemoglobin A1C 5.8 % (4.0-6.0)
[2023-12-12] MEDS: meropenem 1,000 mg SDV 1000 MG IVP (11:34)
[2023-12-12 11:49] LABS: Glucose Point of Care 117 mg/dL (70-110)
--- NOTE | 2023-12-12 12:15 | PC.NURSE ---
Report called to Elizabeth Bucio. Report given to Andrzej Reynolds RN. All questions answered.
--- NOTE | 2023-12-12 13:13 | PC.NURSE ---
Ambulance crew. [place] [facility] [place]AG[place] n[place]. PT to [facility]. Now in ambulance crew's care
--- NOTE | 2023-12-12 13:21 | PC.NURSE ---
Pt discharged with ambulance crew. Phone, glasses and small purse with her. All other belongings taken home by her daughter.
[2023-12-13 17:10] LABS: RMSF IGG NOT DETECTED; RMSF IGM NOT DETECTED
[2023-12-15 07:05] LABS: Adrenocorticotropic Hormone 6 pg/mL (6-50)
[2023-12-21 06:04] LABS: Fibrinogen Degradation Product 10 mcg/mL (LESS THAN 5)
== END 2023-12-12 13:15 | disposition short-term general hospital (02) | DRG 291 ==
LOC: ER 13:58 → ICU 15:32 → CSU 12-03 16:40 → ICU 12-04 17:00
PROVIDERS: Family Medicine; Internal Medicine; Student in an Organized Health Care Education/Training Program; Admitting Provider Internal Medicine; Emergency Provider Family Medicine; PCP Family Medicine; Visit Provider Internal Medicine
DX: I11.0 Hypertensive heart disease with heart failure (principal); I50.33 Acute on chronic diastolic (congestive) heart failure; J96.21 Acute and chronic respiratory failure with hypoxia; R57.0 Cardiogenic shock; N12 Tubulo-interstitial nephritis, not specified as acute or chronic; N39.0 Urinary tract infection, site not specified; J44.1 Chronic obstructive pulmonary disease with (acute) exacerbation; E87.1 Hypo-osmolality and hyponatremia; N17.9 Acute kidney failure, unspecified; I27.20 Pulmonary hypertension, unspecified; I35.0 Nonrheumatic aortic (valve) stenosis; F17.210 Nicotine dependence, cigarettes, uncomplicated; I95.9 Hypotension, unspecified; M54.16 Radiculopathy, lumbar region; M1A.9XX0 Chronic gout, unspecified, without tophus (tophi); Z11.52 Encounter for screening for COVID-19; Z99.81 Dependence on supplemental oxygen; Z79.82 Long term (current) use of aspirin; Z87.01 Personal history of pneumonia (recurrent)
CPT/HCPCS: 36415; 36416; 36592; 36600; 51702; 70450; 71045; 71250; 74176; 80048; 80051; 80053; 81001; 81015; 82024; 82274; 82330; 82533; 82550; 82607; 82746; 82803; 82805; 82962; 82977; 83036; 83605; 83615; 83690; 83735; 83880; 84145; 84443; 84450; 84460; 84484; 85025; 85362; 85378; 85384; 85610; 85730; 86140; 86618; 86666; 86757; 87040; 87086; 87426; 87486; 87581; 87633; 87641; 92610; 93005; 93308; 93970; 94640; 94660; 96365; 96367; 96372; 96374; 96376; 97110; 97116; 97161; 97530; 99285; 99291; J0696; J1610; J1650; J1720; J1815; J1940; J2185; J2543; J3370; J7030; J7050; J7799; J8499; Q0144

== ENCOUNTER 2023-12-23 14:19 | Emergency (ER) | payer MEDICARE, SELFPAY ==
[2023-12-23] VITALS (23 sets, daily range): BP systolic 50–99; BP diastolic 33–72; PULSE 66–121; RESP 9–28; TEMP 36.5–36.7; O2SAT 84–98; BMI 36.8
--- NOTE | 2023-12-23 14:22 | XRR_ITS ---
PROCEDURE INFORMATION: Exam: XR Chest Exam date and time: 12/23/2023 2:44 PM Age: 82 years old Clinical indication: Condition or disease; Patient HX: Chronic hypotension TECHNIQUE: Imaging protocol: Radiologic exam of the chest. Views: 1 view. COMPARISON: 1. CR (CHEST, ) 12/09/2023 8:[address] [place] [id number] 12/05/2023 2:47 PM FINDINGS: Lungs: Right lower lung calcified granuloma. Diffuse interstitial markings bilaterally. No consolidation. Pleural spaces: No substantial pleural effusion or pneumothorax. Heart/Mediastinum: Stable cardiomegaly. Heavy mitral annular calcification. Vasculature: Aortic atherosclerotic calcification. Bones/joints: Degenerative changes along the spine. XR/XR chest 1V portable IMPRESSION: 1. Diffuse pulmonary reticulation compatible with interstitial edema. 2. Stable cardiomegaly.
--- NOTE | 2023-12-23 14:22 | ECG_ITS ---
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 Measurements Intervals [place] Rate: 64 P: 56 MD: 171 QRS: 18 QRSD: 102 T: 150 QT: 423 QTc: 440 Interpretive Statements SINUS RHYTHM MODERATE T-WAVE ABNORMALITY, CONSIDER LATERAL ISCHEMIA [-0.1+ mV T-WAVE IN I/aVL/V5/V6] Compared to ECG 12/12/2023 09:47:06 Possible ischemia now present T-wave abnormality still present Electronically Signed On 12-24-2023 9:10:38 CDT by Anuj Sloan M.D. [id number] f
--- NOTE | 2023-12-23 14:36 | ED_ITS ---
HPI - General Adult 2 General: Chief complaint: General Medical Stated complaint: HYPOTENSION Time Seen by Provider: 12/23/23 14:21 History of Present Illness: 82-year-old female with a known history aortic stenosis has had problems with hypotension in the past presents to the emergency room with reported hypotension from residential she is on midodrine home they gave her 2 doses of that despite this it had not improved on arrival here pressure is in the 50 systolic range. Her main complaint was shortness of breath and weakness as well as a measured hypotension. She denies chest pain. Normally she is on 2 to 3 L she is not requiring 5 L by nasal cannula she denies any other symptoms she is awake and answers questions appropriately. Echocardiogram from December 06, 2023 shows an EF of 70% with moderate left ventricular hypertrophy and grade 3 of 4 systolic dysfunction markedly elevated filling pressures. Called to [facility] in [place] they were kind enough to read some of the discharge for me. According to the notes that we reviewed over the phone with them the patient did have some blood loss while in the hospital there although there is nothing that she could find explaining why or if they did not evaluation of the source of the blood loss she was transfused. She did receive a aortic valvuloplasty and they are scheduling an angiogram for later this month but according to the discharge summary she was not going to be a candidate for a TAVR. Patient is not currently on any anticoagulants other than aspirin. Associated symptoms: Deny chest pain, dyspnea or rash Related Data Home Medications Medication Instructions Recorded Confirmed aspirin 325 mg tablet 325 mg PO QPM 11/27/20 12/01/23 vitamins A,C,H-tagm-pwtpqz 4,296 1 cap PO BID 05/31/21 12/01/23 mcg-226 mg-90 mg capsule (ICaps AREDS) acetaminophen 500 mg tablet 1,000 mg PO PRN PRN Pain 12/08/21 12/01/23 (Tylenol Extra Strength) allopurinol 100 mg tablet 100 mg PO QPM 05/18/23 12/01/23 coenzyme Q10 30 mg capsule 30 mg PO QPM 11/28/23 12/01/23 furosemide 40 mg tablet 40 mg PO DAILY@0800 PRN Weight Gain 12/01/23 12/01/23 omega 3-bbs-muv-fish oil 1,000 mg 1 cap PO QPM 12/01/23 12/01/23 (120 mg-180 mg) capsule (Fish Oil) Previous Rx's Medication Instructions Recorded sennosides 8.6 mg-docusate sodium 1 tab PO DAILY #30 tabs 11/03/23 50 mg tablet (Stool Softener-Laxative) potassium chloride 8 mEq 8 meq PO DIRECTED PRN with 11/06/23 tablet,extended release lasix #180 tabs Allergies Allergy/AdvReac Type Severity Reaction Status Date / Time No Known Allergies Allergy Verified 11/02/23 14:54 Review of Systems 2 Const: Denies: fever(s) or chills Card: Denies: chest pain Resp: Denies: dyspnea GI: Denies: abdominal pain : Denies: dysuria, urinary frequency or urinary urgency Musc: Denies: neck pain or back pain Skin/Breast: Denies: rash PFSH ED 2 PFSH: Medical History Acute exacerbation of CHF (congestive heart failure) Pneumonia Hyponatremia Acute on chronic respiratory failure with hypoxemia Fatigue Hypoxia Acute exacerbation of chronic obstructive pulmonary disease (COPD) SOB (shortness of breath) Heart murmur Severe pulmonary hypertension Claudication Aortic valve stenosis Smoking Hypertension Aortic stenosis Patient was found to have dense calcium in the aortic annulus. For that reason, TAVR was canceled. Patient was offered a second opinion to go to [facility] in [place] . But she declined Surgical History Status post transcatheter aortic valve replacement (TAVR) using bioprosthesis S/P tonsillectomy Family History Brother Myocardial infarct Mother Stroke Social History Smoking and tobacco/nicotine status: current every day tobacco/nicotine user cigarettes Packs smoked per day: 1 Alcohol intake: never Substance/Drug Use: never Physical Exam 2 Const: COMMON NORMALS: no acute distress GENERAL APPEARANCE: cooperative and comfortable ORIENTATION/CONSCIOUSNESS: Yes awake, Yes oriented to person, Yes oriented to place and Yes oriented to time HENMT: COMMON NORMALS: normocephalic, atraumatic and hearing grossly normal bilaterally HEAD & SCALP: normocephalic and atraumatic Resp: COMMON NORMALS: normal respiratory effort, No retractions and No use of accessory muscles AUSCULTATION: crackles Cardio: COMMON NORMALS: regular rate and regular rhythm RATE: regular rate RHYTHM: regular rhythm HEART SOUNDS: Murmur heart sound present (3/6 systolic) GI: COMMON NORMALS: Soft to palpation and No hepatosplenomegaly present A USCULTATION: Yes normoactive bowel sounds PALPATION: Yes Soft to palpation, No Tenderness to palpation present (GI), No Guarding due to palpation present (GI) and Yes No hepatosplenomegaly present Extremity: COMMON NORMALS: normal to inspection, capillary refill normal and no calf tenderness OTHER: Trace lower extremity edema Neuro: SENSORIUM/ORIENTATION: Yes oriented to person, Yes oriented to place and Yes oriented to time Skin: COMMON NORMALS: no rashes or lesions noted GENERAL SKIN EXAM: no rashes or lesions noted Course 2 Vital Signs: Vital signs: Vital Signs Temperature 97.9 F 12/23/23 16:56 Pulse Rate 66 12/23/23 17:46 Respiratory Rate 12 12/23/23 17:29 Blood Pressure 99/72 12/23/23 17:46 Pulse Oximetry 97 12/23/23 17:46 Oxygen Delivery Me thod Nasal Cannula 12/23/23 17:46 Oxygen Flow Rate 6 12/23/23 17:46 MDM - General Adult Medical Decision Making No leukocytosis. Patient had hypotension with previous evaluation as well and was transferred received valvuloplasty. She does be appear to be in some mild heart failure. We initially tried dopamine she does not respond well with the time he began to get her pressure up her heart rate had significantly increased we switched her to Levophed. Lactate today is normal. Her BNP is in the upper range range it usually runs. She is awake and alert at this time there are no signs of sepsis. She is anemic with heme positive stool. Discussed admission with patient and family member. Hospitalist contacted for admission. Hospitalist requested transfer Lab Data 12/23/23 14:33 12/23/23 14:33 Radiology Impressions Chest X-Ray 12/23/23 14:22 IMPRESSION: 1. Diffuse pulmonary reticulation compatible with interstitial edema. 2. Stable cardiomegaly. Laboratory Results WBC 6.81 10^3/uL (3.29-11.43) 12/23/23 14:33 RBC 2.67 10^6/uL (3.85-5.65) L 12/23/23 14:33 Hgb 7.70 g/dL (11.27-16.99) L 12/23/23 14:33 Hct 24.2 % (36-47) L 12/23/23 14:33 MCV 90.6 fl (85-98) 12/23/23 14:33 MCH 28.8 pg (27-33) 12/23/23 14:33 MCHC 31.8 g/dL (30-55) 12/23/23 14:33 RDW 19.1 % (12.1-15.1) H 12/23/23 14:33 Plt Count 132 10^3/cmm (157-399) L 12/23/23 14:33 MPV 10.1 fL (7.4-10.4) 12/23/23 14:33 Neut % (Auto) 64.9 % 12/23/23 14:33 Lymph % (Auto) 16.7 % 12/23/23 14:33 Gove % (Auto) 13.5 % 12/23/23 14:33 Eos % (Auto) 3.5 % 12/23/23 14:33 Baso % (Auto) 0.4 % 12/23/23 14:33 Neut # (Auto) 4.41 10^3/uL (1.8-7.7) 12/23/23 14:33 Lymph # (Auto) 1.1 10^3/uL (0.8-4.8) 12/23/23 14:33 [place]ove # (Auto) 0.9 10^3/uL (0.2-0.9) 12/23/23 14:33 Eos # (Auto) 0.2 10^3/uL (0.0-0.8) 12/23/23 14:33 Baso # (Auto) 0.0 10^3/uL (0.0-0.1) 12/23/23 14:33 Nucleated RBC % (auto) 0 % 12/23/23 14:33 Nucleated RBCs # 0.0 /100WBC 12/23/23 14:33 Specimen Type Arterial 12/23/23 14:45 Sample Site Radial, left 12/23/23 14:45 ABG pH 7.41 (7.35-7.45) 12/23/23 14:45 ABG pCO2 41.6 mmHg (35-45) 12/23/23 14:45 ABG pO2 63.8 mmHg (80.0-100.0) L 12/23/23 14:45 ABG PO2/FiO2 Ratio 159 12/23/23 14:45 ABG HCO3 26.4 mmol/L (22-26) H 12/23/23 14:45 ABG O2 Saturation 92.4 12/23/23 14:45 ABG Base Excess 1.6 mmol/L (-2.0-2.0) 12/23/23 14:45 [place] Test N/a 12/23/23 14:45 A-a O2 Gradient 22.3 mmHg (5-10) H 12/23/23 14:45 Hematocrit 23.2 % (37-47) L 12/23/23 14:45 Hgb O2 Saturation 90.1 % (95-100) L 12/23/23 14:45 Carboxyhemoglobin 1.5 %THgb (0.4-20.1) 12/23/23 14:45 Methemoglobin 1.0 % (0.4-1.5) 12/23/23 14:45 Total Hemoglobin 7.6 g/dL (12-16) L 12/23/23 14:45 Sodium 130.0 mmol/L (131-143) L 12/23/23 14:45 Potassium 3.8 mmol/L (3.5-5.0) 12/23/23 14:45 Glucose 92.0 mg/dL (70-115) 12/23/23 14:45 Ionized Calcium 1.1 mmol/L (1.1-1.4) 12/23/23 14:45 O2 Delivery Device Nc 12/23/23 14:45 O2 Liters/Min 5.0 % 12/23/23 14:45 FiO2 40.0 % 12/23/23 14:45 Program Scheduler ID Amh 12/23/23 14:45 Sodium 133 mmol/L (136-145) L 12/23/23 14:33 Potassium 4.3 mmol/L (3.5-5.1) 12/23/23 14:33 Chloride 94 mmol/L (98-107) L 12/23/23 14:33 Carbon Dioxide 25 mmol/L (22-29) 12/23/23 14:33 Anion Gap 18.3 (5-19) 12/23/23 14:33 BUN 21 mg/dL (8-23) 12/23/23 14:33 Creatinine 1.9 mg/dL (0.5-0.9) H 12/23/23 14:33 GFR Calculation Not Reportable 12/23/23 14:33 Glucose 96 mg/dL (65-115) 12/23/23 14:33 Calculated Osmolality 279 mOsm/kg (285-295) L 12/23/23 14:33 Lactic Acid 1.6 mmol/L (0.5-2.2) 12/23/23 14:33 Calcium 8.0 mg/dL (8.5-10.5) L 12/23/23 14:33 Total Bilirubin 0.8 mg/dL (0.15-1.2) 12/23/23 14:33 AST 22 U/L (0-32) 12/23/23 14:33 ALT 9 U/L (0-33) 12/23/23 14:33 Alkaline Phosphatase 92 U/L (35-105) 12/23/23 14:33 Troponin T Baseline 59 ng/L (0-10) H 12/23/23 14:33 C-Reactive Protein 156.3 mg/L (0.0-4.9) H 12/23/23 14:33 NT-Pro-B Natriuret Pep 4613 pg/mL (0-450) H 12/23/23 14:33 Total Protein 5.4 g/dL (6.6-8.7) L 12/23/23 14:33 Albumin 2.9 g/dL (3.5-5.2) L 12/23/23 14:33 Globulin 2.5 g/dL (1.3-4.6) 12/23/23 14:33 Procalcitonin 0.43 ng/mL (0-0.5) 12/23/23 14:33 Random Cortisol 14.84 ug/dL (2.47-19.5) 12/23/23 14:33 Urine Color Dark yellow (Yellow) A 12/23/23 15:39 Urine Appearance Clear (CLEAR) 12/23/23 15:39 Urine pH 5.0 (5-7) 12/23/23 15:39 Ur Specific [place] 1.019 (1.005-1.030) 12/23/23 15:39 Urine Protein 1+ (Negative) A 12/23/23 15:39 Urine Glucose (UA) Negative (Normal) 12/23/23 15:39 Urine Ketones Trace (Negative) 12/23/23 15:39 Urine Blood Negative (Negative) 12/23/23 15:39 Urine Nitrate Negative (Negative) 12/23/23 15:39 Urine Bilirubin 1+ (Negative) H 12/23/23 15:39 Urine Urobilinogen 1.0 mg/dL (Negative) 12/23/23 15:39 Ur Leukocyte Esterase Trace (Negative) A 12/23/23 15:39 Urine RBC 0-2 /hpf (0-2) 12/23/23 15:39 Urine WBC 0-5 /hpf (0-5) 12/23/23 15:39 Ur Squamous Epith Cells 0-5 /hpf (0-5) 12/23/23 15:39 Amorphous Sediment Not Reportable 12/23/23 15:39 Urine Bacteria 2+ /hpf (NONE) H 12/23/23 15:39 Hyaline Casts 55.44 /lpf 12/23/23 15:39 Coarse Granular Casts 0-4 /lpf H 12/23/23 15:39 Blood Type O Positive 12/23/23 15:12 Rho(D) Type Rh positive 12/23/23 15:12 Antibody Screen Negative 12/23/23 15:12 Crossmatch See Detail 12/23/23 15:12 All radiology interpretation(s) finalized by discharge Discharge Plan Discharge Patient Disposition: Xfer Short-Term Hosp Clinical Impression: Acute exacerbation of CHF (congestive heart failure), Hypotension, Severe aortic stenosis, Diastolic congestive heart failure Condition: Stable Referrals: Mason Braswell DO [Primary Care Provider] - Coding Level of Care Code ED Woodyard Operator for Jeni Malhotra
[2023-12-23] MEDS: DOPamine drip 400 MG/250 ML PREMIX 17.69 MG IV (14:43)
[2023-12-23] MEDS: sodium chloride 0.9% 500 ML IV (14:44)
[2023-12-23 14:45] LABS: Basophils % 0.4 %; Eosinophils # 0.2 10^3/uL (0.0-0.8); Eosinophils % 3.5 %; Hematocrit 24.2 % (36-47); Lymphocytes # 1.1 10^3/uL (0.8-4.8); Lymphocytes % 16.7 %; Mean Corpuscular HGB Conc 31.8 g/dL (30-55); Mean Corpuscular Hemoglobin 28.8 pg (27-33); Mean Corpuscular Volume 90.6 fl (85-98); Mean Platelet Volume 10.1 fL (7.4-10.4); Monocytes # 0.9 10^3/uL (0.2-0.9); Monocytes % 13.5 %; Neutrophils # 4.41 10^3/uL (1.8-7.7); Neutrophils % 64.9 %; Nucleated Red Blood Cells % 0 %; Platelet Count 132 10^3/cmm (157-399); Red Blood Count 2.67 10^6/uL (3.85-5.65); Red Cell Distribution Width 19.1 % (12.1-15.1); White Blood Count 6.81 10^3/uL (3.29-11.43)
[2023-12-23 14:55] LABS: ABG PCO2 41.6 mmHg (35-45); ABG PH Result 7.41 (7.35-7.45); Alveolar-Arterial Oxygen Gradi 22.3 mmHg (5-10); Arterial Blood Gas Hematocrit 23.2 % (37-47); Base Excess ABG 1.6 mmol/L (-2.0-2.0); Blood Gas Operator Identificat AMH; Blood Gas Sample Site Radial, left; Blood Gas Sample Type Arterial; Carboxyhemoglobin 1.5 %THgb (0.4-20.1); HCO3 ABG 26.4 mmol/L (22-26); HGB O2 Sat 90.1 % (95-100); Ionized Calcium Level - ABG 1.1 mmol/L (1.1-1.4); Oxygen Device NC; Oxygen Saturation ABG 92.4; PO2 ABG 63.8 mmHg (80.0-100.0); PO2 FiO2 Ratio Arterial Blood 159; Potassium Level - ABG 3.8 mmol/L (3.5-5.0); Total Hemoglobin 7.6 g/dL (12-16)
[2023-12-23 15:00] LABS: Alanine Aminotransferase 9 U/L (0-33); Albumin Level 2.9 g/dL (3.5-5.2); Alkaline Phosphatase 92 U/L (35-105); Aspartate Amino Transferase 22 U/L (0-32); Blood Urea Nitrogen 21 mg/dL (8-23); Carbon Dioxide 25 mmol/L (22-29); Chloride 94 mmol/L (98-107); Globulin 2.5 g/dL (1.3-4.6); Glucose 96 mg/dL (65-115); Osmolality Calculated 279 mOsm/kg (285-295); Sodium 133 mmol/L (136-145); Total Bilirubin 0.8 mg/dL (0.15-1.2); Total Protein 5.4 g/dL (6.6-8.7)
[2023-12-23 15:01] LABS: Troponin(5th) Baseline 59 ng/L (0-10)
--- NOTE | 2023-12-23 15:01 | PC.NURSE ---
per Dr. Reyna to start Dopamine gtt @3mcg/kg/min, pt current b/p 51/
[2023-12-23 15:02] LABS: Anion Gap 18.3 (5-19); Creatinine Clr Calc Pharmacy 25.3605; Potassium 4.3 mmol/L (3.5-5.1)
--- NOTE | 2023-12-23 15:02 | PC.NURSE ---
pt normally wears 2-3L NC baseline, pt currently 92% on 5L NC.
[2023-12-23 15:42] LABS: Cortisol Random 14.84 ug/dL (2.47-19.5)
[2023-12-23 15:50] LABS: Charge for UA Resulting for Rev
[2023-12-23 15:53] LABS: Bilirubin Urine 1+ (Negative); Blood Urine Negative (Negative); Glucose Urine UA Negative (Normal); Ketones Urine Trace (Negative); Leukocyte Esterase Urine Trace (Negative); Nitrate Urine Negative (Negative); Protein Urine 1+ (Negative); Specific Gravity, Urine 1.019 (1.005-1.030); Urine Appearance Clear (CLEAR); Urine Color Dark Yellow (Yellow)
[2023-12-23 15:55] LABS: Hyaline Casts Urine 55.44 /lpf; RBC Urine 0-2 /hpf (0-2); Squamous Epithelial Cell Urine 0-5 /hpf (0-5); WBC Urine 0-5 /hpf (0-5)
[2023-12-23 16:00] LABS: Lactic Sepsis W/Reflex 1.6 mmol/L (0.5-2.2)
--- NOTE | 2023-12-23 16:02 | PC.NURSE ---
At approx 1420: pt hypotensive, placed in trendelenburg upon arrival to room, Dr. Reyna at bedside.
[2023-12-23 16:09] LABS: NT Pro B Type Natriuretic Pept 4613 pg/mL (0-450); Procalcitonin 0.43 ng/mL (0-0.5)
[2023-12-23 16:20] LABS: C Reactive Protein 156.3 mg/L (0.0-4.9)
--- NOTE | 2023-12-23 16:22 | ECG_ITS ---
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 Measurements Intervals [place] Rate: 98 P: 56 MA: 160 QRS: 34 QRSD: 99 T: 165 QT: 351 QTc: 449 Interpretive Statements SINUS RHYTHM NONSPECIFIC ST & T-WAVE ABNORMALITY Compared to ECG 12/23/2023 14:34:09 Possible ischemia no longer present T-wave abnormality still present Electronically Signed On 12-24-2023 9:13:17 CDT by Anuj Sloan M.D. [id number]
[2023-12-23] MEDS: norepinephrine 4 MG/250 ML BAG 7.5 MG IV (16:24)
[2023-12-23 16:30] LABS: Bacteria Urine 2+ /hpf
[2023-12-23 16:31] LABS: Coarse Granular Casts Urine 0-4 /lpf
[2023-12-23] MEDS: sodium chloride 0.9% 100 mL Bag 50 ML IV (16:31)
--- NOTE | 2023-12-23 17:02 | PC.NURSE ---
@7753: Report called to Matti Villagomez at [place], [place]. family and pt updated of transfer status
--- NOTE | 2023-12-23 17:28 | PC.NURSE ---
Report given to [facility] @1711 upon arrival, pt left ER @1727. Levophed gtt and RBC infusion sent with [facility] crew.
--- NOTE | 2023-12-23 17:44 | PC.NURSE ---
[facility] called to inform complications with flight, pt arrived back to facility approx @1740. pt in ER 13 at this time. see vitals
--- NOTE | 2023-12-23 18:10 | PC.NURSE ---
this nurse gave report to [facility] 12 crew, pt left ER @3259
== END 2023-12-23 18:12 | disposition short-term general hospital (02) ==
PROVIDERS: Family Medicine; Emergency Provider Family Medicine; PCP Family Medicine
DX: I11.0 Hypertensive heart disease with heart failure (principal); I50.30 Unspecified diastolic (congestive) heart failure; I95.9 Hypotension, unspecified; I35.0 Nonrheumatic aortic (valve) stenosis; J33.9 Nasal polyp, unspecified; F17.210 Nicotine dependence, cigarettes, uncomplicated
CPT/HCPCS: 36415; 36430; 36600; 51702; 71045; 80051; 80053; 81003; 81015; 82330; 82533; 82805; 83605; 83880; 84145; 84484; 85025; 86140; 86850; 86900; 86920; 93005; 96365; 96366; 96367; 99291; 99292; J1265; J7040; P9016